=== PATIENT | female | born 1970 | race Caucasian/White ===

== ENCOUNTER 2016-12-22 06:13 | Day surgery (SDC) | payer BC ==
[~2016-12-22 06:13] MED LIST: Lactated Ringers 1,000 ML IV SCH; Lidocaine 1%/Sod Bicarbonate in NS 8.4% 1 ML Syringe PRN; Sodium Chloride 0.9% 10 ML Syringe FLUSH PRN
[2016-12-22] MEDS ORDERED: Bupivacaine 0.5%/EPINEPHrine 1:200,000 50 ML MDV ONE (07:04)
[2016-12-22] MEDS ORDERED: Propofol 200 MG/20 ML SDV ONE (07:21)
[2016-12-22] MEDS ORDERED: fentaNYL 250 MCG/5 ML SDV ONE (07:21)
[2016-12-22] MEDS ORDERED: Midazolam 1 MG/ML 2 ML SDV ONE (07:21)
[2016-12-22] MEDS ORDERED: Ondansetron 4 MG/2 ML SDV ONE (07:29)
[2016-12-22] MEDS ORDERED: Dexamethasone 4 MG/ML 5 ML MDV ONE (07:29)
[2016-12-22] MEDS ORDERED: Ketorolac 30 MG/ML SDV ONE (07:29)
[2016-12-22] MEDS ORDERED: Lidocaine 1% 4 ML ONE (07:29)
[2016-12-22] MEDS ORDERED: Cyclobenzaprine 10 MG Tab PO PRN (07:33)
[2016-12-22] MEDS ORDERED: Ondansetron 4 MG/2 ML SDV IVPUSH PRN ×2 (07:33→08:35)
[2016-12-22] MEDS ORDERED: Ketorolac 30 MG/ML SDV IVPUSH PRN (07:33)
[2016-12-22] MEDS ORDERED: Morphine 15 MG Tab.ER PO SCH (07:45)
--- NOTE | 2016-12-22 07:45 | PCM.PREANE ---
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 symptoms Respiratory: Reports: no symptoms Cardiovascular: Reports: no symptoms GI: Reports: no symptoms Other: Reports: none - PHYSICAL ASSESSMENT O2 Sat by Pulse Oximetry: 100 RR: 10 Vital Signs: Last Vital Signs Temp 36.1 C 12/22/16 07:00 Pulse 85 12/22/16 07:00 Resp 10 L 12/22/16 07:00 BP 124/72 12/22/16 07:00 Pulse Ox 100 12/22/16 07:00 Height: 1.6 m Weight: 62.142 kg NPO Status Date: 12/21/16 NPO Status Time: 20:00 ASA Class: 3 Mental Status: alert & oriented x3 Airway Class: Mallampati = 1 Dentition: Reports: edentulous Thyro-Mental Finger Breadths: 3 Mouth Opening Finger Breadths: 5 ROM/Head Extension: full Respiratory Status: lungs clear to auscultation bilaterally Cardiovascular Status: regular rate & rhythm, normal S1, S2, no murmur, blood pressure WNL - LAB Values: reviewed labs - ALLERGIES Allergies/Adverse Reactions: Allergies Allergy/AdvReac Type Severity Reaction Status Date / Time codeine Allergy Intermediate Difficulty Verified 12/21/16 14:39 Breathing diclofenac sodium Allergy Intermediate Difficulty Verified 12/21/16 14:39 [From Voltaren] Breathing hydrocodone Allergy Intermediate Difficulty Verified 12/21/16 14:39 Breathing naproxen sodium [From Aleve] Allergy Intermediate Difficulty Verified 12/21/16 14:39 Breathing Penicillins Allergy Intermediate Difficulty Verified 12/21/16 14:39 Breathing pseudoephedrine HCl Allergy Intermediate Difficulty Verified 12/21/16 14:39 [From Sudafed] Breathing Sulfa (Sulfonamide Allergy Intermediate Difficulty Verified 12/21/16 14:39 Antibiotics) Breathing animal dander Allergy Difficulty Verified 12/21/16 14:39 Breathing bee pollen Allergy Cannot Verified 12/21/16 14:39 Remember fish derived Allergy Cannot Verified 12/21/16 14:39 Remember influenza virus vaccine, Allergy Rash Verified 12/21/16 14:39 specific Influenza Virus Vaccines Allergy Rash Verified 12/21/16 14:39 iodine Allergy Difficulty Verified 12/21/16 14:39 Breathing mold Allergy Difficulty Verified 12/21/16 14:39 Breathing nabumetone [From Relafen] Allergy Cannot Verified 12/21/16 14:39 Remember olive oil Allergy Difficulty Verified 12/21/16 14:39 Breathing pollen extracts Allergy Difficulty Verified 12/21/16 14:39 Breathing prednisone Allergy Difficulty Verified 12/21/16 14:39 Breathing wheat Allergy Difficulty Verified 12/21/16 14:39 Breathing DUST Allergy Difficulty Uncoded 12/21/16 14:39 Breathing - BLOOD Blood Available: No - ANESTHESIA PLAN Preop Beta Aleah: No Anesthesia Type Planned: general anesthesia - ACKNOWLEDGEMENTS Pt an appropriate candidate for the planned anesthesia: Yes Alternatives and risks of anesthesia discussed w pt/guardian: Yes Pt/Guardian understands and agree with anesthesia plan: Yes PreAnesthesia Questionnaire HEENT 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: Allergic rhinitis, Sinusitis Cardiovascular 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: None Respiratory 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: Asthma Other Respiratory History: Moderate snoring Gastrointestinal 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: GERD, GI bleed, Helicobacter pylori, PUD Genitourinary 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: Other (see below) Other Genitourinary History: bilirubenimia, dysuria, UTI 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: , Other (see below) (hysterectomy) Other OB/BYN History: history of ovarian cyst Other Musculoskeletal History: degenerative tear of medial meniscus (L), knee pain, patellar malignant syndrome (bilateral),osteochondrosis synovitis of knee , L patellar chrondromalacia, L knee cintusion, R knee locking, R knee contusion , L hip greater trochanter bursitis Neurological 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: Migraines Psychiatric 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: None Endocrine/Metabolic 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: None Hematologic 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: None Immunologic 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: None Oncologic (Cancer) 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: None Dermatologic 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: Other (see below) Other Dermatologic History: sebaceous cyst - Past Surgical History Head Surgeries/Procedures: Reports: None HEENT Surgical 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: Tonsillectomy Other HEENT Surgeries/Procedures: has dentures and partial GI Surgical 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: Bariatric procedure, Cholecystectomy Other GI Surgeries/Procedures: 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 Second Hand Smoke Exposure: Yes Days Per Week of Alcohol Use: 0 Recreational Drug Use History: No - HOME MEDS Home Medications: Home Meds Cetirizine HCl [Allergy Relief] 10 mg PO DAILY 10/27/14 [History] Fluticasone/Salmeterol [Advair HFA 45-21 MCG] 2 puff INH BID 10/27/14 [History] Ipratropium/Albuterol Sulfate [Iprat-Albut 0.5-3(2.5) MG/3 ML] 1 puff INH Q4H PRN 10/27/14 [History] Fexofenadine [Maria Luisa] 180 mg PO DAILY 08/31/15 [History] Fluticasone Propionate [Flonase] 1 spray NASBOTH BID 08/31/15 [History] Montelukast [Singulair] 10 mg PO DAILY 08/31/15 [History] Omeprazole Magnesium [Prilosec Otc] 40 mg PO DAILY 09/22/16 [History] Ca Carbonate/Vitamin D3/Vit K [Calcium + D Soft Chewable Tab] 1 tab PO DAILY [History] Cyanocobalamin (Vitamin B-12) [Vitamin B-12] 1 tab PO DAILY 10/05/16 [History] Cyclobenzaprine [Flexeril] 1 tab PO TID PRN 10/05/16 [History] Multivitamin [One Daily] 1 tab PO DAILY 10/05/16 [History] SUMAtriptan Succinate [Sumatriptan Succinate] 1 tab PO ASDIRECTED PRN 10/05/16 [ History] Celecoxib 200 mg PO DAILY 12/21/16 [History] Estradiol [Estradiol] 1 tab PO DAILY 12/21/16 [History] Gabapentin [Neurontin] 100 mg PO TID 12/21/16 [History] - CURRENT (IN HOUSE) MEDS Current Meds: Current Medications Cyclobenzaprine HCl (Flexeril) 10 - 20 mg PO Q8H PRN PRN Reason: Muscle Spasm Stop: 12/22/16 18:00 Lactated Ringer's (Ringers, Lactated) 1,000 mls @ 125 mls/hr IV ASDIRECTED FLAQUITO Stop: 12/22/16 23:00 Ketorolac Tromethamine (Toradol) 30 mg IVPUSH Q6H PRN PRN Reason: Pain (severe 7-10) Stop: 12/22/16 18:00 Lidocaine/Sodium Bicarbonate (Buffered Lidocaine 1% In Ns 8.4%) 0.25 ml .XX ONETIME PRN PRN Reason: Prior to IV Start Stop: 12/22/16 18:00 Morphine Sulfate (Ms Contin) 15 mg PO ONETIME FLAQUITO Stop: 12/22/16 18:00 Ondansetron HCl (Zofran) 4 mg IVPUSH Q4H PRN PRN Reason: Nausea/Vomiting Stop: 12/22/16 18:00 Sodium Chloride (Saline Flush) 10 ml FLUSH ASDIRECTED PRN PRN Reason: Keep Vein Open Stop: 12/22/16 18:00 Discontinued Medications Bupivacaine HCl/Epinephrine Bitart (Marcaine 0.5%/Epinephrine 1:200,000) Confirm Administered Dose 50 ml .ROUTE .STK-MED ONE Stop: 12/22/16 07:05 Dexamethasone (Dexamethasone) Confirm Administered Dose 20 mg .ROUTE .STK-MED ONE Stop: 12/22/16 07:30 Epinephrine HCl (Adrenalin 1:1000) Confirm Administered Dose 30 mg .ROUTE .STK- MED ONE Stop: 12/22/16 07:06 Fentanyl (Sublimaze) Confirm Administered Dose 250 mcg .ROUTE .STK-MED ONE Stop: 12/22/16 07:22 Lidocaine HCl (Xylocaine-Mpf 1%) Confirm Administered Dose 4 mls @ as directed .ROUTE .STK-MED ONE Stop: 12/22/16 07:30 Ketorolac Tromethamine (Toradol) Confirm Administered Dose 30 mg .ROUTE .STK- MED ONE Stop: 12/22/16 07:30 Midazolam HCl (Versed 1 Mg/Ml) Confirm Administered Dose 2 mg .ROUTE .STK-MED ONE Stop: 12/22/16 07:22 Ondansetron HCl (Zofran) Confirm Administered Dose 4 mg .ROUTE .STK-MED ONE Stop: 12/22/16 07:30 Propofol (Diprivan 20 Ml) Confirm Administered Dose 600 mg .ROUTE .STK-MED ONE Stop: 12/22/16 07:22
[2016-12-22] MEDS ORDERED: ceFAZolin 1 GM Vial ONE (08:21)
[2016-12-22] MEDS ORDERED: Ketamine 500 mg/10 ML MDV ONE (08:22)
[2016-12-22] MEDS: EPINEPHrine 1:1000 1 MG/ML 30 ML MDV ONE ×2 (08:25→11:20)
[2016-12-22] MEDS ORDERED: Acetaminophen 1,000 MG/100 ML Infusion Bottle IV ONE (08:34)
[2016-12-22] MEDS ORDERED: fentaNYL 100 MCG/2 ML SDV IVPUSH PRN (08:35)
[2016-12-22] MEDS ORDERED: diphenhydrAMINE 50 MG/ML SDV IVPUSH PRN (08:35)
[2016-12-22] MEDS ORDERED: HYDROmorphone 1 MG/ML Syringe ONE (08:52)
[2016-12-22] MEDS ORDERED: Meperidine PF 50 MG/ML Syringe IVPUSH PRN (09:40)
[2016-12-22] MEDS ORDERED: HYDROmorphone 0.5 MG/0.5 ML Syringe IVPUSH PRN (09:40)
--- NOTE | 2016-12-22 09:42 | PCM.POSTAN ---
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
[2016-12-22 11:12] VITALS: BP 127/70
--- NOTE | 2016-12-22 13:33 | PCM48HPAN ---
Post Anesthesia Note - EVALUATION WITHIN 48HRS OF ANESTHETIC Vital Signs in Normal Range: Yes Patient Participated in Evaluation: Yes Respiratory Function Stable: Yes Airway Patent: Yes Cardiovascular Function Stable: Yes Hydration Status Stable: Yes Pain Control Satisfactory: Yes Nausea and Vomiting Control Satisfactory: Yes Mental Status Recovered: Yes - COMMENTS/OBSERVATIONS Free Text/Narrative:: Report received from [facility]. Patient stable and met discharge criteria.
--- NOTE | 2016-12-22 13:48 | OR ---
DATE OF OPERATION: 12/22/2016 SURGEON: Ildefonso Rodrigez MD PREOPERATIVE DIAGNOSIS: 1. Fibrous adhesions, right knee, post arthroscopic surgery. 2. Fibrous contracture lateral retinaculum, right patella, right knee. POSTOPERATIVE DIAGNOSIS: 1. Fibrous adhesions, right knee, post arthroscopic surgery. 2. Fibrous contracture lateral retinaculum, right patella, right knee. OPERATION PERFORMED: 1. Irrigation and debridement of the right knee. 2. Arthroscopic removal of adhesions, right knee. 3. Lateral release of the right patella arthroscopically, right knee. ANESTHESIA: General. DESCRIPTION OF PROCEDURE: The patient was taken to the operating room in supine, placed under general anesthesia. The right leg was prepped and draped in standard fashion. Operation began with 2 portal incision. The patient's initial joint evaluation found where a cortisone injections that had been deposited in the joint area, these were removed. There was significant fibrous adhesions anteriorly coming off the tibia and extending towards the medial portal area causing a significant contracture of the anterior tissues of the joint. The adhesions were present and tightness present on both sides of the portal. These were released. Once released, it was found that the tension on the medial meniscus also relieved in that area. Once those adhesions were removed, the operation proceeded with inspection of the medial joint area. The condylar surface of the tibia showed mild osteochondrosis being present. The previous osteochondroplasty of the medial femoral condyle showed a mature coverage of scarred type cartilage formation after the osteochondroplasty had been performed. There was some loose edges that were just slightly removed. The operation then proceeded with inspection of the medial side of the patella area. Again, the tightness of the adhesion extending up was just released such that the pressure was taken on the medial soft of the medial side of the patella. Once these adhesions were released, the anterior portion of the joint was more clearly visualized and the area in and around the medial meniscus also was visualized and probed. From the posterior horn anteriorly, no recurrent tears were noted. There was significant roughening of the superior surface of the meniscus in the midline area right in the region of the osteochondroplasty. This was lightly smoothed out and then the operation proceeded to the intercondylar notch area and the cruciate ligaments were intact. Then, the lateral compartment was then evaluated. The lateral meniscus was found to be intact. It had fraying of the central edges which were lightly smoothed with the ArthroCare unit. The condylar surfaces were intact. There was also adhesions off the lateral portal extending anteriorly and these were released. Then, the operation proceeded with inspection of the patella. The patellofemoral joint was very tight and unable to move the patella to slide an arthroscope on direct realizing that the lateral retinaculum had reattached itself from a previous lateral release of the patella. This was visualized on the MRI. The scarred lateral retinaculum was then isolated and on new release was carried out beginning from the lateral portal and extending up to just above the superior pole of patella on the lateral side of the patella. Once it was released, then the patellofemoral joint opened up very nicely. There was a good movement of the patella. The tightness of the joint itself was significantly reduced such that the arthroscope could be passed on the patella with minimal difficulty. The operation then proceeded with dropping of the tourniquet. After it was satisfied, both the medial compartment and lateral compartment were intact and the suprapatellar area was intact. Evaluation of the lateral release site found no bleeding coming in the area of the lateral geniculate artery or in the artery itself. The operation then proceeded with final irrigation of the joint area. The skin was closed with 3-0 Prolene. Haddad dressing was applied. The patient tolerated this whole procedure well and left the operative room in stable condition to her room for recovery. ESTIMATED BLOOD LOSS: CATARINO /[id number]
== END 2016-12-22 11:40 | disposition home or self-care (01) ==
LOC: JD.SDS 06:13
PROVIDERS: ATTEND Specialist
DX: M24.561 Contracture, right knee (principal); K21.9 Gastro-esophageal reflux disease without esophagitis; E66.01 Morbid (severe) obesity due to excess calories; Z88.8 Allergy status to other drugs, medicaments and biological substances; Z88.2 Allergy status to sulfonamides; Z88.6 Allergy status to analgesic agent; Z91.030 Bee allergy status; J30.81 Allergic rhinitis due to animal (cat) (dog) hair and dander; Z88.0 Allergy status to penicillin; Z91.013 Allergy to seafood; Z79.899 Other long term (current) drug therapy; Z90.710 Acquired absence of both cervix and uterus; Z98.51 Tubal ligation status; Z98.84 Bariatric surgery status; F17.210 Nicotine dependence, cigarettes, uncomplicated; Z72.0 Tobacco use
CPT/HCPCS: 01400; 87075; 87205; A9270-GY; J0171; J0690; J1100; J1170; J1885; J2250; J2405; J2704; J3010; J7120

== ENCOUNTER 2017-02-08 07:38 | Emergency (ER) | payer BC ==
[2017-02-08] MEDS ORDERED: Metoclopramide 10 MG/2 ML SDV IVPUSH ONE (07:57)
[2017-02-08] MEDS ORDERED: diphenhydrAMINE 50 MG/ML SDV IVPUSH ONE (07:58)
[2017-02-08] MEDS ORDERED: Sodium Chloride 0.9% 1,000 ML IV SCH (08:00)
--- NOTE | 2017-02-08 08:01 | EDM.PDOC ---
ED HPI RENAL/ - General Chief Complaint: Abdominal Pain Stated Complaint: [facility] Time Seen by Provider: 02/08/17 07:56 Source of Information: Reports: Patient History Limitations: Reports: No limitations - History of Present Illness INITIAL COMMENTS - FREE TEXT/NARRATIVE: 46-year-old female presents to the ED per [facility]. She reports is around 0600 hours this morning shortly after she got up for the day she developed sudden onset of severe right flank and right rahat-abdominal pain radiate down to her right groin. Pain gradually increased in intensity over the ensuing hour. Associated nausea without any vomiting. Associated feeling of need to void and defecate. She fell down position troubles to settle in the yassine. Any blood in her urine this morning. No history of previous kidney stones. Previous abdominal surgery includes a cholecystectomy and a total abdominal hysterectomy and BSO. She did receive a milligram of morphine en route to hospital with some relief of the pain. Currently is 8/10. Pain is constant with a strong colicky component primarily in her right flank. Symptom Onset Date: 02/08/17 Symptom Onset Time: 06:00 Timing/Duration: Reports: Hour(s):, Sudden onset Location: Reports: flank (Right flank with radicular pain into the right hemiabdomen down to the groin.) Quality: Reports: ache, cramping, stabbing Severity: severe Improves with: Reports: other Context: Reports: other (Pain started shortly after she woke up for the day.). Denies: sick contact, recent surgery (Nothing seems to make it better or worse.) , recent trauma, lifting, activity/exercise Associated Symptoms: Reports: frequency, urgency, voiding small amounts. 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 (see below) (Receive morphine 1 mg en route to the hospital.) - Related Data Allergies/ADRs: Allergies Allergy/AdvReac Type Severity Reaction Status Date / Time codeine Allergy Intermediate Difficulty Verified 02/08/17 07:45 Breathing diclofenac sodium Allergy Intermediate Difficulty Verified 02/08/17 07:45 [From Voltaren] Breathing hydrocodone Allergy Intermediate Difficulty Verified 02/08/17 07:45 Breathing naproxen sodium [From Aleve] Allergy Intermediate Difficulty Verified 02/08/17 07:45 Breathing Penicillins Allergy Intermediate Difficulty Verified 02/08/17 07:45 Breathing pseudoephedrine HCl Allergy Intermediate Difficulty Verified 02/08/17 07:45 [From Sudafed] Breathing Sulfa (Sulfonamide Allergy Intermediate Difficulty Verified 02/08/17 07:45 Antibiotics) Breathing animal dander Allergy Difficulty Verified 02/08/17 07:45 Breathing bee pollen Allergy Cannot Verified 02/08/17 07:45 Remember fish derived Allergy Cannot Verified 02/08/17 07:45 Remember influenza virus vaccine, Allergy Rash Verified 02/08/17 07:45 specific Influenza Virus Vaccines Allergy Rash Verified 02/08/17 07:45 iodine Allergy Difficulty Verified 02/08/17 07:45 Breathing mold Allergy Difficulty Verified 02/08/17 07:45 Breathing nabumetone [From Relafen] Allergy Cannot Verified 02/08/17 07:45 Remember olive oil Allergy Difficulty Verified 02/08/17 07:45 Breathing pollen extracts Allergy Difficulty Verified 02/08/17 07:45 Breathing prednisone Allergy Difficulty Verified 02/08/17 07:45 Breathing wheat Allergy Difficulty Verified 02/08/17 07:45 Breathing DUST Allergy Difficulty Uncoded 02/08/17 07:45 Breathing Home Meds: Home Meds Cetirizine HCl [Allergy Relief] 10 mg PO DAILY 10/27/14 [History] Fluticasone/Salmeterol [Advair HFA 45-21 MCG] 2 puff INH BID 10/27/14 [History] Ipratropium/Albuterol Sulfate [Iprat-Albut 0.5-3(2.5) MG/3 ML] 1 puff INH Q4H PRN 10/27/14 [History] Fexofenadine [Maria Luisa] 180 mg PO DAILY 08/31/15 [History] Fluticasone Propionate [Flonase] 1 spray NASBOTH BID 08/31/15 [History] Montelukast [Singulair] 10 mg PO DAILY 08/31/15 [History] Omeprazole Magnesium [Prilosec Otc] 40 mg PO DAILY 09/22/16 [History] Ca Carbonate/Vitamin D3/Vit K [Calcium + D Soft Chewable Tab] 1 tab PO DAILY [History] Cyanocobalamin (Vitamin B-12) [Vitamin B-12] 1 tab PO DAILY 10/05/16 [History] Cyclobenzaprine [Flexeril] 1 tab PO TID PRN 10/05/16 [History] Multivitamin [One Daily] 1 tab PO DAILY 10/05/16 [History] Estradiol [Estradiol] 1 tab PO DAILY 12/21/16 [History] Gabapentin [Neurontin] 100 mg PO TID 12/21/16 [History] HYDROmorphone [Dilaudid] 2 mg PO Q6H PRN #5 tablet 02/08/17 [Rx] Ondansetron [Zofran ODT] 4 mg PO Q6H #5 tab.dis 02/08/17 [Rx] Past Medical History HEENT 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: Allergic rhinitis, Sinusitis Cardiovascular 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: None Respiratory 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: Asthma Other Respiratory History: Moderate snoring Gastrointestinal 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: GERD, GI bleed, Helicobacter pylori, PUD Genitourinary 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: Other (see below) Other Genitourinary History: bilirubenimia, dysuria, UTI 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: , Other (see below) Other OB/BYN History: history of ovarian cyst Other Musculoskeletal History: degenerative tear of medial meniscus (L), knee pain, patellar malignant syndrome (bilateral),osteochondrosis synovitis of knee , L patellar chrondromalacia, L knee cintusion, R knee locking, R knee contusion , L hip greater trochanter bursitis Neurological 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: Migraines Psychiatric 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: None Endocrine/Metabolic 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: None Hematologic 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: None Immunologic 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: None Oncologic (Cancer) 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: None Dermatologic 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: Other (see below) Other Dermatologic History: sebaceous cyst - Past Surgical History Head Surgeries/Procedures: Reports: None HEENT Surgical 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: Tonsillectomy Other HEENT Surgeries/Procedures: has dentures and partial GI Surgical 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: Bariatric procedure, Cholecystectomy Other GI Surgeries/Procedures: 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 Female Surgical 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: Hysterectomy, Oophorectomy, Tubal ligation Musculoskeletal Surgical 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: Other (see below) Other Musculoskeletal Surgeries/Procedures:: L knee arthroscopy x 2, R knee arthroscopy, L foot surgery Social & Family History - Family History Family Medical History: Noncontributory - Tobacco Use Smoking Status *Q: Never Smoker Years of Tobacco use: 18 Month Tobacco Last Used: 1 yr Second Hand Smoke Exposure: Yes - Caffeine Use Caffeine Use: Reports: None - Alcohol Use Days Per Week of Alcohol Use: 0 - Recreational Drug Use Recreational Drug Use: No Drug Use in Last 12 Months: No ED ROS GENERAL - Review of Systems Review Of Systems: See Below Constitutional: Denies: fever, chills, malaise, fatigue, decreased appetite, weight loss HEENT: Reports: No symptoms Respiratory: Reports: No Symptoms, Cough Endocrine: Reports: no symptoms GI/Abdominal: Reports: Abdominal pain (See history of present illness) : Reports: flank pain, frequency. Denies: hematuria, irregular menses, urgency, urinary retention Musculoskeletal: Reports: back pain (Right flank.) Skin: Reports: no symptoms Neurological: Reports: No Symptoms Psychiatric: Reports: No symptoms ED EXAM, RENAL/ - Physical Exam Exam: See Below Exam Limited By: No limitations General Appearance: alert, moderate distress (In obvious discomfort. Lies in the position but no position is comfortable.) Eye Exam: bilateral eye: normal inspection Respiratory/Chest: no respiratory distress, lungs clear, normal breath sounds, no accessory muscle use, chest non-tender Cardiovascular: normal peripheral pulses, regular rate, rhythm, no edema, no gallop, no murmur GI/Abdominal: normal bowel sounds, soft, non tender, no organomegaly, no distention, no abnormal bruit, no mass Back Exam: normal inspection, full range of motion, CVA tenderness (R) (Mild to) Extremities: normal inspection, normal range of motion, non-tender, normal capillary refill Neurological: alert, oriented, CN II-XII intact, normal cognition Psychiatric: normal affect, normal mood Skin Exam: Warm, Dry, Intact, Normal color, No rash Course - Vital Signs Last Recorded V/S: Last Vital Signs Temp 36.5 C 02/08/17 07:41 Pulse 75 02/08/17 10:18 Resp 16 02/08/17 10:18 BP 121/67 02/08/17 10:18 Pulse Ox 99 02/08/17 10:18 - Orders/Labs/Meds Labs: Laboratory Tests 02/08/17 Range/Units 08:15 Urine Color Yellow (Yellow) Urine Appearance Clear (Clear) Urine pH 6.0 (5.0-8.0) Ur Specific [place] 1.025 (1.005-1.030) Urine Protein 1+ H (Negative) Urine Glucose (UA) Negative (Negative) Urine Ketones Negative (Negative) Urine Occult Blood 2+ H (Negative) Urine Nitrite Negative (Negative) Urine Bilirubin Negative (Negative) Urine Urobilinogen 1.0 (0.2-1.0) Ur Leukocyte Esterase Trace H (Negative) Urine RBC 40-50 H (0-5) /hpf Urine WBC 0-5 (0-5) /hpf Ur Epithelial Cells 0-5 (0-5) /hpf Urine Bacteria Few (FEW) /hpf Urine Mucus Few (FEW) /hpf Meds: Medications Discontinued Medications Generic Name Dose Route Start Last Admin Trade Name Freq PRN Reason Stop Dose Admin Diphenhydramine HCl 25 mg 02/08/17 07:58 02/08/17 08:09 Benadryl IVPUSH 02/08/17 07:59 25 mg ONETIME ONE Administration Hydromorphone HCl 0.5 mg 02/08/17 07:57 02/08/17 08:25 Dilaudid IM 02/08/17 07:58 Not Given ONETIME ONE Hydromorphone HCl 0.5 mg 02/08/17 08:21 02/08/17 08:13 Dilaudid IVPUSH 02/08/17 08:22 0.5 mg ONETIME STA Administration Hydromorphone HCl 0.5 mg 02/08/17 08:29 02/08/17 08:43 Dilaudid IVPUSH 02/08/17 08:30 0.5 mg ONETIME ONE Administration Sodium Chloride 1,000 mls @ 150 mls/hr 02/08/17 08:00 02/08/17 08:06 Normal Saline IV 150 mls/hr ASDIRECTED FLAQUITO Administration Metoclopramide HCl 7.5 mg 02/08/17 07:57 02/08/17 08:11 Reglan IVPUSH 02/08/17 07:58 7.5 mg ONETIME ONE Administration - Radiology Interpretation Free Text/Narrative:: 46-year-old female presents the ED with sudden onset of severe right flank pain rating at her right groin. This started at 0600 hours this morning shortly after she had awakened for the day. Associated constant need to void. No position is couple. This is the worst pain she ever experienced. No history of kidney stones. Exam reveals a benign abdominal exam with a few bowel sounds present. Mild right costovertebral angle tenderness. Assessment right knee stone. Plan CT abdomen pelvis without contrast. IV normal saline at 150 mils per hour given Dilaudid 0.5 mg IV with Reglan 7.5 mg IV and Benadryl 25 mg IV. Patient has a history of allergies to OxyContin oxycodone and hydrocodone. - Re-Assessments/Exams Free Text/Narrative Re-Assessment/Exam: 02/08/17 08:29 she currently rates her pain as a 7 or 8/10. Therefore Dilaudid 0.5 mg will be repeated IV. Awaiting CT exam. Urinalysis did show 2+ blood. No signs of infection 02/08/17 08:15: Pain is reported to be down to zero. CT scan reveals a 3 mm stone at the UV J. just about entering the bladder on the right side. There are 3 stones in the left renal parenchyma the largest of which is about 8 mm. Patient was advised that these could become problematic in the future. She will be discharged with a urinary still and once the stone is passed she will not have to collect urine any further. It is likely to pass within the next 48 hours. I will give her a few tablets of Dilaudid 2 mg strength that she can take as needed every 6 hours. For recurrence of pain 5 tablets provided. She is allergic to oxycodone and hydrocodone. Departure - Departure Time of Disposition: 09:50 Disposition: Home, Self-Care 01 Condition: fair Clinical Impression: Renal colic on right side Prescriptions: HYDROmorphone [Dilaudid] 2 mg PO Q6H PRN #5 tablet PRN Reason: Renal colic Ondansetron [Zofran ODT] 4 mg PO Q6H #5 tab.dis Instructions: Renal Colic, [id number] Referrals: Rene Stewart MD [Primary Care Provider] - Forms: ED Department Discharge Additional Instructions: Evaluation in the emergency department today in regards to development of this acute onset of severe right flank pain early this morning radiating down to the right groin. Identified culprit is a 3 mm stone at the very end of the ureter nearly in the bladder on the right side. After this stone will pass into the bladder today or tomorrow and then the pain will be completely gone. There are 3 stones embedded in the tissue of the left kidney which may become problematic in the future. No other stones were identified in the right kidney. Evidence of previous surgeries identified. Mild constipation is present. Treatment today is plenty of fluids activity as tolerated. May use hydromorphone tablets one half to one full tablet every 4-6 hours as needed for relief of recurrence of pain. Zofran 4 mg may be used under the tongue every 4-6 hours if needed for nausea relief as well. They eat and drink per normal. I would suggest no calcium added diet as continued intake of high calcium we'll continue to make more kidney stones. Suggest having your calcium and parathyroid hormone levels checked when you see her doctor next time. Suggest treating your urine until the stone was identified to pass. It may be zaidi or blackish in color and should feel like a small pebble or stone.
[2017-02-08] MEDS: HYDROmorphone 0.5 MG/0.5 ML Syringe IM ONE ×2 (08:12→08:25)
[2017-02-08] MEDS ORDERED: HYDROmorphone 0.5 MG/0.5 ML Syringe IVPUSH STA (08:21)
[2017-02-08] MEDS ORDERED: HYDROmorphone 0.5 MG/0.5 ML Syringe IVPUSH ONE (08:29)
--- NOTE | 2017-02-08 08:58 | CT ---
CT abdomen and pelvis Technique: Multiple axial sections were obtained from above the kidneys inferiorly through the pubic symphysis. Intravenous and oral contrast was not utilized. Study has been performed as a ureteral stone protocol. Comparison: Previous CT abdomen and pelvis exam of 09/22/16 is available. Findings: 2 nonobstructing calculi are seen within the left kidney. Lowermost stone is unchanged from prior study. Stone more cephalad has increased in size from prior exam which currently measures 8 mm comparing to 4 mm on prior exam. No other abnormal calcifications are seen within the kidneys. Right ureter is dilated down to the UVJ. This finding is caused by a 3 mm obstructing stone within the distal right ureter at the UVJ close to passing into the bladder. No other abnormal calcifications are seen. Other findings: Previous cholecystectomy is noted. Previous bowel surgery is seen. Visualized noncontrast appearance of the lower liver and spleen appears within normal limits. Pancreas shows no discrete abnormality. Adrenal glands show no nodule. Aorta shows no aneurysmal dilatation. No retroperitoneal adenopathy or mesenteric abnormalities are seen. No pelvic mass or adenopathy is seen. Bone window settings were reviewed which shows mild degenerative change within the spine. Impression: 1. Nonobstructing calculi within the left kidney as noted above. 2. Dilated right ureter caused by a distal right ureteral stone measuring 3 mm located at the UVJ and appearing close to passing into the bladder. 3. Other incidental findings. Diagnostic code #3
[2017-02-08 10:21] VITALS: BP 121/67
== END 2017-02-08 10:10 | disposition home or self-care (01) ==
LOC: JD.ED 07:38
DX: N20.0 Calculus of kidney (principal); J45.909 Unspecified asthma, uncomplicated; K21.9 Gastro-esophageal reflux disease without esophagitis; Z87.891 Personal history of nicotine dependence; Z79.899 Other long term (current) drug therapy; Z88.0 Allergy status to penicillin; Z88.6 Allergy status to analgesic agent; Z91.030 Bee allergy status; Z91.02 Food additives allergy status; Z88.2 Allergy status to sulfonamides; Z88.7 Allergy status to serum and vaccine; Z91.09 Other allergy status, other than to drugs and biological substances
CPT/HCPCS: 74176; 81001; 96361; 96374; 96375; 96376; 99285; J1170; J1200; J2765; J7040; 99284

== ENCOUNTER 2017-05-01 06:04 | Inpatient (IN) | payer BC ==
[2017-05-01] MEDS ORDERED: Sodium Chloride 0.9% 10 ML Syringe FLUSH PRN (06:35)
[2017-05-01] MEDS ORDERED: Ondansetron 4 MG/2 ML SDV IVPUSH ONE ×2 (06:35→10:07)
[2017-05-01] MEDS ORDERED: HYDROmorphone 1 MG/ML Syringe IVPUSH ONE ×3 (06:36→11:05)
[2017-05-01] MEDS ORDERED: Ketorolac 30 MG/ML SDV IVPUSH ONE (06:37)
--- NOTE | 2017-05-01 06:43 | EDM.PDOC ---
<Donnie Fuchs - Last Filed: 05/01/17 11:25> ED HPI GENERAL MEDICAL PROBLEM - General Chief Complaint: Back Pain or Injury Stated Complaint: BACK PAIN KIDNEY PAIN Time Seen by Provider: 05/01/17 06:30 - Related Data Allergies Allergy/AdvReac Type Severity Reaction Status Date / Time codeine Allergy Intermediate Difficulty Verified 05/01/17 06:16 Breathing diclofenac sodium Allergy Intermediate Difficulty Verified 05/01/17 06:16 [From Voltaren] Breathing hydrocodone Allergy Intermediate Difficulty Verified 05/01/17 06:16 Breathing naproxen sodium [From Aleve] Allergy Intermediate Difficulty Verified 05/01/17 06:16 Breathing Penicillins Allergy Intermediate Difficulty Verified 05/01/17 06:16 Breathing pseudoephedrine HCl Allergy Intermediate Difficulty Verified 05/01/17 06:16 [From Sudafed] Breathing Sulfa (Sulfonamide Allergy Intermediate Difficulty Verified 05/01/17 06:16 Antibiotics) Breathing animal dander Allergy Difficulty Verified 05/01/17 06:16 Breathing bee pollen Allergy Cannot Verified 05/01/17 06:16 Remember fish derived Allergy Cannot Verified 05/01/17 06:16 Remember influenza virus vaccine, Allergy Rash Verified 05/01/17 06:16 specific Influenza Virus Vaccines Allergy Rash Verified 05/01/17 06:16 iodine Allergy Difficulty Verified 05/01/17 06:16 Breathing mold Allergy Difficulty Verified 05/01/17 06:16 Breathing nabumetone [From Relafen] Allergy Cannot Verified 05/01/17 06:16 Remember olive oil Allergy Difficulty Verified 05/01/17 06:16 Breathing pollen extracts Allergy Difficulty Verified 05/01/17 06:16 Breathing prednisone Allergy Difficulty Verified 05/01/17 06:16 Breathing DUST Allergy Difficulty Uncoded 05/01/17 06:16 Breathing Home Meds: Home Meds Cetirizine HCl [Allergy Relief] 10 mg PO DAILY 10/27/14 [History] Fluticasone/Salmeterol [Advair HFA 45-21 MCG] 2 puff INH BID 10/27/14 [History] Ipratropium/Albuterol Sulfate [Iprat-Albut 0.5-3(2.5) MG/3 ML] 1 puff INH Q4H PRN 10/27/14 [History] Fexofenadine [Maria Luisa] 180 mg PO DAILY 08/31/15 [History] Fluticasone Propionate [Flonase] 1 spray NASBOTH BID 08/31/15 [History] Montelukast [Singulair] 10 mg PO DAILY 08/31/15 [History] Omeprazole Magnesium [Prilosec Otc] 40 mg PO DAILY 09/22/16 [History] Ca Carbonate/Vitamin D3/Vit K [Calcium + D Soft Chewable Tab] 1 tab PO DAILY [History] Cyanocobalamin (Vitamin B-12) [Vitamin B-12] 1 tab PO DAILY 10/05/16 [History] Cyclobenzaprine [Flexeril] 1 tab PO TID PRN 10/05/16 [History] Multivitamin [One Daily] 1 tab PO DAILY 10/05/16 [History] Estradiol [Estradiol] 1 tab PO BEDTIME 12/21/16 [History] Gabapentin [Neurontin] 100 mg PO TID 12/21/16 [History] HYDROmorphone [Dilaudid] 2 mg PO Q6H PRN #5 tablet 02/08/17 [Rx] Ondansetron [Zofran ODT] 4 mg PO Q6H #5 tab.dis 02/08/17 [Rx] Acetaminophen/oxyCODONE [Percocet 325-5 MG] 1 tab PO Q4H 05/01/17 [History] Sodium Citrate Dihydrate [Sodium Citrate] 15 ml PO TID 05/01/17 [History] Tamsulosin HCl 0.4 mg PO DAILY 05/01/17 [History] Course - Vital Signs Last Recorded V/S: Last Vital Signs Temp 99.5 F 05/01/17 15:34 Pulse 83 05/01/17 15:34 Resp 12 05/01/17 15:34 BP 125/78 05/01/17 15:34 Pulse Ox 99 05/01/17 15:34 - Orders/Labs/Meds Orders: Active Orders 24 hr Category Date Time Status Intake and Output [RC] 04,16 Care 05/01/17 13:05 Active Oxygen Therapy [RC] PRN Care 05/01/17 13:04 Active Up With Assistance [RC] ASDIRECTED Care 05/01/17 13:04 Active Up ad Demi [RC] ASDIRECTED Care 05/01/17 13:04 Active VTE/DVT Education [RC] PER UNIT ROUTINE Care 05/01/17 13:04 Active Vital Signs [RC] Q4H Care 05/01/17 13:04 Active Regular Diet [DIET] Diet 05/01/17 Lunch Active CBC WITH AUTO DIFF [HEME] AM Lab 05/02/17 05:11 Ordered CBC WITH AUTO DIFF [HEME] AM Lab 05/03/17 05:11 Ordered CBC WITH AUTO DIFF [HEME] AM Lab 05/04/17 05:11 Ordered CBC WITH AUTO DIFF [HEME] AM Lab 05/05/17 05:11 Ordered CULTURE URINE [RM] Stat Lab 05/01/17 06:30 Received Acetaminophen [Tylenol] Med 05/01/17 13:04 Active 650 mg PO Q4H PRN Albuterol/Ipratropium [DuoNeb 3.0-0.5 MG/3 ML] Med 05/01/17 13:04 Active 3 ml NEB Q4H PRN Bisacodyl [Dulcolax] Med 05/01/17 13:04 Active 5 mg PO DAILY PRN Docusate Sodium [Colace] Med 05/01/17 13:04 Active 100 mg PO BID PRN Docusate Sodium/Sennosides [Senna Plus] Med 05/01/17 13:04 Active 1 tab PO BID PRN HYDROmorphone [Dilaudid] Med 05/01/17 13:04 Active 1 mg IVPUSH Q6H PRN LORazepam [Ativan] Med 05/01/17 13:04 Active 1 mg IV Q6H PRN Ondansetron [Zofran] Med 05/01/17 13:04 Active 4 mg IV Q6H PRN Polyethylene Glycol 3350 [MiraLAX] Med 05/01/17 13:04 Active 17 gm PO DAILY PRN Promethazine [Phenergan] 12.5 mg Med 05/01/17 13:04 Active Sodium Chloride 0.9% [Normal Saline] 50 ml IV Q6H Sodium Chloride 0.9% [Normal Saline] 1,000 ml Med 05/01/17 06:45 Active IV ASDIRECTED Sodium Chloride 0.9% [Saline Flush] Med 05/01/17 06:35 Active 10 ml FLUSH ASDIRECTED PRN Temazepam [Restoril] Med 05/01/17 13:04 Active 15 mg PO BEDTIME PRN ED Antiemetic Medication Reflex [OM.PC] Stat Oth 05/01/17 06:35 Ordered Peripheral IV Insertion Adult [OM.PC] Stat Oth 05/01/17 06:35 Ordered Resuscitation Status Routine Resus Stat 05/01/17 13:04 Ordered Medication Orders Acetaminophen (Tylenol) 650 mg PO Q4H PRN PRN Reason: Pain (Mild 1-3)/fever Albuterol/Ipratropium (Duoneb 3.0-0.5 Mg/3 Ml) 3 ml NEB Q4H PRN PRN Reason: Shortness Of Breath/wheezing Bisacodyl (Dulcolax) 5 mg PO DAILY PRN PRN Reason: Constipation Calcium Carbonate (Calcium Carbonate/Vitamin D 1500 Mg-200 Unit) 1 tab PO DAILY [facility] Cyanocobalamin (Vitamin B12) 1,000 mcg PO DAILY [facility] Cyclobenzaprine HCl (Flexeril) 10 mg PO TID PRN PRN Reason: muscle spasms Docusate Sodium (Colace) 100 mg PO BID PRN PRN Reason: Constipation Estradiol (Estradiol) mg PO DAILY [facility] Flunisolide (Nasalide Nasal [place]) 0 ml NASBOTH BID [facility] Gabapentin (Neurontin) 100 mg PO TID [facility] Last Admin: 05/01/17 14:07 Dose: 100 mg Hydromorphone HCl (Dilaudid) 1 mg IVPUSH Q6H PRN PRN Reason: Pain (severe 7-10) Last Admin: 05/01/17 15:50 Dose: 1 mg Hydromorphone HCl (Dilaudid) 2 mg PO Q6H PRN PRN Reason: Renal colic Last Admin: 05/01/17 18:46 Dose: 2 mg Sodium Chloride (Normal Saline) 1,000 mls @ 125 mls/hr IV ASDIRECTED [facility] Last Admin: 05/01/17 14:08 Dose: 125 mls/hr Infusion: 05/01/17 14:08 Dose: 125 mls/hr Admin: 05/01/17 06:52 Dose: 125 mls/hr Levofloxacin/Dextrose 500 mg/ (Premix) 100 mls @ 100 mls/hr IV Q24H [facility] Promethazine HCl 12.5 mg/ (Sodium Chloride) 50.5 mls @ 100 mls/hr IV Q6H PRN PRN Reason: Nausea/Vomiting Lorazepam (Ativan) 1 mg IV Q6H PRN PRN Reason: Anxiety Mometasone Furoate/Formoterol Fumar (Dulera 100-5 Mcg) 0 puff IH BID [facility] Montelukast Sodium (Singulair) 10 mg PO DAILY [facility] Multivitamins (Thera) 1 each PO DAILY [facility] Ondansetron HCl (Zofran) 4 mg IV Q6H PRN PRN Reason: Nausea/Vomiting Ondansetron HCl (Zofran Odt) 4 mg PO Q6H PRN PRN Reason: NAUSEA Oxycodone HCl (Oxycontin) 20 mg PO Q12HR [facility] Sodium Citrate Dihydrate [Sodium Citrate] 15 Ml 0 each PO TID [facility] Last Admin: 05/01/17 15:53 Dose: 1 each Polyethylene Glycol (Miralax) 17 gm PO DAILY PRN PRN Reason: Constipation Saccharomyces Boulardii (Florastor) 500 mg PO DAILY [facility] Senna/Docusate Sodium (Senna Plus) 1 tab PO BID PRN PRN Reason: Constipation Sodium Chloride (Saline Flush) 10 ml FLUSH ASDIRECTED PRN PRN Reason: Keep Vein Open Last Admin: 05/01/17 06:50 Dose: 10 ml Tamsulosin HCl (Flomax) 0.4 mg PO DAILY [facility] Temazepam (Restoril) 15 mg PO BEDTIME PRN PRN Reason: Sleep Labs: Laboratory Tests 05/01/17 05/01/17 05/01/17 Range/Units 06:54 06:54 06:54 WBC 7.81 (3.98-10.04) K/mm3 RBC 4.92 (3.98-5.22) M/mm3 Hgb 15.1 (11.2-15.7) gm/L Hct 44.7 (34.1-44.9) % MCV 90.9 (79.4-94.8) fl MCH 30.7 (25.6-32.2) pg MCHC 33.8 (32.2-35.5) g/dl RDW Std Deviation 42.8 (36.4-46.3) fL Plt Count 275 (182-369) K/mm3 MPV 9.9 (9.4-12.3) fl Neut % (Auto) 75.8 H (34.0-71.1) % Lymph % (Auto) 15.4 L (19.3-51.7) % Howell % (Auto) 7.4 (4.7-12.5) % Eos % (Auto) 1.2 (0.7-5.8) Baso % (Auto) 0.1 (0.1-1.2) % Neut # (Auto) 5.92 (1.56-6.13) K/mm3 Lymph # (Auto) 1.20 (1.18-3.74) K/mm3 Howell # (Auto) 0.58 H (0.24-0.36) K/mm3 Eos # (Auto) 0.09 (0.04-0.36) K/mm3 Baso # (Auto) 0.01 (0.01-0.08) K/mm3 Sodium 139 (136-145) mEq/L Potassium 3.6 (3.5-5.1) mEq/L Chloride 103 (98-107) mEq/L Carbon Dioxide 30 (21-32) mEq/L Anion Gap 9.6 (5-15) BUN 9 (7-18) mg/dL Creatinine 0.9 (0.55-1.02) mg/dL Est Cr Clr Drug Dosing 65.30 mL/min Estimated GFR (MDRD) > 60 (>60) mL/min BUN/Creatinine Ratio 10.0 L (14-18) Glucose 92 (74-106) mg/dL Calcium 9.3 (8.5-10.1) mg/dL Total Bilirubin 0.9 (0.2-1.0) mg/dL AST 18 (15-37) U/L ALT 55 (14-59) U/L Alkaline Phosphatase 230 H (46-116) U/L Total Protein 7.6 (6.4-8.2) g/dl Albumin 3.8 (3.4-5.0) g/dl Globulin 3.8 gm/dL Albumin/Globulin Ratio 1.0 (1-2) Lipase 52 L (73-393) U/L HCG, Qual Negative (NEGATIVE) Urine Color (Yellow) Urine Appearance (Clear) Urine pH (5.0-8.0) Ur Specific [place] (1.005-1.030) Urine Protein (Negative) Urine Glucose (UA) (Negative) Urine Ketones (Negative) Urine Occult Blood (Negative) Urine Nitrite (Negative) Urine Bilirubin (Negative) Urine Urobilinogen (0.2-1.0) Ur Leukocyte Esterase (Negative) Urine RBC (0-5) /hpf Urine WBC (0-5) /hpf Ur Epithelial Cells (0-5) /hpf Urine Bacteria (FEW) /hpf Hyaline Casts (0-5) /lpf Urine Mucus (FEW) /hpf 05/01/17 Range/Units 06:54 WBC (3.98-10.04) K/mm3 RBC (3.98-5.22) M/mm3 Hgb (11.2-15.7) gm/L Hct (34.1-44.9) % MCV (79.4-94.8) fl MCH (25.6-32.2) pg MCHC (32.2-35.5) g/dl RDW Std Deviation (36.4-46.3) fL Plt Count (182-369) K/mm3 MPV (9.4-12.3) fl Neut % (Auto) (34.0-71.1) % Lymph % (Auto) (19.3-51.7) % Howell % (Auto) (4.7-12.5) % Eos % (Auto) (0.7-5.8) Baso % (Auto) (0.1-1.2) % Neut # (Auto) (1.56-6.13) K/mm3 Lymph # (Auto) (1.18-3.74) K/mm3 Howell # (Auto) (0.24-0.36) K/mm3 Eos # (Auto) (0.04-0.36) K/mm3 Baso # (Auto) (0.01-0.08) K/mm3 Sodium (136-145) mEq/L Potassium (3.5-5.1) mEq/L Chloride (98-107) mEq/L Carbon Dioxide (21-32) mEq/L Anion Gap (5-15) BUN (7-18) mg/dL Creatinine (0.55-1.02) mg/dL Est Cr Clr Drug Dosing mL/min Estimated GFR (MDRD) (>60) mL/min BUN/Creatinine Ratio (14-18) Glucose (74-106) mg/dL Calcium (8.5-10.1) mg/dL Total Bilirubin (0.2-1.0) mg/dL AST (15-37) U/L ALT (14-59) U/L Alkaline Phosphatase (46-116) U/L Total Protein (6.4-8.2) g/dl Albumin (3.4-5.0) g/dl Globulin gm/dL Albumin/Globulin Ratio (1-2) Lipase (73-393) U/L HCG, Qual (NEGATIVE) Urine Color Yellow (Yellow) Urine Appearance Clear (Clear) Urine pH 7.0 (5.0-8.0) Ur Specific [place] 1.020 (1.005-1.030) Urine Protein 2+ H (Negative) Urine Glucose (UA) Negative (Negative) Urine Ketones Negative (Negative) Urine Occult Blood 3+ H (Negative) Urine Nitrite Positive H (Negative) Urine Bilirubin Negative (Negative) Urine Urobilinogen 1.0 (0.2-1.0) Ur Leukocyte Esterase 3+ H (Negative) Urine RBC 50-75 H (0-5) /hpf Urine WBC Too numerous to cnt H (0-5) /hpf Ur Epithelial Cells 0-5 (0-5) /hpf Urine Bacteria Few (FEW) /hpf Hyaline Casts 0-5 (0-5) /lpf Urine Mucus Few (FEW) /hpf Meds: Medications Generic Name Dose Route Start Last Admin Trade Name Sidneyq PRN Reason Stop Dose Admin Acetaminophen 650 mg 05/01/17 13:04 Tylenol PO Q4H PRN Pain (Mild 1-3)/fever Albuterol/Ipratropium 3 ml 05/01/17 13:04 Duoneb 3.0-0.5 Mg/3 Ml NEB Q4H PRN Shortness Of Breath/wheezing Bisacodyl 5 mg 05/01/17 13:04 Dulcolax PO DAILY PRN Constipation Calcium Carbonate 1 tab 05/02/17 09:00 Calcium Carbonate/Vitamin D 1500 Mg-200 Unit PO DAILY [facility] Cyanocobalamin 1,000 mcg 05/02/17 09:00 Vitamin B12 PO DAILY [facility] Cyclobenzaprine HCl 10 mg 05/01/17 13:17 Flexeril PO TID PRN muscle spasms Docusate Sodium 100 mg 05/01/17 13:04 Colace PO BID PRN Constipation Estradiol mg 05/02/17 09:00 Estradiol PO DAILY [facility] Flunisolide 0 ml 05/01/17 21:00 Nasalide Nasal [place] NASBOTH BID [facility] Gabapentin 100 mg 05/01/17 15:00 05/01/17 14:07 Neurontin PO 100 mg TID [facility] Administration Hydromorphone HCl 1 mg 05/01/17 13:04 05/01/17 15:50 Dilaudid IVPUSH 1 mg Q6H PRN Administration Pain (severe 7-10) Hydromorphone HCl 2 mg 05/01/17 13:17 05/01/17 18:46 Dilaudid PO 2 mg Q6H PRN Administration Renal colic Sodium Chloride 1,000 mls @ 125 mls/hr 05/01/17 06:45 05/01/17 14:08 Normal Saline IV 125 mls/hr ASDIRECTED [facility] Administration Levofloxacin/Dextrose 500 mg/ 100 mls @ 100 mls/hr 05/02/17 09:00 Premix IV Q24H [facility] Promethazine HCl 12.5 mg/ 50.5 mls @ 100 mls/hr 05/01/17 13:04 Sodium Chloride IV Q6H PRN Nausea/Vomiting Lorazepam 1 mg 05/01/17 13:04 Ativan IV Q6H PRN Anxiety Mometasone Furoate/Formoterol Fumar 0 puff 05/01/17 21:00 Dulera 100-5 Mcg IH BID [facility] Montelukast Sodium 10 mg 05/02/17 09:00 Singulair PO DAILY [facility] Multivitamins 1 each 05/02/17 09:00 Thera PO DAILY [facility] Ondansetron HCl 4 mg 05/01/17 13:04 Zofran IV Q6H PRN Nausea/Vomiting Ondansetron HCl 4 mg 05/01/17 13:30 Zofran Odt PO Q6H PRN NAUSEA Oxycodone HCl 20 mg 05/01/17 21:00 Oxycontin PO Q12HR [facility] Sodium Citrate 0 each 05/01/17 15:00 05/01/17 15:53 Dihydrate [Sodium PO 1 each Citrate] 15 Ml TID [facility] Administration Polyethylene Glycol 17 gm 05/01/17 13:04 Miralax PO DAILY PRN Constipation Saccharomyces Boulardii 500 mg 05/02/17 09:00 Florastor PO DAILY [facility] Senna/Docusate Sodium 1 tab 05/01/17 13:04 Senna Plus PO BID PRN Constipation Sodium Chloride 10 ml 05/01/17 06:35 05/01/17 06:50 Saline Flush FLUSH 10 ml ASDIRECTED PRN Administration Keep Vein Open Tamsulosin HCl 0.4 mg 05/02/17 09:00 Flomax PO DAILY [facility] Temazepam 15 mg 05/01/17 13:04 Restoril PO BEDTIME PRN Sleep Discontinued Medications Generic Name Dose Route Start Last Admin Trade Name Freq PRN Reason Stop Dose Admin Albuterol/Ipratropium ml 05/01/17 13:17 Duoneb 3.0-0.5 Mg/3 Ml INH Q4H PRN Shortness of Breath Hydromorphone HCl 1 mg 05/01/17 06:36 05/01/17 06:54 Dilaudid IVPUSH 05/01/17 06:37 1 mg ONETIME ONE Administration Hydromorphone HCl 0.5 mg 05/01/17 08:13 05/01/17 08:30 Dilaudid IVPUSH 05/01/17 08:14 0.5 mg ONETIME ONE Administration Hydromorphone HCl 0.5 mg 05/01/17 11:05 05/01/17 11:11 Dilaudid IVPUSH 05/01/17 11:06 0.5 mg ONETIME ONE Administration Ceftriaxone Sodium 1 gm/ 100 mls @ 200 mls/hr 05/01/17 08:12 05/01/17 08:22 Sodium Chloride IV 05/01/17 08:41 200 mls/hr ONETIME ONE Administration Levofloxacin/Dextrose 750 mg/ 150 mls @ 100 mls/hr 05/01/17 09:16 05/01/17 09 :25 Premix IV 05/01/17 10:45 100 mls/hr ONETIME ONE Administration Levofloxacin/Dextrose 500 mg/ 100 mls @ 100 mls/hr 05/01/17 13:15 05/01/17 14 :42 Premix IV Not Given Q24H [facility] Ketorolac Tromethamine 30 mg 05/01/17 06:37 05/01/17 06:56 Toradol IVPUSH 05/01/17 06:38 30 mg ONETIME ONE Administration Non-Formulary Medication 10 mg 05/02/17 09:00 Cetirizine Hcl [Allergy Relief] PO DAILY [facility] Non-Formulary Medication 180 mg 05/02/17 09:00 Fexofenadine PO DAILY [facility] Ondansetron HCl 4 mg 05/01/17 06:35 05/01/17 06:52 Zofran IVPUSH 05/01/17 06:36 4 mg ONETIME ONE Administration Ondansetron HCl 4 mg 05/01/17 10:07 05/01/17 10:11 Zofran IVPUSH 05/01/17 10:08 4 mg ONETIME ONE Administration Oxycodone HCl 20 mg 05/01/17 13:20 05/01/17 14:07 Oxycontin PO 05/01/17 13:21 20 mg ONETIME ONE Administration Saccharomyces Boulardii 500 mg 05/01/17 13:15 05/01/17 14:07 Florastor PO 05/01/17 13:16 500 mg DAILY ONE Administration - Re-Assessments/Exams Free Text/Narrative Re-Assessment/Exam: 05/01/17 10:45. Have assumed care from Dr. Grey after change of shift. I agree with his history and exam. Patient has required repeat doses of Dilaudid for pain and Zofran for nausea. UA shows very large number of WBCs, some RBCs, nitrite positive. She still is quite tender in the left flank and back. CT of abdomen and pelvis does show the stent in good position. She does have a secondary pyelonephritis. CT shows the stent in place, no calcifications present. I did visit with Dr. Barrera, Urologist. He indicates the main thing now is to treat the infection, manage her symptoms. They would not take the stent out until after her complete course of antibiotics. We have given Rocephin 1 g IV and also in the process of giving Levaquin 750 mg IV. She will be admitted for further evaluation and treatment Departure - Departure Time of Disposition: 11:03 Disposition: Admitted As Inpatient 68 Clinical Impression: Pyelonephritis - Discharge Information ED Communication - Discussed Case With (1) Discussed Case With (1): Admitting Provider (Dr Ferrell, decision to admit at around 11:00) - My Orders Last 24 Hours: My Active Orders 05/01/17 06:35 Sodium Chloride 0.9% [Saline Flush] 10 ml FLUSH ASDIRECTED PRN ED Antiemetic Medication Reflex [OM.PC] Stat Peripheral IV Insertion Adult [OM.PC] Stat 05/01/17 06:45 Sodium Chloride 0.9% [Normal Saline] 1,000 ml IV ASDIRECTED - Assessment/Plan Last 24 Hours: My Active Orders 05/01/17 06:35 Sodium Chloride 0.9% [Saline Flush] 10 ml FLUSH ASDIRECTED PRN ED Antiemetic Medication Reflex [OM.PC] Stat Peripheral IV Insertion Adult [OM.PC] Stat 05/01/17 06:45 Sodium Chloride 0.9% [Normal Saline] 1,000 ml IV ASDIRECTED <Waqar Rivera - Last Filed: 05/01/17 19:40> ED HPI GENERAL MEDICAL PROBLEM - General Source of Information: Reports: Patient History Limitations: Reports: No Limitations - History of Present Illness INITIAL COMMENTS - FREE TEXT/NARRATIVE: The patient presents with left flank pain. This started last night. She has nausea and vomiting with it. She has a history of kidney stones and she saw Dr Alegre who put a stent in 6 days ago. She had some blood in her urine last night and now it is cloudy. She has no fever but she does have chills. She is on medication for the pain and nausea but nothing is working. She said Dr Alegre also broke up a thumb sized stone with lithotripsy. She has no chest pain or shortness of breath. She has no dysuria or diarrhea. Onset: Sudden Duration: Day(s): (Last night) Location: Reports: Back (Left flank) Quality: Reports: Sharp Severity: Severe Improves with: Reports: None Worsens with: Reports: None Associated Symptoms: Reports: Fever/Chills, Nausea/Vomiting. 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 OB/BYN History: history of ovarian cyst Other Musculoskeletal History: degenerative tear of medial meniscus (L), knee pain, patellar malignant syndrome (bilateral),osteochondrosis synovitis of knee , L patellar chrondromalacia, L knee cintusion, R knee locking, R knee contusion , L hip greater trochanter bursitis Neurological 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: Migraines Psychiatric 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: None Endocrine/Metabolic 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: None Hematologic 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: None Immunologic 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: None Oncologic (Cancer) 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: None Dermatologic 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: Other (See Below) Other Dermatologic History: sebaceous cyst - Past Surgical History GI Surgical 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: Bariatric Procedure, Cholecystectomy Female Surgical 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: Hysterectomy, Oophorectomy, Tubal Ligation Musculoskeletal Surgical 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: Arthroscopic Knee Social & Family History - Family History Family Medical History: Noncontributory Cardiac: Reports: Hypertension - Tobacco Use Smoking Status *Q: Never Smoker Years of Tobacco use: 18 Month Tobacco Last Used: 1 yr Second Hand Smoke Exposure: No - Caffeine Use Caffeine Use: Reports: None - Alcohol Use Days Per Week of Alcohol Use: 0 - Recreational Drug Use Recreational Drug Use: No Drug Use in Last 12 Months: No ED ROS GENERAL - Review of Systems Review Of Systems: See Below Constitutional: Reports: Chills. Denies: Fever HEENT: Reports: No Symptoms Respiratory: Reports: No Symptoms Cardiovascular: Reports: No Symptoms Endocrine: Reports: No Symptoms GI/Abdominal: Reports: Abdominal Pain, Nausea, Vomiting. Denies: Diarrhea : Reports: Flank Pain (Left) Musculoskeletal: Reports: No Symptoms ED EXAM,LOWER BACK PAIN/INJURY - Physical Exam Exam: See Below Exam Limited By: No Limitations General Appearance: Alert, No Apparent Distress Ears: Normal External Exam Nose: Normal Inspection Head: Atraumatic, Normocephalic Neck: Normal Inspection Respiratory/Chest: No Respiratory Distress, Lungs Clear, Normal Breath Sounds Cardiovascular: Regular Rate, Rhythm, No Edema, No Murmur GI/Abdominal: Soft, Non-Tender, No Organomegaly, No Mass Back Exam: CVA Tenderness (L) Course - Orders/Labs/Meds Labs: Laboratory Tests 05/01/17 05/01/17 05/01/17 Range/Units 06:54 06:54 06:54 WBC 7.81 (3.98-10.04) K/mm3 RBC 4.92 (3.98-5.22) M/mm3 Hgb 15.1 (11.2-15.7) gm/L Hct 44.7 (34.1-44.9) % MCV 90.9 (79.4-94.8) fl MCH 30.7 (25.6-32.2) pg MCHC 33.8 (32.2-35.5) g/dl RDW Std Deviation 42.8 (36.4-46.3) fL Plt Count 275 (182-369) K/mm3 MPV 9.9 (9.4-12.3) fl Neut % (Auto) 75.8 H (34.0-71.1) % Lymph % (Auto) 15.4 L (19.3-51.7) % [place] % (Auto) 7.4 (4.7-12.5) % Eos % (Auto) 1.2 (0.7-5.8) Baso % (Auto) 0.1 (0.1-1.2) % Neut # (Auto) 5.92 (1.56-6.13) K/mm3 Lymph # (Auto) 1.20 (1.18-3.74) K/mm3 Howell # (Auto) 0.58 H (0.24-0.36) K/mm3 Eos # (Auto) 0.09 (0.04-0.36) K/mm3 Baso # (Auto) 0.01 (0.01-0.08) K/mm3 Sodium 139 (136-145) mEq/L Potassium 3.6 (3.5-5.1) mEq/L Chloride 103 (98-107) mEq/L Carbon Dioxide 30 (21-32) mEq/L Anion Gap 9.6 (5-15) BUN 9 (7-18) mg/dL Creatinine 0.9 (0.55-1.02) mg/dL Est Cr Clr Drug Dosing 65.30 mL/min Estimated GFR (MDRD) > 60 (>60) mL/min BUN/Creatinine Ratio 10.0 L (14-18) Glucose 92 (74-106) mg/dL Calcium 9.3 (8.5-10.1) mg/dL Total Bilirubin 0.9 (0.2-1.0) mg/dL AST 18 (15-37) U/L ALT 55 (14-59) U/L Alkaline Phosphatase 230 H (46-116) U/L Total Protein 7.6 (6.4-8.2) g/dl Albumin 3.8 (3.4-5.0) g/dl Globulin 3.8 gm/dL Albumin/Globulin Ratio 1.0 (1-2) Lipase 52 L (73-393) U/L HCG, Qual Negative (NEGATIVE) Urine Color (Yellow) Urine Appearance (Clear) Urine pH (5.0-8.0) Ur Specific [place] (1.005-1.030) Urine Protein (Negative) Urine Glucose (UA) (Negative) Urine Ketones (Negative) Urine Occult Blood (Negative) Urine Nitrite (Negative) Urine Bilirubin (Negative) Urine Urobilinogen (0.2-1.0) Ur Leukocyte Esterase (Negative) Urine RBC (0-5) /hpf Urine WBC (0-5) /hpf Ur Epithelial Cells (0-5) /hpf Urine Bacteria (FEW) /hpf Hyaline Casts (0-5) /lpf Urine Mucus (FEW) /hpf 05/01/17 Range/Units 06:54 WBC (3.98-10.04) K/mm3 RBC (3.98-5.22) M/mm3 Hgb (11.2-15.7) gm/L Hct (34.1-44.9) % MCV (79.4-94.8) fl MCH (25.6-32.2) pg MCHC (32.2-35.5) g/dl RDW Std Deviation (36.4-46.3) fL Plt Count (182-369) K/mm3 MPV (9.4-12.3) fl Neut % (Auto) (34.0-71.1) % Lymph % (Auto) (19.3-51.7) % Howell % (Auto) (4.7-12.5) % Eos % (Auto) (0.7-5.8) Baso % (Auto) (0.1-1.2) % Neut # (Auto) (1.56-6.13) K/mm3 Lymph # (Auto) (1.18-3.74) K/mm3 Howell # (Auto) (0.24-0.36) K/mm3 Eos # (Auto) (0.04-0.36) K/mm3 Baso # (Auto) (0.01-0.08) K/mm3 Sodium (136-145) mEq/L Potassium (3.5-5.1) mEq/L Chloride (98-107) mEq/L Carbon Dioxide (21-32) mEq/L Anion Gap (5-15) BUN (7-18) mg/dL Creatinine (0.55-1.02) mg/dL Est Cr Clr Drug Dosing mL/min Estimated GFR (MDRD) (>60) mL/min BUN/Creatinine Ratio (14-18) Glucose (74-106) mg/dL Calcium (8.5-10.1) mg/dL Total Bilirubin (0.2-1.0) mg/dL AST (15-37) U/L ALT (14-59) U/L Alkaline Phosphatase (46-116) U/L Total Protein (6.4-8.2) g/dl Albumin (3.4-5.0) g/dl Globulin gm/dL Albumin/Globulin Ratio (1-2) Lipase (73-393) U/L HCG, Qual (NEGATIVE) Urine Color Yellow (Yellow) Urine Appearance Clear (Clear) Urine pH 7.0 (5.0-8.0) Ur Specific [place] 1.020 (1.005-1.030) Urine Protein 2+ H (Negative) Urine Glucose (UA) Negative (Negative) Urine Ketones Negative (Negative) Urine Occult Blood 3+ H (Negative) Urine Nitrite Positive H (Negative) Urine Bilirubin Negative (Negative) Urine Urobilinogen 1.0 (0.2-1.0) Ur Leukocyte Esterase 3+ H (Negative) Urine RBC 50-75 H (0-5) /hpf Urine WBC Too numerous to cnt H (0-5) /hpf Ur Epithelial Cells 0-5 (0-5) /hpf Urine Bacteria Few (FEW) /hpf Hyaline Casts 0-5 (0-5) /lpf Urine Mucus Few (FEW) /hpf Meds: Medications Generic Name Dose Route Start Last Admin Trade Name Freq PRN Reason Stop Dose Admin Acetaminophen 650 mg 05/01/17 13:04 Tylenol PO Q4H PRN Pain (Mild 1-3)/fever Albuterol/Ipratropium 3 ml 05/01/17 13:04 Duoneb 3.0-0.5 Mg/3 Ml NEB Q4H PRN Shortness Of Breath/wheezing Bisacodyl 5 mg 05/01/17 13:04 Dulcolax PO DAILY PRN Constipation Calcium Carbonate 1 tab 05/02/17 09:00 Calcium Carbonate/Vitamin D 1500 Mg-200 Unit PO DAILY [facility] Cyanocobalamin 1,000 mcg 05/02/17 09:00 Vitamin B12 PO DAILY [facility] Cyclobenzaprine HCl 10 mg 05/01/17 13:17 Flexeril PO TID PRN muscle spasms Docusate Sodium 100 mg 05/01/17 13:04 Colace PO BID PRN Constipation Estradiol mg 05/02/17 09:00 Estradiol PO DAILY [facility] Flunisolide 0 ml 05/01/17 21:00 Nasalide Nasal [place] NASBOTH BID [facility] Gabapentin 100 mg 05/01/17 15:00 05/01/17 14:07 Neurontin PO 100 mg TID FLAQUITO Administration Hydromorphone HCl 1 mg 05/01/17 13:04 05/01/17 15:50 Dilaudid IVPUSH 1 mg Q6H PRN Administration Pain (severe 7-10) Hydromorphone HCl 2 mg 05/01/17 13:17 05/01/17 18:46 Dilaudid PO 2 mg Q6H PRN Administration Renal colic Sodium Chloride 1,000 mls @ 125 mls/hr 05/01/17 06:45 05/01/17 14:08 Normal Saline IV 125 mls/hr ASDIRECTED FLAQUITO Administration Levofloxacin/Dextrose 500 mg/ 100 mls @ 100 mls/hr 05/02/17 09:00 Premix IV Q24H [facility] Promethazine HCl 12.5 mg/ 50.5 mls @ 100 mls/hr 05/01/17 13:04 Sodium Chloride IV Q6H PRN Nausea/Vomiting Lorazepam 1 mg 05/01/17 13:04 Ativan IV Q6H PRN Anxiety Mometasone Furoate/Formoterol Fumar 0 puff 05/01/17 21:00 Dulera 100-5 Mcg IH BID [facility] Montelukast Sodium 10 mg 05/02/17 09:00 Singulair PO DAILY [facility] Multivitamins 1 each 05/02/17 09:00 Thera PO DAILY [facility] Ondansetron HCl 4 mg 05/01/17 13:04 Zofran IV Q6H PRN Nausea/Vomiting Ondansetron HCl 4 mg 05/01/17 13:30 Zofran Odt PO Q6H PRN NAUSEA Oxycodone HCl 20 mg 05/01/17 21:00 Oxycontin PO Q12HR [facility] Sodium Citrate 0 each 05/01/17 15:00 05/01/17 15:53 Dihydrate [Sodium PO 1 each Citrate] 15 Ml TID [facility] Administration Polyethylene Glycol 17 gm 05/01/17 13:04 Miralax PO DAILY PRN Constipation Saccharomyces Boulardii 500 mg 05/02/17 09:00 Florastor PO DAILY [facility] Senna/Docusate Sodium 1 tab 05/01/17 13:04 Senna Plus PO BID PRN Constipation Sodium Chloride 10 ml 05/01/17 06:35 05/01/17 06:50 Saline Flush FLUSH 10 ml ASDIRECTED PRN Administration Keep Vein Open Tamsulosin HCl 0.4 mg 05/02/17 09:00 Flomax PO DAILY [facility] Temazepam 15 mg 05/01/17 13:04 Restoril PO BEDTIME PRN Sleep Discontinued Medications Generic Name Dose Route Start Last Admin Trade Name Freq PRN Reason Stop Dose Admin Albuterol/Ipratropium ml 05/01/17 13:17 Duoneb 3.0-0.5 Mg/3 Ml INH Q4H PRN Shortness of Breath Hydromorphone HCl 1 mg 05/01/17 06:36 05/01/17 06:54 Dilaudid IVPUSH 05/01/17 06:37 1 mg ONETIME ONE Administration Hydromorphone HCl 0.5 mg 05/01/17 08:13 05/01/17 08:30 Dilaudid IVPUSH 05/01/17 08:14 0.5 mg ONETIME ONE Administration Hydromorphone HCl 0.5 mg 05/01/17 11:05 05/01/17 11:11 Dilaudid IVPUSH 05/01/17 11:06 0.5 mg ONETIME ONE Administration Ceftriaxone Sodium 1 gm/ 100 mls @ 200 mls/hr 05/01/17 08:12 05/01/17 08:22 Sodium Chloride IV 05/01/17 08:41 200 mls/hr ONETIME ONE Administration Levofloxacin/Dextrose 750 mg/ 150 mls @ 100 mls/hr 05/01/17 09:16 05/01/17 09 :25 Premix IV 05/01/17 10:45 100 mls/hr ONETIME ONE Administration Levofloxacin/Dextrose 500 mg/ 100 mls @ 100 mls/hr 05/01/17 13:15 05/01/17 14 :42 Premix IV Not Given Q24H [facility] Ketorolac Tromethamine 30 mg 05/01/17 06:37 05/01/17 06:56 Toradol IVPUSH 05/01/17 06:38 30 mg ONETIME ONE Administration Non-Formulary Medication 10 mg 05/02/17 09:00 Cetirizine Hcl [Allergy Relief] PO DAILY [facility] Non-Formulary Medication 180 mg 05/02/17 09:00 Fexofenadine PO DAILY [facility] Ondansetron HCl 4 mg 05/01/17 06:35 05/01/17 06:52 Zofran IVPUSH 05/01/17 06:36 4 mg ONETIME ONE Administration Ondansetron HCl 4 mg 05/01/17 10:07 05/01/17 10:11 Zofran IVPUSH 05/01/17 10:08 4 mg ONETIME ONE Administration Oxycodone HCl 20 mg 05/01/17 13:20 05/01/17 14:07 Oxycontin PO 05/01/17 13:21 20 mg ONETIME ONE Administration Saccharomyces Boulardii 500 mg 05/01/17 13:15 05/01/17 14:07 Florastor PO 05/01/17 13:16 500 mg DAILY ONE Administration - Re-Assessments/Exams Free Text/Narrative Re-Assessment/Exam: 05/01/17 06:42 I ordered an IV saline lock, zofran 4mg IV, toradol 30mg IV, dilaudid 1mg IV, labs, UA and a CT of her abdomen and pelvis without contrast. Departure - Departure Condition: Good
[2017-05-01] MEDS: Sodium Chloride 0.9% 1,000 ML IV SCH ×3 (06:52→22:38)
[2017-05-01] MEDS ORDERED: cefTRIAXone 1 GM in Sodium Chloride 0.9% 100 ML IV ONE (08:12)
--- NOTE | 2017-05-01 09:11 | CT ---
CT abdomen and pelvis Technique: Multiple axial sections were obtained from above the dome of the diaphragm inferiorly through the pubic symphysis. Intravenous and oral contrast was not utilized as study was performed as a ureteral stone protocol. Comparison: Previous CT abdomen and pelvis exam of 02/08/17. Findings: Left ureteral stent is seen. Proximal end of the stent lies within the renal pelvis and distal end of the stent is within the bladder. Left kidney collecting system is mildly prominent. No abnormal calcifications are seen along the course of the ureters. Several nonobstructing calculi are seen within the left kidney. Previous study showed an obstructing stone within the distal right ureter which is no longer seen. No right-sided renal calculi are seen. No ureteral stones are seen. Mild atelectasis is seen posteriorly within both lung bases. Previous stomach surgery is noted. Previous cholecystectomy is noted. Noncontrast appearance of the liver and spleen appears within normal limits. Adrenal glands show no nodule. Pancreas is within normal limits. Small calcification is seen within the tail of the pancreas which is felt to be incidental. Aorta shows atherosclerotic change without aneurysmal dilatation. No retroperitoneal adenopathy or mesenteric abnormalities are seen. Appendix is seen which is normal. No pelvic mass or adenopathy is seen. Several calcifications are seen within the pelvis which are felt compatible with phleboliths. Bone window settings were reviewed which shows degenerative change primarily at L5-S1 within the apophyseal joints causing minimal spondylolisthesis. Impression: 1. Left ureteral stent. Proximal stent lies within the renal pelvis and distal end is within the bladder. Mild dilatation of the left renal collecting system is seen of uncertain as no obstructing stones are seen. Finding may relate to the ureteral stent. 2. Several nonobstructing left renal calculi are seen. 3. No right-sided renal calculi are seen. No ureteral stones are seen. 4. Other incidental findings. Diagnostic code #3
[2017-05-01] MEDS ORDERED: Levofloxacin/Dextrose 5%-Water 750 MG in Premix Bag 1 BAG IV ONE (09:16)
[2017-05-01] MEDS ORDERED: Promethazine 12.5 MG in Sodium Chloride 0.9% 50 ML IV PRN (13:04)
[2017-05-01] MEDS ORDERED: LORazepam 2 MG/ML MDV IV PRN (13:04)
[2017-05-01] MEDS ORDERED: Polyethylene Glycol 3350 Powder 17 GM Packet PO PRN (13:04)
[2017-05-01] MEDS ORDERED: Docusate Sodium 100 MG Cap PO PRN (13:04)
[2017-05-01] MEDS ORDERED: Ondansetron 4 MG/2 ML SDV IV PRN (13:04)
[2017-05-01] MEDS ORDERED: Temazepam 15 MG Cap PO PRN (13:04)
[2017-05-01] MEDS ORDERED: Acetaminophen 325 MG Tab PO PRN (13:04)
[2017-05-01] MEDS ORDERED: Bisacodyl 5 MG Tab PO PRN (13:04)
[2017-05-01] MEDS ORDERED: Albuterol/Ipratropium 3.0-0.5 MG/3 ML Neb Soln NEB PRN (13:04)
--- NOTE | 2017-05-01 13:04 | PCM.HP ---
H&P History of Present Illness - General Date of Service: 05/01/17 Admit Problem/Dx: Follow up Source of Information: Patient, Old Records, Provider, RN Notes Reviewed History Limitations: Reports: No Limitations Left Lower Back Pain Score (Numeric/FACES): 10 - Related Data Allergies/Adverse Reactions: Allergies Allergy/AdvReac Type Severity Reaction Status Date / Time codeine Allergy Intermediate Difficulty Verified 05/01/17 06:16 Breathing diclofenac sodium Allergy Intermediate Difficulty Verified 05/01/17 06:16 [From Voltaren] Breathing hydrocodone Allergy Intermediate Difficulty Verified 05/01/17 06:16 Breathing naproxen sodium [From Aleve] Allergy Intermediate Difficulty Verified 05/01/17 06:16 Breathing Penicillins Allergy Intermediate Difficulty Verified 05/01/17 06:16 Breathing pseudoephedrine HCl Allergy Intermediate Difficulty Verified 05/01/17 06:16 [From Sudafed] Breathing Sulfa (Sulfonamide Allergy Intermediate Difficulty Verified 05/01/17 06:16 Antibiotics) Breathing animal dander Allergy Difficulty Verified 05/01/17 06:16 Breathing bee pollen Allergy Cannot Verified 05/01/17 06:16 Remember fish derived Allergy Cannot Verified 05/01/17 06:16 Remember influenza virus vaccine, Allergy Rash Verified 05/01/17 06:16 specific Influenza Virus Vaccines Allergy Rash Verified 05/01/17 06:16 iodine Allergy Difficulty Verified 05/01/17 06:16 Breathing mold Allergy Difficulty Verified 05/01/17 06:16 Breathing nabumetone [From Relafen] Allergy Cannot Verified 05/01/17 06:16 Remember olive oil Allergy Difficulty Verified 05/01/17 06:16 Breathing pollen extracts Allergy Difficulty Verified 05/01/17 06:16 Breathing prednisone Allergy Difficulty Verified 05/01/17 06:16 Breathing DUST Allergy Difficulty Uncoded 05/01/17 06:16 Breathing Home Medications: Home Meds Cetirizine HCl [Allergy Relief] 10 mg PO DAILY 10/27/14 [History] Fluticasone/Salmeterol [Advair HFA 45-21 MCG] 2 puff INH BID 10/27/14 [History] Ipratropium/Albuterol Sulfate [Iprat-Albut 0.5-3(2.5) MG/3 ML] 1 puff INH Q4H PRN 10/27/14 [History] Fexofenadine [Maria Luisa] 180 mg PO DAILY 08/31/15 [History] Fluticasone Propionate [Flonase] 1 spray NASBOTH BID 08/31/15 [History] Montelukast [Singulair] 10 mg PO DAILY 08/31/15 [History] Omeprazole Magnesium [Prilosec Otc] 40 mg PO DAILY 09/22/16 [History] Ca Carbonate/Vitamin D3/Vit K [Calcium + D Soft Chewable Tab] 1 tab PO DAILY [History] Cyanocobalamin (Vitamin B-12) [Vitamin B-12] 1 tab PO DAILY 10/05/16 [History] Cyclobenzaprine [Flexeril] 1 tab PO TID PRN 10/05/16 [History] Multivitamin [One Daily] 1 tab PO DAILY 10/05/16 [History] Estradiol [Estradiol] 1 tab PO DAILY 12/21/16 [History] Gabapentin [Neurontin] 100 mg PO TID 12/21/16 [History] HYDROmorphone [Dilaudid] 2 mg PO Q6H PRN #5 tablet 02/08/17 [Rx] Ondansetron [Zofran ODT] 4 mg PO Q6H #5 tab.dis 02/08/17 [Rx] Acetaminophen/oxyCODONE [Percocet 325-5 MG] 1 tab PO Q4H 05/01/17 [History] Sodium Citrate Dihydrate [Sodium Citrate] 15 ml PO TID 05/01/17 [History] Tamsulosin HCl 0.4 mg PO DAILY 05/01/17 [History] Past Medical History HEENT 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: Allergic Rhinitis, Sinusitis Cardiovascular 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: None Respiratory 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: Asthma Other Respiratory History: Moderate snoring Gastrointestinal 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: GERD, GI Bleed, Helicobacter Pylori, PUD Genitourinary 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: Renal Calculus, Other (See Below) Other Genitourinary History: bilirubenimia, dysuria, UTI [employer] 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: Other OB/BYN History: history of ovarian cyst Other Musculoskeletal History: degenerative tear of medial meniscus (L), knee pain, patellar malignant syndrome (bilateral),osteochondrosis synovitis of knee , L patellar chrondromalacia, L knee cintusion, R knee locking, R knee contusion , L hip greater trochanter bursitis Neurological 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: Migraines Psychiatric 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: None Endocrine/Metabolic 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: None Hematologic 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: None Immunologic 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: None Oncologic (Cancer) 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: None Dermatologic 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: Other (See Below) Other Dermatologic History: sebaceous cyst - Past Surgical History GI Surgical 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: Bariatric Procedure, Cholecystectomy Female Surgical 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: Hysterectomy, Oophorectomy, Tubal Ligation Musculoskeletal Surgical 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: Arthroscopic Knee Social & Family History - Family History Family Medical History: Noncontributory Cardiac: Reports: Hypertension - Tobacco Use Smoking Status *Q: Never Smoker Years of Tobacco use: 18 Month Tobacco Last Used: 1 yr Second Hand Smoke Exposure: No - Caffeine Use Caffeine Use: Reports: None - Alcohol Use Days Per Week of Alcohol Use: 0 - Recreational Drug Use Recreational Drug Use: No Drug Use in Last 12 Months: No Exam - Vital Signs Vital Signs: Last Vital Signs Temp 37.6 C 05/01/17 06:11 Pulse 95 05/01/17 06:11 Resp 18 05/01/17 06:11 BP 115/69 05/01/17 06:11 Pulse Ox 99 05/01/17 06:11 Weight: 61.235 kg - Patient Data Lab Results Last 24 hrs: Laboratory Results - last 24 hr 05/01/17 05/01/17 05/01/17 Range/Units 06:54 06:54 06:54 WBC 7.81 (3.98-10.04) K/mm3 RBC 4.92 (3.98-5.22) M/mm3 Hgb 15.1 (11.2-15.7) gm/L Hct 44.7 (34.1-44.9) % MCV 90.9 (79.4-94.8) fl MCH 30.7 (25.6-32.2) pg MCHC 33.8 (32.2-35.5) g/dl RDW Std Deviation 42.8 (36.4-46.3) fL Plt Count 275 (182-369) K/mm3 MPV 9.9 (9.4-12.3) fl Neut % (Auto) 75.8 H (34.0-71.1) % Lymph % (Auto) 15.4 L (19.3-51.7) % [place] % (Auto) 7.4 (4.7-12.5) % Eos % (Auto) 1.2 (0.7-5.8) Baso % (Auto) 0.1 (0.1-1.2) % Neut # (Auto) 5.92 (1.56-6.13) K/mm3 Lymph # (Auto) 1.20 (1.18-3.74) K/mm3 [place] # (Auto) 0.58 H (0.24-0.36) K/mm3 Eos # (Auto) 0.09 (0.04-0.36) K/mm3 Baso # (Auto) 0.01 (0.01-0.08) K/mm3 Sodium 139 (136-145) mEq/L Potassium 3.6 (3.5-5.1) mEq/L Chloride 103 (98-107) mEq/L Carbon Dioxide 30 (21-32) mEq/L Anion Gap 9.6 (5-15) BUN 9 (7-18) mg/dL Creatinine 0.9 (0.55-1.02) mg/dL Est Cr Clr Drug Dosing 65.30 mL/min Estimated GFR (MDRD) > 60 (>60) mL/min BUN/Creatinine Ratio 10.0 L (14-18) Glucose 92 (74-106) mg/dL Calcium 9.3 (8.5-10.1) mg/dL Total Bilirubin 0.9 (0.2-1.0) mg/dL AST 18 (15-37) U/L ALT 55 (14-59) U/L Alkaline Phosphatase 230 H (46-116) U/L Total Protein 7.6 (6.4-8.2) g/dl Albumin 3.8 (3.4-5.0) g/dl Globulin 3.8 gm/dL Albumin/Globulin Ratio 1.0 (1-2) Lipase 52 L (73-393) U/L HCG, Qual Negative (NEGATIVE) Urine Color (Yellow) Urine Appearance (Clear) Urine pH (5.0-8.0) Ur Specific [place] (1.005-1.030) Urine Protein (Negative) Urine Glucose (UA) (Negative) Urine Ketones (Negative) Urine Occult Blood (Negative) Urine Nitrite (Negative) Urine Bilirubin (Negative) Urine Urobilinogen (0.2-1.0) Ur Leukocyte Esterase (Negative) Urine RBC (0-5) /hpf Urine WBC (0-5) /hpf Ur Epithelial Cells (0-5) /hpf Urine Bacteria (FEW) /hpf Hyaline Casts (0-5) /lpf Urine Mucus (FEW) /hpf 05/01/ Range/Units 06:54 WBC (3.98-10.04) K/mm3 RBC (3.98-5.22) M/mm3 Hgb (11.2-15.7) gm/L Hct (34.1-44.9) % MCV (79.4-94.8) fl MCH (25.6-32.2) pg MCHC (32.2-35.5) g/dl RDW Std Deviation (36.4-46.3) fL Plt Count (182-369) K/mm3 MPV (9.4-12.3) fl Neut % (Auto) (34.0-71.1) % Lymph % (Auto) (19.3-51.7) % [place] % (Auto) (4.7-12.5) % Eos % (Auto) (0.7-5.8) Baso % (Auto) (0.1-1.2) % Neut # (Auto) (1.56-6.13) K/mm3 Lymph # (Auto) (1.18-3.74) K/mm3 [place] # (Auto) (0.24-0.36) K/mm3 Eos # (Auto) (0.04-0.36) K/mm3 Baso # (Auto) (0.01-0.08) K/mm3 Sodium (136-145) mEq/L Potassium (3.5-5.1) mEq/L Chloride (98-107) mEq/L Carbon Dioxide (21-32) mEq/L Anion Gap (5-15) BUN (7-18) mg/dL Creatinine (0.55-1.02) mg/dL Est Cr Clr Drug Dosing mL/min Estimated GFR (MDRD) (>60) mL/min BUN/Creatinine Ratio (14-18) Glucose (74-106) mg/dL Calcium (8.5-10.1) mg/dL Total Bilirubin (0.2-1.0) mg/dL AST (15-37) U/L ALT (14-59) U/L Alkaline Phosphatase (46-116) U/L Total Protein (6.4-8.2) g/dl Albumin (3.4-5.0) g/dl Globulin gm/dL Albumin/Globulin Ratio (1-2) Lipase (73-393) U/L HCG, Qual (NEGATIVE) Urine Color Yellow (Yellow) Urine Appearance Clear (Clear) Urine pH 7.0 (5.0-8.0) Ur Specific [place] 1.020 (1.005-1.030) Urine Protein 2+ H (Negative) Urine Glucose (UA) Negative (Negative) Urine Ketones Negative (Negative) Urine Occult Blood 3+ H (Negative) Urine Nitrite Positive H (Negative) Urine Bilirubin Negative (Negative) Urine Urobilinogen 1.0 (0.2-1.0) Ur Leukocyte Esterase 3+ H (Negative) Urine RBC 50-75 H (0-5) /hpf Urine WBC Too numerous to cnt H (0-5) /hpf Ur Epithelial Cells 0-5 (0-5) /hpf Urine Bacteria Few (FEW) /hpf Hyaline Casts 0-5 (0-5) /lpf Urine Mucus Few (FEW) /hpf Result Diagrams: 05/01/17 06:54 05/01/17 06:54 *Q Meaningful Use (ADM) - VTE *Q VTE Criteria *Q: - Stroke *Q Stroke Criteria *Q: - AMI *Q AMI Criteria *Q: Orders Last 24hrs: Active Orders 24 hr Category Date Time Status Peripheral IV Care [RC] . DIRECTED Care 05/01/17 06:36 Active CULTURE URINE [RM] Stat Lab 05/01/17 06:30 Received Sodium Chloride 0.9% [Normal Saline] 1,000 ml Med 05/01/17 06:45 Active IV ASDIRECTED Sodium Chloride 0.9% [Saline Flush] Med 05/01/17 06:35 Active 10 ml FLUSH ASDIRECTED PRN ED Antiemetic Medication Reflex [OM.PC] Stat Oth 05/01/17 06:35 Ordered Peripheral IV Insertion Adult [OM.PC] Stat Oth 05/01/17 06:35 Ordered Medication Orders Sodium Chloride (Normal Saline) 1,000 mls @ 125 mls/hr IV ASDIRECTED FLAQUITO Last Admin: 05/01/17 06:52 Dose: 125 mls/hr Sodium Chloride (Saline Flush) 10 ml FLUSH ASDIRECTED PRN PRN Reason: Keep Vein Open Last Admin: 05/01/17 06:50 Dose: 10 ml
[2017-05-01] MEDS ORDERED: Levofloxacin/Dextrose 5%-Water 500 MG in Premix Bag 1 BAG IV SCH (13:15)
[2017-05-01] MEDS ORDERED: Saccharomyces Boulardii (Probiotic) 250 MG Cap PO ONE (13:15)
[2017-05-01] MEDS ORDERED: Albuterol/Ipratropium 3.0-0.5 MG/3 ML Neb Soln INH PRN (13:17)
[2017-05-01] MEDS ORDERED: Cyclobenzaprine 10 MG Tab PO PRN (13:17)
[2017-05-01] MEDS ORDERED: oxyCODONE ER 20 MG TAB.ER PO ONE (13:20)
[2017-05-01] MEDS ORDERED: Ondansetron 4 MG Tab.DIS PO PRN (13:30)
[2017-05-01] MEDS: Gabapentin 100 MG Cap PO SCH ×2 (14:07→20:29)
[2017-05-01] MEDS: HYDROmorphone 1 MG/ML Syringe IVPUSH PRN (15:50)
[2017-05-01] MEDS: [UNRECOGNIZED DRUG - OTHER] PO SCH ×2 (15:53→20:30)
[2017-05-01] MEDS: HYDROmorphone 2 MG Tab PO PRN (18:46)
[2017-05-01] MEDS: oxyCODONE ER 20 MG TAB.ER PO SCH (20:29)
[2017-05-01] MEDS: Formoterol/Mometasone 100-5 MCG 8.8 GM Inhaler IH SCH (20:56)
--- NOTE | 2017-05-02 00:53 | PCM.HP ---
H&P History of Present Illness - General Date of Service: 05/01/17 Admit Problem/Dx: Follow up Source of Information: Patient, Old Records, Provider, RN Notes Reviewed, Significant Other - History of Present Illness Initial Comments - Free Text/Narative: This is a 47-year-old white female with past medical history of asthma, DJD, and seasonal allergies who presented to the emergency department with complaints of worsening left flank pain that started last night. Her symptoms is associated with nausea and vomiting. Patient reports no fever but with chills. Patient recently had undergone urologic procedure with Dr. Alegre. She carries history of renal stone with lithotripsy status post ureteral stent placement about 6 days ago. She was discharged with medication for symptomatic control but without any relief.. Her initial workup in the emergency department shows an unremarkable CBC. Her chemistry is significant for alkaline phosphatase of 2:30, and lipase of 52. Her screening is negative. Her UA is suggestive of urinary tract infection. CRP is 11.2. Abdominal/Pelvis CT scan report reads left ureteral stent. Mild dilatation of the left renal collecting system is seen of uncertain as non-obstructing stones are seen. Several non-obstructing left renal calculi. No right-sided renal calculi seen. No ureteral stones are seen. She is being admitted for medical management of pyelonephritis/UTI status post left ureteral stent placement with history of renal stones status post lithotripsy. Left Lower Back Pain Score (Numeric/FACES): 6 - Related Data Allergies/Adverse Reactions: Allergies Allergy/AdvReac Type Severity Reaction Status Date / Time codeine Allergy Intermediate Difficulty Verified 05/01/17 06:16 Breathing diclofenac sodium Allergy Intermediate Difficulty Verified 05/01/17 06:16 [From Voltaren] Breathing hydrocodone Allergy Intermediate Difficulty Verified 05/01/17 06:16 Breathing naproxen sodium [From Aleve] Allergy Intermediate Difficulty Verified 05/01/17 06:16 Breathing Penicillins Allergy Intermediate Difficulty Verified 05/01/17 06:16 Breathing pseudoephedrine HCl Allergy Intermediate Difficulty Verified 05/01/17 06:16 [From Sudafed] Breathing Sulfa (Sulfonamide Allergy Intermediate Difficulty Verified 05/01/17 06:16 Antibiotics) Breathing animal dander Allergy Difficulty Verified 05/01/17 06:16 Breathing bee pollen Allergy Cannot Verified 05/01/17 06:16 Remember fish derived Allergy Cannot Verified 05/01/17 06:16 Remember influenza virus vaccine, Allergy Rash Verified 05/01/17 06:16 specific Influenza Virus Vaccines Allergy Rash Verified 05/01/17 06:16 iodine Allergy Difficulty Verified 05/01/17 06:16 Breathing mold Allergy Difficulty Verified 05/01/17 06:16 Breathing nabumetone [From Relafen] Allergy Cannot Verified 05/01/17 06:16 Remember olive oil Allergy Difficulty Verified 05/01/17 06:16 Breathing pollen extracts Allergy Difficulty Verified 05/01/17 06:16 Breathing prednisone Allergy Difficulty Verified 05/01/17 06:16 Breathing DUST Allergy Difficulty Uncoded 05/01/17 06:16 Breathing Home Medications: Home Meds Cetirizine HCl [Allergy Relief] 10 mg PO DAILY 10/27/14 [History] Fluticasone/Salmeterol [Advair HFA 45-21 MCG] 2 puff INH BID 10/27/14 [History] Ipratropium/Albuterol Sulfate [Iprat-Albut 0.5-3(2.5) MG/3 ML] 1 puff INH Q4H PRN 10/27/14 [History] Fexofenadine [Maria Luisa] 180 mg PO DAILY 08/31/15 [History] Fluticasone Propionate [Flonase] 1 spray NASBOTH BID 08/31/15 [History] Montelukast [Singulair] 10 mg PO DAILY 08/31/15 [History] Omeprazole Magnesium [Prilosec Otc] 40 mg PO DAILY 09/22/16 [History] Ca Carbonate/Vitamin D3/Vit K [Calcium + D Soft Chewable Tab] 1 tab PO DAILY [History] Cyanocobalamin (Vitamin B-12) [Vitamin B-12] 1 tab PO DAILY 10/05/16 [History] Cyclobenzaprine [Flexeril] 1 tab PO TID PRN 10/05/16 [History] Multivitamin [One Daily] 1 tab PO DAILY 10/05/16 [History] Estradiol [Estradiol] 1 tab PO BEDTIME 12/21/16 [History] Gabapentin [Neurontin] 100 mg PO TID 12/21/16 [History] HYDROmorphone [Dilaudid] 2 mg PO Q6H PRN #5 tablet 02/08/17 [Rx] Ondansetron [Zofran ODT] 4 mg PO Q6H #5 tab.dis 02/08/17 [Rx] Acetaminophen/oxyCODONE [Percocet 325-5 MG] 1 tab PO Q4H 05/01/17 [History] Sodium Citrate Dihydrate [Sodium Citrate] 15 ml PO TID 05/01/17 [History] Tamsulosin HCl 0.4 mg PO DAILY 05/01/17 [History] Past Medical History HEENT 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: Allergic Rhinitis, Sinusitis Cardiovascular 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: None Respiratory 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: Asthma Other Respiratory History: Moderate snoring Gastrointestinal 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: GERD, GI Bleed, Helicobacter Pylori, PUD Genitourinary 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: Renal Calculus, Other (See Below) Other Genitourinary History: bilirubenimia, dysuria, UTI [employer] 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: Other OB/BYN History: history of ovarian cyst Other Musculoskeletal History: degenerative tear of medial meniscus (L), knee pain, patellar malignant syndrome (bilateral),osteochondrosis synovitis of knee , L patellar chrondromalacia, L knee cintusion, R knee locking, R knee contusion , L hip greater trochanter bursitis Neurological 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: Migraines Psychiatric 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: None Endocrine/Metabolic 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: None Hematologic 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: None Immunologic 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: None Oncologic (Cancer) 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: None Dermatologic 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: Other (See Below) Other Dermatologic History: sebaceous cyst - Infectious Disease History Infectious Disease 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: Chicken Pox, Measles - Past Surgical History GI Surgical 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: Bariatric Procedure, Cholecystectomy Female Surgical 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: Hysterectomy, Oophorectomy, Tubal Ligation Musculoskeletal Surgical 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: Arthroscopic Knee Social & Family History - Family History Family Medical History: Noncontributory Cardiac: Reports: Hypertension Other Cardiac Family History: parents Musculoskeletal: Reports: Arthritis Other Musculoskeletal Family History: parents Neurological: Reports: Migraines Other Neurological Family History: migraines - Tobacco Use Smoking Status *Q: Never Smoker Years of Tobacco use: 18 Packs/Tins Daily: 1 Used Tobacco, but Quit: Yes Month Tobacco Last Used: 1 yr Second Hand Smoke Exposure: No - Caffeine Use Caffeine Use: Reports: None - Alcohol Use Days Per Week of Alcohol Use: 0 - Recreational Drug Use Recreational Drug Use: No Drug Use in Last 12 Months: No H&P Review of Systems - Review of Systems: Review Of Systems: See Below General: Reports: Chills. Denies: Fever HEENT: Reports: No Symptoms Pulmonary: Denies: Shortness of Breath Cardiovascular: Denies: Chest Pain, Palpitations, Dyspnea on Exertion, Lightheadedness Gastrointestinal: Reports: Abdominal Pain, Nausea, Vomiting Genitourinary: Reports: Flank Pain Musculoskeletal: Reports: No Symptoms Skin: Denies: Cyanosis, Jaundice, Pallor, Diaphoresis, Rash, Erythema Psychiatric: Denies: Depression, Anxiety, Hallucinations Neurological: Denies: Confusion, Pre-Existing Deficit, Difficulty Walking, Weakness, Gait Disturbance Hematologic/Lymphatic: Reports: No Symptoms Immunologic: Reports: No Symptoms Exam - Exam Exam: See Below - Vital Signs Vital Signs: Last Vital Signs Temp 36.9 C 05/01/17 20:29 Pulse 86 05/01/17 20:29 Resp 12 05/01/17 20:29 BP 143/83 H 05/01/17 20:29 Pulse Ox 95 05/01/17 21:19 Weight: 62.284 kg - Exam General: Alert, Oriented, Cooperative, Mild Distress HEENT: Conjunctiva Clear, EACs Clear, EOMI, Hearing Intact, Mucosa Moist & [place] , Nares Patent, Normal Nasal Septum, Posterior Pharynx Clear, Pupils Equal, Pupils Reactive Neck: Supple, Trachea Midline, +2 Carotid Pulse wo Bruit, Full Range of Motion Lungs: Clear to Auscultation, Normal Respiratory Effort Cardiovascular: Regular Rate, Regular Rhythm Abdomen: Normal Bowel Sounds, Soft. No: Organomegaly, Tenderness (Female) Exam: Deferred Rectal (Female) Exam: Deferred Back Exam: Normal Inspection, CVA Tenderness (L) Extremities: Normal Inspection, Normal Pulses Peripheral Pulses: 2+: Posterior Tibial (L), Posterior Tibial (R), Dorsalis Pedis (L), Dorsalis Pedis (R) Skin: Warm, Dry, Intact Neuro Extensive - Mental Status: Oriented x3, Normal Cognition, Memory Intact Neuro Extensive - Motor, Sensory, Reflexes: CN II-XII Intact, Normal Gait Psychiatric: Alert, Normal Affect, Normal Mood. No: Agitated, Suicidal Ideation , Withdrawal Symptoms - Patient Data Lab Results Last 24 hrs: Laboratory Results - last 24 hr 05/01/17 Range/Units 13:48 C-Reactive Protein 11.2 H* (<1.0) mg/dL Result Diagrams: 05/02/17 06:00 05/02/17 06:00 *Q Meaningful Use (ADM) - VTE *Q VTE Criteria *Q: - Stroke *Q Stroke Criteria *Q: - AMI *Q AMI Criteria *Q: Problem List Initiated/Reviewed/Updated: Yes Orders Last 24hrs: Active Orders 24 hr Category Date Time Status RT Aerosol Therapy [RC] ASDIRECTED Care 05/01/17 13:06 Active Consult to Case Management [CONS] Routine Cons 05/01/17 13:07 Active Consult to 2[address] [place] [CONS] Routine Cons 05/01/17 13:07 Active BASIC METABOLIC PANEL,BMP [CHEM] AM Lab 05/02/17 05:11 Ordered BASIC METABOLIC PANEL,BMP [CHEM] AM Lab 05/03/17 05:11 Ordered BASIC METABOLIC PANEL,BMP [CHEM] AM Lab 05/04/17 05:11 Ordered BASIC METABOLIC PANEL,BMP [CHEM] AM Lab 05/05/17 05:11 Ordered C-REACTIVE PROTEIN [CHEM] AM Lab 05/02/17 05:11 Ordered C-REACTIVE PROTEIN [CHEM] AM Lab 05/03/17 05:11 Ordered C-REACTIVE PROTEIN [CHEM] AM Lab 05/04/17 05:11 Ordered C-REACTIVE PROTEIN [CHEM] AM Lab 05/05/17 05:11 Ordered CULTURE BLOOD [BC] Stat Lab 05/01/17 13:48 Received CULTURE BLOOD [BC] Stat Lab 05/01/17 13:55 Received MAGNESIUM [CHEM] AM Lab 05/02/17 05:11 Ordered MAGNESIUM [CHEM] AM Lab 05/03/17 05:11 Ordered MAGNESIUM [CHEM] AM Lab 05/04/17 05:11 Ordered MAGNESIUM [CHEM] AM Lab 05/05/17 05:11 Ordered Calcium Carbonate/Vitamin D3 [Calcium Carbonate/Vitamin Med 05/02/17 09:00 Active D 1500 MG-200 Unit] 1 tab PO DAILY Cyanocobalamin (Vitamin B12) [Vitamin B12] Med 05/02/17 09:00 Active 1,000 mcg PO DAILY Cyclobenzaprine [Flexeril] Med 05/01/17 13:17 Active 10 mg PO TID PRN Estradiol Med 05/02/17 09:00 Pending DOSE mg PO DAILY Flunisolide [Nasalide Nasal [place]] Med 05/01/17 21:00 Active 0 ml NASBOTH BID Gabapentin [Neurontin] Med 05/01/17 15:00 Active 100 mg PO TID HYDROmorphone [Dilaudid] Med 05/01/17 13:17 Active 2 mg PO Q6H PRN Levofloxacin/Dextrose 5%-Water [Levaquin in D5W 500 MG/ Med 05/02/17 09:00 Active 100 ML] 500 mg Premix Bag 1 bag IV Q24H Mometasone/Formoterol [Dulera 100-5 MCG] Med 05/01/17 21:00 Active 0 puff IH BID Montelukast [Singulair] Med 05/02/17 09:00 Active 10 mg PO DAILY Multivitamins,Therapeutic [Thera] Med 05/02/17 09:00 Active 1 each PO DAILY Ondansetron [Zofran ODT] Med 05/01/17 13:30 Active 4 mg PO Q6H PRN Patient's Own Medication [Ptom] Med 05/01/17 15:00 Active 0 each PO TID Saccharomyces Boulardii [Florastor] Med 05/02/17 09:00 Active 500 mg PO DAILY Tamsulosin [Flomax] Med 05/02/17 09:00 Active 0.4 mg PO DAILY oxyCODONE ER [OxyCONTIN] Med 05/01/17 21:00 Active 20 mg PO Q12HR Blood Culture x2 Reflex Set [OM.PC] Stat Oth 05/01/17 13:07 Ordered Medication Orders Acetaminophen (Tylenol) 650 mg PO Q4H PRN PRN Reason: Pain (Mild 1-3)/fever Last Admin: 05/01/17 23:42 Dose: 650 mg Albuterol/Ipratropium (Duoneb 3.0-0.5 Mg/3 Ml) 3 ml NEB Q4H PRN PRN Reason: Shortness Of Breath/wheezing Bisacodyl (Dulcolax) 5 mg PO DAILY PRN PRN Reason: Constipation Calcium Carbonate (Calcium Carbonate/Vitamin D 1500 Mg-200 Unit) 1 tab PO DAILY [facility] Cyanocobalamin (Vitamin B12) 1,000 mcg PO DAILY [facility] Cyclobenzaprine HCl (Flexeril) 10 mg PO TID PRN PRN Reason: muscle spasms Docusate Sodium (Colace) 100 mg PO BID PRN PRN Reason: Constipation Estradiol (Estradiol) mg PO DAILY [facility] Flunisolide (Nasalide Nasal [place]) 0 ml NASBOTH BID [facility] Last Admin: 05/01/17 20:29 Dose: 1 spray Gabapentin (Neurontin) 100 mg PO TID [facility] Last Admin: 05/01/17 20:29 Dose: 100 mg Admin: 05/01/17 14:07 Dose: 100 mg Hydromorphone HCl (Dilaudid) 1 mg IVPUSH Q6H PRN PRN Reason: Pain (severe 7-10) Last Admin: 05/01/17 15:50 Dose: 1 mg Hydromorphone HCl (Dilaudid) 2 mg PO Q6H PRN PRN Reason: Renal colic Last Admin: 05/01/17 18:46 Dose: 2 mg Sodium Chloride (Normal Saline) 1,000 mls @ 125 mls/hr IV ASDIRECTED [facility] Last Admin: 05/01/17 22:38 Dose: 125 mls/hr Infusion: 05/01/17 22:08 Dose: 125 mls/hr Admin: 05/01/17 14:08 Dose: 125 mls/hr Infusion: 05/01/17 14:08 Dose: 125 mls/hr Admin: 05/01/17 06:52 Dose: 125 mls/hr Levofloxacin/Dextrose 500 mg/ (Premix) 100 mls @ 100 mls/hr IV Q24H [facility] Promethazine HCl 12.5 mg/ (Sodium Chloride) 50.5 mls @ 100 mls/hr IV Q6H PRN PRN Reason: Nausea/Vomiting Lorazepam (Ativan) 1 mg IV Q6H PRN PRN Reason: Anxiety Mometasone Furoate/Formoterol Fumar (Dulera 100-5 Mcg) 0 puff IH BID [facility] Last Admin: 05/01/17 20:56 Dose: 2 puff Montelukast Sodium (Singulair) 10 mg PO DAILY [facility] Multivitamins (Thera) 1 each PO DAILY [facility] Ondansetron HCl (Zofran) 4 mg IV Q6H PRN PRN Reason: Nausea/Vomiting Ondansetron HCl (Zofran Odt) 4 mg PO Q6H PRN PRN Reason: NAUSEA Oxycodone HCl (Oxycontin) 20 mg PO Q12HR [facility] Last Admin: 05/01/17 20:29 Dose: 20 mg Sodium Citrate Dihydrate [Sodium Citrate] 15 Ml 0 each PO TID [facility] Last Admin: 05/01/17 20:30 Dose: 15 each Admin: 05/01/17 15:53 Dose: 1 each Polyethylene Glycol (Miralax) 17 gm PO DAILY PRN PRN Reason: Constipation Saccharomyces Boulardii (Florastor) 500 mg PO DAILY [facility] Senna/Docusate Sodium (Senna Plus) 1 tab PO BID PRN PRN Reason: Constipation Last Admin: 05/01/17 20:29 Dose: 1 tab Sodium Chloride (Saline Flush) 10 ml FLUSH ASDIRECTED PRN PRN Reason: Keep Vein Open Last Admin: 05/01/17 06:50 Dose: 10 ml Tamsulosin HCl (Flomax) 0.4 mg PO DAILY [facility] Temazepam (Restoril) 15 mg PO BEDTIME PRN PRN Reason: Sleep Last Admin: 05/01/17 20:29 Dose: 15 mg Assessment/Plan Comment:: Assessment/Plan: Acute: Pyelonephritis is status post left ureteral stent placement - Recently had Stone - UA pos for UTI - CVA pos - Received Levaquin and Rocephin in ED - Continue IV Levaquin - UA Cx/Sx Renal Colic - Continue home pain meds - Scheduled and PRN narcotic pain pills Hx/o Renal Stones - CT scan shows several non-obstructing left renal stones - S/p Lithotripsy with Left ureteral stent placement - Continue IV hydration - Encourage to ambulate Chronic: Asthma DJD AR Marginal Ulcer S/p Gastric By Pass PUD Plan: Admit to Med-Surg Routine AM Labs Resume Home Meds SW/CM for d/c planning Code status: 1
[2017-05-02] MEDS: HYDROmorphone 2 MG Tab PO PRN ×4 (01:28→19:43)
[2017-05-02] MEDS: HYDROmorphone 1 MG/ML Syringe IVPUSH PRN ×3 (03:36→17:00)
[2017-05-02] MEDS: Sodium Chloride 0.9% 1,000 ML IV SCH ×3 (06:41→20:38)
[2017-05-02] MEDS ORDERED: Magnesium Oxide 400 MG Tab PO ONE (08:00)
--- NOTE | 2017-05-02 08:02 | PCM.PN ---
- General Info Date of Service: 05/02/17 Admission Dx/Problem (Free Text): Follow up Subjective Update: Follow Up Functional Status: Reports: tolerating diet, ambulating, urinating. Denies: pain controlled, new symptoms Pain Score: 10 - Review of Systems General: Denies: Fever, Weakness, Fatigue, Malaise, Chills HEENT: Reports: no symptoms Pulmonary: Denies: shortness of breath Cardiovascular: Denies: Chest Pain Gastrointestinal: Denies: Abdominal pain, Nausea, Vomiting Genitourinary: Reports: dysuria, pain, urgency, hematuria, flank pain Musculoskeletal: Reports: no symptoms Skin: Denies: cyanosis Neurological: Denies: Confusion, Dizziness, Difficulty Walking, Weakness, Gait Disturbance Psychiatric: Denies: depression, anxiety, agitation, hallucinations Systems Review Comment:: She did not sleep good last night due to pain. Pain is severe. She has no new complaints. - Patient Data Vitals - most recent: Last Vital Signs Temp 36.9 C 05/01/17 20:29 Pulse 72 05/02/17 05:35 Resp 16 05/02/17 05:35 BP 131/96 H 05/02/17 05:35 Pulse Ox 99 05/02/17 05:35 Weight - most recent: 63.458 kg I&O - last 24 hours: Intake & Output 05/01/17 05/02/17 05/02/17 22:59 06:59 14:59 Intake Total 785 1800 Output Total 400 Balance 785 1400 Lab Results last 24 hrs: Laboratory Results - last 24 hr 05/01/17 05/02/17 05/02/17 Range/Units 13:48 06:00 06:00 WBC 6.09 (3.98-10.04) K/mm3 RBC 3.94 L (3.98-5.22) M/mm3 Hgb 11.9 (11.2-15.7) gm/L Hct 36.9 (34.1-44.9) % MCV 93.7 (79.4-94.8) fl MCH 30.2 (25.6-32.2) pg MCHC 32.2 (32.2-35.5) g/dl RDW Std Deviation 42.7 (36.4-46.3) fL Plt Count 218 (182-369) K/mm3 MPV 10.1 (9.4-12.3) fl Neut % (Auto) 59.0 (34.0-71.1) % Lymph % (Auto) 27.9 (19.3-51.7) % [place] % (Auto) 11.5 (4.7-12.5) % Eos % (Auto) 1.6 (0.7-5.8) Baso % (Auto) 0.0 L (0.1-1.2) % Neut # (Auto) 3.59 (1.56-6.13) K/mm3 Lymph # (Auto) 1.70 (1.18-3.74) K/mm3 [place] # (Auto) 0.70 H (0.24-0.36) K/mm3 Eos # (Auto) 0.10 (0.04-0.36) K/mm3 Baso # (Auto) 0.00 L (0.01-0.08) K/mm3 Sodium 141 (136-145) mEq/L Potassium 3.9 (3.5-5.1) mEq/L Chloride 106 (98-107) mEq/L Carbon Dioxide 27 (21-32) mEq/L Anion Gap 11.9 (5-15) BUN 7 (7-18) mg/dL Creatinine 0.6 (0.55-1.02) mg/dL Est Cr Clr Drug Dosing 97.95 mL/min Estimated GFR (MDRD) > 60 (>60) mL/min BUN/Creatinine Ratio 11.7 L (14-18) Glucose 86 (74-106) mg/dL Calcium 8.6 (8.5-10.1) mg/dL Magnesium 1.7 L (1.8-2.4) mg/dl C-Reactive Protein 11.2 H* 12.0 H* (<1.0) mg/dL Med Orders - Current: Current Medications Acetaminophen (Tylenol) 650 mg PO Q4H PRN PRN Reason: Pain (Mild 1-3)/fever Last Admin: 05/01/17 23:42 Dose: 650 mg Albuterol/Ipratropium (Duoneb 3.0-0.5 Mg/3 Ml) 3 ml NEB Q4H PRN PRN Reason: Shortness Of Breath/wheezing Bisacodyl (Dulcolax) 5 mg PO DAILY PRN PRN Reason: Constipation Calcium Carbonate (Calcium Carbonate/Vitamin D 1500 Mg-200 Unit) 1 tab PO DAILY [facility] Cyanocobalamin (Vitamin B12) 1,000 mcg PO DAILY [facility] Cyclobenzaprine HCl (Flexeril) 10 mg PO TID PRN PRN Reason: muscle spasms Docusate Sodium (Colace) 100 mg PO BID PRN PRN Reason: Constipation Estradiol (Estradiol) 0.5 mg PO DAILY [facility] Flunisolide (Nasalide Nasal [place]) 0 ml NASBOTH BID [facility] Last Admin: 05/01/17 20:29 Dose: 1 spray Gabapentin (Neurontin) 100 mg PO TID [facility] Last Admin: 05/01/17 20:29 Dose: 100 mg Hydromorphone HCl (Dilaudid) 1 mg IVPUSH Q6H PRN PRN Reason: Pain (severe 7-10) Last Admin: 05/02/17 03:36 Dose: 1 mg Hydromorphone HCl (Dilaudid) 2 mg PO Q6H PRN PRN Reason: Renal colic Last Admin: 05/02/17 01:28 Dose: 2 mg Sodium Chloride (Normal Saline) 1,000 mls @ 125 mls/hr IV ASDIRECTED [facility] Last Admin: 05/02/17 06:41 Dose: 125 mls/hr Levofloxacin/Dextrose 500 mg/ (Premix) 100 mls @ 100 mls/hr IV Q24H [facility] Promethazine HCl 12.5 mg/ (Sodium Chloride) 50.5 mls @ 100 mls/hr IV Q6H PRN PRN Reason: Nausea/Vomiting Lorazepam (Ativan) 1 mg IV Q6H PRN PRN Reason: Anxiety Magnesium Sulfate (Pharmacy To Dose - Magnesium Replacement) 1 dose .XX DAILY [facility] Mometasone Furoate/Formoterol Fumar (Dulera 100-5 Mcg) 0 puff IH BID [facility] Last Admin: 05/01/17 20:56 Dose: 2 puff Montelukast Sodium (Singulair) 10 mg PO DAILY [facility] Multivitamins (Thera) 1 each PO DAILY [facility] Ondansetron HCl (Zofran) 4 mg IV Q6H PRN PRN Reason: Nausea/Vomiting Ondansetron HCl (Zofran Odt) 4 mg PO Q6H PRN PRN Reason: NAUSEA Oxycodone HCl (Oxycontin) 20 mg PO Q12HR [facility] Last Admin: 05/01/17 20:29 Dose: 20 mg Sodium Citrate Dihydrate [Sodium Citrate] 15 Ml 0 each PO TID [facility] Last Admin: 05/01/17 20:30 Dose: 15 each Polyethylene Glycol (Miralax) 17 gm PO DAILY PRN PRN Reason: Constipation Saccharomyces Boulardii (Florastor) 500 mg PO DAILY [facility] Senna/Docusate Sodium (Senna Plus) 1 tab PO BID PRN PRN Reason: Constipation Last Admin: 05/01/17 20:29 Dose: 1 tab Sodium Chloride (Saline Flush) 10 ml FLUSH ASDIRECTED PRN PRN Reason: Keep Vein Open Last Admin: 05/01/17 06:50 Dose: 10 ml Tamsulosin HCl (Flomax) 0.4 mg PO DAILY [facility] Temazepam (Restoril) 15 mg PO BEDTIME PRN PRN Reason: Sleep Last Admin: 05/01/17 20:29 Dose: 15 mg Discontinued Medications Albuterol/Ipratropium (Duoneb 3.0-0.5 Mg/3 Ml) ml INH Q4H PRN PRN Reason: Shortness of Breath Hydromorphone HCl (Dilaudid) 1 mg IVPUSH ONETIME ONE Stop: 05/01/17 06:37 Last Admin: 05/01/17 06:54 Dose: 1 mg Hydromorphone HCl (Dilaudid) 0.5 mg IVPUSH ONETIME ONE Stop: 05/01/17 08:14 Last Admin: 05/01/17 08:30 Dose: 0.5 mg Hydromorphone HCl (Dilaudid) 0.5 mg IVPUSH ONETIME ONE Stop: 05/01/17 11:06 Last Admin: 05/01/17 11:11 Dose: 0.5 mg Ceftriaxone Sodium 1 gm/ (Sodium Chloride) 100 mls @ 200 mls/hr IV ONETIME ONE Stop: 05/01/17 08:41 Last Admin: 05/01/17 08:22 Dose: 200 mls/hr Levofloxacin/Dextrose 750 mg/ (Premix) 150 mls @ 100 mls/hr IV ONETIME ONE Stop: 05/01/17 10:45 Last Admin: 05/01/17 09:25 Dose: 100 mls/hr Levofloxacin/Dextrose 500 mg/ (Premix) 100 mls @ 100 mls/hr IV Q24H [facility] Last Admin: 05/01/17 14:42 Dose: Not Given Ketorolac Tromethamine (Toradol) 30 mg IVPUSH ONETIME ONE Stop: 05/01/17 06:38 Last Admin: 05/01/17 06:56 Dose: 30 mg Magnesium Oxide (Magnesium Oxide) 400 mg PO ONETIME ONE Stop: 05/02/17 08:01 Non-Formulary Medication (Cetirizine Hcl [Allergy Relief]) 10 mg PO DAILY [facility] Non-Formulary Medication (Fexofenadine) 180 mg PO DAILY [facility] Ondansetron HCl (Zofran) 4 mg IVPUSH ONETIME ONE Stop: 05/01/17 06:36 Last Admin: 05/01/17 06:52 Dose: 4 mg Ondansetron HCl (Zofran) 4 mg IVPUSH ONETIME ONE Stop: 05/01/17 10:08 Last Admin: 05/01/17 10:11 Dose: 4 mg Oxycodone HCl (Oxycontin) 20 mg PO ONETIME ONE Stop: 05/01/17 13:21 Last Admin: 05/01/17 14:07 Dose: 20 mg Saccharomyces Boulardii (Florastor) 500 mg PO DAILY ONE Stop: 05/01/17 13:16 Last Admin: 05/01/17 14:07 Dose: 500 mg - Exam General: alert, oriented, cooperative, mild distress HEENT: Pupils equal, Pupils reactive, EOMI, Mucous membr. moist/pink Neck: supple, trachea midline, no JVD, no thyromegaly Lungs: Normal respiratory effort, Decreased breath sounds Cardiovascular: Regular Rate, Regular Rhythm GI/Abdominal Exam: Normal Bowel Sounds, Soft, Non-Tender, No Organomegaly, No Distention, No Abnormal Bruit (Female) Exam: Deferred Back Exam: Normal Inspection, CVA Tenderness (L), Decreased Range of Motion Extremities: Normal Inspection, Normal Range of Motion, Non-Tender, No Pedal Edema, Normal Capillary Refill Peripheral Pulses: 2+: Dorsalis Pedis (L), Dorsalis Pedis (R) Skin: warm, dry, intact Neurological: no new focal deficit Psy/Mental Status: alert, normal mood, anxious - Problem List Review Problem List Initiated/Reviewed/Updated: Yes - My Orders Last 24 Hours: My Active Orders 05/01/17 13:06 RT Aerosol Therapy [RC] ASDIRECTED 05/01/17 13:07 Consult to Case Management [CONS] Routine Consult to Transport Technician [CONS] Routine Blood Culture x2 Reflex Set [OM.PC] Stat 05/01/17 13:17 Cyclobenzaprine [Flexeril] 10 mg PO TID PRN HYDROmorphone [Dilaudid] 2 mg PO Q6H PRN 05/01/17 13:30 Ondansetron [Zofran ODT] 4 mg PO Q6H PRN 05/01/17 13:48 CULTURE BLOOD [BC] Stat 05/01/17 13:55 CULTURE BLOOD [BC] Stat 05/01/17 15:00 Gabapentin [Neurontin] 100 mg PO TID Patient's Own Medication [Ptom] 0 each PO TID 05/01/17 21:00 Flunisolide [Nasalide Nasal [place]] 0 ml NASBOTH BID Mometasone/Formoterol [Dulera 100-5 MCG] 0 puff IH BID oxyCODONE ER [OxyCONTIN] 20 mg PO Q12HR 05/02/17 09:00 Calcium Carbonate/Vitamin D3 [Calcium Carbonate/Vitamin D 1500 MG-200 Unit] 1 tab PO DAILY Cyanocobalamin (Vitamin B12) [Vitamin B12] 1,000 mcg PO DAILY Estradiol 0.5 mg PO DAILY Levofloxacin/Dextrose 5%-Water [Levaquin in D5W 500 MG/100 ML] 500 mg Premix Bag 1 bag IV Q24H Magnesium Rep Pharmacy to Dose [Pharmacy to Dose - Magnesium Replacement] 1 dose .XX DAILY Montelukast [Singulair] 10 mg PO DAILY Multivitamins,Therapeutic [Thera] 1 each PO DAILY Saccharomyces Boulardii [Florastor] 500 mg PO DAILY Tamsulosin [Flomax] 0.4 mg PO DAILY 05/03/17 05:11 BASIC METABOLIC PANEL,BMP [CHEM] AM C-REACTIVE PROTEIN [CHEM] AM MAGNESIUM [CHEM] AM 05/04/17 05:11 BASIC METABOLIC PANEL,BMP [CHEM] AM C-REACTIVE PROTEIN [CHEM] AM MAGNESIUM [CHEM] AM 05/05/17 05:11 BASIC METABOLIC PANEL,BMP [CHEM] AM C-REACTIVE PROTEIN [CHEM] AM MAGNESIUM [CHEM] AM - Plan Plan:: Assessment/Plan: Acute: Pyelonephritis is status post left ureteral stent placement - Recently had Stone - UA pos for UTI - CVA pos - Received Levaquin and Rocephin in ED - Continue IV Levaquin - UA Cx/Sx: GNR Renal Colic - She has poor pain tolerance, she was crying in pain - Continue home pain meds - Scheduled and PRN narcotic pain pills - Dilaudid 2 mg IVP to augment oral dose of 2 mg po Q4 - Cautioned patient of narcotic abuse - Flomax change to BID - IVF rate increased to 250cc/hr Hx/o Renal Stones - CT scan shows several non-obstructing left renal stones - S/p Lithotripsy with Left ureteral stent placement - Continue IV hydration - Encourage to ambulate Chronic: Asthma DJD AR Marginal Ulcer S/p Gastric By Pass PUD Plan: She is clinically stable Adjusted pain medications Routine AM Labs Resume Home Meds SW/CM for d/c planning Code status: 1
[2017-05-02] MEDS: Saccharomyces Boulardii (Probiotic) 250 MG Cap PO SCH (08:27)
[2017-05-02] MEDS: oxyCODONE ER 20 MG TAB.ER PO SCH ×2 (08:28→20:36)
[2017-05-02] MEDS: Montelukast 10 MG Tab PO SCH (08:28)
[2017-05-02] MEDS: Estradiol 0.5 MG Tab PO SCH (08:28)
[2017-05-02] MEDS: Gabapentin 100 MG Cap PO SCH ×3 (08:28→20:36)
[2017-05-02] MEDS: Multivitamins,Therapeutic Tab PO SCH (08:28)
[2017-05-02] MEDS: Calcium Carbonate/Vitamin D3 1500 MG-200 Units Tab PO SCH (08:29)
[2017-05-02] MEDS: Cyanocobalamin (Vitamin B12) 1,000 MCG Tab PO SCH (08:29)
[2017-05-02] MEDS: Levofloxacin/Dextrose 5%-Water 500 MG in Premix Bag 1 BAG IV SCH (08:29)
[2017-05-02] MEDS: [UNRECOGNIZED DRUG - OTHER] PO SCH ×3 (08:32→20:46)
[2017-05-02] MEDS ORDERED: [UNRECOGNIZED DRUG - REMARK] PO SCH (09:00)
[2017-05-02] MEDS ORDERED: Tamsulosin 0.4 MG Cap.ER PO SCH (09:00)
[2017-05-02] MEDS ORDERED: FEXOFENADINE 180 MG PO SCH (09:00)
[2017-05-02] MEDS: Formoterol/Mometasone 100-5 MCG 8.8 GM Inhaler IH SCH ×2 (09:17→20:12)
[2017-05-02] MEDS ORDERED: HYDROmorphone 1 MG/ML Syringe IVPUSH ONE (14:28)
[2017-05-02] MEDS ORDERED: HYDROmorphone 1 MG/ML Syringe IVPUSH PRN (17:39)
[2017-05-02] MEDS ORDERED: fentaNYL 12 MCG/HR Transdermal Patch TRDERM ONE (18:00)
[2017-05-02] MEDS ORDERED: Sodium Chloride 0.9% 1,000 ML IV SCH (18:00)
[2017-05-02] MEDS: Tamsulosin 0.4 MG Cap.ER PO SCH (20:36)
[2017-05-02] MEDS: Temazepam 30 MG Cap PO PRN (22:15)
[2017-05-03] MEDS: Sodium Chloride 0.9% 1,000 ML IV SCH ×6 (01:03→22:33)
[2017-05-03] MEDS: HYDROmorphone 2 MG Tab PO PRN ×3 (05:22→16:02)
[2017-05-03] MEDS ORDERED: Magnesium Hydroxide 400 MG/5 ML Susp 30 ML Cup PO ONE (06:00)
--- NOTE | 2017-05-03 07:13 | PCM.PN ---
- General Info Date of Service: 05/03/17 Admission Dx/Problem (Free Text): Follow up Subjective Update: Follow Up Functional Status: Reports: Pain Controlled, Tolerating Diet, Ambulating, Urinating, New Symptoms (Nausea/Vomiting) - Review of Systems General: Denies: Fever, Weakness, Fatigue, Malaise, Chills HEENT: Denies: Contact Lenses Pulmonary: Denies: Shortness of Breath Cardiovascular: Denies: Chest Pain Gastrointestinal: Denies: Abdominal Pain, Nausea, Vomiting Genitourinary: Reports: Hematuria, Flank Pain Musculoskeletal: Reports: No Symptoms Skin: Reports: No Symptoms Neurological: Denies: Confusion, Difficulty Walking, Weakness, Gait Disturbance Psychiatric: Denies: Depression, Anxiety, Agitation, Hallucinations Systems Review Comment:: No significant overnight or acute issues. She slept pretty good. However she had an epsiode of emesis this morning. Currently, she feels fine and her pain is controlled. - Patient Data Vitals - most recent: Last Vital Signs Temp 36.3 C 05/03/17 05:10 Pulse 83 05/03/17 05:10 Resp 12 05/03/17 05:10 BP 113/75 05/03/17 05:10 Pulse Ox 96 05/02/17 20:13 Weight - most recent: 66.361 kg I&O - last 24 hours: Intake & Output 05/02/17 05/03/17 05/03/17 22:59 06:59 14:59 Intake Total 3300 3717 Output Total 1100 2000 Balance 2200 1717 Lab Results last 24 hrs: Laboratory Results - last 24 hr 05/02/17 05/03/17 05/03/17 Range/Units 06:00 06:10 06:10 WBC 4.21 (3.98-10.04) K/mm3 RBC 3.25 L (3.98-5.22) M/mm3 Hgb 10.1 L (11.2-15.7) gm/L Hct 30.6 L (34.1-44.9) % MCV 94.2 (79.4-94.8) fl MCH 31.1 (25.6-32.2) pg MCHC 33.0 (32.2-35.5) g/dl RDW Std Deviation 42.3 (36.4-46.3) fL Plt Count 200 (182-369) K/mm3 MPV 9.6 (9.4-12.3) fl Neut % (Auto) 47.2 (34.0-71.1) % Lymph % (Auto) 38.5 (19.3-51.7) % [place] % (Auto) 12.4 (4.7-12.5) % Eos % (Auto) 1.9 (0.7-5.8) Baso % (Auto) 0.0 L (0.1-1.2) % Neut # (Auto) 1.99 (1.56-6.13) K/mm3 Lymph # (Auto) 1.62 (1.18-3.74) K/mm3 [place] # (Auto) 0.52 H (0.24-0.36) K/mm3 Eos # (Auto) 0.08 (0.04-0.36) K/mm3 Baso # (Auto) 0.00 L (0.01-0.08) K/mm3 Sodium 141 143 (136-145) mEq/L Potassium 3.9 3.9 (3.5-5.1) mEq/L Chloride 106 109 H (98-107) mEq/L Carbon Dioxide 27 27 (21-32) mEq/L Anion Gap 11.9 10.9 (5-15) BUN 7 5 L (7-18) mg/dL Creatinine 0.6 0.5 L (0.55-1.02) mg/dL Est Cr Clr Drug Dosing 97.95 117.54 mL/min Estimated GFR (MDRD) > 60 > 60 (>60) mL/min BUN/Creatinine Ratio 11.7 L 10.0 L (14-18) Glucose 86 98 (74-106) mg/dL Calcium 8.6 8.5 (8.5-10.1) mg/dL Magnesium 1.7 L 1.7 L (1.8-2.4) mg/dl C-Reactive Protein 12.0 H* 9.2 H* (<1.0) mg/dL Tony Results last 24 hrs: Microbiology 05/01/17 13:55 Aerobic Blood Culture - Preliminary Blood - Venous - Lab Draw NO GROWTH AFTER 1 DAY Anaerobic Blood Culture - Preliminary NO GROWTH AFTER 1 DAY 05/01/17 13:48 Aerobic Blood Culture - Preliminary Blood - Venous NO GROWTH AFTER 1 DAY Anaerobic Blood Culture - Preliminary NO GROWTH AFTER 1 DAY Med Orders - Current: Current Medications Acetaminophen (Tylenol) 650 mg PO Q4H PRN PRN Reason: Pain (Mild 1-3)/fever Last Admin: 05/01/17 23:42 Dose: 650 mg Albuterol/Ipratropium (Duoneb 3.0-0.5 Mg/3 Ml) 3 ml NEB Q4H PRN PRN Reason: Shortness Of Breath/wheezing Bisacodyl (Dulcolax) 5 mg PO DAILY PRN PRN Reason: Constipation Last Admin: 05/02/17 08:28 Dose: 5 mg Calcium Carbonate (Calcium Carbonate/Vitamin D 1500 Mg-200 Unit) 1 tab PO DAILY [facility] Last Admin: 05/02/17 08:29 Dose: 1 tab Cyanocobalamin (Vitamin B12) 1,000 mcg PO DAILY [facility] Last Admin: 05/02/17 08:29 Dose: 1,000 mcg Cyclobenzaprine HCl (Flexeril) 10 mg PO TID PRN PRN Reason: muscle spasms Last Admin: 05/02/17 11:39 Dose: 10 mg Docusate Sodium (Colace) 100 mg PO BID PRN PRN Reason: Constipation Last Admin: 05/02/17 17:00 Dose: 100 mg Estradiol (Estradiol) 0.5 mg PO DAILY [facility] Last Admin: 05/02/17 08:28 Dose: 0.5 mg Flunisolide (Nasalide Nasal [place]) 0 ml NASBOTH BID [facility] Last Admin: 05/02/17 20:36 Dose: 1 spray Gabapentin (Neurontin) 100 mg PO TID [facility] Last Admin: 05/02/17 20:36 Dose: 100 mg Hydromorphone HCl (Dilaudid) 2 mg IVPUSH Q6H PRN PRN Reason: Pain (severe 7-10) Hydromorphone HCl (Dilaudid) 2 mg PO Q4H PRN PRN Reason: Renal colic Last Admin: 05/03/17 05:22 Dose: 2 mg Levofloxacin/Dextrose 500 mg/ (Premix) 100 mls @ 100 mls/hr IV Q24H [facility] Last Admin: 05/02/17 08:29 Dose: 100 mls/hr Promethazine HCl 12.5 mg/ (Sodium Chloride) 50.5 mls @ 100 mls/hr IV Q6H PRN PRN Reason: Nausea/Vomiting Sodium Chloride (Normal Saline) 1,000 mls @ 250 mls/hr IV ASDIRECTED [facility] Last Admin: 05/03/17 01:03 Dose: 250 mls/hr Lorazepam (Ativan) 1 mg IV Q6H PRN PRN Reason: Anxiety Magnesium Sulfate (Pharmacy To Dose - Magnesium Replacement) 1 dose .XX DAILY [facility] Last Admin: 05/02/17 08:32 Dose: 1 dose Miscellaneous Information (Remove Patch) 1 ea TRDERM Q72H [facility] Last Admin: 05/02/17 18:00 Dose: Not Given Mometasone Furoate/Formoterol Fumar (Dulera 100-5 Mcg) 0 puff IH BID [facility] Last Admin: 05/02/17 20:12 Dose: 2 puff Montelukast Sodium (Singulair) 10 mg PO DAILY [facility] Last Admin: 05/02/17 08:28 Dose: 10 mg Multivitamins (Thera) 1 each PO DAILY [facility] Last Admin: 05/02/17 08:28 Dose: 1 each Ondansetron HCl (Zofran) 4 mg IV Q6H PRN PRN Reason: Nausea/Vomiting Ondansetron HCl (Zofran Odt) 4 mg PO Q6H PRN PRN Reason: NAUSEA Oxycodone HCl (Oxycontin) 20 mg PO Q12HR [facility] Last Admin: 05/02/17 20:36 Dose: 20 mg Sodium Citrate Dihydrate [Sodium Citrate] 15 Ml 0 each PO TID [facility] Last Admin: 05/02/17 20:46 Dose: 15 each Polyethylene Glycol (Miralax) 17 gm PO DAILY PRN PRN Reason: Constipation Last Admin: 05/02/17 17:00 Dose: 17 gm Saccharomyces Boulardii (Florastor) 500 mg PO DAILY [facility] Last Admin: 05/02/17 08:27 Dose: 500 mg Senna/Docusate Sodium (Senna Plus) 1 tab PO BID PRN PRN Reason: Constipation Last Admin: 05/01/17 20:29 Dose: 1 tab Sodium Chloride (Saline Flush) 10 ml FLUSH ASDIRECTED PRN PRN Reason: Keep Vein Open Last Admin: 05/01/17 06:50 Dose: 10 ml Tamsulosin HCl (Flomax) 0.4 mg PO BIDPC [facility] Last Admin: 05/02/17 20:36 Dose: 0.4 mg Temazepam (Restoril) 30 mg PO BEDTIME PRN PRN Reason: Insomnia Last Admin: 05/02/17 22:15 Dose: 30 mg Discontinued Medications Albuterol/Ipratropium (Duoneb 3.0-0.5 Mg/3 Ml) ml INH Q4H PRN PRN Reason: Shortness of Breath Fentanyl (Duragesic) 12 mcg TRDERM Q72H ONE Stop: 05/02/17 18:01 Last Admin: 05/02/17 18:06 Dose: 12 mcg Hydromorphone HCl (Dilaudid) 1 mg IVPUSH ONETIME ONE Stop: 05/01/17 06:37 Last Admin: 05/01/17 06:54 Dose: 1 mg Hydromorphone HCl (Dilaudid) 0.5 mg IVPUSH ONETIME ONE Stop: 05/01/17 08:14 Last Admin: 05/01/17 08:30 Dose: 0.5 mg Hydromorphone HCl (Dilaudid) 0.5 mg IVPUSH ONETIME ONE Stop: 05/01/17 11:06 Last Admin: 05/01/17 11:11 Dose: 0.5 mg Hydromorphone HCl (Dilaudid) 1 mg IVPUSH Q6H PRN PRN Reason: Pain (severe 7-10) Last Admin: 05/02/17 17:00 Dose: 1 mg Hydromorphone HCl (Dilaudid) 2 mg PO Q6H PRN PRN Reason: Renal colic Last Admin: 05/02/17 14:34 Dose: 2 mg Hydromorphone HCl (Dilaudid) 2 mg IVPUSH ONETIME ONE Stop: 05/02/17 14:29 Last Admin: 05/02/17 15:44 Dose: Not Given Sodium Chloride (Normal Saline) 1,000 mls @ [facility] Admin: 05/02/17 15:02 Dose: 125 mls/hr Ceftriaxone Sodium 1 gm/ (Sodium Chloride) 100 mls @ 200 mls/hr IV ONETIME ONE Stop: 05/01/17 08:41 Last Admin: 05/01/17 08:22 Dose: 200 mls/hr Levofloxacin/Dextrose 750 mg/ (Premix) 150 mls @ 100 mls/hr IV ONETIME ONE Stop: 05/01/17 10:45 Last Admin: 05/01/17 09:25 Dose: 100 mls/hr Levofloxacin/Dextrose 500 mg/ (Premix) 100 mls @ 100 mls/hr IV Q24H [facility] Last Admin: 05/01/17 14:42 Dose: Not Given Sodium Chloride (Normal Saline) 1,000 mls @ 250 mls/hr IV ASDIRECTED [facility] Ketorolac Tromethamine (Toradol) 30 mg IVPUSH ONETIME ONE Stop: 05/01/17 06:38 Last Admin: 05/01/17 06:56 Dose: 30 mg Magnesium Hydroxide (Milk Of Magnesia) 30 ml PO ONETIME ONE Stop: 05/03/17 06:01 Last Admin: 05/03/17 06:49 Dose: 30 ml Magnesium Oxide (Magnesium Oxide) 400 mg PO ONETIME ONE Stop: 05/02/17 08:01 Last Admin: 05/02/17 08:29 Dose: 400 mg Non-Formulary Medication (Cetirizine Hcl [Allergy Relief]) 10 mg PO DAILY [facility] Non-Formulary Medication (Fexofenadine) 180 mg PO DAILY [facility] Ondansetron HCl (Zofran) 4 mg IVPUSH ONETIME ONE Stop: 05/01/17 06:36 Last Admin: 05/01/17 06:52 Dose: 4 mg Ondansetron HCl (Zofran) 4 mg IVPUSH ONETIME ONE Stop: 05/01/17 10:08 Last Admin: 05/01/17 10:11 Dose: 4 mg Oxycodone HCl (Oxycontin) 20 mg PO ONETIME ONE Stop: 05/01/17 13:21 Last Admin: 05/01/17 14:07 Dose: 20 mg Saccharomyces Boulardii (Florastor) 500 mg PO DAILY ONE Stop: 05/01/17 13:16 Last Admin: 05/01/17 14:07 Dose: 500 mg Tamsulosin HCl (Flomax) 0.4 mg PO DAILY [facility] Last Admin: 05/02/17 08:29 Dose: 0.4 mg Temazepam (Restoril) 15 mg PO BEDTIME PRN PRN Reason: Sleep Last Admin: 05/01/17 20:29 Dose: 15 mg - Exam General: alert, oriented, cooperative, no acute distress HEENT: Pupils equal, Pupils reactive, EOMI, Mucous membr. moist/pink Neck: supple, trachea midline, no JVD, no thyromegaly Lungs: Clear to Auscultation, Normal Respiratory Effort Cardiovascular: Regular Rate, Regular Rhythm GI/Abdominal Exam: Normal Bowel Sounds, Soft, Non-Tender, No Distention (Female) Exam: Deferred Back Exam: Normal Inspection, CVA Tenderness (L), Decreased Range of Motion, Other (flank pain) Extremities: Normal Inspection, Normal Range of Motion, Non-Tender, No Pedal Edema, Normal Capillary Refill Skin: warm, dry, intact Neurological: no new focal deficit Psy/Mental Status: alert, normal affect, normal mood - Problem List Review Problem List Initiated/Reviewed/Updated: Yes - My Orders Last 24 Hours: My Active Orders 05/02/17 09:00 Calcium Carbonate/Vitamin D3 [Calcium Carbonate/Vitamin D 1500 MG-200 Unit] 1 tab PO DAILY Cyanocobalamin (Vitamin B12) [Vitamin B12] 1,000 mcg PO DAILY Estradiol 0.5 mg PO DAILY Levofloxacin/Dextrose 5%-Water [Levaquin in D5W 500 MG/100 ML] 500 mg Premix Bag 1 bag IV Q24H Magnesium Rep Pharmacy to Dose [Pharmacy to Dose - Magnesium Replacement] 1 dose .XX DAILY Montelukast [Singulair] 10 mg PO DAILY Multivitamins,Therapeutic [Thera] 1 each PO DAILY Saccharomyces Boulardii [Florastor] 500 mg PO DAILY 05/02/17 14:45 Heat Therapy [OM.PC] Routine 05/02/17 17:39 HYDROmorphone [Dilaudid] 2 mg IVPUSH Q6H PRN HYDROmorphone [Dilaudid] 2 mg PO Q4H PRN 05/02/17 18:00 Remove Patch 1 ea TRDERM Q72H 05/02/17 18:15 Sodium Chloride 0.9% [Normal Saline] 1,000 ml IV ASDIRECTED 05/02/17 20:51 Temazepam [Restoril] 30 mg PO BEDTIME PRN 05/02/17 20:52 Pulse Oximetry Continuous Monitoring [OM.PC] BID 05/02/17 20:55 Patient Status [ADT] Routine 05/02/17 21:00 Tamsulosin [Flomax] 0.4 mg PO BIDPC 05/04/17 05:11 BASIC METABOLIC PANEL,BMP [CHEM] AM C-REACTIVE PROTEIN [CHEM] AM MAGNESIUM [CHEM] AM 05/05/17 05:11 BASIC METABOLIC PANEL,BMP [CHEM] AM C-REACTIVE PROTEIN [CHEM] AM MAGNESIUM [CHEM] AM - Plan Plan:: Assessment/Plan: Acute: Pyelonephritis is status post left ureteral stent placement - Recently had Stone - UA pos for UTI - CVA pos - Received Levaquin and Rocephin in ED - Continue Abx: Switch to oral Levaquin - UA Cx/Sx: E. Coli Renal Colic, Improved - She has poor pain tolerance, she was crying in pain - Continue home pain meds - Scheduled and PRN narcotic pain pills - Dilaudid 2 mg IVP to augment oral dose of 2 mg po Q4 - Cautioned patient of narcotic abuse - Flomax change to BID - IVF rate increased to 350 cc/hr per patient request Hx/o Renal Stones - CT scan shows several non-obstructing left renal stones - S/p Lithotripsy with Left ureteral stent placement - Continue IV hydration - Encourage to ambulate Nausea/Vomiting - PRN anti-emesis - Monitor - Cautioned on narcotic abuse Hypomagnesemia - Mg 1.7 - Pharmacy to replete and monitor Chronic: Asthma DJD AR Marginal Ulcer S/p Gastric By Pass PUD Plan: She remains clinically stable No need to adjust pain regimen at this time Routine AM Labs Resume Home Meds SW/CM for d/c planning Code status: 1 Possible d/c in 1-2 days
[2017-05-03] MEDS: Saccharomyces Boulardii (Probiotic) 250 MG Cap PO SCH (09:04)
[2017-05-03] MEDS: Levofloxacin/Dextrose 5%-Water 500 MG in Premix Bag 1 BAG IV SCH (09:06)
[2017-05-03] MEDS: Multivitamins,Therapeutic Tab PO SCH (09:07)
[2017-05-03] MEDS: Estradiol 0.5 MG Tab PO SCH (09:07)
[2017-05-03] MEDS: Gabapentin 100 MG Cap PO SCH ×3 (09:07→21:00)
[2017-05-03] MEDS: Calcium Carbonate/Vitamin D3 1500 MG-200 Units Tab PO SCH (09:07)
[2017-05-03] MEDS: Cyanocobalamin (Vitamin B12) 1,000 MCG Tab PO SCH (09:07)
[2017-05-03] MEDS: Montelukast 10 MG Tab PO SCH (09:07)
[2017-05-03] MEDS: oxyCODONE ER 20 MG TAB.ER PO SCH ×2 (09:08→21:00)
[2017-05-03] MEDS: Tamsulosin 0.4 MG Cap.ER PO SCH ×2 (09:08→18:00)
[2017-05-03] MEDS: Magnesium Oxide 400 MG Tab PO SCH ×2 (09:08→11:54)
[2017-05-03] MEDS: [UNRECOGNIZED DRUG - OTHER] PO SCH (09:17)
[2017-05-03] MEDS: Formoterol/Mometasone 100-5 MCG 8.8 GM Inhaler IH SCH ×2 (09:25→20:23)
[2017-05-03] MEDS ORDERED: Ondansetron 4 MG/2 ML SDV IVPUSH PRN (12:29)
[2017-05-03] MEDS ORDERED: Scopolamine 1.5 MG Transdermal Patch TRDERM ONE (12:30)
[2017-05-03] MEDS: Temazepam 30 MG Cap PO PRN (21:41)
[2017-05-04] MEDS: Sodium Chloride 0.9% 1,000 ML IV SCH ×2 (01:19→04:23)
[2017-05-04] MEDS: Saccharomyces Boulardii (Probiotic) 250 MG Cap PO SCH (08:39)
[2017-05-04] MEDS: Cyanocobalamin (Vitamin B12) 1,000 MCG Tab PO SCH (08:40)
[2017-05-04] MEDS: Estradiol 0.5 MG Tab PO SCH (08:40)
[2017-05-04] MEDS: Tamsulosin 0.4 MG Cap.ER PO SCH (08:40)
[2017-05-04] MEDS: Montelukast 10 MG Tab PO SCH (08:40)
[2017-05-04] MEDS: oxyCODONE ER 20 MG TAB.ER PO SCH (08:40)
[2017-05-04] MEDS: Calcium Carbonate/Vitamin D3 1500 MG-200 Units Tab PO SCH (08:40)
[2017-05-04] MEDS: Gabapentin 100 MG Cap PO SCH (08:40)
[2017-05-04] MEDS: Multivitamins,Therapeutic Tab PO SCH (08:40)
[2017-05-04 08:43] VITALS: BP 137/79
[2017-05-04] MEDS ORDERED: Levofloxacin 750 MG Tab PO SCH (09:00)
[2017-05-04] MEDS: Formoterol/Mometasone 100-5 MCG 8.8 GM Inhaler IH SCH (09:07)
--- NOTE | 2017-05-04 11:40 | PCM.DCSUM1 ---
Discharge Summary - Hospital Course Brief History: This is a 47-year-old white female with past medical history of asthma, DJD, and seasonal allergies who presented to the emergency department with complaints of worsening left flank pain that started last night. Her symptoms is associated with nausea and vomiting. Patient reports no fever but with chills. Patient recently had undergone urologic procedure with Dr. Alegre. She carries history of renal stone with lithotripsy status post ureteral stent placement about 6 days ago. She was discharged with medication for symptomatic control but without any relief.. Her initial workup in the emergency department shows an unremarkable CBC. Her chemistry is significant for alkaline phosphatase of 2:30, and lipase of 52. Her screening is negative. Her UA is suggestive of urinary tract infection. CRP is 11.2. Abdominal/Pelvis CT scan report reads left ureteral stent. Mild dilatation of the left renal collecting system is seen of uncertain as non-obstructing stones are seen. Several non-obstructing left renal calculi. No right-sided renal calculi seen. No ureteral stones are seen. She is being admitted for medical management of pyelonephritis/UTI status post left ureteral stent placement with history of renal stones status post lithotripsy. - Discharge Data Discharge Date: 05/04/17 Discharge Disposition: Home, Self-Care 01 Condition: Good - Discharge Diagnosis/Problem(s) (1) Renal colic SNOMED Code(s): 6041698 ICD Code: N23 - UNSPECIFIED RENAL COLIC Status: Acute (2) Pyelonephritis SNOMED Code(s): 98127862 ICD Code: N12 - TUBULO-INTERSTITIAL NEPHRITIS, NOT SPCF ACUTE OR CHRONIC Status: Acute (3) Renal stones SNOMED Code(s): 42161720 ICD Code: N20.0 - CALCULUS OF KIDNEY Status: Acute - Patient Summary/Data Operative Procedure(s) Performed: None Complications: None Consults: Consultations 05/01/17 13:07 Consult to Case Management [CONS] Routine Consult to Tai Chi Instructor [CONS] Routine Recommended Follow-up Testing/Procedures: None Hospital Course: Patient was primarily admitted for medical management of pyelonephritis with renal colic likely associated to recent stent placement in [place]. She carried a history of renal stones for which she underwent lithotripsy. On this admission, she was provided supportive care and intravenous antibiotic. Her UA grew Escherichia coli organism and she completed 4 day course of Levaquin. Her hospital course was fairly uncomplicated with the exception of a mild electrolyte abnormality. However, we were quick to resolve it with appropriate supplementation. The rest of her chronic medical illness remained stable during this admission. She is now ready for discharge. Patient will continue additional course of levaquin to complete her antibiotic coverage. She will be provided with stool softeners to prevent opiate-induced constipation. She will also have low-dose fentanyl patch for her renal colic. The patient was cautioned about multiple narcotic use. She was advised to avoid alcohol or operate any motor vehicles while taking all these medications. Lastly , she was further advised to use Narcan should she accidentally overdosed on narcotic medications. Patient is to follow-up with her primary care and to keep her appointment with Dr. Alegre as initially scheduled. Patient expressed understanding and in agreement with the plans as discussed above. All questions were answered. - Patient Instructions Diet: Usual Diet as Tolerated Activity: As Tolerated Driving: Do Not Drive Showering/Bathing: May Shower Notify Provider of: Fever, Increased Pain, Nausea and/or Vomiting Other/Special Instructions: - Please take all medications as directed. - Be careful being on multiple pain medications, it increases your risk for unwanted accident, self harm or even . - Avoid alcohol while on narcotic pain medications. - Drinke plenty of water and continue your routine daily activities. - Use narcan as directed for over sedation. - Keep your appointment with Uroology as initially scheduled. - Follow up with your family doctor in 1-2 weeks - Discharge Plan Prescriptions/Med Rec: Bisacodyl [Biscolax] 10 mg RC DAILY PRN #15 supp.rect PRN Reason: Constipation Docusate Sodium/Sennosides [Senna Plus] 1 tab PO BID PRN #60 tablet PRN Reason: Stool Softener Levofloxacin [Levaquin] 500 mg PO Q24H #6 tablet Naloxone [Narcan] 0.4 mg IVPUSH ASDIRECTED PRN #2 syringe PRN Reason: Oversedation fentaNYL [Duragesic] 12 mcg TRDERM Q72H #2 patch Home Medications: Home Meds Cetirizine HCl [Allergy Relief] 10 mg PO DAILY 10/27/14 [History] Fluticasone/Salmeterol [Advair HFA 45-21 MCG] 2 puff INH BID 10/27/14 [History] Ipratropium/Albuterol Sulfate [Iprat-Albut 0.5-3(2.5) MG/3 ML] 1 puff INH Q4H PRN 10/27/14 [History] Fexofenadine [Maria Luisa] 180 mg PO DAILY 08/31/15 [History] Fluticasone Propionate [Flonase] 1 spray NASBOTH BID 08/31/15 [History] Montelukast [Singulair] 10 mg PO DAILY 08/31/15 [History] Omeprazole Magnesium [Prilosec Otc] 40 mg PO DAILY 09/22/16 [History] Ca Carbonate/Vitamin D3/Vit K [Calcium + D Soft Chewable Tab] 1 tab PO DAILY [History] Cyanocobalamin (Vitamin B-12) [Vitamin B-12] 1 tab PO DAILY 10/05/16 [History] Cyclobenzaprine [Flexeril] 1 tab PO TID PRN 10/05/16 [History] Multivitamin [One Daily] 1 tab PO DAILY 10/05/16 [History] Estradiol 1 tab PO BEDTIME 12/21/16 [History] Gabapentin [Neurontin] 100 mg PO TID 12/21/16 [History] HYDROmorphone [Dilaudid] 2 mg PO Q6H PRN #5 tablet 02/08/17 [Rx] Ondansetron [Zofran ODT] 4 mg PO Q6H #5 tab.dis 02/08/17 [Rx] Acetaminophen/oxyCODONE [Percocet 325-5 MG] 1 tab PO Q4H 05/01/17 [History] Sodium Citrate Dihydrate [Sodium Citrate] 15 ml PO TID 05/01/17 [History] Tamsulosin HCl 0.4 mg PO DAILY 05/01/17 [History] Bisacodyl [Biscolax] 10 mg RC DAILY PRN #15 supp.rect 05/04/17 [Rx] Docusate Sodium/Sennosides [Senna Plus] 1 tab PO BID PRN #60 tablet 05/04/17 [Rx ] Levofloxacin [Levaquin] 500 mg PO Q24H #6 tablet 05/04/17 [Rx] Naloxone [Narcan] 0.4 mg IVPUSH ASDIRECTED PRN #2 syringe 05/04/17 [Rx] fentaNYL [Duragesic] 12 mcg TRDERM Q72H #2 patch 05/04/17 [Rx] Patient Handouts: Pyelonephritis, Adult, [id number], Naloxone injection Referrals: Pipe Alegre MD [Physician] - 05/25/17 10:00 am (Please follow-up with Dr. Alegre on , May 25 at 10:00am Central time ([place] Time) ) Samples,DILAN Wills [Physician Pulling Machine Operator] - 05/16/17 10:00 am (Follow up with Linsey Samples on 05/16/17 at 10AM) - Discharge Summary/Plan Comment DC Time >30 min.: Yes (45 mins) Discharge Summary/Plan Comment: Discharge to Home - General Info Date of Service: 05/04/17 Admission Dx/Problem (Free Text: Follow up Subjective Update: Follow Up Functional Status: Reports: Pain Controlled, Tolerating Diet, Ambulating, Urinating. Denies: New Symptoms - Patient Data Vitals - Most Recent: Last Vital Signs Temp 36.9 C 05/04/17 08:41 Pulse 79 05/04/17 08:41 Resp 12 05/04/17 08:41 BP 137/79 05/04/17 08:41 Pulse Ox 98 05/04/17 09:07 Weight - Most Recent: 69.445 kg I&O - Last 24 hours: Intake & Output 05/03/17 05/04/17 05/04/17 22:59 06:59 14:59 Intake Total 8600 3738 1200 Output Total 1200 2100 Balance 5622 9408 1200 Lab Results - Last 24 hrs: Laboratory Results - last 24 hr 05/04/17 05/04/17 Range/Units 06:03 06:03 WBC 3.53 L (3.98-10.04) K/mm3 RBC 3.30 L (3.98-5.22) M/mm3 Hgb 10.2 L (11.2-15.7) gm/L Hct 31.2 L (34.1-44.9) % MCV 94.5 (79.4-94.8) fl MCH 30.9 (25.6-32.2) pg MCHC 32.7 (32.2-35.5) g/dl RDW Std Deviation 43.1 (36.4-46.3) fL Plt Count 294 (182-369) K/mm3 MPV 9.5 (9.4-12.3) fl Neut % (Auto) 49.3 (34.0-71.1) % Lymph % (Auto) 40.5 (19.3-51.7) % [place] % (Auto) 7.9 (4.7-12.5) % Eos % (Auto) 1.7 (0.7-5.8) Baso % (Auto) 0.3 (0.1-1.2) % Neut # (Auto) 1.74 (1.56-6.13) K/mm3 Lymph # (Auto) 1.43 (1.18-3.74) K/mm3 [place] # (Auto) 0.28 (0.24-0.36) K/mm3 Eos # (Auto) 0.06 (0.04-0.36) K/mm3 Baso # (Auto) 0.01 (0.01-0.08) K/mm3 Sodium 144 (136-145) mEq/L Potassium 3.9 (3.5-5.1) mEq/L Chloride 112 H (98-107) mEq/L Carbon Dioxide 25 (21-32) mEq/L Anion Gap 10.9 (5-15) BUN 2 L (7-18) mg/dL Creatinine 0.5 L (0.55-1.02) mg/dL Est Cr Clr Drug Dosing 117.54 mL/min Estimated GFR (MDRD) > 60 (>60) mL/min BUN/Creatinine Ratio 4.0 L (14-18) Glucose 89 (74-106) mg/dL Calcium 8.4 L (8.5-10.1) mg/dL Magnesium 1.9 (1.8-2.4) mg/dl C-Reactive Protein 5.6 H* (<1.0) mg/dL CESAR Results - Last 24 hrs: Microbiology 05/01/17 13:55 Aerobic Blood Culture - Preliminary Blood - Venous - Lab Draw NO GROWTH AFTER 2 DAYS Anaerobic Blood Culture - Preliminary NO GROWTH AFTER 2 DAYS 05/01/17 13:48 Aerobic Blood Culture - Preliminary Blood - Venous NO GROWTH AFTER 2 DAYS Anaerobic Blood Culture - Preliminary NO GROWTH AFTER 2 DAYS Med Orders - Current: Current Medications Acetaminophen (Tylenol) 650 mg PO Q4H PRN PRN Reason: Pain (Mild 1-3)/fever Last Admin: 05/01/17 23:42 Dose: 650 mg Albuterol/Ipratropium (Duoneb 3.0-0.5 Mg/3 Ml) 3 ml NEB Q4H PRN PRN Reason: Shortness Of Breath/wheezing Bisacodyl (Dulcolax) 5 mg PO DAILY PRN PRN Reason: Constipation Last Admin: 05/02/17 08:28 Dose: 5 mg Calcium Carbonate (Calcium Carbonate/Vitamin D 1500 Mg-200 Unit) 1 tab PO DAILY [facility] Last Admin: 05/04/17 08:40 Dose: 1 tab Cyanocobalamin (Vitamin B12) 1,000 mcg PO DAILY [facility] Last Admin: 05/04/17 08:40 Dose: 1,000 mcg Cyclobenzaprine HCl (Flexeril) 10 mg PO TID PRN PRN Reason: muscle spasms Last Admin: 05/02/17 11:39 Dose: 10 mg Docusate Sodium (Colace) 100 mg PO BID PRN PRN Reason: Constipation Last Admin: 05/02/17 17:00 Dose: 100 mg Estradiol (Estradiol) 0.5 mg PO DAILY [facility] Last Admin: 05/04/17 08:40 Dose: 0.5 mg Fentanyl (Duragesic) 12 mcg TRDERM Q72H [facility] Flunisolide (Nasalide Nasal [place]) 0 ml NASBOTH BID [facility] Last Admin: 05/04/17 08:40 Dose: 2 spray Gabapentin (Neurontin) 100 mg PO TID [facility] Last Admin: 05/04/17 08:40 Dose: 100 mg Hydromorphone HCl (Dilaudid) 2 mg IVPUSH Q6H PRN PRN Reason: Pain (severe 7-10) Hydromorphone HCl (Dilaudid) 2 mg PO Q4H PRN PRN Reason: Renal colic Last Admin: 05/03/17 16:02 Dose: 2 mg Promethazine HCl 12.5 mg/ (Sodium Chloride) 50.5 mls @ 100 mls/hr IV Q6H PRN PRN Reason: Nausea/Vomiting Levofloxacin (Levaquin) 750 mg PO Q24H [facility] Last Admin: 05/04/17 08:40 Dose: 750 mg Lorazepam (Ativan) 1 mg IV Q6H PRN PRN Reason: Anxiety Magnesium Sulfate (Pharmacy To Dose - Magnesium Replacement) 1 dose .XX DAILY [facility] Last Admin: 05/04/17 08:40 Dose: Not Given Miscellaneous Information (Remove Patch) 1 ea TRDERM Q72H [facility] Last Admin: 05/02/17 18:00 Dose: Not Given Miscellaneous Information (Remove Patch) 0 ea TRDERM ONETIME ONE Stop: 05/06/17 12:31 Mometasone Furoate/Formoterol Fumar (Dulera 100-5 Mcg) 0 puff IH BID [facility] Last Admin: 05/04/17 09:07 Dose: 2 puff Montelukast Sodium (Singulair) 10 mg PO DAILY [facility] Last Admin: 05/04/17 08:40 Dose: 10 mg Multivitamins (Thera) 1 each PO DAILY [facility] Last Admin: 05/04/17 08:40 Dose: 1 each Ondansetron HCl (Zofran Odt) 4 mg PO Q6H PRN PRN Reason: NAUSEA Last Admin: 05/03/17 18:00 Dose: 4 mg Ondansetron HCl (Zofran) 4 mg IVPUSH Q4H PRN PRN Reason: Nausea/Vomiting Oxycodone HCl (Oxycontin) 20 mg PO Q12HR [facility] Last Admin: 05/04/17 08:40 Dose: 20 mg Polyethylene Glycol (Miralax) 17 gm PO DAILY PRN PRN Reason: Constipation Last Admin: 05/02/17 17:00 Dose: 17 gm Saccharomyces Boulardii (Florastor) 500 mg PO DAILY [facility] Last Admin: 05/04/17 08:39 Dose: 500 mg Senna/Docusate Sodium (Senna Plus) 1 tab PO BID PRN PRN Reason: Constipation Last Admin: 05/01/17 20:29 Dose: 1 tab Sodium Chloride (Saline Flush) 10 ml FLUSH ASDIRECTED PRN PRN Reason: Keep Vein Open Last Admin: 05/01/17 06:50 Dose: 10 ml [facility] Last Admin: 05/04/17 08:40 Dose: 0.4 mg Temazepam (Restoril) 30 mg PO BEDTIME PRN PRN Reason: Insomnia Last Admin: 05/03/17 21:41 Dose: 30 mg Discontinued Medications Albuterol/Ipratropium (Duoneb 3.0-0.5 Mg/3 Ml) ml INH Q4H PRN PRN Reason: Shortness of Breath Fentanyl (Duragesic) 12 mcg TRDERM Q72H ONE Stop: 05/02/17 18:01 Last Admin: 05/02/17 18:06 Dose: 12 mcg Hydromorphone HCl (Dilaudid) 1 mg IVPUSH ONETIME ONE Stop: 05/01/17 06:37 Last Admin: 05/01/17 06:54 Dose: 1 mg Hydromorphone HCl (Dilaudid) 0.5 mg IVPUSH ONETIME ONE Stop: 05/01/17 08:14 Last Admin: 05/01/17 08:30 Dose: 0.5 mg Hydromorphone HCl (Dilaudid) 0.5 mg IVPUSH ONETIME ONE Stop: 05/01/17 11:06 Last Admin: 05/01/17 11:11 Dose: 0.5 mg Hydromorphone HCl (Dilaudid) 1 mg IVPUSH Q6H PRN PRN Reason: Pain (severe 7-10) Last Admin: 05/02/17 17:00 Dose: 1 mg Hydromorphone HCl (Dilaudid) 2 mg PO Q6H PRN PRN Reason: Renal colic Last Admin: 05/02/17 14:34 Dose: 2 mg Hydromorphone HCl (Dilaudid) 2 mg IVPUSH ONETIME ONE Stop: 05/02/17 14:29 Last Admin: 05/02/17 15:44 Dose: Not Given Sodium Chloride (Normal Saline) 1,000 mls @ 250 mls/hr IV ASDIRECTED [facility] Last Admin: 05/02/17 15:02 Dose: 125 mls/hr Ceftriaxone Sodium 1 gm/ (Sodium Chloride) 100 mls @ 200 mls/hr IV ONETIME ONE Stop: 05/01/17 08:41 Last Admin: 05/01/17 08:22 Dose: 200 mls/hr Levofloxacin/Dextrose 750 mg/ (Premix) 150 mls @ 100 mls/hr IV ONETIME ONE Stop: 05/01/17 10:45 Last Admin: 05/01/17 09:25 Dose: 100 mls/hr Levofloxacin/Dextrose 500 mg/ (Premix) 100 mls @ 100 mls/hr IV Q24H [facility] Last Admin: 05/01/17 14:42 Dose: Not Given Levofloxacin/Dextrose 500 mg/ (Premix) 100 mls @ 100 mls/hr IV Q24H [facility] Last Admin: 05/03/17 09:06 Dose: 100 mls/hr Sodium Chloride (Normal Saline) 1,000 mls @ 250 mls/hr IV ASDIRECTED FLAQU[facility]O Sodium Chloride (Normal Saline) 1,000 mls @ 250 mls/hr IV ASDIRECTED [facility] Last Admin: 05/04/17 04:23 Dose: 350 mls/hr Ketorolac Tromethamine (Toradol) 30 mg IVPUSH ONETIME ONE Stop: 05/01/17 06:38 Last Admin: 05/01/17 06:56 Dose: 30 mg Magnesium Hydroxide (Milk Of Magnesia) 30 ml PO ONETIME ONE Stop: 05/03/17 06:01 Last Admin: 05/03/17 06:49 Dose: 30 ml Magnesium Oxide (Magnesium Oxide) 400 mg PO ONETIME ONE Stop: 05/02/17 08:01 Last Admin: 05/02/17 08:29 Dose: 400 mg Magnesium Oxide (Magnesium Oxide) 400 mg PO Q4H [facility] Stop: 05/03/17 12:01 Last Admin: 05/03/17 11:54 Dose: 400 mg Non-Formulary Medication (Cetirizine Hcl [Allergy Relief]) 10 mg PO DAILY [facility] Non-Formulary Medication (Fexofenadine) 180 mg PO DAILY [facility] Ondansetron HCl (Zofran) 4 mg IVPUSH ONETIME ONE Stop: 05/01/17 06:36 Last Admin: 05/01/17 06:52 Dose: 4 mg Ondansetron HCl (Zofran) 4 mg IVPUSH ONETIME ONE Stop: 05/01/17 10:08 Last Admin: 05/01/17 10:11 Dose: 4 mg Ondansetron HCl (Zofran) 4 mg IV Q6H PRN PRN Reason: Nausea/Vomiting Last Admin: 05/03/17 09:34 Dose: 4 mg Oxycodone HCl (Oxycontin) 20 mg PO ONETIME ONE Stop: 05/01/17 13:21 Last Admin: 05/01/17 14:07 Dose: 20 mg Sodium Citrate Dihydrate [Sodium Citrate] 15 Ml 0 each PO TID [facility] Last Admin: 05/03/17 09:17 Dose: 15 each Saccharomyces Boulardii (Florastor) 500 mg PO DAILY ONE Stop: 05/01/17 13:16 Last Admin: 05/01/17 14:07 Dose: 500 mg Scopolamine (Transderm-Scop) 1.5 mg TRDERM ONETIME ONE Stop: 05/03/17 12:31 Last Admin: 05/03/17 12:43 Dose: 1.5 mg Tamsulosin HCl (Flomax) 0.4 mg PO DAILY [facility] Last Admin: 05/02/17 08:29 Dose: 0.4 mg Temazepam (Restoril) 15 mg PO BEDTIME PRN PRN Reason: Sleep Last Admin: 05/01/17 20:29 Dose: 15 mg *Q Meaningful Use (DIS) - VTE *Q VTE Criteria *Q: - Stroke *Q Stroke Criteria *Q: - AMI *Q AMI Criteria *Q:
[2017-05-04] MEDS ORDERED: fentaNYL 12 MCG/HR Transdermal Patch TRDERM ONE (12:45)
[2017-05-05] MEDS ORDERED: fentaNYL 12 MCG/HR Transdermal Patch TRDERM SCH (18:00)
== END 2017-05-04 13:04 | disposition home or self-care (01) | DRG 463 ==
LOC: JD.ED 06:04 → JD.MS 13:05
PROVIDERS: ADMIT Internal Medicine; ATTEND Internal Medicine
DX: N12 Tubulo-interstitial nephritis, not specified as acute or chronic (principal); N23 Unspecified renal colic; J45.909 Unspecified asthma, uncomplicated; K21.9 Gastro-esophageal reflux disease without esophagitis; Z87.442 Personal history of urinary calculi; G43.909 Migraine, unspecified, not intractable, without status migrainosus; M19.90 Unspecified osteoarthritis, unspecified site; Z87.891 Personal history of nicotine dependence; Z88.8 Allergy status to other drugs, medicaments and biological substances; Z91.030 Bee allergy status; Z88.7 Allergy status to serum and vaccine; Z88.2 Allergy status to sulfonamides; Z91.09 Other allergy status, other than to drugs and biological substances; Z88.6 Allergy status to analgesic agent; K27.9 Peptic ulcer, site unspecified, unspecified as acute or chronic, without hemorrhage or perforation; Z98.84 Bariatric surgery status; Z93.6 Other artificial openings of urinary tract status
CPT/HCPCS: 36415; 74176; 74176-26; 80048; 80053; 81001; 83690; 83735; 84703; 85025; 86140; 87040; 87086; 87088; 87186; 94640; 94762; 96361; 96365; 96366; 96367; 96375; 96376; 99284; 99285-25; A9270-GY; J0696; J1170; J1885; J1956; J2405; J7030; J7040; J7050

== ENCOUNTER 2017-05-24 10:42 | Emergency (ER) | payer BC ==
--- NOTE | 2017-05-24 11:20 | EDM.PDOC ---
ED HPI GENERAL MEDICAL PROBLEM - General Chief Complaint: Abdominal Pain Stated Complaint: LOWER ABDOMINAL PAIN/PAIN WITH URINATION Time Seen by Provider: 05/24/17 11:15 Source of Information: Reports: Patient, Old Records History Limitations: Reports: No Limitations - History of Present Illness INITIAL COMMENTS - FREE TEXT/NARRATIVE: 47-year-old female presents for evaluation treatment of left lower quadrant pain radiating into her left groin, left leg and left back. Patient had a stent placed in the left ureter on 04-25-17. She reports that she has had symptoms since having a stent placed. His was done by Dr. Alegre in [place]. She states that she has notify 's office of increased urinary infections and pain. She is to see him on May 31 for follow-up. This is her first follow -up since having the stent placed. Patient reports she was hospitalized on May 01 for pyelonephritis. She was sent home with a 14 day course of Levaquin which she took to completion and improved her symptoms. She reports after completing the antibiotics course she then again developed dysuria and a change in urine color. She also reports associated symptoms of chills, dry heaves and decreased appetite due to pain. No fevers or vomiting. Patient reports that she has been taking Tylenol which has not given her any pain relief. The [facility] shows that she has been getting Nucynta from Dr. Dyer for her knee. States she's been taking the Nucynta as prescribed. She states that she is currently out. Left Lower Abdominal Pain Score (Numeric/FACES): 10 - Related Data Allergies Allergy/AdvReac Type Severity Reaction Status Date / Time codeine Allergy Intermediate Difficulty Verified 05/24/17 10:50 Breathing diclofenac sodium Allergy Intermediate Difficulty Verified 05/24/17 10:50 [From Voltaren] Breathing hydrocodone Allergy Intermediate Difficulty Verified 05/24/17 10:50 Breathing naproxen sodium [From Aleve] Allergy Intermediate Difficulty Verified 05/24/17 10:50 Breathing Penicillins Allergy Intermediate Difficulty Verified 05/24/17 10:50 Breathing pseudoephedrine HCl Allergy Intermediate Difficulty Verified 05/24/17 10:50 [From Sudafed] Breathing Sulfa (Sulfonamide Allergy Intermediate Difficulty Verified 05/24/17 10:50 Antibiotics) Breathing animal dander Allergy Difficulty Verified 05/24/17 10:50 Breathing bee pollen Allergy Cannot Verified 05/24/17 10:50 Remember fish derived Allergy Cannot Verified 05/24/17 10:50 Remember influenza virus vaccine, Allergy Rash Verified 05/24/17 10:50 specific Influenza Virus Vaccines Allergy Rash Verified 05/24/17 10:50 iodine Allergy Difficulty Verified 05/24/17 10:50 Breathing mold Allergy Difficulty Verified 05/24/17 10:50 Breathing nabumetone [From Relafen] Allergy Cannot Verified 05/24/17 10:50 Remember olive oil Allergy Difficulty Verified 05/24/17 10:50 Breathing pollen extracts Allergy Difficulty Verified 05/24/17 10:50 Breathing prednisone Allergy Difficulty Verified 05/24/17 10:50 Breathing DUST Allergy Difficulty Uncoded 05/01/17 06:16 Breathing Home Meds: Home Meds Cetirizine HCl [Allergy Relief] 10 mg PO DAILY 10/27/14 [History] Fluticasone/Salmeterol [Advair HFA 45-21 MCG] 2 puff INH BID PRN 10/27/14 [ History] Fexofenadine [Maria Luisa] 180 mg PO DAILY 08/31/15 [History] Fluticasone Propionate [Flonase] 1 spray NASBOTH BID 08/31/15 [History] Montelukast [Singulair] 10 mg PO DAILY 08/31/15 [History] Omeprazole Magnesium [Prilosec Otc] 40 mg PO DAILY 09/22/16 [History] Ca Carbonate/Vitamin D3/Vit K [Calcium + D Soft Chewable Tab] 1 tab PO WEEKLY [History] Cyclobenzaprine [Flexeril] 10 mg PO TID PRN 10/05/16 [History] Multivitamin [One Daily] 1 tab PO DAILY 10/05/16 [History] Gabapentin [Neurontin] 100 mg PO TID PRN 12/21/16 [History] Cyanocobalamin (Vitamin B-12) [Vitamin B-12] 1,200 mcg PO WEEKLY 05/24/17 [ History] Estradiol 1 mg PO DAILY 05/24/17 [History] Levofloxacin [Levaquin] 500 mg PO Q24H #7 tablet 05/24/17 [Rx] Tapentadol HCl [Nucynta] 100 mg PO BID PRN 05/24/17 [History] oxyCODONE HCl/Acetaminophen [oxyCODONE-Acetaminophen 5-325] 1 tab PO Q4H PRN # 12 tablet 05/24/17 [Rx] Past Medical History HEENT 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: Allergic Rhinitis, Sinusitis Cardiovascular 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: None Respiratory 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: Asthma Other Respiratory History: Moderate snoring Gastrointestinal 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: GERD, GI Bleed, Helicobacter Pylori, PUD Genitourinary 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: Renal Calculus, Other (See Below) Other Genitourinary History: bilirubenimia, dysuria, UTI 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 OB/BYN History: history of ovarian cyst Other Musculoskeletal History: degenerative tear of medial meniscus (L), knee pain, patellar malignant syndrome (bilateral),osteochondrosis synovitis of knee , L patellar chrondromalacia, L knee cintusion, R knee locking, R knee contusion , L hip greater trochanter bursitis Neurological 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: Migraines Psychiatric 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: None Endocrine/Metabolic 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: None Hematologic 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: None Immunologic 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: None Oncologic (Cancer) 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: None Dermatologic 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: Other (See Below) Other Dermatologic History: sebaceous cyst - Infectious Disease History Infectious Disease 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: Chicken Pox, Measles - Past Surgical History Head Surgeries/Procedures: Reports: None GI Surgical 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: Bariatric Procedure, Cholecystectomy Female Surgical 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: Hysterectomy, Oophorectomy, Tubal Ligation Musculoskeletal Surgical 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: Arthroscopic Knee Social & Family History - Family History Family Medical History: Noncontributory Cardiac: Reports: Hypertension Other Cardiac Family History: parents Musculoskeletal: Reports: Arthritis Other Musculoskeletal Family History: parents Neurological: Reports: Migraines Other Neurological Family History: migraines - Tobacco Use Smoking Status *Q: Never Smoker Years of Tobacco use: 18 Packs/Tins Daily: 1 Used Tobacco, but Quit: Yes Month Tobacco Last Used: 1 yr Second Hand Smoke Exposure: No - Caffeine Use Caffeine Use: Reports: None - Alcohol Use Days Per Week of Alcohol Use: 0 - Recreational Drug Use Recreational Drug Use: No Drug Use in Last 12 Months: No ED ROS GENERAL - Review of Systems Review Of Systems: See Below Constitutional: Reports: Chills, Decreased Appetite. Denies: Fever GI/Abdominal: Reports: Abdominal Pain (LLQ), Nausea. Denies: Vomiting : Reports: Dysuria, Flank Pain (left), Other (reports change in urine color) Musculoskeletal: Reports: Back Pain (left lower back) ED EXAM, RENAL/ - Physical Exam Exam: See Below Exam Limited By: No Limitations General Appearance: Alert, WD/WN, No Apparent Distress Respiratory/Chest: No Respiratory Distress, Lungs Clear, Normal Breath Sounds Cardiovascular: Normal Peripheral Pulses, Regular Rate, Rhythm, No Murmur GI/Abdominal: Normal Bowel Sounds, Soft, Tender (LLQ). No: Distended, Guarding , Rigid, Rebound Back Exam: Normal Inspection, CVA Tenderness (L). No: Vertebral Tenderness Neurological: Alert, Oriented, Normal Cognition Psychiatric: Normal Affect, Normal Mood Skin Exam: Warm, Dry, Normal Color Course - Vital Signs Last Recorded V/S: Last Vital Signs Temp 36.6 C 05/24/17 10:47 Pulse 79 05/24/17 14:25 Resp 16 05/24/17 14:25 BP 112/73 05/24/17 14:25 Pulse Ox 98 05/24/17 14:25 - Orders/Labs/Meds Labs: Laboratory Tests 05/24/17 05/24/17 05/24/17 Range/Units 10:55 10:55 11:45 WBC 5.70 (3.98-10.04) K/mm3 RBC 4.49 (3.98-5.22) M/mm3 Hgb 13.7 (11.2-15.7) gm/L Hct 40.0 (34.1-44.9) % MCV 89.1 (79.4-94.8) fl MCH 30.5 (25.6-32.2) pg MCHC 34.3 (32.2-35.5) g/dl RDW Std Deviation 41.8 (36.4-46.3) fL Plt Count 289 (182-369) K/mm3 MPV 9.6 (9.4-12.3) fl Neutrophils % (Manual) 54 (40-60) % Band Neutrophils % 0 (0-10) % Lymphocytes % (Manual) 37 (20-40) % Atypical Lymphs % 0 % Monocytes % (Manual) 6 (2-10) % Eosinophils % (Manual) 3 (0.7-5.8) % Basophils % (Manual) 0 L (0.1-1.2) Platelet Estimate Adequate RBC Morph Comment Normal Sodium (136-145) mEq/L Potassium (3.5-5.1) mEq/L Chloride (98-107) mEq/L Carbon Dioxide (21-32) mEq/L Anion Gap (5-15) BUN (7-18) mg/dL Creatinine (0.55-1.02) mg/dL Est Cr Clr Drug Dosing mL/min Estimated GFR (MDRD) (>60) mL/min BUN/Creatinine Ratio (14-18) Glucose (74-106) mg/dL Calcium (8.5-10.1) mg/dL Total Bilirubin (0.2-1.0) mg/dL AST (15-37) U/L ALT (14-59) U/L Alkaline Phosphatase (46-116) U/L C-Reactive Protein (<1.0) mg/dL Total Protein (6.4-8.2) g/dl Albumin (3.4-5.0) g/dl Globulin gm/dL Albumin/Globulin Ratio (1-2) Lipase (73-393) U/L HCG, Qual Negative (NEGATIVE) Urine Color [place] H (Yellow) Urine Appearance Slt cloudy H (Clear) Urine pH 6.0 (5.0-8.0) Ur Specific [place] 1.025 (1.005-1.030) Urine Protein 3+ H (Negative) Urine Glucose (UA) Negative (Negative) Urine Ketones Negative (Negative) Urine Occult Blood 3+ H (Negative) Urine Nitrite Negative (Negative) Urine Bilirubin Negative (Negative) Urine Urobilinogen 1.0 (0.2-1.0) Ur Leukocyte Esterase 1+ H (Negative) Urine RBC 30-40 H (0-5) /hpf Urine WBC 10-20 H (0-5) /hpf Ur Epithelial Cells 5-10 H (0-5) /hpf Calcium Oxalate Crystal Few H (NONE) Urine Bacteria Few (FEW) /hpf Urine Mucus Not seen (FEW) /hpf Acetaminophen (10-30) ug/mL Monoscreen (NEGATIVE) 05/24/17 05/24/17 05/24/17 Range/Units 11:45 11:45 11:45 WBC (3.98-10.04) K/mm3 RBC (3.98-5.22) M/mm3 Hgb (11.2-15.7) gm/L Hct (34.1-44.9) % MCV (79.4-94.8) fl MCH (25.6-32.2) pg MCHC (32.2-35.5) g/dl RDW Std Deviation (36.4-46.3) fL Plt Count (182-369) K/mm3 MPV (9.4-12.3) fl Neutrophils % (Manual) (40-60) % Band Neutrophils % (0-10) % Lymphocytes % (Manual) (20-40) % Atypical Lymphs % % Monocytes % (Manual) (2-10) % Eosinophils % (Manual) (0.7-5.8) % Basophils % (Manual) (0.1-1.2) Platelet Estimate RBC Morph Comment Sodium 141 (136-145) mEq/L Potassium 3.5 (3.5-5.1) mEq/L Chloride 105 (98-107) mEq/L Carbon Dioxide 31 (21-32) mEq/L Anion Gap 8.5 (5-15) BUN 8 (7-18) mg/dL Creatinine 0.8 (0.55-1.02) mg/dL Est Cr Clr Drug Dosing 73.46 mL/min Estimated GFR (MDRD) > 60 (>60) mL/min BUN/Creatinine Ratio 10.0 L (14-18) Glucose 93 (74-106) mg/dL Calcium 9.2 (8.5-10.1) mg/dL Total Bilirubin 1.2 H (0.2-1.0) mg/dL AST 297 H (15-37) U/L ALT 253 H (14-59) U/L Alkaline Phosphatase 273 H (46-116) U/L C-Reactive Protein < 0.2 (<1.0) mg/dL Total Protein 6.7 (6.4-8.2) g/dl Albumin 3.7 (3.4-5.0) g/dl Globulin 3.0 gm/dL Albumin/Globulin Ratio 1.2 (1-2) Lipase 70 L (73-393) U/L HCG, Qual (NEGATIVE) Urine Color (Yellow) Urine Appearance (Clear) Urine pH (5.0-8.0) Ur Specific [place] (1.005-1.030) Urine Protein (Negative) Urine Glucose (UA) (Negative) Urine Ketones (Negative) Urine Occult Blood (Negative) Urine Nitrite (Negative) Urine Bilirubin (Negative) Urine Urobilinogen (0.2-1.0) Ur Leukocyte Esterase (Negative) Urine RBC (0-5) /hpf Urine WBC (0-5) /hpf Ur Epithelial Cells (0-5) /hpf Calcium Oxalate Crystal (NONE) Urine Bacteria (FEW) /hpf Urine Mucus (FEW) /hpf Acetaminophen (10-30) ug/mL Monoscreen Negative (NEGATIVE) 05/24/17 Range/Units 11:45 WBC (3.98-10.04) K/mm3 RBC (3.98-5.22) M/mm3 Hgb (11.2-15.7) gm/L Hct (34.1-44.9) % MCV (79.4-94.8) fl MCH (25.6-32.2) pg MCHC (32.2-35.5) g/dl RDW Std Deviation (36.4-46.3) fL Plt Count (182-369) K/mm3 MPV (9.4-12.3) fl Neutrophils % (Manual) (40-60) % Band Neutrophils % (0-10) % Lymphocytes % (Manual) (20-40) % Atypical Lymphs % % Monocytes % (Manual) (2-10) % Eosinophils % (Manual) (0.7-5.8) % Basophils % (Manual) (0.1-1.2) Platelet Estimate RBC Morph Comment Sodium (136-145) mEq/L Potassium (3.5-5.1) mEq/L Chloride (98-107) mEq/L Carbon Dioxide (21-32) mEq/L Anion Gap (5-15) BUN (7-18) mg/dL Creatinine (0.55-1.02) mg/dL Est Cr Clr Drug Dosing mL/min Estimated GFR (MDRD) (>60) mL/min BUN/Creatinine Ratio (14-18) Glucose (74-106) mg/dL Calcium (8.5-10.1) mg/dL Total Bilirubin (0.2-1.0) mg/dL AST (15-37) U/L ALT (14-59) U/L Alkaline Phosphatase (46-116) U/L C-Reactive Protein (<1.0) mg/dL Total Protein (6.4-8.2) g/dl Albumin (3.4-5.0) g/dl Globulin gm/dL Albumin/Globulin Ratio (1-2) Lipase (73-393) U/L HCG, Qual (NEGATIVE) Urine Color (Yellow) Urine Appearance (Clear) Urine pH (5.0-8.0) Ur Specific [place] (1.005-1.030) Urine Protein (Negative) Urine Glucose (UA) (Negative) Urine Ketones (Negative) Urine Occult Blood (Negative) Urine Nitrite (Negative) Urine Bilirubin (Negative) Urine Urobilinogen (0.2-1.0) Ur Leukocyte Esterase (Negative) Urine RBC (0-5) /hpf Urine WBC (0-5) /hpf Ur Epithelial Cells (0-5) /hpf Calcium Oxalate Crystal (NONE) Urine Bacteria (FEW) /hpf Urine Mucus (FEW) /hpf Acetaminophen 0 L (10-30) ug/mL Monoscreen (NEGATIVE) Meds: Medications Discontinued Medications Generic Name Dose Route Start Last Admin Trade Name Sidneyq PRN Reason Stop Dose Admin Hydromorphone HCl 1 mg 05/24/17 11:40 05/24/17 11:54 Dilaudid IVPUSH 05/24/17 11:41 1 mg ONETIME ONE Administration Sodium Chloride 1,000 mls @ 999 mls/hr 05/24/17 11:40 05/24/17 11:54 Normal Saline IV 05/24/17 12:40 999 mls/hr ONETIME ONE Administration Ondansetron HCl 4 mg 05/24/17 11:40 05/24/17 11:53 Zofran IVPUSH 05/24/17 11:41 4 mg ONETIME ONE Administration Sodium Chloride 10 ml 05/24/17 11:40 05/24/17 11:53 Saline Flush FLUSH 10 ml ASDIRECTED PRN Administration Keep Vein Open - Re-Assessments/Exams Free Text/Narrative Re-Assessment/Exam: 05/24/17 12:50 Labs returned. WBC and CRP within normal limits, unlikely she is septic from a UTI or has a pyelo. Urine was sent for culture. Of note her liver enzymes are elevated. She stats she has been taking tylenol for her pain, around 8 tabs per day. She reports she does not drink alcohol. Reports no chance of hepatitis. No known ill contacts with mono. I added on a tylenol level, lipase and mono screen to her labs. 05/24/17 14:10 Lipase returned at 70. Acetaminophen 0. Mononucleosis negative. I discussed the remainder of the lab results with the patient. I feel this time it would be appropriate to have her liver enzymes rechecked in one week. I feel we should treat her for urinary tract infection. Given her normal white blood cell count and normal CRP do not feel she is to be admitted at this time. She has follow-up with a primary care provider on Monday of next week. Until this time would be appropriate for recheck. She is to follow-up with her urologist in 1 week. We will discharge her home with antibiotics. Discharge instructions his document. Departure - Departure Time of Disposition: 14:15 Disposition: Home, Self-Care 01 Condition: Fair Clinical Impression: Urinary tract infection, Renal colic on left side, Elevated transaminase level - Discharge Information Prescriptions: Levofloxacin [Levaquin] 500 mg PO Q24H #7 tablet oxyCODONE HCl/Acetaminophen [oxyCODONE-Acetaminophen 5-325] 1 tab PO Q4H PRN # 12 tablet PRN Reason: Pain (Severe 7-10) Instructions: Renal Colic, [id number], Urinary Tract Infection, Adult, Aspartate Aminotransferase (AST) Test Referrals: PCP,None [Primary Care Provider] - Linsey Arango PA [Physician [employer]] - Pipe Alegre MD [Physician] - Forms: ED Department Discharge Additional Instructions: You were given medication that can affect your ability to drive and operate machinery. Do not drive or operate machinery within 12 hours of taking prescription narcotic pain medication. Percocet 1 tab every 4-6 hours as needed for severe pain. may take ibuprofen for less severe pain. Percocet can be habit-forming, I recommend you take as few of these as needed to control your pain. Do not drive or operate machinery within 12 hours of taking Percocet. Take the Levaquin as prescribed. 1 tab daily for 7 days. Follow-up with your primary care provider next week as planned. I recommend you have your liver enzymes re-checked. Follow-up with your urologist next week as planned for recheck of your symptoms. Please return to the ER if your symptoms change or worsen. In particular would like to see you if you become jaundiced or develop high fevers.
[2017-05-24] MEDS ORDERED: Sodium Chloride 0.9% 10 ML Syringe FLUSH PRN (11:40)
[2017-05-24] MEDS ORDERED: Sodium Chloride 0.9% 1,000 ML IV ONE (11:40)
[2017-05-24] MEDS ORDERED: Ondansetron 4 MG/2 ML SDV IVPUSH ONE (11:40)
[2017-05-24] MEDS ORDERED: HYDROmorphone 1 MG/ML Syringe IVPUSH ONE (11:40)
[2017-05-24 14:31] VITALS: BP 112/73
== END 2017-05-24 14:25 | disposition home or self-care (01) ==
LOC: JD.ED 10:42
DX: N39.0 Urinary tract infection, site not specified (principal); N23 Unspecified renal colic; R74.0 Nonspecific elevation of levels of transaminase and lactic acid dehydrogenase [LDH]; J45.909 Unspecified asthma, uncomplicated; K21.9 Gastro-esophageal reflux disease without esophagitis; G43.909 Migraine, unspecified, not intractable, without status migrainosus; Z90.49 Acquired absence of other specified parts of digestive tract; Z98.51 Tubal ligation status; Z90.721 Acquired absence of ovaries, unilateral; Z79.899 Other long term (current) drug therapy; Z88.0 Allergy status to penicillin; Z88.5 Allergy status to narcotic agent; Z88.2 Allergy status to sulfonamides; Z91.030 Bee allergy status; Z91.013 Allergy to seafood; Z88.8 Allergy status to other drugs, medicaments and biological substances
CPT/HCPCS: 36415; 80053; 81001; 83690; 84703; 85025; 86140; 86308; 87086; 96361; 96374; 96375; 99284; G0480; J1170; J2405; J7040; J7050

== ENCOUNTER 2017-09-19 06:25 | Day surgery (SDC) | payer BC ==
--- NOTE | 2017-09-13 16:29 | HP ---
DATE OF ADMISSION: 09/19/17 HISTORY: This is the multiple outpatient Orthopedic surgeries for this patient on the right knee. The patient had a history of a fall with severe contusion to the right knee on 06/26/2017. She has gone through a treatment program through the Orthopedic Clinic, all of which has failed to relieve her pain reaction. She has positive locking. MRI revealed changes of the patella, tibial plateau, and also medial femoral condyle and a questionable loose bone fragment anterior portion, central area of the right knee. With the failed treatment, the patient was last seen in the orthopedic office on 09/13/2017, went over the treatment program along with the results of the MRI and discussed a repeat arthroscopic evaluation of the right knee, which would include removal of any scar type tissue, torn cartilage, bone fragments, and also possible re-scraping or performing osteochondroplasty of the medial femoral condyle. She understands the procedure and due to the pain reaction, failed treatment, she is now being scheduled for arthroscopic surgery of the right knee. ALLERGIES: The patient has major allergy reactions to prednisone, influenza vaccine, NSAIDs, which cause significant problems. She is also allergic to codeine derivatives, oxycodone type derivatives, tramadol, penicillin causes a significant breathing type problem. The patient also is allergic to sulfa medications and also multiple generalized household type irritants to her, which include mold and dust. PAST MEDICAL HISTORY: The patient has a history of GERD along with ulcer problems. She has also had a history of multiple severe allergic reactions and the patient has had continued chronic right knee pain secondary to repeated falls. PAST SURGICAL HISTORY: Positive; she has had multiple arthroscopic surgeries, as with general anesthesia, has had no complications or problems. Her bleeding history is negative. Blood clot history is negative. SOCIAL HISTORY: She is nonsmoker and nondrinker. PHYSICAL EXAMINATION: GENERAL: Today reveals a well-developed, well-nourished, 47-year-old female in moderate distress. HEAD, EYES, EARS, NOSE, AND THROAT: Normocephalic. NECK: Supple. CHEST: Clear. COR: Regular rate. ABDOMEN: Soft. : Intact. EXTREMITIES: Right knee reveals positive medial joint, central, anterior, and medial pain with direct firm pressure. The patient has positive pain with patellar compression and displacement. The patient's range of motion, extension is -5 degrees, flexion is 120 degrees. RADIOLOGY: Evaluation MRI of September 06 reveals positive wear and edema formation medial facet, right patella, and also tibial plateau. Also, there are changes involving medial femoral condyle and also a probable loose bone fragment, anterior portion, right knee joint. ASSESSMENT: Overall impression is chronic right knee joint pain secondary to injury and also loose bone fragment and fibrous adhesions right knee. PLAN: Plan will be for the patient to undergo surgical arthroscopy which will evaluate the joint for surgery. She understands the procedure and has consented to it. MMODAL /[id number] KEON
[~2017-09-19 06:25] MED LIST changes: +Lidocaine 1%/Sod Bicarbonate in NS 8.4% 1 ML Syringe IV PRN; -Lidocaine 1%/Sod Bicarbonate in NS 8.4% 1 ML Syringe PRN
[2017-09-19] MEDS ORDERED: Clindamycin Phosphate 900 MG in Sodium Chloride 0.9% 100 ML IV ONE (07:00)
[2017-09-19] MEDS ORDERED: Bupivacaine 0.5%/EPINEPHrine 1:200,000 50 ML MDV ONE (07:14)
[2017-09-19] MEDS ORDERED: Sodium Chloride 0.9% 50 ML SDV ONE (07:15)
--- NOTE | 2017-09-19 08:15 | PCM.PREANE ---
Preanesthetic Assessment - Anesthesia/Transfusion/Family Hx Anesthesia History: Prior Anesthesia Without Reaction Family History of Anesthesia Reaction: No Transfusion History: Prior Transfusion Without Reaction - Review of Systems General: No Symptoms Pulmonary: No Symptoms Cardiovascular: No Symptoms Gastrointestinal: No Symptoms Neurological: No Symptoms Other: Reports: None - Physical Assessment NPO Status Date: 09/18/17 NPO Status Time: 18:00 Pulse: 65 O2 Sat by Pulse Oximetry: 98 Respiratory Rate: 16 Blood Pressure: 109/73 Temperature: 36.6 C Vital Signs: Last Vital Signs Temp 36.6 C 09/19/17 06:45 Pulse 65 09/19/17 06:45 Resp 16 09/19/17 06:45 BP 109/73 09/19/17 06:45 Pulse Ox 98 09/19/17 06:45 Height: 1.6 m Weight: 57.606 kg ASA Class: 2 Mental Status: Alert & Oriented x3 Dentition: Reports: Dentures (top), Partial (lower) Thyro-Mental Finger Breadths: 3 Mouth Opening Finger Breadths: 3 ROM/Head Extension: Full Lungs: Clear to Auscultation, Normal Respiratory Effort Cardiovascular: Regular Rate, Regular Rhythm, No Murmurs - Allergies Allergies/Adverse Reactions: Allergies Allergy/AdvReac Type Severity Reaction Status Date / Time codeine Allergy Intermediate Difficulty Verified 09/18/17 15:52 Breathing diclofenac sodium Allergy Intermediate Difficulty Verified 09/18/17 15:52 [From Voltaren] Breathing hydrocodone Allergy Intermediate Difficulty Verified 09/18/17 15:52 Breathing naproxen sodium [From Aleve] Allergy Intermediate Difficulty Verified 09/18/17 15:52 Breathing Penicillins Allergy Intermediate Difficulty Verified 09/18/17 15:52 Breathing pseudoephedrine HCl Allergy Intermediate Difficulty Verified 09/18/17 15:52 [From Sudafed] Breathing Sulfa (Sulfonamide Allergy Intermediate Difficulty Verified 09/18/17 15:52 Antibiotics) Breathing animal dander Allergy Difficulty Verified 09/18/17 15:52 Breathing bee pollen Allergy Cannot Verified 09/18/17 15:52 Remember fish derived Allergy Cannot Verified 09/18/17 15:52 Remember influenza virus vaccine, Allergy Rash Verified 09/18/17 15:52 specific Influenza Virus Vaccines Allergy Rash Verified 09/18/17 15:52 iodine Allergy Difficulty Verified 09/18/17 15:52 Breathing mold Allergy Difficulty Verified 09/18/17 15:52 Breathing nabumetone [From Relafen] Allergy Cannot Verified 09/18/17 15:52 Remember olive oil Allergy Difficulty Verified 09/18/17 15:52 Breathing pollen extracts Allergy Difficulty Verified 09/18/17 15:52 Breathing prednisone Allergy Difficulty Verified 09/18/17 15:52 Breathing tramadol Allergy Cannot Verified 09/18/17 15:52 Remember wheat Allergy Cannot Verified 09/18/17 15:52 Remember bandaid Allergy Blisters Uncoded 09/19/17 07:26 DUST Allergy Difficulty Uncoded 09/18/17 15:52 Breathing - Blood Blood Available: No Product(s) Available: None - Anesthesia Plan Pre-Op Medication Ordered: None - Acknowledgements Anesthesia Type Planned: General Anesthesia Pt an Appropriate Candidate for the Planned Anesthesia: Yes Alternatives and Risks of Anesthesia Discussed w Pt/Guardian: Yes Pt/Guardian Understands and Agrees with Anesthesia Plan: Yes PreAnesthesia Questionnaire HEENT 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: Allergic Rhinitis, Sinusitis, Other (See Below) Other HEENT History: has dentures/partials Cardiovascular 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: None Respiratory 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: Asthma Other Respiratory History: Moderate snoring Gastrointestinal 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: GERD, GI Bleed, Helicobacter Pylori, PUD, Other (See Below) Other Gastrointestinal History: bilrubinemia, GI bleed, elevated LFTs, nausea/ voming Genitourinary 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: Renal Calculus, Other (See Below) Other Genitourinary History: bilirubenimia, dysuria, UTI, renal colic [employer]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: Other OB/BYN History: history of ovarian cyst, hot flashes, Musculoskeletal 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: Other (See Below) Other Musculoskeletal History: degenerative tear of medial meniscus (L), knee pain, patellar malignant syndrome (bilateral),osteochondrosis synovitis of knee , L patellar chrondromalacia, L knee contusion, R knee locking, R knee contusion , L hip greater trochanter bursitis Neurological 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: Migraines Psychiatric 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: None, Anxiety, Other (See Below) Other Psychiatric History: insomnia Endocrine/Metabolic 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: Obesity/BMI 30+ Hematologic 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: None Immunologic 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: None Oncologic (Cancer) 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: None Dermatologic 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: Other (See Below) Other Dermatologic History: sebaceous cyst - Infectious Disease History Infectious Disease 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: Chicken Pox, Measles - Past Surgical History Head Surgeries/Procedures: Reports: None HEENT Surgical 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: Tonsillectomy Other HEENT Surgeries/Procedures: has dentures and partial Cardiovascular Surgical 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: None Respiratory Surgical 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: None GI Surgical 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: Bariatric Procedure, Cholecystectomy, Colonoscopy , EGD Other GI Surgeries/Procedures: 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 Female Surgical 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: Hysterectomy, Oophorectomy, Tubal Ligation Endocrine Surgical 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: None Neurological Surgical 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: None Musculoskeletal Surgical 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: Arthroscopic Knee Other Musculoskeletal Surgeries/Procedures:: L knee arthroscopy x 2, R knee arthroscopy, L foot surgery Oncologic Surgical 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: None Dermatological Surgical 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: None - SUBSTANCE USE Smoking Status *Q: Former Smoker Tobacco Use Within Last Twelve Months: Cigars Other Tobacco Use Within Last Twelve Months: states doesn't smoke, then states hasn't smoked in awhile. Second Hand Smoke Exposure: No Days Per Week of Alcohol Use: 0 Number of Drinks Per Day: 0 Total Drinks Per Week: 0 Recreational Drug Use History: No - HOME MEDS Home Medications: Home Meds Cetirizine HCl [Allergy Relief] 10 mg PO DAILY 10/27/14 [History] Fluticasone/Salmeterol [Advair HFA 45-21 MCG] 2 puff INH BID PRN 10/27/14 [ History] Fexofenadine [Maria Luisa] 180 mg PO DAILY 08/31/15 [History] Fluticasone Propionate [Flonase] 1 spray NASBOTH BID 08/31/15 [History] Montelukast [Singulair] 10 mg PO DAILY 08/31/15 [History] Omeprazole Magnesium [Prilosec Otc] 40 mg PO DAILY 09/22/16 [History] Ca Carbonate/Vitamin D3/Vit K [Calcium + D Soft Chewable Tab] 1 tab PO DEL CID [History] Cyclobenzaprine [Flexeril] 10 mg PO TID PRN 10/05/16 [History] Multivitamin [One Daily] 1 tab PO DAILY 10/05/16 [History] Cyanocobalamin (Vitamin B-12) [Vitamin B-12] 1,200 mcg PO DEL CID 05/24/17 [History] Estradiol 1 mg PO DAILY 05/24/17 [History] Albuterol/Ipratropium [DuoNeb 3.0-0.5 MG/3 ML] 1 dose NEB Q4H PRN 09/18/17 [ History] EPINEPHrine [Epipen] 1 dose IM ONETIME PRN 09/18/17 [History] Gabapentin [Neurontin] 300 mg PO TID PRN 09/18/17 [History] Ondansetron HCl [Ondansetron] 8 mg PO Q8H PRN 09/18/17 [History] Salsalate [Salsalate] 750 mg PO BID 09/18/17 [History] Sertraline HCl [Sertraline HCl] 50 mg PO DAILY 09/18/17 [History] Tamsulosin HCl [Flomax] 0.4 mg PO DAILY 09/18/17 [History] Zolpidem Tartrate [Zolpidem Tartrate] 1 - 2 tab PO BEDTIME PRN 09/18/17 [History ] - CURRENT (IN HOUSE) MEDS Current Meds: Current Medications Lactated Ringer's (Ringers, Lactated) 1,000 mls @ 125 mls/hr IV ASDIRECTED FLAQUITO Stop: 09/19/17 23:00 Lidocaine/Sodium Bicarbonate (Buffered Lidocaine 1% In Ns 8.4%) 0.25 ml IV ONETIME PRN PRN Reason: Prior to IV Start Stop: 09/19/17 18:00 Sodium Chloride (Saline Flush) 10 ml FLUSH ASDIRECTED PRN PRN Reason: Keep Vein Open Stop: 09/19/17 18:00 Discontinued Medications Bupivacaine HCl/Epinephrine Bitart (Marcaine 0.5%/Epinephrine 1:200,000) Confirm Administered Dose 50 ml .ROUTE .STK-MED ONE Stop: 09/19/17 07:15 Clindamycin Phosphate 900 mg/ (Sodium Chloride) 106 mls @ 212 mls/hr IV ONETIME ONE Stop: 09/19/17 07:29 Sodium Chloride (Normal Saline) Confirm Administered Dose 50 ml .ROUTE .STK-MED ONE Stop: 09/19/17 07:16
[2017-09-19] MEDS ORDERED: Propofol 200 MG/20 ML SDV ONE ×2 (08:59→09:20)
[2017-09-19] MEDS ORDERED: fentaNYL 250 MCG/5 ML SDV ONE ×2 (09:00→09:21)
[2017-09-19] MEDS ORDERED: Midazolam 1 MG/ML 2 ML SDV ONE ×2 (09:00→09:21)
[2017-09-19] MEDS ORDERED: Ondansetron 4 MG/2 ML SDV ONE ×2 (09:02→09:20)
[2017-09-19] MEDS ORDERED: Dexamethasone 4 MG/ML SDV ONE (09:02)
[2017-09-19] MEDS ORDERED: Lidocaine 1% 0 ML ONE (09:02)
[2017-09-19] MEDS ORDERED: Lidocaine 1% 4 ML ONE (09:21)
[2017-09-19] MEDS ORDERED: Cyclobenzaprine 10 MG Tab PO PRN (09:32)
[2017-09-19] MEDS ORDERED: Ketorolac 30 MG/ML SDV IVPUSH PRN (09:32)
[2017-09-19] MEDS ORDERED: Ondansetron 4 MG/2 ML SDV IVPUSH PRN (09:32)
[2017-09-19] MEDS ORDERED: HYDROmorphone 0.5 MG/0.5 ML Syringe IVPUSH PRN ×2 (09:32→11:16)
[2017-09-19] MEDS ORDERED: Lactated Ringers 1,000 ML ONE (09:56)
[2017-09-19] MEDS ORDERED: HYDROmorphone 1 MG/ML Syringe ONE (10:29)
[2017-09-19] MEDS ORDERED: fentaNYL 100 MCG/2 ML SDV IVPUSH PRN (11:05)
--- NOTE | 2017-09-19 11:07 | PCM.POSTAN ---
POST ANESTHESIA ASSESSMENT - MENTAL STATUS Mental Status: Alert, Oriented - VITAL SIGNS Pulse Rate: 99 SaO2: 94 Resp Rate: 11 Blood Pressure: 131/88 Temperature: 37.1 C - RESPIRATORY Respiratory Status: Respiratory Rate WNL, Airway Patent, O2 Saturation Stable, Supplemental Oxygen - CARDIOVASCULAR CV Status: Pulse Rate WNL, Blood Pressure Stable - GASTROINTESTINAL GI Status: No Symptoms - PAIN Pain Score: 0 - POST OP HYDRATION Hydration Status: Adequate & Stable - OBSERVATIONS Free Text/Narrative:: no anesthesia complications noted
[2017-09-19] MEDS ORDERED: diphenhydrAMINE 50 MG/ML SDV IVPUSH PRN (11:16)
[2017-09-19 12:47] VITALS: BP 116/73
--- NOTE | 2017-09-19 17:02 | OR ---
DATE OF OPERATION: 09/19/2017 SURGEON: Ildefonso Rodrigez MD PREOPERATIVE DIAGNOSIS: Right knee pain with fibrous adhesions and loose osteochondral fragment and osteochondrosis and degenerative medial meniscus tear. POSTOPERATIVE DIAGNOSIS: Right knee pain with fibrous adhesions and loose osteochondral fragment and osteochondrosis and degenerative medial meniscus tear. ANESTHESIA: General. OPERATION PERFORMED: 1. Right knee arthroscopic debridement with removal of fibrous adhesions and loose cartilaginous bodies. 2. Arthroscopic osteochondroplasty, microfracture of central medial femoral condyle and medial femoral condyle. 3. Arthroscopic partial central medial meniscus surgery. DESCRIPTION OF PROCEDURE: The patient was taken to the operative room in supine position. She was placed under general anesthesia. The right leg was then prepped and draped in a standard fashion. After prepping and draping, the operation began with 2 portal incisions that were used, medial and lateral. The arthroscope was introduced to the lateral compartment and evaluate the medial compartment. On initial inspection, there was significant small cartilaginous debris floating in the joint, which was then removed with the 2nd medial portal approach using the shaver. Once the debris was removed, there was fibrous adhesions anteriorly, which were excised and then the operation proceeded with inspection of the central area. In the intercondylar notch, the anterior cruciate ligament and posterior cruciate ligament were intact. On MRI, there was an identification of a possible loose type fragment in that area which I felt this represented a cartilaginous type fragment. There was no specific hard type body in that area. The operation proceeded to the medial compartment, posterior horn of the medial compartment was probed with a nerve hook and the posterior central area showed positive degenerative tearing of the meniscus and fraying. The anterior horn was intact. Partial meniscectomy was carried out on the central portion of the medial meniscus until a nice smooth surface was obtained in transition. The operation then proceeded with evaluation of tibial plateau, which found minimal to no chondromalacia changes. The medial femoral condyle found 2 areas of osteochondrosis along the medial edge, just over the area where the previous medial meniscus was degenerating, was an area of exposed bone. This area was lightly burred and then microfracture was carried out to a bleeding surface and this was the area of approximately less than a dime. The central medial femoral condyle had a previous osteochondroplasty performed which showed breakdown and fibrous changes as a result of the injury the patient suffered. This area was debrided initially, reprobed, and was felt to go ahead and remove the previous fibrous scar cartilage that had developed and a re-osteochondroplasty was carried out. A nice bleeding bone was obtained in both areas. The operation proceeded to the suprapatellar area where the patella was found to be centralized. Minimal to no changes with chondromalacia were noted. There were no loose bone fragments or any type of debris floating in the suprapatellar area. The operation proceeded to the lateral compartment evaluation. The meniscus was intact from the posterior horn anteriorly, it was probed. Condylar surface of the tibia and femur were intact. The operation proceeded with final thorough irrigation of the wound area. Final inspection of the osteochondroplasty areas again showed good bleeding formation. The operation then proceeded with the continued irrigation and then the joint was then went through final light suction debridement and the skin was then closed with 3-0 Prolene. The patient was placed in a Haddad dressing. She tolerated the procedure well, left the operating room in stable condition to room for recovery. ESTIMATED BLOOD LOSS: MMODAL /[id number]
== END 2017-09-19 13:30 | disposition home or self-care (01) ==
LOC: JD.SDS 06:25
PROVIDERS: ATTEND Specialist
DX: S83.241A Other tear of medial meniscus, current injury, right knee, initial encounter (principal); M93.961 Osteochondropathy, unspecified, right lower leg; J45.909 Unspecified asthma, uncomplicated; K21.9 Gastro-esophageal reflux disease without esophagitis; G43.909 Migraine, unspecified, not intractable, without status migrainosus; F51.05 Insomnia due to other mental disorder; F40.9 Phobic anxiety disorder, unspecified; M17.11 Unilateral primary osteoarthritis, right knee; M23.232 Derangement of other medial meniscus due to old tear or injury, left knee; E66.9 Obesity, unspecified; Z68.32 Body mass index [BMI] 32.0-32.9, adult; Z88.6 Allergy status to analgesic agent; Z91.030 Bee allergy status; Z88.0 Allergy status to penicillin; Z88.5 Allergy status to narcotic agent; Z91.013 Allergy to seafood; Z88.2 Allergy status to sulfonamides; Z88.7 Allergy status to serum and vaccine; Z88.8 Allergy status to other drugs, medicaments and biological substances; Z91.018 Allergy to other foods; Z87.440 Personal history of urinary (tract) infections; Z87.442 Personal history of urinary calculi; Z87.891 Personal history of nicotine dependence; Z98.84 Bariatric surgery status; Z98.890 Other specified postprocedural states; Z79.818 Long term (current) use of other agents affecting estrogen receptors and estrogen levels; Z79.1 Long term (current) use of non-steroidal anti-inflammatories (NSAID); Z79.899 Other long term (current) drug therapy
CPT/HCPCS: 29879; 29881; A9270; J1100; J1170; J1200; J2250; J2405; J3010; J7120; 01402; J2704

== ENCOUNTER 2018-02-18 14:01 | Emergency (ER) | payer BC ==
[2018-02-18 14:29] VITALS: BP 131/88
[2018-02-18] MEDS ORDERED: Sodium Chloride 0.9% 10 ML Syringe FLUSH PRN (15:02)
[2018-02-18] MEDS ORDERED: Sodium Chloride 0.9% 500 ML IV ONE (15:04)
[2018-02-18] MEDS ORDERED: Ondansetron 4 MG/2 ML SDV IVPUSH ONE (15:04)
[2018-02-18] MEDS ORDERED: Morphine 10 MG/ML SDV IV ONE (15:05)
--- NOTE | 2018-02-18 15:38 | CT ---
CT abdomen and pelvis Technique: Multiple axial sections were obtained from above the dome of the diaphragm inferiorly through the pubic symphysis. Intravenous and oral contrast was not utilized. Study has been performed as a ureteral stone protocol. Comparison: Previous CT abdomen and pelvis exam of 05/01/17. Findings: Nonobstructing stone is noted within the inferior left kidney measuring 4 mm in size. No other abnormal calcifications are seen along the course of the ureters. No ureteral dilatation or ureteral stone is seen. Visualized lung bases shows nothing acute. Noncontrast appearance of the liver and spleen appears within normal limits. Adrenal glands show no nodules. Surgical clips are seen from prior cholecystectomy. Pancreas shows no discrete abnormality. Previous gastric surgery is noted. Aorta shows minimal atherosclerotic change without aneurysm. No retroperitoneal adenopathy or mesenteric abnormalities are seen. No pelvic mass or adenopathy is seen. Appendix is seen and is normal in size. No free fluid or inflammatory change is seen. Bone window settings were reviewed which shows degenerative change within the apophyseal joint at L5-S1 causing mild spondylolisthesis. Other less prominent degenerative change is seen within other portions of the lumbar spine. Impression: 1. Small nonobstructing stone within the inferior left kidney. No ureteral dilatation or ureteral stone is seen. 2. Other incidental findings as noted above. Nothing acute is appreciated on CT study of the abdomen and pelvis. Diagnostic code #2
[2018-02-18] MEDS ORDERED: Morphine 4 MG/ML Syringe ONE (15:46)
[2018-02-18] MEDS ORDERED: Morphine 4 MG/ML Syringe IVPUSH ONE (15:50)
[2018-02-18] MEDS ORDERED: Nitrofurantoin Monohydrate/Macrocrystalline 100 MG Cap PO ONE (17:46)
--- NOTE | 2018-02-18 17:50 | EDM.PDOC ---
ED HPI GENERAL MEDICAL PROBLEM - General Chief Complaint: Genitourinary Problem Stated Complaint: KIDNEY PAIN Time Seen by Provider: 02/18/18 14:54 Source of Information: Reports: Patient, RN Notes Reviewed - History of Present Illness INITIAL COMMENTS - FREE TEXT/NARRATIVE: Onset of left flank and back pain this morning about 6 hours ago, continues to have left back and flank discomfort. Also does have some nausea. Pain does not radiate to the abdomen or groin. She has not vomited, she did have some hematuria at home. Treatments [employer]: Reports: Other (see below) Other Treatments [employer]: gabapentin at 0900 Left Flank Pain Score (Numeric/FACES): 9 - Related Data Allergies Allergy/AdvReac Type Severity Reaction Status Date / Time codeine Allergy Intermediate Difficulty Verified 02/18/18 14:25 Breathing diclofenac sodium Allergy Intermediate Difficulty Verified 02/18/18 14:25 [From Voltaren] Breathing hydrocodone Allergy Intermediate Difficulty Verified 02/18/18 14:25 Breathing naproxen sodium [From Aleve] Allergy Intermediate Difficulty Verified 02/18/18 14:25 Breathing Penicillins Allergy Intermediate Difficulty Verified 02/18/18 14:25 Breathing pseudoephedrine HCl Allergy Intermediate Difficulty Verified 02/18/18 14:25 [From Sudafed] Breathing Sulfa (Sulfonamide Allergy Intermediate Difficulty Verified 02/18/18 14:25 Antibiotics) Breathing animal dander Allergy Difficulty Verified 02/18/18 14:25 Breathing bee pollen Allergy Cannot Verified 02/18/18 14:25 Remember fish derived Allergy Cannot Verified 02/18/18 14:25 Remember influenza virus vaccine, Allergy Rash Verified 02/18/18 14:25 specific Influenza Virus Vaccines Allergy Rash Verified 02/18/18 14:25 iodine Allergy Difficulty Verified 02/18/18 14:25 Breathing mold Allergy Difficulty Verified 02/18/18 14:25 Breathing nabumetone [From Relafen] Allergy Cannot Verified 02/18/18 14:25 Remember olive oil Allergy Difficulty Verified 02/18/18 14:25 Breathing pollen extracts Allergy Difficulty Verified 02/18/18 14:25 Breathing prednisone Allergy Difficulty Verified 02/18/18 14:25 Breathing tramadol Allergy Cannot Verified 02/18/18 14:25 Remember wheat Allergy Cannot Verified 02/18/18 14:25 Remember bandaid Allergy Blisters Uncoded 02/18/18 14:25 DUST Allergy Difficulty Uncoded 02/18/18 14:25 Breathing Home Meds: Home Meds Cetirizine HCl [Allergy Relief] 10 mg PO DAILY 10/27/14 [History] Fluticasone/Salmeterol [Advair HFA 45-21 MCG] 2 puff INH BID PRN 10/27/14 [ History] Fexofenadine [Maria Luisa] 180 mg PO DAILY 08/31/15 [History] Fluticasone Propionate [Flonase] 1 spray NASBOTH BID 08/31/15 [History] Montelukast [Singulair] 10 mg PO DAILY 08/31/15 [History] Omeprazole Magnesium [Prilosec Otc] 40 mg PO DAILY 09/22/16 [History] Ca Carbonate/Vitamin D3/Vit K [Calcium + D Soft Chewable Tab] 1 tab PO DEL CID [History] Cyclobenzaprine [Flexeril] 10 mg PO TID PRN 10/05/16 [History] Multivitamin [One Daily] 1 tab PO DAILY 10/05/16 [History] Cyanocobalamin (Vitamin B-12) [Vitamin B-12] 1,200 mcg PO DEL CID 05/24/17 [History] Estradiol 1 mg PO DAILY 05/24/17 [History] Albuterol/Ipratropium [DuoNeb 3.0-0.5 MG/3 ML] 1 dose NEB Q4H PRN 09/18/17 [ History] EPINEPHrine [Epipen] 1 dose IM ONETIME PRN 09/18/17 [History] Gabapentin [Neurontin] 300 mg PO TID PRN 09/18/17 [History] Ondansetron HCl [Ondansetron] 8 mg PO Q8H PRN 09/18/17 [History] Salsalate 750 mg PO BID 09/18/17 [History] Sertraline HCl 50 mg PO DAILY 09/18/17 [History] Tamsulosin HCl [Flomax] 0.4 mg PO DAILY 09/18/17 [History] Zolpidem Tartrate 1 - 2 tab PO BEDTIME PRN 09/18/17 [History] Nitrofurantoin Monohyd/M-Cryst [Macrobid 100 mg Capsule] 100 mg PO BID #10 capsule 02/18/18 [Rx] Ondansetron [Zofran ODT] 4 mg PO Q6H PRN #7 tab.dis 02/18/18 [Rx] Past Medical History HEENT 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: Allergic Rhinitis, Sinusitis, Other (See Below) Other HEENT History: has dentures/partials Cardiovascular 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: None Respiratory 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: Asthma Other Respiratory History: Moderate snoring Gastrointestinal 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: GERD, GI Bleed, Helicobacter Pylori, PUD, Other (See Below) Other Gastrointestinal History: bilrubinemia, GI bleed, elevated LFTs, nausea/ voming Genitourinary 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: Renal Calculus, Other (See Below) Other Genitourinary History: bilirubenimia, dysuria, UTI, renal colic [employer] 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: Other OB/BYN History: history of ovarian cyst, hot flashes, Musculoskeletal 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: Other (See Below) Other Musculoskeletal History: degenerative tear of medial meniscus (L), knee pain, patellar malignant syndrome (bilateral),osteochondrosis synovitis of knee , L patellar chrondromalacia, L knee contusion, R knee locking, R knee contusion , L hip greater trochanter bursitis Neurological 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: Migraines Psychiatric 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: None, Anxiety, Other (See Below) Other Psychiatric History: insomnia Endocrine/Metabolic 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: Obesity/BMI 30+ Hematologic 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: None Immunologic 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: None Oncologic (Cancer) 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: None Dermatologic 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: Other (See Below) Other Dermatologic History: sebaceous cyst - Infectious Disease History Infectious Disease 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: Chicken Pox, Measles - Past Surgical History Head Surgeries/Procedures: Reports: None HEENT Surgical 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: Tonsillectomy Other HEENT Surgeries/Procedures: has dentures and partial Cardiovascular Surgical 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: None Respiratory Surgical 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: None GI Surgical 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: Bariatric Procedure, Cholecystectomy, Colonoscopy , EGD Other GI Surgeries/Procedures: 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 Female Surgical 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: Hysterectomy, Oophorectomy, Tubal Ligation Endocrine Surgical 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: None Neurological Surgical 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: None Musculoskeletal Surgical 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: Arthroscopic Knee Other Musculoskeletal Surgeries/Procedures:: L knee arthroscopy x 2, R knee arthroscopy, L foot surgery Oncologic Surgical 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: None Dermatological Surgical 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: None Social & Family History - Family History Family Medical History: Noncontributory Cardiac: Reports: Hypertension Other Cardiac Family History: parents Musculoskeletal: Reports: Arthritis Other Musculoskeletal Family History: parents Neurological: Reports: Migraines Other Neurological Family History: migraines - Tobacco Use Smoking Status *Q: Never Smoker Years of Tobacco use: 18 Packs/Tins Daily: 1 Used Tobacco, but Quit: Yes Month/Year Tobacco Last Used: 2013 Second Hand Smoke Exposure: No - Caffeine Use Caffeine Use: Reports: None - Alcohol Use Days Per Week of Alcohol Use: 0 Number of Drinks Per Day: 0 Total Drinks Per Week: 0 - Recreational Drug Use Recreational Drug Use: No Drug Use in Last 12 Months: No ED ROS GENERAL - Review of Systems Review Of Systems: See Below Constitutional: Denies: Fever, Chills, Diaphoresis HEENT: Reports: No Symptoms Respiratory: Denies: Shortness of Breath Cardiovascular: Denies: Chest Pain GI/Abdominal: Reports: Nausea. Denies: Abdominal Pain, Vomiting : Reports: Hematuria. Denies: Dysuria, Frequency Musculoskeletal: Reports: Back Pain Skin: Reports: No Symptoms (Left-sided) Neurological: Reports: No Symptoms ED EXAM, RENAL/ - Physical Exam Exam: See Below General Appearance: Alert, Moderate Distress Throat/Mouth: Normal Inspection Head: No: Facial Swelling Neck: Supple, Full Range of Motion Respiratory/Chest: No Respiratory Distress, Lungs Clear, Normal Breath Sounds Cardiovascular: Regular Rate, Rhythm GI/Abdominal: Non-Tender Back Exam: CVA Tenderness (L) Extremities: Normal Inspection, Normal Range of Motion Neurological: Alert, Oriented, No Motor/Sensory Deficits Skin Exam: Warm, Dry, Normal Color Course - Vital Signs Last Recorded V/S: Last Vital Signs Temp 98.9 F 02/18/18 14:26 Pulse 77 02/18/18 14:26 Resp 16 02/18/18 14:26 BP 131/88 02/18/18 14:26 Pulse Ox 97 02/18/18 14:26 - Orders/Labs/Meds Orders: Active Orders 24 hr Category Date Time Status Peripheral IV Care [RC] . DIRECTED Care 02/18/18 15:03 Active Peripheral IV Insertion Adult [OM.PC] Stat Oth 02/18/18 15:02 Ordered Labs: Laboratory Tests 02/18/18 Range/Units 14:45 Urine Color Yellow (Yellow) Urine Appearance Clear (Clear) Urine pH 7.0 (5.0-8.0) Ur Specific Naylor 1.015 (1.005-1.030) Urine Protein Negative (Negative) Urine Glucose (UA) Negative (Negative) Urine Ketones Negative (Negative) Urine Occult Blood Trace-lysed H (Negative) Urine Nitrite Negative (Negative) Urine Bilirubin Negative (Negative) Urine Urobilinogen 0.2 (0.2-1.0) Ur Leukocyte Esterase 2+ H (Negative) Urine RBC Not seen (0-5) /hpf Urine WBC 0-5 (0-5) /hpf Ur Epithelial Cells 0-5 (0-5) /hpf Urine Bacteria Few (FEW) /hpf Urine Mucus Not seen (FEW) /hpf Meds: Medications Discontinued Medications Generic Name Dose Route Start Last Admin Trade Name Freq PRN Reason Stop Dose Admin Sodium Chloride 500 mls @ 999 mls/hr 02/18/18 15:04 02/18/18 15:40 Normal Saline IV 02/18/18 15:34 999 mls/hr .BOLUS ONE Administration Morphine Sulfate 4 mg 02/18/18 15:05 02/18/18 15:52 Morphine IV 02/18/18 15:06 Not Given ONETIME ONE Morphine Sulfate Confirm 02/18/18 15:46 02/18/18 16:21 Morphine Administered 02/18/18 15:47 Not Given Dose 4 mg .ROUTE .STK-MED ONE Morphine Sulfate 4 mg 02/18/18 15:50 02/18/18 15:51 Morphine IVPUSH 02/18/18 15:51 4 mg ONETIME ONE Administration Nitrofurantoin Macrocrystals 100 mg 02/18/18 17:46 02/18/18 17:52 Macrobid PO 02/18/18 17:47 100 mg ONETIME ONE Administration Ondansetron HCl 4 mg 02/18/18 15:04 02/18/18 15:47 Zofran IVPUSH 02/18/18 15:05 4 mg ONETIME ONE Administration Sodium Chloride 10 ml 02/18/18 15:02 02/18/18 15:48 Saline Flush FLUSH 10 ml ASDIRECTED PRN Administration Keep Vein Open - Re-Assessments/Exams Free Text/Narrative Re-Assessment/Exam: 02/18/18 20:36 UA leukocytosis +2 positive, renal CT does show a small stone in left kidney but nothing in the ureter, no hydronephrosis, see radiology report for details. We'll treat UTI with Macrobid 500 mg twice a day Departure - Departure Time of Disposition: 17:46 Disposition: Home, Self-Care 01 Condition: Fair Clinical Impression: UTI, Urinary tract infectious disease - Discharge Information Prescriptions: Nitrofurantoin Monohyd/M-Cryst [Macrobid 100 mg Capsule] 100 mg PO BID #10 capsule Ondansetron [Zofran ODT] 4 mg PO Q6H PRN #7 tab.dis PRN Reason: Nausea/Vomiting Instructions: Urinary Tract Infection, Adult Referrals: Barbara Frias PA-C [Primary Care Provider] - Forms: ED Department Discharge Additional Instructions: Clear liquids until nausea completely resolving, drink plenty of water to maintain hydration, macrobid antibiotic 100 mg twice daily, you were given your first dose while here in the ED this evening, next dosage tomorrow morning. Zofran if needed for any further nausea or vomiting. Tylenol every 6-8 hours if needed for any further discomfort. Follow-up clinic if not much better within 2- 3 days as expected, return to ED as needed. - My Orders Last 24 Hours: My Active Orders 02/18/18 15:02 Peripheral IV Insertion Adult [OM.PC] Stat 02/18/18 15:03 Peripheral IV Care [RC] . DIRECTED - Assessment/Plan Last 24 Hours: My Active Orders 02/18/18 15:02 Peripheral IV Insertion Adult [OM.PC] Stat 02/18/18 15:03 Peripheral IV Care [RC] . DIRECTED
== END 2018-02-18 18:05 | disposition home or self-care (01) ==
LOC: JD.ED 14:01
DX: N39.0 Urinary tract infection, site not specified (principal); J45.909 Unspecified asthma, uncomplicated; Z87.442 Personal history of urinary calculi; E66.9 Obesity, unspecified; Z88.5 Allergy status to narcotic agent; Z88.8 Allergy status to other drugs, medicaments and biological substances; Z88.0 Allergy status to penicillin; Z79.899 Other long term (current) drug therapy; Z91.018 Allergy to other foods; Z98.84 Bariatric surgery status; Z90.49 Acquired absence of other specified parts of digestive tract; Z68.28 Body mass index [BMI] 28.0-28.9, adult
CPT/HCPCS: 74176; 81001; 96361; 96374; 96375; 99284; A9270; J2270; J2405; J7040; J7050

== ENCOUNTER 2018-03-01 17:15 | Emergency (ER) | payer BC ==
[2018-03-01 17:22] VITALS: BP 144/84
[2018-03-01] MEDS ORDERED: diphenhydrAMINE 50 MG/ML SDV IVPUSH ONE (17:25)
[2018-03-01] MEDS ORDERED: Famotidine 20 MG/2 ML SDV IVPUSH ONE (17:25)
[2018-03-01] MEDS ORDERED: Sodium Chloride 0.9% 10 ML Syringe FLUSH PRN (17:25)
[2018-03-01] MEDS ORDERED: methylPREDNISolone Sodium Succinate 125 MG/2 ML SDV IVPUSH ONE (17:25)
[2018-03-01] MEDS ORDERED: LORazepam 2 MG/ML SDV IVPUSH ONE ×2 (18:00→18:43)
--- NOTE | 2018-03-01 19:00 | EDM.PDOC ---
ED HPI GENERAL MEDICAL PROBLEM - General Chief Complaint: Allergic Reaction Stated Complaint: BEE STING Time Seen by Provider: 03/01/18 17:20 Source of Information: Reports: Patient History Limitations: Reports: No Limitations - History of Present Illness INITIAL COMMENTS - FREE TEXT/NARRATIVE: The patient presents with an allergic reaction. She was stung by a bee on the upper right chest. She took her epipen. She has some shortness of breath. She has some swelling in her throat. She has no rash yet but she has some erythema at the sting site. The stinger was removed. Onset: Sudden Duration: Minutes: Location: Reports: Chest Quality: Reports: Burning Severity: Moderate Improves with: Reports: None Worsens with: Reports: None Associated Symptoms: Reports: Chest Pain, Cough, Shortness of Breath. Denies: Fever/Chills, Headaches, Nausea/Vomiting Treatments [employer]: Reports: Other Medication(s) Other Treatments [employer]: epi-pen - Related Data Allergies Allergy/AdvReac Type Severity Reaction Status Date / Time codeine Allergy Intermediate Difficulty Verified 03/01/18 17:23 Breathing diclofenac sodium Allergy Intermediate Difficulty Verified 03/01/18 17:23 [From Voltaren] Breathing hydrocodone Allergy Intermediate Difficulty Verified 03/01/18 17:23 Breathing naproxen sodium [From Aleve] Allergy Intermediate Difficulty Verified 03/01/18 17:23 Breathing Penicillins Allergy Intermediate Difficulty Verified 03/01/18 17:23 Breathing pseudoephedrine HCl Allergy Intermediate Difficulty Verified 03/01/18 17:23 [From Sudafed] Breathing Sulfa (Sulfonamide Allergy Intermediate Difficulty Verified 03/01/18 17:23 Antibiotics) Breathing animal dander Allergy Difficulty Verified 03/01/18 17:23 Breathing bee pollen Allergy Cannot Verified 03/01/18 17:23 Remember fish derived Allergy Cannot Verified 03/01/18 17:23 Remember influenza virus vaccine, Allergy Rash Verified 03/01/18 17:23 specific Influenza Virus Vaccines Allergy Rash Verified 03/01/18 17:23 iodine Allergy Difficulty Verified 03/01/18 17:23 Breathing mold Allergy Difficulty Verified 03/01/18 17:23 Breathing nabumetone [From Relafen] Allergy Cannot Verified 03/01/18 17:23 Remember olive oil Allergy Difficulty Verified 03/01/18 17:23 Breathing pollen extracts Allergy Difficulty Verified 03/01/18 17:23 Breathing prednisone Allergy Difficulty Verified 03/01/18 17:23 Breathing tramadol Allergy Cannot Verified 03/01/18 17:23 Remember wheat Allergy Cannot Verified 03/01/18 17:23 Remember diphenhydramine AdvReac Intermediate Other Verified 03/01/18 18:21 [From Campbell] bandaid Allergy Blisters Uncoded 02/18/18 14:25 DUST Allergy Difficulty Uncoded 02/18/18 14:25 Breathing Home Meds: Home Meds Cetirizine HCl [Allergy Relief] 10 mg PO DAILY 10/27/14 [History] Fluticasone/Salmeterol [Advair HFA 45-21 MCG] 2 puff INH BID PRN 10/27/14 [ History] Fexofenadine [Maria Luisa] 180 mg PO DAILY 08/31/15 [History] Fluticasone Propionate [Flonase] 1 spray NASBOTH BID 08/31/15 [History] Montelukast [Singulair] 10 mg PO DAILY 08/31/15 [History] Omeprazole Magnesium [Prilosec Otc] 40 mg PO DAILY 09/22/16 [History] Ca Carbonate/Vitamin D3/Vit K [Calcium + D Soft Chewable Tab] 1 tab PO DEL CID [History] Cyclobenzaprine [Flexeril] 10 mg PO TID PRN 10/05/16 [History] Multivitamin [One Daily] 1 tab PO DAILY 10/05/16 [History] Cyanocobalamin (Vitamin B-12) [Vitamin B-12] 1,200 mcg PO DEL CID 05/24/17 [History] Estradiol 1 mg PO DAILY 05/24/17 [History] Albuterol/Ipratropium [DuoNeb 3.0-0.5 MG/3 ML] 1 dose NEB Q4H PRN 09/18/17 [ History] EPINEPHrine [Epipen] 1 dose IM ONETIME PRN 09/18/17 [History] Gabapentin [Neurontin] 300 mg PO TID PRN 09/18/17 [History] Ondansetron HCl [Ondansetron] 8 mg PO Q8H PRN 09/18/17 [History] Salsalate 750 mg PO BID 09/18/17 [History] Sertraline HCl 50 mg PO DAILY 09/18/17 [History] Tamsulosin HCl [Flomax] 0.4 mg PO DAILY 09/18/17 [History] Zolpidem Tartrate 1 - 2 tab PO BEDTIME PRN 09/18/17 [History] Nitrofurantoin Monohyd/M-Cryst [Macrobid 100 mg Capsule] 100 mg PO BID #10 capsule 02/18/18 [Rx] Ondansetron [Zofran ODT] 4 mg PO Q6H PRN #7 tab.dis 02/18/18 [Rx] EPINEPHrine [Epipen] 0.3 mg IM ONETIME PRN #1 pen 03/01/18 [Rx] methylPREDNISolone [Medrol] 4 mg PO ASDIRECTED #1 dosepk 03/01/18 [Rx] Past Medical History HEENT 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: Allergic Rhinitis, Sinusitis, Other (See Below) Other HEENT History: has dentures/partials Cardiovascular 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: None Respiratory 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: Asthma Other Respiratory History: Moderate snoring Gastrointestinal 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: GERD, GI Bleed, Helicobacter Pylori, PUD, Other (See Below) Other Gastrointestinal History: bilrubinemia, GI bleed, elevated LFTs, nausea/ voming Genitourinary 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: Renal Calculus, Other (See Below) Other Genitourinary History: bilirubenimia, dysuria, UTI, renal colic [employer] 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: Other OB/BYN History: history of ovarian cyst, hot flashes, Musculoskeletal 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: Other (See Below) Other Musculoskeletal History: degenerative tear of medial meniscus (L), knee pain, patellar malignant syndrome (bilateral),osteochondrosis synovitis of knee , L patellar chrondromalacia, L knee contusion, R knee locking, R knee contusion , L hip greater trochanter bursitis Neurological 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: Migraines Psychiatric 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: Anxiety, Other (See Below) Other Psychiatric History: insomnia Endocrine/Metabolic 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: Obesity/BMI 30+ Hematologic 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: None Immunologic 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: None Oncologic (Cancer) 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: None Dermatologic 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: Other (See Below) Other Dermatologic History: sebaceous cyst - Infectious Disease History Infectious Disease 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: Chicken Pox, Measles - Past Surgical History HEENT Surgical 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: Tonsillectomy Other HEENT Surgeries/Procedures: has dentures and partial GI Surgical 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: Bariatric Procedure, Cholecystectomy, Colonoscopy , EGD Other GI Surgeries/Procedures: 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 Female Surgical 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: Hysterectomy, Oophorectomy, Tubal Ligation Musculoskeletal Surgical 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: Arthroscopic Knee Other Musculoskeletal Surgeries/Procedures:: L knee arthroscopy x 2, R knee arthroscopy, L foot surgery Dermatological Surgical 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: None Social & Family History - Family History Family Medical History: Noncontributory Cardiac: Reports: Hypertension Other Cardiac Family History: parents Musculoskeletal: Reports: Arthritis Other Musculoskeletal Family History: parents Neurological: Reports: Migraines Other Neurological Family History: migraines - Tobacco Use Smoking Status *Q: Former Smoker Used Tobacco, but Quit: No - Caffeine Use Caffeine Use: Reports: Coffee - Recreational Drug Use Recreational Drug Use: No ED ROS ALLERGIC REACTION - Review of Systems Review Of Systems: See Below Constitutional: Reports: No Symptoms HEENT: Reports: Other (Swelling in her throat) Respiratory: Reports: No Symptoms Cardiovascular: Reports: Chest Pain (Where she got stung) Endocrine: Reports: No Symptoms GI/Abdominal: Reports: No Symptoms : Reports: No Symptoms Musculoskeletal: Reports: No Symptoms ED EXAM GENERAL NO PERIP PULSE - Physical Exam Exam: See Below Exam Limited By: No Limitations General Appearance: Alert, No Apparent Distress Ears: Normal External Exam Nose: Normal Inspection Throat/Mouth: Other (Mild edema of the uvula) Head: Atraumatic, Normocephalic Neck: Normal Inspection Respiratory/Chest: No Respiratory Distress, Lungs Clear, Normal Breath Sounds Cardiovascular: Regular Rate, Rhythm, No Edema, No Murmur, Other (Erythema and mild edema to the right upper chest) GI/Abdominal: Soft, Non-Tender, No Organomegaly Back Exam: Normal Inspection Extremities: Normal Inspection Neurological: Alert, Oriented Course - Vital Signs Last Recorded V/S: Last Vital Signs Temp 97.2 F 03/01/18 17:20 Pulse 71 03/01/18 17:20 Resp 18 03/01/18 17:20 BP 144/84 H 03/01/18 17:20 Pulse Ox 100 03/01/18 17:20 - Orders/Labs/Meds Orders: Active Orders 24 hr Category Date Time Status Peripheral IV Care [RC] . DIRECTED Care 03/01/18 17:25 Active Sodium Chloride 0.9% [Saline Flush] Med 03/01/18 17:25 Active 10 ml FLUSH ASDIRECTED PRN Peripheral IV Insertion Pediatric [OM.PC] Routine Oth 03/01/18 17:25 Ordered Medication Orders Sodium Chloride (Saline Flush) 10 ml FLUSH ASDIRECTED PRN PRN Reason: Keep Vein Open Last Admin: 03/01/18 17:31 Dose: 10 ml Meds: Medications Generic Name Dose Route Start Last Admin Trade Name Freq PRN Reason Stop Dose Admin Sodium Chloride 10 ml 03/01/18 17:25 03/01/18 17:31 Saline Flush FLUSH 10 ml ASDIRECTED PRN Administration Keep Vein Open Discontinued Medications Generic Name Dose Route Start Last Admin Trade Name Freq PRN Reason Stop Dose Admin Diphenhydramine HCl 50 mg 03/01/18 17:25 03/01/18 17:30 Benadryl IVPUSH 03/01/18 17:26 50 mg ONETIME ONE Administration Famotidine 20 mg 03/01/18 17:25 03/01/18 17:30 Pepcid IVPUSH 03/01/18 17:26 20 mg ONETIME ONE Administration Lorazepam 1 mg 03/01/18 18:00 03/01/18 18:09 Ativan IVPUSH 03/01/18 18:01 1 mg ONETIME ONE Administration Lorazepam 0.5 mg 03/01/18 18:43 03/01/18 18:52 Ativan IVPUSH 03/01/18 18:44 0.5 mg ONETIME ONE Administration Methylprednisolone Sodium Succinate 125 mg 03/01/18 17:25 03/01/18 17:30 Solu-Medrol IVPUSH 03/01/18 17:26 125 mg ONETIME ONE Administration - Re-Assessments/Exams Free Text/Narrative Re-Assessment/Exam: 03/01/18 18:58 I ordered an IV saline lock, solu-medrol 125mg IV, pepcid 20mg IV, and benadryl 50mg IV. Departure - Departure Time of Disposition: 19:00 Disposition: Home, Self-Care 01 Condition: Good Clinical Impression: Bee sting allergy Bee sting Qualifiers: Encounter type: initial encounter Injury intent: accidental or unintentional Qualified Code(s): T63.441A - Toxic effect of venom of bees, accidental ( unintentional), initial encounter - Discharge Information Prescriptions: EPINEPHrine [Epipen] 0.3 mg IM ONETIME PRN #1 pen PRN Reason: Allergies methylPREDNISolone [Medrol] 4 mg PO ASDIRECTED #1 dosepk Referrals: Barbara Frias PA-C [Primary Care Provider] - 1 Week Additional Instructions: Take the medrol dose pack. Take pepcid daily for 5 days. Take claritin 10mg daily. Please return if you are worse. - My Orders Last 24 Hours: My Active Orders 03/01/18 17:25 Peripheral IV Care [RC] . DIRECTED Sodium Chloride 0.9% [Saline Flush] 10 ml FLUSH ASDIRECTED PRN Peripheral IV Insertion Pediatric [OM.PC] Routine - Assessment/Plan Last 24 Hours: My Active Orders 03/01/18 17:25 Peripheral IV Care [RC] . DIRECTED Sodium Chloride 0.9% [Saline Flush] 10 ml FLUSH ASDIRECTED PRN Peripheral IV Insertion Pediatric [OM.PC] Routine
== END 2018-03-01 19:16 | disposition home or self-care (01) ==
LOC: JD.ED 17:15
DX: T63.441A Toxic effect of venom of bees, accidental (unintentional), initial encounter (principal); R06.02 Shortness of breath; E66.9 Obesity, unspecified; Z88.5 Allergy status to narcotic agent; Z88.8 Allergy status to other drugs, medicaments and biological substances; Z88.0 Allergy status to penicillin; Z88.1 Allergy status to other antibiotic agents; Z91.030 Bee allergy status; Z91.018 Allergy to other foods; Z88.2 Allergy status to sulfonamides; Z79.899 Other long term (current) drug therapy; Z87.891 Personal history of nicotine dependence
CPT/HCPCS: 96374; 96375; 96376; 99282; J1200; J2060; J2930; J7050

== ENCOUNTER 2018-06-02 02:42 | Emergency (ER) | payer BC ==
[2018-06-02 02:51] VITALS: BP 138/81
--- NOTE | 2018-06-02 03:22 | EDM.PDOC ---
ED HPI GENERAL MEDICAL PROBLEM - General Chief Complaint: Abdominal Pain Stated Complaint: ABDOMINAL PAIN Time Seen by Provider: 06/02/18 03:21 Source of Information: Reports: Patient History Limitations: Reports: No Limitations - History of Present Illness INITIAL COMMENTS - FREE TEXT/NARRATIVE: 48-year-old female presents to the ED with acute epigastric abdominal pain associated with nausea. Patient has not vomited. She's been having diarrhea for the better part of 2 and half days almost hourly. She denies any recent antibiotic usage in the last 3 weeks. Associated chills without any defined fever. States everything she tries to eat goes right through her. No blood noted in the stool. Losses or primarily yellow water and fairly high volume. No genitourinary complaints. His abdominal surgeries that of a laparoscopic cholecystectomy and vaginal-assisted hysterectomy and BSO. Patient has lightheaded dizzy when she stands. Currently she rates her pain as a 7 out of 10. She denies any alcohol use for several years. No history of pancreatitis. She does not eat out much and therefore the chance of foodborne illness is unlikely. 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 Upper Abdomen Pain Score (Numeric/FACES): 10 - Related Data Allergies Allergy/AdvReac Type Severity Reaction Status Date / Time codeine Allergy Intermediate Difficulty Verified 06/02/18 02:52 Breathing diclofenac sodium Allergy Intermediate Difficulty Verified 06/02/18 02:52 [From Voltaren] Breathing hydrocodone Allergy Intermediate Difficulty Verified 06/02/18 02:52 Breathing naproxen sodium [From Aleve] Allergy Intermediate Difficulty Verified 06/02/18 02:52 Breathing Penicillins Allergy Intermediate Difficulty Verified 06/02/18 02:52 Breathing pseudoephedrine HCl Allergy Intermediate Difficulty Verified 06/02/18 02:52 [From Sudafed] Breathing Sulfa (Sulfonamide Allergy Intermediate Difficulty Verified 06/02/18 02:52 Antibiotics) Breathing animal dander Allergy Difficulty Verified 06/02/18 02:52 Breathing bee pollen Allergy Cannot Verified 06/02/18 02:52 Remember fish derived Allergy Cannot Verified 06/02/18 02:52 Remember influenza virus vaccine, Allergy Rash Verified 06/02/18 02:53 specific Influenza Virus Vaccines Allergy Rash Verified 06/02/18 02:53 iodine Allergy Difficulty Verified 06/02/18 02:53 Breathing mold Allergy Difficulty Verified 06/02/18 02:53 Breathing nabumetone [From Relafen] Allergy Cannot Verified 06/02/18 02:53 Remember olive oil Allergy Difficulty Verified 06/02/18 02:53 Breathing pollen extracts Allergy Difficulty Verified 06/02/18 02:53 Breathing prednisone Allergy Difficulty Verified 06/02/18 02:53 Breathing tramadol Allergy Cannot Verified 06/02/18 02:53 Remember wheat Allergy Cannot Verified 06/02/18 02:53 Remember diphenhydramine AdvReac Intermediate Other Verified 06/02/18 02:53 [From Benadryl] bandaid Allergy Blisters Uncoded 06/02/18 02:53 DUST Allergy Difficulty Uncoded 06/02/18 02:53 Breathing Home Meds: Home Meds Cetirizine HCl [Allergy Relief] 10 mg PO DAILY 10/27/14 [History] Fluticasone/Salmeterol [Advair HFA 45-21 MCG] 2 puff INH BID PRN 10/27/14 [ History] Fexofenadine [Maria Luisa] 180 mg PO DAILY 08/31/15 [History] Fluticasone Propionate [Flonase] 1 spray NASBOTH BID 08/31/15 [History] Montelukast [Singulair] 10 mg PO DAILY 08/31/15 [History] Omeprazole Magnesium [Prilosec Otc] 40 mg PO BID 09/22/16 [History] Ca Carbonate/Vitamin D3/Vit K [Calcium + D Soft Chewable Tab] 1 tab PO DEL CID [History] Cyclobenzaprine [Flexeril] 10 mg PO TID PRN 10/05/16 [History] Multivitamin [One Daily] 1 tab PO DAILY 10/05/16 [History] Cyanocobalamin (Vitamin B-12) [Vitamin B-12] 1,200 mcg PO DEL CID 05/24/17 [History] Estradiol 1 mg PO DAILY 05/24/17 [History] Albuterol/Ipratropium [DuoNeb 3.0-0.5 MG/3 ML] 1 dose NEB Q4H PRN 09/18/17 [ History] Gabapentin [Neurontin] 300 mg PO TID PRN 09/18/17 [History] Salsalate 750 mg PO BID 09/18/17 [History] Sertraline HCl 50 mg PO DAILY 09/18/17 [History] Tamsulosin HCl [Flomax] 0.4 mg PO DAILY 09/18/17 [History] Zolpidem Tartrate 1 - 2 tab PO BEDTIME PRN 09/18/17 [History] Ondansetron [Zofran ODT] 4 mg PO Q6H PRN #7 tab.dis 02/18/18 [Rx] EPINEPHrine [Epipen] 0.3 mg IM ONETIME PRN #1 pen 03/01/18 [Rx] methylPREDNISolone [Medrol] 4 mg PO ASDIRECTED #1 dosepk 03/01/18 [Rx] Dicyclomine [Bentyl] 20 mg PO Q6H PRN #8 tablet 06/02/18 [Rx] Ondansetron [Zofran] 4 mg BUCCAL Q6H PRN #8 tab 06/02/18 [Rx] Past Medical History HEENT 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: Allergic Rhinitis, Sinusitis, Other (See Below) Other HEENT History: has dentures/partials Cardiovascular 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: None Respiratory 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: Asthma Other Respiratory History: Moderate snoring Gastrointestinal 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: GERD, GI Bleed, Helicobacter Pylori, PUD, Other (See Below) Other Gastrointestinal History: bilrubinemia, GI bleed, elevated LFTs, nausea/ voming Genitourinary 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: Renal Calculus, Other (See Below) Other Genitourinary History: bilirubenimia, dysuria, UTI, renal colic SKY CAP 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: Other SKY CAP History: history of ovarian cyst, hot flashes, Musculoskeletal 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: Osteoarthritis, Other (See Below) Other Musculoskeletal History: degenerative tear of medial meniscus (L), knee pain, patellar malignant syndrome (bilateral),osteochondrosis synovitis of knee , L patellar chrondromalacia, L knee contusion, R knee locking, R knee contusion , L hip greater trochanter bursitis Neurological 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: Migraines Psychiatric 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: Anxiety, Other (See Below) Other Psychiatric History: insomnia Hematologic 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: None Immunologic 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: None Oncologic (Cancer) 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: None Dermatologic 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: Other (See Below) Other Dermatologic History: sebaceous cyst - Infectious Disease History Infectious Disease 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: Chicken Pox, Measles - Past Surgical History Head Surgeries/Procedures: Reports: None HEENT Surgical 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: Tonsillectomy Other HEENT Surgeries/Procedures: has dentures and partial GI Surgical 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: Bariatric Procedure, Cholecystectomy, Colonoscopy , EGD Other GI Surgeries/Procedures: 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 Female Surgical 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: Hysterectomy, Oophorectomy, Tubal Ligation Musculoskeletal Surgical 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: Arthroscopic Knee Other Musculoskeletal Surgeries/Procedures:: L knee arthroscopy x 2, R knee arthroscopy, L foot surgery Dermatological Surgical 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: None Social & Family History - Family History Family Medical History: Noncontributory Cardiac: Reports: Hypertension Other Cardiac Family History: parents Musculoskeletal: Reports: Arthritis Other Musculoskeletal Family History: parents Neurological: Reports: Migraines Other Neurological Family History: migraines - Tobacco Use Smoking Status *Q: Never Smoker Second Hand Smoke Exposure: Yes - Caffeine Use Caffeine Use: Reports: Tea - Recreational Drug Use Recreational Drug Use: Yes - Living Situation & Occupation Living situation: Reports: Occupation: Unemployed ED ROS GENERAL - Review of Systems Review Of Systems: See Below Constitutional: Reports: Chills, Malaise, Weakness, Fatigue, Decreased Appetite , Weight Loss. Denies: Fever HEENT: Reports: No Symptoms Respiratory: Reports: No Symptoms Cardiovascular: Reports: No Symptoms Endocrine: Reports: Fatigue GI/Abdominal: Reports: Abdominal Pain, Diarrhea (See history of present illness watery diarrhea almost every hour.), Decreased Appetite, Nausea. Denies: Distension, Flatus, Hematemesis, Hematochezia, Vomiting : Reports: No Symptoms Musculoskeletal: Reports: Joint Pain Skin: Reports: No Symptoms (Especially knees and low back.) Neurological: Reports: Headache (Frequent migraine headaches.) Psychiatric: Reports: Anxiety, Depression Hematologic/Lymphatic: Reports: No Symptoms Immunologic: Reports: No Symptoms ED EXAM, GI/ABD - Physical Exam Exam: See Below Exam Limited By: No Limitations General Appearance: Alert, Mild Distress, Other Eyes: Right: Normal Appearance (Swallowing color.) Throat/Mouth: Other (Tongue is mildly dry and coated.) Head: Atraumatic, Normocephalic Neck: Normal Inspection, Supple, Non-Tender, Full Range of Motion. No: Lymphadenopathy (L), Lymphadenopathy (R) Respiratory/Chest: No Respiratory Distress, Lungs Clear, Normal Breath Sounds, No Accessory Muscle Use, Other Cardiovascular: Normal Peripheral Pulses (No smell of ketones on her breath.), Regular Rate, Rhythm, No Edema, No Gallop, No Murmur GI/Abdominal Exam: Normal Bowel Sounds, Soft, No Abnormal Bruit, No Mass, Pelvis Stable, Tender. No: Guarding (Tender mostly epigastrium and along the right costal margin. No peritoneal signs), Rigid Back Exam: Normal Inspection, Full Range of Motion. No: CVA Tenderness (L), CVA Tenderness (R) Extremities: Normal Inspection, Limited Range of Motion Neurological: Alert, Oriented, CN II-XII Intact, Normal Cognition. No: Normal Gait Psychiatric: Tearful Skin Exam: Warm, Dry, Intact, No Rash, Other Course - Vital Signs Last Recorded V/S: Last Vital Signs Temp 36.9 C 06/02/18 02:48 Pulse 70 06/02/18 02:48 Resp 18 06/02/18 02:48 BP 138/81 06/02/18 02:48 Pulse Ox 98 06/02/18 02:48 - Orders/Labs/Meds Orders: Active Orders 24 hr Category Date Time Status Chest 1V Frontal [CR] Stat Exams 06/02/18 04:21 Taken CULTURE STOOL + SHIGATOX [RM] Stat Lab 06/02/18 03:52 Ordered WBC, STOOL [OP] Stat Lab 06/02/18 03:52 Ordered Dextrose 5%-0.9% NaCl [Dextrose 5%-Normal Saline] 1,000 Med 06/02/18 03:45 Active ml IV ASDIRECTED Medication Orders Dextrose/Sodium Chloride (Dextrose 5%-Normal Saline) 1,000 mls @ 999 mls/hr IV ASDIRECTED FLAQUITO Last Admin: 06/02/18 04:05 Dose: 999 mls/hr Labs: Laboratory Tests 06/02/18 06/02/18 Range/Units 03:59 03:59 WBC 7.33 (3.98-10.04) K/mm3 RBC 4.64 (3.98-5.22) M/mm3 Hgb 14.3 (11.2-15.7) gm/L Hct 42.5 (34.1-44.9) % MCV 91.6 (79.4-94.8) fl MCH 30.8 (25.6-32.2) pg MCHC 33.6 (32.2-35.5) g/dl RDW Std Deviation 43.1 (36.4-46.3) fL Plt Count 298 (182-369) K/mm3 MPV 9.8 (9.4-12.3) fl Neutrophils % (Manual) 46 (40-60) % Band Neutrophils % 1 (0-10) % Lymphocytes % (Manual) 41 H (20-40) % Atypical Lymphs % 0 % Monocytes % (Manual) 9 (2-10) % Eosinophils % (Manual) 3 (0.7-5.8) % Basophils % (Manual) 0 L (0.1-1.2) Platelet Estimate Adequate RBC Morph Comment Normal Sodium 138 (136-145) mEq/L Potassium 4.2 (3.5-5.1) mEq/L Chloride 103 (98-107) mEq/L Carbon Dioxide 27 (21-32) mEq/L Anion Gap 12.2 (5-15) BUN 9 (7-18) mg/dL Creatinine 0.7 (0.55-1.02) mg/dL Est Cr Clr Drug Dosing 83.07 mL/min Estimated GFR (MDRD) > 60 (>60) mL/min BUN/Creatinine Ratio 12.9 L (14-18) Glucose 87 (74-106) mg/dL Calcium 8.9 (8.5-10.1) mg/dL Magnesium 2.1 (1.8-2.4) mg/dl Total Bilirubin 0.5 (0.2-1.0) mg/dL AST 20 (15-37) U/L ALT 51 (14-59) U/L Alkaline Phosphatase 211 H (46-116) U/L C-Reactive Protein < 0.2 (<1.0) mg/dL Total Protein 6.5 (6.4-8.2) g/dl Albumin 3.7 (3.4-5.0) g/dl Globulin 2.8 gm/dL Albumin/Globulin Ratio 1.3 (1-2) Lipase 126 (73-393) U/L Meds: Medications Generic Name Dose Route Start Last Admin Trade Name Freq PRN Reason Stop Dose Admin Dextrose/Sodium Chloride 1,000 mls @ 999 mls/hr 06/02/18 03:45 06/02/18 04:05 Dextrose 5%-Normal Saline IV 999 mls/hr ASDIRECTED FLAQUITO Administration Discontinued Medications Generic Name Dose Route Start Last Admin Trade Name Freq PRN Reason Stop Dose Admin Hydromorphone HCl 1 mg 06/02/18 03:40 06/02/18 04:07 Dilaudid IVPUSH 06/02/18 03:41 1 mg ONETIME ONE Administration Metoclopramide HCl 7.5 mg 06/02/18 03:40 06/02/18 04:05 Reglan IVPUSH 06/02/18 03:41 7.5 mg ONETIME ONE Administration - Radiology Interpretation Free Text/Narrative:: 48-year-old female presents the ED with diffuse upper abdominal pain associated with diarrhea for the last 3 days. Intermittent chills but no defined fever. No recent antibiotic usage. Does have mildly hyperactive bowel sounds on examination. No peritoneal signs on exam. Plan routine labs to be done including a serum lipase and CRP. IV will be D5 normal saline at open. Given Dilaudid 1 mg IV with Reglan 7.5 mg IV for acute nausea and pain relief. - Re-Assessments/Exams Free Text/Narrative Re-Assessment/Exam: 06/02/18 04:36 Labs are partially back. Total white count is normal at 7.33. Differential pending hemoglobin is 14.3 with hematocrit of 42.5. Platelet count is 290,000. Sodium is 138 with a potassium of 4.2. Cortisol 3 with a bicarbonate of 27. Anion gap is 12.2. BUNs 9 with a creatinine of 0.7. Glucose is 87 with a calcium of 8.9 magnesium normal at 2.1. Liver function is normal other than elevated alk phosphatase at 211. C-reactive protein is less than 0.2. Total protein is 6.5 with an albumin fraction of 3.7 lipase is normal at 126. 06/02/18 04:49 Differential is back showing 46% neutrophils 1% bands and 41% lymphocytes suggesting an underlying viral infection. Chest x-ray portable is within normal limits showing no free air. 06/02/18 04:55 patient reports that she's feeling much improved. She's had no diarrhea stools since being in the ED. Labs are highly suggestive of an underlying viral gastroenteritis. Patient will be discharged home on Zofran 4 mg sublingually every 4-6 hours necessary to control nausea vomiting. Was having mostly nausea. Bentyl 20 mg given now and may be repeated every 6 hours as needed for relief of abdominal cramping pain and diarrhea. Clear fluid diet and avoid all dairy products and no apple or grape juice until stools are formed back up. Departure - Departure Time of Disposition: 04:56 Disposition: Home, Self-Care 01 Condition: Fair Clinical Impression: Viral gastroenteritis - Discharge Information *PRESCRIPTION DRUG MONITORING PROGRAM REVIEWED*: No *COPY OF PRESCRIPTION DRUG MONITORING REPORT IN PATIENT JOHNNY: No Prescriptions: Dicyclomine [Bentyl] 20 mg PO Q6H PRN #8 tablet PRN Reason: Abdominal cramps/diarrhea Ondansetron [Zofran] 4 mg BUCCAL Q6H PRN #8 tab PRN Reason: nausea or vomiting Instructions: Viral Gastroenteritis, Adult, [id number] Referrals: Rene Stewart MD [Primary Care Provider] - Forms: ED Department Discharge Additional Instructions: Evaluation the emergency room today in regards to 2-1/2 day history of diarrhea with associated nausea and development of abdominal pain. Abdominal pain was mostly upper GI tract and may have been due to inflammation of the stomach called gastritis versus cramping abdominal pain associated with the diarrhea. Lab tests revealed minimal dehydration. It does suggest strongly that you have an underlying viral infection causing the stomach and GI tract to be sick. Treated in the ED with a liter of intravenous fluids to provide volume replacement. Dilaudid 1 mg and Reglan 7.5 mg IV for nausea relief. Treatment at home is to be Zofran 4 mg under the tongue every 4-6 hours as needed for relief of nausea. Bentyl 20 mg by mouth every 6 hours needed for relief of dull cramping pain and to slow down the severity of the diarrhea. Just clear fluids such as water and/or Gatorade/Powerade ideally 5 ounces sipped per hour. This will prevent dehydration. Hungry try soda crackers first if tolerated may advance to toast. If tolerated of course Jell-O may be taken at any time. Then advance to broth soup and then turkey rice/chicken noodle soup. Avoid all dairy products and no apple or grape juice until stools are formed back up. Follow-up with personal care physician if not markedly improved in 36-48 hours time - My Orders Last 24 Hours: My Active Orders 06/02/18 03:45 Dextrose 5%-0.9% NaCl [Dextrose 5%-Normal Saline] 1,000 ml IV ASDIRECTED 06/02/18 03:52 CULTURE STOOL + SHIGATOX [RM] Stat WBC, STOOL [OP] Stat 06/02/18 04:21 Chest 1V Frontal [CR] Stat - Assessment/Plan Last 24 Hours: My Active Orders 06/02/18 03:45 Dextrose 5%-0.9% NaCl [Dextrose 5%-Normal Saline] 1,000 ml IV ASDIRECTED 06/02/18 03:52 CULTURE STOOL + SHIGATOX [RM] Stat WBC, STOOL [OP] Stat 06/02/18 04:21 Chest 1V Frontal [CR] Stat
[2018-06-02] MEDS ORDERED: Metoclopramide 10 MG/2 ML SDV IVPUSH ONE (03:40)
[2018-06-02] MEDS ORDERED: HYDROmorphone 1 MG/ML Syringe IVPUSH ONE (03:40)
[2018-06-02] MEDS ORDERED: Dextrose 5%-0.9% NaCl 1,000 ML IV SCH (03:45)
[2018-06-02] MEDS ORDERED: Dicyclomine 10 MG Cap PO ONE (05:00)
--- NOTE | 2018-06-04 19:39 | CR ---
Chest: Portable view of the chest was obtained. Comparison: Previous chest x-ray of 06/10/14. Heart size and mediastinum are normal. Lungs are clear without acute parenchymal change. Bony structures are grossly intact. Surgical clips are seen within the upper right abdomen as well as surgical anastomotic sutures within the left upper abdomen. Impression: 1. Incidental findings. Nothing acute is appreciated on portable chest x-ray. Diagnostic code #2
== END 2018-06-02 05:23 | disposition home or self-care (01) ==
LOC: JD.ED 02:42
DX: A08.4 Viral intestinal infection, unspecified (principal); Z88.0 Allergy status to penicillin; Z88.5 Allergy status to narcotic agent; Z88.2 Allergy status to sulfonamides; Z91.030 Bee allergy status; Z88.7 Allergy status to serum and vaccine; Z91.013 Allergy to seafood; Z91.018 Allergy to other foods; Z90.49 Acquired absence of other specified parts of digestive tract; Z90.710 Acquired absence of both cervix and uterus
CPT/HCPCS: 36415; 71045; 80053; 83690; 83735; 85007; 85027; 86140; 96361; 96374; 96375; 99284; A9270; J1170; J2765; J7042

== ENCOUNTER 2018-06-30 09:47 | Emergency (ER) | payer BC ==
[2018-06-30 10:01] VITALS: BP 132/85
--- NOTE | 2018-06-30 11:14 | EDM.PDOC ---
ED HPI GENERAL MEDICAL PROBLEM - General Chief Complaint: Lower Extremity Injury/Pain Stated Complaint: R KNEE PAIN Time Seen by Provider: 06/30/18 10:00 Source of Information: Reports: Patient History Limitations: Reports: No Limitations - History of Present Illness INITIAL COMMENTS - FREE TEXT/NARRATIVE: The patient presents with right knee pain. She has a history of ligament problems to the right knee. She had 6 surgeries on her right knee with Dr Rodrigez. Yesterday her young large dog was excited and ran into her right knee. She was able to walk on it some yesterday but she has more pain now. Onset: Sudden Duration: Day(s): (Yesterday) Location: Reports: Lower Extremity, Right (Knee) Quality: Reports: Sharp Severity: Severe Improves with: Reports: Immobilization Worsens with: Reports: Movement Context: Reports: Trauma (Dog ran into her knee) Associated Symptoms: Reports: No Other Symptoms Right Knee Pain Score (Numeric/FACES): 10 - Related Data Allergies Allergy/AdvReac Type Severity Reaction Status Date / Time codeine Allergy Intermediate Difficulty Verified 06/30/18 09:57 Breathing diclofenac sodium Allergy Intermediate Difficulty Verified 06/30/18 09:57 [From Voltaren] Breathing hydrocodone Allergy Intermediate Difficulty Verified 06/30/18 09:57 Breathing naproxen sodium [From Aleve] Allergy Intermediate Difficulty Verified 06/30/18 09:57 Breathing Penicillins Allergy Intermediate Difficulty Verified 06/30/18 09:57 Breathing pseudoephedrine HCl Allergy Intermediate Difficulty Verified 06/30/18 09:57 [From Sudafed] Breathing Sulfa (Sulfonamide Allergy Intermediate Difficulty Verified 06/30/18 09:57 Antibiotics) Breathing animal dander Allergy Difficulty Verified 06/30/18 09:57 Breathing bee pollen Allergy Cannot Verified 06/30/18 09:57 Remember fish derived Allergy Cannot Verified 06/30/18 09:57 Remember influenza virus vaccine, Allergy Rash Verified 06/30/18 09:57 specific Influenza Virus Vaccines Allergy Rash Verified 06/30/18 09:57 iodine Allergy Difficulty Verified 06/30/18 09:57 Breathing mold Allergy Difficulty Verified 06/30/18 09:57 Breathing nabumetone [From Relafen] Allergy Cannot Verified 06/30/18 09:57 Remember olive oil Allergy Difficulty Verified 06/30/18 09:57 Breathing pollen extracts Allergy Difficulty Verified 06/30/18 09:57 Breathing prednisone Allergy Difficulty Verified 06/30/18 09:57 Breathing tramadol Allergy Cannot Verified 06/30/18 09:57 Remember wheat Allergy Cannot Verified 06/30/18 09:57 Remember diphenhydramine AdvReac Intermediate Other Verified 06/30/18 09:57 [From Campbell] bandaid Allergy Blisters Uncoded 06/30/18 09:57 DUST Allergy Difficulty Uncoded 06/30/18 09:57 Breathing Home Meds: Home Meds Cetirizine HCl [Allergy Relief] 10 mg PO DAILY 10/27/14 [History] Fluticasone/Salmeterol [Advair HFA 45-21 MCG] 2 puff INH BID PRN 10/27/14 [ History] Fexofenadine [Maria Luisa] 180 mg PO DAILY 08/31/15 [History] Fluticasone Propionate [Flonase] 1 spray NASBOTH BID 08/31/15 [History] Montelukast [Singulair] 10 mg PO DAILY 08/31/15 [History] Omeprazole Magnesium [Prilosec Otc] 40 mg PO BID 09/22/16 [History] Ca Carbonate/Vitamin D3/Vit K [Calcium + D Soft Chewable Tab] 1 tab PO DEL CID [History] Cyclobenzaprine [Flexeril] 10 mg PO TID PRN 10/05/16 [History] Multivitamin [One Daily] 1 tab PO DAILY 10/05/16 [History] Cyanocobalamin (Vitamin B-12) [Vitamin B-12] 1,200 mcg PO DEL CID 05/24/17 [History] Estradiol 1 mg PO DAILY 05/24/17 [History] Albuterol/Ipratropium [DuoNeb 3.0-0.5 MG/3 ML] 1 dose NEB Q4H PRN 09/18/17 [ History] Gabapentin [Neurontin] 300 mg PO TID PRN 09/18/17 [History] Salsalate 750 mg PO BID 09/18/17 [History] Sertraline HCl 50 mg PO DAILY 09/18/17 [History] Tamsulosin HCl [Flomax] 0.4 mg PO DAILY 09/18/17 [History] Zolpidem Tartrate 1 - 2 tab PO BEDTIME PRN 09/18/17 [History] Ondansetron [Zofran ODT] 4 mg PO Q6H PRN #7 tab.dis 02/18/18 [Rx] EPINEPHrine [Epipen] 0.3 mg IM ONETIME PRN #1 pen 03/01/18 [Rx] Dicyclomine [Bentyl] 20 mg PO Q6H PRN #8 tablet 06/02/18 [Rx] Ondansetron [Zofran] 4 mg BUCCAL Q6H PRN #8 tab 06/02/18 [Rx] oxyCODONE HCl/Acetaminophen [Percocet 5-325 mg Tablet] 1 - 2 each PO Q6HR PRN # 20 tablet 06/30/18 [Rx] Past Medical History HEENT 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: Allergic Rhinitis, Sinusitis, Other (See Below) Other HEENT History: has dentures/partials Cardiovascular 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: None Respiratory 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: Asthma Other Respiratory History: Moderate snoring Gastrointestinal 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: GERD, GI Bleed, Helicobacter Pylori, PUD, Other (See Below) Other Gastrointestinal History: bilrubinemia, GI bleed, elevated LFTs, nausea/ voming Genitourinary 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: Renal Calculus, Other (See Below) Other Genitourinary History: bilirubenimia, dysuria, UTI, renal colic 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: history of ovarian cyst, hot flashes, Musculoskeletal 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: Osteoarthritis, Other (See Below) Other Musculoskeletal History: degenerative tear of medial meniscus (L), knee pain, patellar malignant syndrome (bilateral),osteochondrosis synovitis of knee , L patellar chrondromalacia, L knee contusion, R knee locking, R knee contusion , L hip greater trochanter bursitis Neurological 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: Migraines Psychiatric 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: Anxiety, Other (See Below) Other Psychiatric History: insomnia Endocrine/Metabolic 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: Obesity/BMI 30+ Hematologic 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: None Immunologic History: Reports: None Oncologic (Cancer) History: Reports: None Dermatologic History: Reports: Other (See Below) Other Dermatologic History: sebaceous cyst - Infectious Disease History Infectious Disease History: Reports: Chicken Pox, Measles - Past Surgical History Head Surgeries/Procedures: Reports: None HEENT Surgical History: Reports: Tonsillectomy Other HEENT Surgeries/Procedures: has dentures and partial GI Surgical History: Reports: Bariatric Procedure, Cholecystectomy, Colonoscopy , EGD Other GI Surgeries/Procedures: 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 Female Surgical History: Reports: Hysterectomy, Oophorectomy, Tubal Ligation Musculoskeletal Surgical History: Reports: Arthroscopic Knee Other Musculoskeletal Surgeries/Procedures:: L knee arthroscopy x 2, R knee arthroscopy, L foot surgery Dermatological Surgical History: Reports: None Social & Family History - Family History Family Medical History: Noncontributory Cardiac: Reports: Hypertension Other Cardiac Family History: parents Musculoskeletal: Reports: Arthritis Other Musculoskeletal Family History: parents Neurological: Reports: Migraines Other Neurological Family History: migraines - Tobacco Use Smoking Status *Q: Former Smoker Used Tobacco, but Quit: Yes Month/Year Tobacco Last Used: 2013 - Caffeine Use Caffeine Use: Reports: Tea - Recreational Drug Use Recreational Drug Use: No - Living Situation & Occupation Living situation: Reports: Occupation: Unemployed Review of Systems - Review of Systems Review Of Systems: See Below Constitutional: Reports: No Symptoms Eyes: Reports: No Symptoms Ears: Reports: No Symptoms Nose: Reports: No Symptoms Mouth/Throat: Reports: No Symptoms Respiratory: Reports: No Symptoms Cardiovascular: Reports: No Symptoms GI/Abdominal: Reports: No Symptoms Genitourinary: Reports: No Symptoms Musculoskeletal: Reports: Other (Right knee pain) ED EXAM, GENERAL - Physical Exam Exam: See Below Exam Limited By: No Limitations General Appearance: Alert, No Apparent Distress Ears: Normal External Exam Nose: Normal Inspection Head: Atraumatic, Normocephalic Neck: Normal Inspection Respiratory/Chest: No Respiratory Distress Extremities: Other (Moderate edema with pain upon palpation to the whole knee. Multiple scars from prior surgery. I was unable to stress the ligaments due to pain. Good sensation and pulses distally. The patient can lift her leg off of the bed.) Course - Vital Signs Last Recorded V/S: Last Vital Signs Temp 97.3 F 06/30/18 09:59 Pulse 80 06/30/18 09:59 Resp 18 06/30/18 09:59 BP 132/85 06/30/18 09:59 Pulse Ox 100 06/30/18 09:59 - Orders/Labs/Meds Orders: Active Orders 24 hr Category Date Time Status Knee Min 4V Rt [CR] Stat Exams 06/30/18 10:13 Taken Durable Medical Equipment for Discharge [DME for Oth 06/30/18 11:19 Ordered Discharge] [COMM] Stat - Re-Assessments/Exams Free Text/Narrative Re-Assessment/Exam: 06/30/18 11:17 Her x-ray looks good. I will put her in crutches and a knee immobilizer and something for pain. I will have her follow up with Dr Rodrigez. Departure - Departure Time of Disposition: 11:20 Disposition: Home, Self-Care 01 Condition: Good Clinical Impression: Right knee sprain Qualifiers: Encounter type: initial encounter Involved ligament of knee: unspecified ligament Qualified Code(s): S83.91XA - Sprain of unspecified site of right knee , initial encounter - Discharge Information *PRESCRIPTION DRUG MONITORING PROGRAM REVIEWED*: No *COPY OF PRESCRIPTION DRUG MONITORING REPORT IN PATIENT JOHNNY: No Prescriptions: oxyCODONE HCl/Acetaminophen [Percocet 5-325 mg Tablet] 1 - 2 each PO Q6HR PRN # 20 tablet PRN Reason: Pain Referrals: Barbara Frias PA-C [Primary Care Provider] - Ildefonso Rodrigez MD [Physician] - 1 Week Forms: ED Department Discharge, ED Return to Work/School Form Additional Instructions: Ice your knee for 15 minutes 3 times per day for 2 days. Take motrin or tylenol for pain. If that does not work, you can try some percocet. Wear the knee immobilizer and use the crutches. Please return if you are worse. Follow up with Dr Rodrigez. - My Orders Last 24 Hours: My Active Orders 06/30/18 10:13 Knee Min 4V Rt [CR] Stat 06/30/18 11:19 Durable Medical Equipment for Discharge [DME for Discharge] [COMM] Stat - Assessment/Plan Last 24 Hours: My Active Orders 06/30/18 10:13 Knee Min 4V Rt [CR] Stat 06/30/18 11:19 Durable Medical Equipment for Discharge [DME for Discharge] [COMM] Stat
--- NOTE | 2018-07-02 07:13 | CR ---
Right knee: Four views of the right knee were obtained. Comparison: Prior right knee exam of 05/15/17. Medial joint space narrowing is seen on previous exam which is not as noticeable on current exam because this is not a weightbearing study. Small osteophyte is noted off the medial tibia. Lateral joint space is preserved. Small joint effusion is seen. No acute bony abnormality is identified. Impression: 1. Joint effusion. 2. Medial joint space narrowing as described above. Small medial osteophyte. Diagnostic code #3
== END 2018-06-30 11:27 | disposition home or self-care (01) ==
LOC: JD.ED 09:47
DX: S83.91XA Sprain of unspecified site of right knee, initial encounter (principal); Z87.891 Personal history of nicotine dependence; E66.9 Obesity, unspecified; Z79.899 Other long term (current) drug therapy; Z88.5 Allergy status to narcotic agent; Z88.8 Allergy status to other drugs, medicaments and biological substances; Z88.0 Allergy status to penicillin; Z91.013 Allergy to seafood; Z88.7 Allergy status to serum and vaccine; Z91.030 Bee allergy status; Z91.09 Other allergy status, other than to drugs and biological substances; Z88.2 Allergy status to sulfonamides; W54.1XXA Struck by dog, initial encounter
CPT/HCPCS: 73564-26-RT; 73564-RT; 99283; 99284

== ENCOUNTER 2018-07-06 09:15 | Emergency (ER) | payer BC ==
[2018-07-06 09:24] VITALS: BP 126/88
--- NOTE | 2018-07-06 10:53 | EDM.PDOC ---
ED HPI GENERAL MEDICAL PROBLEM - General Chief Complaint: Lower Extremity Injury/Pain Stated Complaint: RT KNEE PAIN Time Seen by Provider: 07/06/18 09:35 Source of Information: Reports: Patient, RN Notes Reviewed - History of Present Illness INITIAL COMMENTS - FREE TEXT/NARRATIVE: 48-year-old female comes in with right knee pain. She she fell about 6 days ago injuring the knee. She does have history of chronic problems with that knee, multiple prior surgeries. He was evaluated here in the ED 6 days ago had x-rays that did not show any acute abnormality. In spite of that she continues to have severe pain with motion of the knee and also severe pain with attempted weightbearing. She was discharged with crutches and knee immobilizer. She is not using either at this time. She was prescribed pain medication she has used all of that. Right Knee Pain Score (Numeric/FACES): 10 - Related Data Allergies Allergy/AdvReac Type Severity Reaction Status Date / Time codeine Allergy Intermediate Difficulty Verified 06/30/18 09:57 Breathing diclofenac sodium Allergy Intermediate Difficulty Verified 06/30/18 09:57 [From Voltaren] Breathing hydrocodone Allergy Intermediate Difficulty Verified 06/30/18 09:57 Breathing naproxen sodium [From Aleve] Allergy Intermediate Difficulty Verified 06/30/18 09:57 Breathing Penicillins Allergy Intermediate Difficulty Verified 06/30/18 09:57 Breathing pseudoephedrine HCl Allergy Intermediate Difficulty Verified 06/30/18 09:57 [From Sudafed] Breathing Sulfa (Sulfonamide Allergy Intermediate Difficulty Verified 06/30/18 09:57 Antibiotics) Breathing animal dander Allergy Difficulty Verified 06/30/18 09:57 Breathing bee pollen Allergy Cannot Verified 06/30/18 09:57 Remember fish derived Allergy Cannot Verified 06/30/18 09:57 Remember influenza virus vaccine, Allergy Rash Verified 06/30/18 09:57 specific Influenza Virus Vaccines Allergy Rash Verified 06/30/18 09:57 iodine Allergy Difficulty Verified 06/30/18 09:57 Breathing mold Allergy Difficulty Verified 06/30/18 09:57 Breathing nabumetone [From Relafen] Allergy Cannot Verified 06/30/18 09:57 Remember olive oil Allergy Difficulty Verified 06/30/18 09:57 Breathing pollen extracts Allergy Difficulty Verified 06/30/18 09:57 Breathing prednisone Allergy Difficulty Verified 06/30/18 09:57 Breathing tramadol Allergy Cannot Verified 06/30/18 09:57 Remember wheat Allergy Cannot Verified 06/30/18 09:57 Remember diphenhydramine AdvReac Intermediate Other Verified 06/30/18 09:57 [From Lisal] bandaid Allergy Blisters Uncoded 06/30/18 09:57 DUST Allergy Difficulty Uncoded 06/30/18 09:57 Breathing Home Meds: Home Meds Cetirizine HCl [Allergy Relief] 10 mg PO DAILY 10/27/14 [History] Fluticasone/Salmeterol [Advair HFA 45-21 MCG] 2 puff INH BID PRN 10/27/14 [ History] Fexofenadine [Maria Luisa] 180 mg PO DAILY 08/31/15 [History] Fluticasone Propionate [Flonase] 1 spray NASBOTH BID 08/31/15 [History] Montelukast [Singulair] 10 mg PO DAILY 08/31/15 [History] Omeprazole Magnesium [Prilosec Otc] 40 mg PO BID 09/22/16 [History] Ca Carbonate/Vitamin D3/Vit K [Calcium + D Soft Chewable Tab] 1 tab PO DEL CID [History] Cyclobenzaprine [Flexeril] 10 mg PO TID PRN 10/05/16 [History] Multivitamin [One Daily] 1 tab PO DAILY 10/05/16 [History] Cyanocobalamin (Vitamin B-12) [Vitamin B-12] 1,200 mcg PO DEL CID 05/24/17 [History] Estradiol 1 mg PO DAILY 05/24/17 [History] Albuterol/Ipratropium [DuoNeb 3.0-0.5 MG/3 ML] 1 dose NEB Q4H PRN 09/18/17 [ History] Gabapentin [Neurontin] 300 mg PO TID PRN 09/18/17 [History] Salsalate 750 mg PO BID 09/18/17 [History] Sertraline HCl 50 mg PO DAILY 09/18/17 [History] Tamsulosin HCl [Flomax] 0.4 mg PO DAILY 09/18/17 [History] Zolpidem Tartrate 1 - 2 tab PO BEDTIME PRN 09/18/17 [History] Ondansetron [Zofran ODT] 4 mg PO Q6H PRN #7 tab.dis 02/18/18 [Rx] EPINEPHrine [Epipen] 0.3 mg IM ONETIME PRN #1 pen 03/01/18 [Rx] Dicyclomine [Bentyl] 20 mg PO Q6H PRN #8 tablet 06/02/18 [Rx] Ondansetron [Zofran] 4 mg BUCCAL Q6H PRN #8 tab 06/02/18 [Rx] oxyCODONE HCl/Acetaminophen [Percocet 5-325 mg Tablet] 1 - 2 each PO Q6HR PRN # 20 tablet 06/30/18 [Rx] oxyCODONE HCl/Acetaminophen [Percocet 5-325 mg Tablet] 1 each PO Q6HR PRN #14 tablet 07/06/18 [Rx] Past Medical History HEENT History: Reports: Allergic Rhinitis, Sinusitis, Other (See Below) Other HEENT History: has dentures/partials Cardiovascular History: Reports: None Respiratory History: Reports: Asthma Other Respiratory History: Moderate snoring Gastrointestinal History: Reports: GERD, GI Bleed, Helicobacter Pylori, PUD, Other (See Below) Other Gastrointestinal History: bilrubinemia, GI bleed, elevated LFTs, nausea/ voming Genitourinary History: Reports: Renal Calculus, Other (See Below) Other Genitourinary History: bilirubenimia, dysuria, UTI, renal colic 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, hot flashes, Musculoskeletal History: Reports: Osteoarthritis, Other (See Below) Other Musculoskeletal History: degenerative tear of medial meniscus (L), knee pain, patellar malignant syndrome (bilateral),osteochondrosis synovitis of knee , L patellar chrondromalacia, L knee contusion, R knee locking, R knee contusion , L hip greater trochanter bursitis Neurological History: Reports: Migraines Psychiatric History: Reports: Anxiety, Other (See Below) Other Psychiatric History: insomnia Endocrine/Metabolic History: Reports: Obesity/BMI 30+ Hematologic History: Reports: None Immunologic History: Reports: None Oncologic (Cancer) History: Reports: None Dermatologic History: Reports: Other (See Below) Other Dermatologic History: sebaceous cyst - Infectious Disease History Infectious Disease History: Reports: Chicken Pox, Measles - Past Surgical History Head Surgeries/Procedures: Reports: None HEENT Surgical History: Reports: Tonsillectomy Other HEENT Surgeries/Procedures: has dentures and partial GI Surgical History: Reports: Bariatric Procedure, Cholecystectomy, Colonoscopy , EGD Other GI Surgeries/Procedures: 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 Female Surgical History: Reports: Hysterectomy, Oophorectomy, Tubal Ligation Musculoskeletal Surgical History: Reports: Arthroscopic Knee Other Musculoskeletal Surgeries/Procedures:: L knee arthroscopy x 2, R knee arthroscopy, L foot surgery Dermatological Surgical History: Reports: None Social & Family History - Family History Family Medical History: Noncontributory Cardiac: Reports: Hypertension Other Cardiac Family History: parents Musculoskeletal: Reports: Arthritis Other Musculoskeletal Family History: parents Neurological: Reports: Migraines Other Neurological Family History: migraines - Tobacco Use Smoking Status *Q: Never Smoker - Caffeine Use Caffeine Use: Reports: Tea - Recreational Drug Use Recreational Drug Use: No - Living Situation & Occupation Living situation: Reports: Occupation: Unemployed Review of Systems - Review of Systems Review Of Systems: See Below Constitutional: Denies: Chills, Fever Eyes: Reports: No Symptoms Mouth/Throat: Reports: No Symptoms Respiratory: Denies: Shortness of Breath Cardiovascular: Denies: Chest Pain GI/Abdominal: Denies: Abdominal Pain, Nausea, Vomiting Musculoskeletal: Reports: Joint Pain. Denies: Leg Pain Neurological: Reports: Difficulty Walking. Denies: Numbness, Tingling ED EXAM, GENERAL - Physical Exam Exam: See Below General Appearance: Alert, No Apparent Distress Head: Atraumatic Neck: Supple Respiratory/Chest: No Respiratory Distress Extremities: Limited Range of Motion, Other (There is no swelling or effusion of the knee, there is tenderness of the knee medially and anteriorly, she does have pain with flexion and extension, no apparent joint instability.). No: Joint Swelling Neurological: No Motor/Sensory Deficits Skin Exam: Warm, Dry, Normal Color Course - Vital Signs Last Recorded V/S: Last Vital Signs Temp 98.5 F 07/06/18 09:21 Pulse 88 07/06/18 09:21 Resp BP 126/88 07/06/18 09:21 Pulse Ox 99 07/06/18 09:21 Departure - Departure Time of Disposition: 10:50 Disposition: Home, Self-Care 01 Condition: Fair Clinical Impression: Knee pain Qualifiers: Chronicity: acute Laterality: right Qualified Code(s): M25.561 - Pain in right knee - Discharge Information Prescriptions: oxyCODONE HCl/Acetaminophen [Percocet 5-325 mg Tablet] 1 each PO Q6HR PRN #14 tablet PRN Reason: Pain Instructions: Knee Pain, Adult, How to Use a Knee Immobilizer Referrals: Barbara Frias PA-C [Primary Care Provider] - Forms: ED Department Discharge, ED Return to Work/School Form Additional Instructions: Use knee immobilizer as much as possible, go back to using crutches until pain resolving, rest and elevate leg and knee is much as possible, Tylenol every 6-8 hours for mild discomfort or Percocet if needed for more severe discomfort, try a take one half tablet Percocet every 6-8 hours along with 500 mg Tylenol less side effect of that narcotic pain medication, do not drive when taking the Percocet. See Dr. Dyer early next week as planned.
== END 2018-07-06 11:13 | disposition home or self-care (01) ==
LOC: JD.ED 09:15
DX: M25.561 Pain in right knee (principal); E66.9 Obesity, unspecified; Z88.5 Allergy status to narcotic agent; Z88.8 Allergy status to other drugs, medicaments and biological substances; Z88.0 Allergy status to penicillin; Z79.899 Other long term (current) drug therapy
CPT/HCPCS: 99283

== ENCOUNTER 2018-11-18 05:25 | Emergency (ER) | payer BC ==
[2018-11-18 05:36] VITALS: BP 124/74
--- NOTE | 2018-11-18 06:33 | EDM.PDOC ---
ED HPI GENERAL MEDICAL PROBLEM - General Chief Complaint: Allergic Reaction Stated Complaint: POSS ALLERGIC REACTION Time Seen by Provider: 11/18/18 05:50 Source of Information: Reports: Patient, Old Records (ED visits 11/15/2018 & 11/16), RN Notes Reviewed History Limitations: Reports: Combative/Threatening - History of Present Illness INITIAL COMMENTS - FREE TEXT/NARRATIVE: Obtaining the patient's history was difficult, as the patient was angry and hostile. Medical records indicate that the patient was seen in this ED on 11/15/2018 with her hematuria and left flank pain. She had been seen by the Urologist Dr. Abrams the day before, and had a stent placed for a ureterolith, but her hematuria and flank pain persisted. The patient was given 1 mg of IM Dilaudid in the ED, then discharged home with a prescription for Dilaudid 2 mg #20. Medical records indicate that the patient was then seen 2 days ago, 11/16/2018, with a complaint of an allergic reaction. She states that she had taken ciprofloxacin for the ureteral stent was removed, and that she had developed swelling in her throat. There was no rash dyspnea, chest pain, abdominal pain, nausea, or vomiting. She used her epi-pen, which helped with her symptoms. No abnormal findings were found on physical examination, including no sign of angioedema or uvular swelling, wheezing, or rash. The patient was given a dose of dexamethasone, Pepcid, and Claritin, and discharged home. When asked what brings the patient to the ED this morning, the patient pointed inside her mouth, then said that her stomach hurts with a burning sensation, that she feels lightheaded that is not positional, that she has a decreased appetite, and watery diarrhea. She stated that all of the symptoms began yesterday, 11/17/2018. She states that she has had nausea, but no emesis. No recent fever. No recent urinary symptoms. No recent dyspnea or wheezing. She states that she took some children's Benadryl around 18:00 last night, without relief of symptoms. The patient states that she has had similar symptoms whenever she gets an allergic reaction, such as to hydrocodone, although the patient also states that she has not recently taken hydrocodone. It also appears that the patient's definition of an allergic reaction is not the same as a medical definition, in that the patient does not experience urticaria, pruritus, angioedema, uvular swelling, dyspnea, or wheezing. The patient's PCP is Barbara Frias. Abdomen Pain Score (Numeric/FACES): 10 - Related Data Allergies Allergy/AdvReac Type Severity Reaction Status Date / Time codeine Allergy Intermediate Difficulty Verified 11/18/18 05:37 Breathing diclofenac sodium Allergy Intermediate Difficulty Verified 11/18/18 05:37 [From Voltaren] Breathing hydrocodone Allergy Intermediate Difficulty Verified 11/18/18 05:37 Breathing naproxen sodium [From Aleve] Allergy Intermediate Difficulty Verified 11/18/18 05:37 Breathing Penicillins Allergy Intermediate Difficulty Verified 11/18/18 05:37 Breathing pseudoephedrine HCl Allergy Intermediate Difficulty Verified 11/18/18 05:37 [From Sudafed] Breathing Sulfa (Sulfonamide Allergy Intermediate Difficulty Verified 11/18/18 05:37 Antibiotics) Breathing animal dander Allergy Difficulty Verified 11/18/18 05:37 Breathing bee pollen Allergy Cannot Verified 11/18/18 05:37 Remember fish derived Allergy Cannot Verified 11/18/18 05:37 Remember influenza virus vaccine, Allergy Rash Verified 11/18/18 05:37 specific Influenza Virus Vaccines Allergy Rash Verified 11/18/18 05:37 iodine Allergy Difficulty Verified 11/18/18 05:37 Breathing mold Allergy Difficulty Verified 11/18/18 05:37 Breathing nabumetone [From Relafen] Allergy Cannot Verified 11/18/18 05:37 Remember olive oil Allergy Difficulty Verified 11/18/18 05:37 Breathing pollen extracts Allergy Difficulty Verified 11/18/18 05:37 Breathing prednisone Allergy Difficulty Verified 11/18/18 05:37 Breathing tramadol Allergy Cannot Verified 11/18/18 05:37 Remember wheat Allergy Cannot Verified 11/18/18 05:37 Remember diphenhydramine AdvReac Intermediate Other Verified 11/18/18 05:37 [From Benadryl] bandaid Allergy Blisters Uncoded 11/18/18 05:37 DUST Allergy Difficulty Uncoded 11/18/18 05:37 Breathing Home Meds: Home Meds Calcium Carbonate/Vitamin D3 [Calcium 250+D] 1 each PO DAILY 11/15/18 [History] Cetirizine [ZyrTEC] 10 mg PO BID 11/15/18 [History] Cholecalciferol (Vitamin D3) [D-2000] 2,000 unit PO DAILY 11/15/18 [History] Cyanocobalamin (Vitamin B12) [Vitamin B12] 1,500 mcg PO DAILY 11/15/18 [History] Cyclobenzaprine [Flexeril] 1 tab PO Q8H PRN 11/15/18 [History] EPINEPHrine [Epinephrine] 0.3 mg IM ASDIRECTED PRN 11/15/18 [History] Estradiol 1 mg PO DAILY 11/15/18 [History] Fluticasone/Salmeterol [Advair Hfa 45-21 Mcg Inhaler] 2 puff IH DAILY PRN [History] Gabapentin [Neurontin] 300 mg PO TID 11/15/18 [History] Gabapentin [Neurontin] 600 mg PO TID 11/15/18 [History] HYDROmorphone [Dilaudid] 2 mg PO Q6HR PRN #20 tab 11/15/18 [Rx] Ipratropium/Albuterol Sulfate [Iprat-Albut 0.5-3(2.5) mg/3 ml] 1 applic IN Q4H PRN 11/15/18 [History] Montelukast [Singulair] 10 mg PO DAILY 11/15/18 [History] Omeprazole 40 mg PO BIDAC 11/15/18 [History] Sertraline [Zoloft] 50 mg PO DAILY 11/15/18 [History] Past Medical History HEENT History: Reports: Allergic Rhinitis, Sinusitis, Other (See Below) Other HEENT History: has dentures/partials Cardiovascular History: Reports: None Respiratory History: Reports: Asthma Other Respiratory History: Moderate snoring Gastrointestinal History: Reports: GERD, GI Bleed, Helicobacter Pylori, PUD, Other (See Below) Other Gastrointestinal History: bilrubinemia, GI bleed, elevated LFTs, nausea/ voming Genitourinary History: Reports: Renal Calculus, Other (See Below) Other Genitourinary History: bilirubenimia, dysuria, UTI, renal colic BUSINESS CONTINUITY PLANNER History: Reports: Other BUSINESS CONTINUITY PLANNER History: history of ovarian cyst, hot flashes, Musculoskeletal History: Reports: Osteoarthritis, Other (See Below) Other Musculoskeletal History: degenerative tear of medial meniscus (L), knee pain, patellar malignant syndrome (bilateral),osteochondrosis synovitis of knee , L patellar chrondromalacia, L knee contusion, R knee locking, R knee contusion , L hip greater trochanter bursitis Neurological History: Reports: Migraines Psychiatric History: Reports: Anxiety, Other (See Below) Other Psychiatric History: insomnia Endocrine/Metabolic History: Reports: Obesity/BMI 30+ Hematologic History: Reports: None Immunologic History: Reports: None Oncologic (Cancer) History: Reports: None Dermatologic History: Reports: Other (See Below) Other Dermatologic History: sebaceous cyst - Infectious Disease History Infectious Disease History: Reports: Chicken Pox, Measles - Past Surgical History Head Surgeries/Procedures: Reports: None HEENT Surgical History: Reports: Tonsillectomy Other HEENT Surgeries/Procedures: has dentures and partial GI Surgical History: Reports: Bariatric Procedure, Cholecystectomy, Colonoscopy , EGD Other GI Surgeries/Procedures: 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 Female Surgical History: Reports: Hysterectomy, Kidney stone extraction, Oophorectomy, Tubal Ligation, Ureteral Stent Musculoskeletal Surgical History: Reports: Arthroscopic Knee Other Musculoskeletal Surgeries/Procedures:: L knee arthroscopy x 2, R knee arthroscopy, L foot surgery Dermatological Surgical History: Reports: None Social & Family History - Family History Family Medical History: Noncontributory Cardiac: Reports: Hypertension Other Cardiac Family History: parents Musculoskeletal: Reports: Arthritis Other Musculoskeletal Family History: parents Neurological: Reports: Migraines Other Neurological Family History: migraines - Tobacco Use Smoking Status *Q: Never Smoker Second Hand Smoke Exposure: No - Caffeine Use Caffeine Use: Reports: None - Recreational Drug Use Recreational Drug Use: No - Living Situation & Occupation Living situation: Reports: Occupation: Unemployed ED ROS ALLERGIC REACTION - Review of Systems Review Of Systems: ROS reveals no pertinent complaints other than HPI. ED EXAM GENERAL NO PERIP PULSE - Physical Exam Exam: See Below Exam Limited By: No Limitations General Appearance: Alert, WD/WN, No Apparent Distress Eye Exam: Bilateral Eye: EOMI, Normal Inspection Ears: Normal External Exam, Normal Canal, Hearing Grossly Normal, Normal TMs Nose: Normal Inspection, Normal Mucosa, No Blood Throat/Mouth: Normal Inspection, Normal Lips, Normal Gums, Normal Oropharynx ( No angioedema, uvular swelling, or tongue swelling. No stomatitis.), Normal Voice, No Airway Compromise, Other (Edentulous) Head: Atraumatic, Normocephalic Neck: Normal Inspection, Supple, Non-Tender, Full Range of Motion. No: Lymphadenopathy (L), Lymphadenopathy (R) Respiratory/Chest: No Respiratory Distress, Lungs Clear, Normal Breath Sounds, No Accessory Muscle Use. No: Decreased Breath Sounds, Crackles, Rhonchi, Wheezing, Stridor, Prolonged Expiration Cardiovascular: Normal Peripheral Pulses, Regular Rate, Rhythm, No Edema, No Gallop, No JVD, No Murmur, No Rub GI/Abdominal: Normal Bowel Sounds, Soft, Non-Tender, No Organomegaly, No Distention, No Abnormal Bruit, No Mass (Female) Exam: Deferred Rectal (Female) Exam: Deferred Back Exam: Normal Inspection, Full Range of Motion, NT Extremities: Normal Inspection, Normal Range of Motion, No Pedal Edema, Normal Capillary Refill Neurological: Alert, Oriented, Normal Cognition, No Motor/Sensory Deficits Psychiatric: Other (Angry) Skin Exam: Warm, Dry, Intact, Normal Color, No Rash (Including no urticaria) Course - Vital Signs Last Recorded V/S: Last Vital Signs Temp 36.9 C 11/18/18 05:32 Pulse 79 11/18/18 05:32 Resp 20 11/18/18 05:32 BP 124/74 11/18/18 05:32 Pulse Ox 98 11/18/18 05:32 - Re-Assessments/Exams Free Text/Narrative Re-Assessment/Exam: 11/18/18 06:31 The patient was not cooperative with her history. She initially told me that her past medical history included only allergic rhinitis, GERD, and a recent kidney stone. She told me that she only takes 3 types of allergy medications and nothing else, however, when she said that her stomach was burning, I asked her if she has ever taken an antacid, she asked me if I has read her medical records. I explained that I was able to review her most recent medical record, but that I am not position to read through all of her medical records. The patient was incredulous. She pulled out a list of her current medications that includes many medications, not just 3 allergy medicines. Omeprazole is on the list. I asked her why she takes omeprazole, and she responded that she has GERD. I see also that she is on sertraline. When I asked her about that, she stated that she has anxiety, however, her hostility only grew, and she then refused to answer my questions. I explained that in order to understand what her medical problem is, I need to know what sort of medical problems she has. The patient believes that her tongue is swollen, however, on examination, I don' t see any oral abnormalities, including tongue, lip, or uvular swelling. She has no urticaria, her lungs are entirely clear to auscultation without wheezing , and, in short, I see no evidence that the patient is suffering from an allergic reaction. The patient states that her stomach is burning. I can only speculate as to what might be causing that, including the possibility that the omeprazole that she is on has stopped working, as often happens when patients are on proton pump inhibitors. I offered to prescribe a different proton pump inhibitor, to see if that would benefit the patient. The patient stated that she just wants me to fix her, that she has to go to work tomorrow. I explained that I can only report what I am seeing, and I am not seeing or hearing a physical abnormality. She then stated that I was wasting her time, got up, and left the ED without waiting for discharge instructions. Departure - Departure Time of Disposition: 06:34 Disposition: Eloped 07 Condition: Good Clinical Impression: Abnormal mouth sensation, Burning sensation of stomach - Discharge Information *PRESCRIPTION DRUG MONITORING PROGRAM REVIEWED*: Not Applicable *COPY OF PRESCRIPTION DRUG MONITORING REPORT IN PATIENT JOHNNY: Not Applicable Referrals: Barbara Frias PA-C [Primary Care Provider] - Forms: ED Department Discharge Additional Instructions: You were seen in the emergency room for the sensation that your tongue is swollen, that your stomach is burning, feeling lightheaded, decreased appetite, and watery diarrhea. On examination, no physical abnormalities were found. You are not suffering from an allergic reaction. The cause of your symptoms is not entirely clear. The burning sensation in your stomach could be because the omeprazole that you are on has stopped working. An offer was made to switch to a different proton pump inhibitor, which was declined. We strongly recommend that you follow-up with your PCP, Barbara Frias, or your Aallergist in [place], whose name you could not recall, at the next available appointment. If any other problems, please do not hesitate to return to the ER.
== END 2018-11-18 06:41 | disposition left against medical advice (07) ==
LOC: JD.ED 05:25
DX: R20.8 Other disturbances of skin sensation (principal); E66.9 Obesity, unspecified; Z88.5 Allergy status to narcotic agent; Z88.8 Allergy status to other drugs, medicaments and biological substances; Z91.013 Allergy to seafood; Z91.018 Allergy to other foods; Z79.899 Other long term (current) drug therapy
CPT/HCPCS: 99281; 99283

== ENCOUNTER 2019-01-02 17:22 | Emergency (ER) | payer BC ==
[2019-01-02 17:32] VITALS: BP 153/83
[2019-01-02] MEDS ORDERED: Dexamethasone 4 MG Tab PO ONE (17:40)
[2019-01-02] MEDS ORDERED: Famotidine 20 MG Tab PO ONE (17:41)
[2019-01-02] MEDS ORDERED: Loratadine 10 MG Tab PO ONE (17:41)
--- NOTE | 2019-01-02 18:02 | EDM.PDOC ---
ED HPI GENERAL MEDICAL PROBLEM - General Chief Complaint: Allergic Reaction Stated Complaint: THROAT SWELLING/ALLERGIC REACTION Time Seen by Provider: 01/02/19 17:29 Source of Information: Reports: Patient History Limitations: Reports: No Limitations - History of Present Illness INITIAL COMMENTS - FREE TEXT/NARRATIVE: The patient presents with an allergic reaction. She said her throat was swollen. She had trouble breathing. She took an epi pen. That did help. Her oxygen saturations are fine and she is in no respiratory distress. She has many allergies and she knows she did not come in contact with anything. She has had no knew medications. She has no rash with this. She has no chest pain. She said she started feeling something was going on in her throat last night and this afternoon she got much worse. Onset: Gradual Duration: Day(s): (Last night) Severity: Moderate Improves with: Reports: None Worsens with: Reports: None Associated Symptoms: Reports: Shortness of Breath. Denies: Chest Pain, Cough, Fever/Chills, Nausea/Vomiting Throat Pain Score (Numeric/FACES): 10 - Related Data Allergies Allergy/AdvReac Type Severity Reaction Status Date / Time codeine Allergy Intermediate Difficulty Verified 01/02/19 17:32 Breathing diclofenac sodium Allergy Intermediate Difficulty Verified 01/02/19 17:32 [From Voltaren] Breathing hydrocodone Allergy Intermediate Difficulty Verified 01/02/19 17:32 Breathing naproxen sodium [From Aleve] Allergy Intermediate Difficulty Verified 01/02/19 17:32 Breathing Penicillins Allergy Intermediate Difficulty Verified 01/02/19 17:32 Breathing pseudoephedrine HCl Allergy Intermediate Difficulty Verified 01/02/19 17:32 [From Sudafed] Breathing Sulfa (Sulfonamide Allergy Intermediate Difficulty Verified 01/02/19 17:32 Antibiotics) Breathing animal dander Allergy Difficulty Verified 01/02/19 17:32 Breathing bee pollen Allergy Cannot Verified 01/02/19 17:32 Remember fish derived Allergy Cannot Verified 01/02/19 17:32 Remember influenza virus vaccine, Allergy Rash Verified 01/02/19 17:32 specific Influenza Virus Vaccines Allergy Rash Verified 01/02/19 17:32 iodine Allergy Difficulty Verified 01/02/19 17:32 Breathing mold Allergy Difficulty Verified 01/02/19 17:32 Breathing nabumetone [From Relafen] Allergy Cannot Verified 01/02/19 17:32 Remember olive oil Allergy Difficulty Verified 01/02/19 17:32 Breathing pollen extracts Allergy Difficulty Verified 01/02/19 17:32 Breathing prednisone Allergy Difficulty Verified 01/02/19 17:32 Breathing tramadol Allergy Cannot Verified 01/02/19 17:32 Remember wheat Allergy Cannot Verified 01/02/19 17:32 Remember diphenhydramine AdvReac Intermediate Other Verified 01/02/19 17:32 [From Benadryl] bandaid Allergy Blisters Uncoded 01/02/19 17:32 DUST Allergy Difficulty Uncoded 01/02/19 17:32 Breathing Home Meds: Home Meds Calcium Carbonate/Vitamin D3 [Calcium 250+D] 1 each PO DAILY 11/15/18 [History] Cetirizine [ZyrTEC] 10 mg PO BID 11/15/18 [History] Cholecalciferol (Vitamin D3) [D-2000] 2,000 unit PO DAILY 11/15/18 [History] Cyanocobalamin (Vitamin B12) [Vitamin B12] 1,500 mcg PO DAILY 11/15/18 [History] Cyclobenzaprine [Flexeril] 1 tab PO Q8H PRN 11/15/18 [History] EPINEPHrine [Epinephrine] 0.3 mg IM ASDIRECTED PRN 11/15/18 [History] Estradiol 1 mg PO DAILY 11/15/18 [History] Fluticasone/Salmeterol [Advair Hfa 45-21 Mcg Inhaler] 2 puff IH DAILY PRN [History] Gabapentin [Neurontin] 300 mg PO TID 11/15/18 [History] Gabapentin [Neurontin] 600 mg PO TID 11/15/18 [History] HYDROmorphone [Dilaudid] 2 mg PO Q6HR PRN #20 tab 11/15/18 [Rx] Ipratropium/Albuterol Sulfate [Iprat-Albut 0.5-3(2.5) mg/3 ml] 1 applic IN Q4H PRN 11/15/18 [History] Montelukast [Singulair] 10 mg PO DAILY 11/15/18 [History] Omeprazole 40 mg PO BIDAC 11/15/18 [History] Sertraline [Zoloft] 50 mg PO DAILY 11/15/18 [History] Past Medical History HEENT History: Reports: Allergic Rhinitis, Sinusitis, Other (See Below) Other HEENT History: has dentures/partials Cardiovascular History: Reports: None Respiratory History: Reports: Asthma Other Respiratory History: Moderate snoring Gastrointestinal History: Reports: GERD, GI Bleed, Helicobacter Pylori, PUD, Other (See Below) Other Gastrointestinal History: bilrubinemia, GI bleed, elevated LFTs, nausea/ voming Genitourinary History: Reports: Renal Calculus, Other (See Below) Other Genitourinary History: bilirubenimia, dysuria, UTI, renal colic CLERK RATING History: Reports: Other CLERK RATING History: history of ovarian cyst, hot flashes, Musculoskeletal History: Reports: Osteoarthritis, Other (See Below) Other Musculoskeletal History: degenerative tear of medial meniscus (L), knee pain, patellar malignant syndrome (bilateral),osteochondrosis synovitis of knee , L patellar chrondromalacia, L knee contusion, R knee locking, R knee contusion , L hip greater trochanter bursitis Neurological History: Reports: Migraines Psychiatric History: Reports: Anxiety, Other (See Below) Other Psychiatric History: insomnia Endocrine/Metabolic History: Reports: Obesity/BMI 30+ Hematologic History: Reports: None Immunologic History: Reports: None Oncologic (Cancer) History: Reports: None Dermatologic History: Reports: Other (See Below) Other Dermatologic History: sebaceous cyst - Infectious Disease History Infectious Disease History: Reports: Chicken Pox, Measles - Past Surgical History Head Surgeries/Procedures: Reports: None HEENT Surgical History: Reports: Tonsillectomy Other HEENT Surgeries/Procedures: has dentures and partial GI Surgical History: Reports: Bariatric Procedure, Cholecystectomy, Colonoscopy , EGD Other GI Surgeries/Procedures: 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 Female Surgical History: Reports: Hysterectomy, Kidney stone extraction, Oophorectomy, Tubal Ligation, Ureteral Stent Musculoskeletal Surgical History: Reports: Arthroscopic Knee Other Musculoskeletal Surgeries/Procedures:: L knee arthroscopy x 2, R knee arthroscopy, L foot surgery Dermatological Surgical History: Reports: None Social & Family History - Family History Family Medical History: Noncontributory Cardiac: Reports: Hypertension Other Cardiac Family History: parents Musculoskeletal: Reports: Arthritis Other Musculoskeletal Family History: parents Neurological: Reports: Migraines Other Neurological Family History: migraines - Caffeine Use Caffeine Use: Reports: None - Living Situation & Occupation Living situation: Reports: Occupation: Unemployed ED ROS ALLERGIC REACTION - Review of Systems Review Of Systems: See Below Constitutional: Reports: No Symptoms HEENT: Reports: Other (Swelling of her throat) Respiratory: Reports: Shortness of Breath Cardiovascular: Reports: No Symptoms Endocrine: Reports: No Symptoms GI/Abdominal: Reports: No Symptoms : Reports: No Symptoms ED EXAM GENERAL NO PERIP PULSE - Physical Exam Exam: See Below Exam Limited By: No Limitations General Appearance: Alert, No Apparent Distress Ears: Normal External Exam Nose: Normal Inspection Throat/Mouth: Other (Very mild edema of the uvula) Head: Atraumatic, Normocephalic Neck: Normal Inspection Respiratory/Chest: No Respiratory Distress, Lungs Clear, Normal Breath Sounds Cardiovascular: Regular Rate, Rhythm, No Edema, No Murmur GI/Abdominal: Soft, Non-Tender, No Organomegaly, No Mass Back Exam: Normal Inspection Extremities: Normal Inspection Course - Vital Signs Last Recorded V/S: Last Vital Signs Temp 98.4 F 01/02/19 17:29 Pulse 74 01/02/19 17:29 Resp 18 01/02/19 17:29 BP 153/83 H 01/02/19 17:29 Pulse Ox 100 01/02/19 17:29 - Orders/Labs/Meds Meds: Medications Discontinued Medications Generic Name Dose Route Start Last Admin Trade Name Fernnado PRHelen Reason Stop Dose Admin Dexamethasone 8 mg 01/02/19 17:40 01/02/19 18:06 Dexamethasone PO 01/02/19 17:41 8 mg ONETIME ONE Administration Famotidine 20 mg 01/02/19 17:41 01/02/19 18:05 Pepcid PO 01/02/19 17:42 20 mg ONETIME ONE Administration Loratadine 10 mg 01/02/19 17:41 01/02/19 18:06 Claritin PO 01/02/19 17:42 10 mg ONETIME ONE Administration - Re-Assessments/Exams Free Text/Narrative Re-Assessment/Exam: 01/02/19 18:03 She is doing better now. I ordered some dexamethasone 8mg, claritin 10mg PO and pepcid 20mg by mouth. 01/02/19 18:36 There has been no change. Her throat still looks good. I am not sure what caused the reaction this time. I will give her a prescription for epi pen. Departure - Departure Time of Disposition: 18:40 Disposition: Home, Self-Care 01 Condition: Good Clinical Impression: Allergic reaction Qualifiers: Encounter type: initial encounter Qualified Code(s): T78.40XA - Allergy, unspecified, initial encounter - Discharge Information *PRESCRIPTION DRUG MONITORING PROGRAM REVIEWED*: Not Applicable *COPY OF PRESCRIPTION DRUG MONITORING REPORT IN PATIENT JOHNNY: Not Applicable Referrals: Barbara Frias PA-C [Primary Care Provider] - 1 Week Forms: ED Department Discharge Additional Instructions: Follow up with your doctor as soon as you can. Use the epinephrine as needed. Take pepcid daily for 1 week and claritin daily for 1 week. Please return if you are worse.
== END 2019-01-02 18:45 | disposition home or self-care (01) ==
LOC: JD.ED 17:22
DX: T78.40XA Allergy, unspecified, initial encounter (principal); J45.909 Unspecified asthma, uncomplicated; K21.9 Gastro-esophageal reflux disease without esophagitis; Z88.5 Allergy status to narcotic agent; Z88.8 Allergy status to other drugs, medicaments and biological substances; F41.9 Anxiety disorder, unspecified; Z79.899 Other long term (current) drug therapy; Z98.890 Other specified postprocedural states
CPT/HCPCS: 99283; A9270; J8540; 99284

== ENCOUNTER 2019-02-16 14:34 | Emergency (ER) | payer BC ==
[2019-02-16 14:49] VITALS: BP 128/85
--- NOTE | 2019-02-16 17:15 | EDM.PDOC ---
ED HPI GENERAL MEDICAL PROBLEM - General Chief Complaint: Lower Extremity Injury/Pain Stated Complaint: KNEE PAIN Time Seen by Provider: 02/16/19 15:07 Source of Information: Reports: Patient, RN Notes Reviewed - History of Present Illness INITIAL COMMENTS - FREE TEXT/NARRATIVE: 48-year-old comes in with severe right knee pain. She states she slipped on some ice about 10 days ago, having worsening right knee discomfort since that time. Has had problems off and on with the right knee chronically for many years. Has had multiple prior surgeries on the knee. The pain is medial and lateral worse with any type of motion of the knee and worse with weightbearing, no pain at rest. Been no unusual swelling warmth or erythema. No fever or chills. No leg pain or swelling. No chest pain or difficulty breathing. Right Knee Pain Score (Numeric/FACES): 10 - Related Data Allergies Allergy/AdvReac Type Severity Reaction Status Date / Time codeine Allergy Intermediate Difficulty Verified 01/02/19 17:32 Breathing diclofenac sodium Allergy Intermediate Difficulty Verified 01/02/19 17:32 [From Voltaren] Breathing hydrocodone Allergy Intermediate Difficulty Verified 01/02/19 17:32 Breathing naproxen sodium [From Aleve] Allergy Intermediate Difficulty Verified 01/02/19 17:32 Breathing Penicillins Allergy Intermediate Difficulty Verified 01/02/19 17:32 Breathing pseudoephedrine HCl Allergy Intermediate Difficulty Verified 01/02/19 17:32 [From Sudafed] Breathing Sulfa (Sulfonamide Allergy Intermediate Difficulty Verified 01/02/19 17:32 Antibiotics) Breathing animal dander Allergy Difficulty Verified 01/02/19 17:32 Breathing bee pollen Allergy Cannot Verified 01/02/19 17:32 Remember fish derived Allergy Cannot Verified 01/02/19 17:32 Remember influenza virus vaccine, Allergy Rash Verified 01/02/19 17:32 specific Influenza Virus Vaccines Allergy Rash Verified 01/02/19 17:32 iodine Allergy Difficulty Verified 01/02/19 17:32 Breathing mold Allergy Difficulty Verified 01/02/19 17:32 Breathing nabumetone [From Relafen] Allergy Cannot Verified 01/02/19 17:32 Remember olive oil Allergy Difficulty Verified 01/02/19 17:32 Breathing pollen extracts Allergy Difficulty Verified 01/02/19 17:32 Breathing prednisone Allergy Difficulty Verified 01/02/19 17:32 Breathing tramadol Allergy Cannot Verified 01/02/19 17:32 Remember wheat Allergy Cannot Verified 01/02/19 17:32 Remember diphenhydramine AdvReac Intermediate Other Verified 01/02/19 17:32 [From Kalpanaryl] bandaid Allergy Blisters Uncoded 01/02/19 17:32 DUST Allergy Difficulty Uncoded 01/02/19 17:32 Breathing Home Meds: Home Meds Calcium Carbonate/Vitamin D3 [Calcium 250+D] 1 each PO DAILY 11/15/18 [History] Cetirizine [ZyrTEC] 10 mg PO BID 11/15/18 [History] Cholecalciferol (Vitamin D3) [D-2000] 2,000 unit PO DAILY 11/15/18 [History] Cyanocobalamin (Vitamin B12) [Vitamin B12] 1,500 mcg PO DAILY 11/15/18 [History] Cyclobenzaprine [Flexeril] 1 tab PO Q8H PRN 11/15/18 [History] EPINEPHrine [Epinephrine] 0.3 mg IM ASDIRECTED PRN 11/15/18 [History] Estradiol 1 mg PO DAILY 11/15/18 [History] Fluticasone/Salmeterol [Advair Hfa 45-21 Mcg Inhaler] 2 puff IH DAILY PRN [History] Gabapentin [Neurontin] 300 mg PO TID 11/15/18 [History] Gabapentin [Neurontin] 600 mg PO TID 11/15/18 [History] HYDROmorphone [Dilaudid] 2 mg PO Q6HR PRN #20 tab 11/15/18 [Rx] Ipratropium/Albuterol Sulfate [Iprat-Albut 0.5-3(2.5) mg/3 ml] 1 applic IN Q4H PRN 11/15/18 [History] Montelukast [Singulair] 10 mg PO DAILY 11/15/18 [History] Omeprazole 40 mg PO BIDAC 11/15/18 [History] Sertraline [Zoloft] 50 mg PO DAILY 11/15/18 [History] Naproxen [Naprosyn] 375 mg PO BID #10 tab 02/16/19 [Rx] predniSONE [Prednisone] 20 mg PO DAILY #5 tablet 02/16/19 [Rx] Past Medical History HEENT History: Reports: Allergic Rhinitis, Sinusitis, Other (See Below) Other HEENT History: has dentures/partials Cardiovascular History: Reports: None Respiratory History: Reports: Asthma Other Respiratory History: Moderate snoring Gastrointestinal History: Reports: GERD, GI Bleed, Helicobacter Pylori, PUD, Other (See Below) Other Gastrointestinal History: bilrubinemia, GI bleed, elevated LFTs, nausea/ voming Genitourinary History: Reports: Renal Calculus, Other (See Below) Other Genitourinary History: bilirubenimia, dysuria, UTI, renal colic CITY 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: 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 CITY COUNCILMAN History: history of ovarian cyst, hot flashes, Musculoskeletal History: Reports: Osteoarthritis, Other (See Below) Other Musculoskeletal History: degenerative tear of medial meniscus (L), knee pain, patellar malignant syndrome (bilateral),osteochondrosis synovitis of knee , L patellar chrondromalacia, L knee contusion, R knee locking, R knee contusion , L hip greater trochanter bursitis Neurological History: Reports: Migraines Psychiatric History: Reports: Anxiety, Other (See Below) Other Psychiatric History: insomnia Endocrine/Metabolic History: Reports: Obesity/BMI 30+ Hematologic History: Reports: None Immunologic History: Reports: None Oncologic (Cancer) History: Reports: None Dermatologic History: Reports: Other (See Below) Other Dermatologic History: sebaceous cyst - Infectious Disease History Infectious Disease History: Reports: Chicken Pox, Measles - Past Surgical History Head Surgeries/Procedures: Reports: None HEENT Surgical History: Reports: Tonsillectomy Other HEENT Surgeries/Procedures: has dentures and partial GI Surgical History: Reports: Bariatric Procedure, Cholecystectomy, Colonoscopy , EGD Other GI Surgeries/Procedures: 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 Female Surgical History: Reports: Hysterectomy, Kidney stone extraction, Oophorectomy, Tubal Ligation, Ureteral Stent Musculoskeletal Surgical History: Reports: Arthroscopic Knee Other Musculoskeletal Surgeries/Procedures:: L knee arthroscopy x 2, R knee arthroscopy, L foot surgery Dermatological Surgical History: Reports: None Social & Family History - Family History Family Medical History: Noncontributory Cardiac: Reports: Hypertension Other Cardiac Family History: parents Musculoskeletal: Reports: Arthritis Other Musculoskeletal Family History: parents Neurological: Reports: Migraines Other Neurological Family History: migraines - Tobacco Use Smoking Status *Q: Unknown Ever Smoked - Caffeine Use Caffeine Use: Reports: None - Recreational Drug Use Recreational Drug Use: No - Living Situation & Occupation Living situation: Reports: Occupation: Unemployed Review of Systems - Review of Systems Review Of Systems: See Below Constitutional: Denies: Chills, Fever Mouth/Throat: Reports: No Symptoms Respiratory: Denies: Shortness of Breath Cardiovascular: Denies: Chest Pain Musculoskeletal: Reports: Joint Pain (Right knee). Denies: Leg Pain, Foot Pain Skin: Reports: No Symptoms ED EXAM, GENERAL - Physical Exam Exam: See Below General Appearance: Alert, No Apparent Distress Throat/Mouth: Normal Inspection Head: Atraumatic Neck: Supple Respiratory/Chest: No Respiratory Distress, Lungs Clear, Normal Breath Sounds Cardiovascular: Regular Rate, Rhythm Extremities: Other (Mild tenderness medial and lateral aspect of knee, no swelling or joint effusion visible at this time, good range of motion with mild discomfort. Knee joint is stable at this time.) Skin Exam: Warm, Dry, Normal Color Course - Vital Signs Last Recorded V/S: Last Vital Signs Temp 98.1 F 02/16/19 14:46 Pulse 84 02/16/19 14:46 Resp 16 02/16/19 14:46 BP 128/85 02/16/19 14:46 Pulse Ox 99 02/16/19 14:46 - Orders/Labs/Meds Orders: Active Orders 24 hr Category Date Time Status Knee Min 4V Rt [CR] Stat Exams 02/16/19 15:17 Taken - Re-Assessments/Exams Free Text/Narrative Re-Assessment/Exam: 02/16/19 19:24 X-rays of the knee do show some degenerative changes, no visible fracture Departure - Departure Time of Disposition: 17:09 Disposition: Home, Self-Care 01 Condition: Fair Clinical Impression: Knee pain, acute Qualifiers: Laterality: right Qualified Code(s): M25.561 - Pain in right knee - Discharge Information Prescriptions: Naproxen [Naprosyn] 375 mg PO BID #10 tab predniSONE [Prednisone] 20 mg PO DAILY #5 tablet Instructions: Knee Pain, Adult, [id number] Referrals: Barbara Frias PA-C [Primary Care Provider] - Forms: ED Department Discharge, ED Return to Work/School Form Additional Instructions: Right knee immobilizer, rest and elevate leg and knee is much as possible, crutches, Naprosyn 375 mg twice daily for pain and inflammation for the next 5 days, be sure to take that with food, you may take Tylenol in addition up to 3 times daily for extra pain relief as needed, prednisone 20 this evening when you get your prescription filled and then daily for the next 4 days, follow-up at her [facility] medical clinic with Smita Frias or one of the other providers early next week for recheck and Radiology report, call [phone] for appointment. - My Orders Last 24 Hours: My Active Orders 02/16/19 15:17 Knee Min 4V Rt [CR] Stat - Assessment/Plan Last 24 Hours: My Active Orders 02/16/19 15:17 Knee Min 4V Rt [CR] Stat
--- NOTE | 2019-02-17 17:56 | CR ---
Right knee: Four views of the right knee were obtained. Comparison: Prior right knee exam of 06/30/18. Moderate medial joint space narrowing is noted with mild medial osteophytes. This degenerative change has progressed from previous exam. Slight osteophyte is noted off the superior patella. No joint effusion is seen. No acute fracture or other bony abnormality is identified. Impression: 1. Medial joint degenerative change as described above. This has progressed from previous exam. 2. Nothing acute is appreciated on right knee exam. Diagnostic code #2
== END 2019-02-16 17:32 | disposition home or self-care (01) ==
LOC: JD.ED 14:34
DX: M25.561 Pain in right knee (principal); K21.9 Gastro-esophageal reflux disease without esophagitis; Z88.5 Allergy status to narcotic agent; Z88.0 Allergy status to penicillin; Z88.2 Allergy status to sulfonamides; Z79.899 Other long term (current) drug therapy
CPT/HCPCS: 73564-26-RT; 73564-RT; 99283; 99283-25

== ENCOUNTER 2019-03-06 09:15 | Day surgery (SDC) | payer BC ==
[~2019-03-06 09:15] MED LIST changes: -Lactated Ringers 1,000 ML IV SCH; -Lidocaine 1%/Sod Bicarbonate in NS 8.4% 1 ML Syringe IV PRN; +Propofol 200 MG/20 ML SDV ONE; -Sodium Chloride 0.9% 10 ML Syringe FLUSH PRN
[2019-03-06] MEDS ORDERED: Lidocaine 1%/Sod Bicarbonate in NS 8.4% 1 ML Syringe IDERM PRN (09:37)
[2019-03-06] MEDS ORDERED: Sodium Chloride 0.9% 10 ML Syringe FLUSH PRN (09:37)
[2019-03-06] MEDS ORDERED: Lactated Ringers 1,000 ML IV SCH (09:45)
--- NOTE | 2019-03-06 10:18 | PCM.PREANE ---
Preanesthetic Assessment - Procedure Proposed Procedure: EGD - Anesthesia/Transfusion/Family Hx Anesthesia History: Prior Anesthesia Without Reaction Family History of Anesthesia Reaction: No Transfusion History: No Prior Transfusion(s) - Review of Systems General: Malaise Pulmonary: Cough Cardiovascular: No Symptoms Gastrointestinal: Abdominal Pain, Nausea Neurological: Headache (rate at 5) Other: Reports: Easy Bruising - Physical Assessment NPO Status Date: 03/05/19 NPO Status Time: 18:00 Pulse: 73 O2 Sat by Pulse Oximetry: 100 Respiratory Rate: 16 Blood Pressure: 125/75 Temperature: 36.5 C Vital Signs: Last Vital Signs Temp 36.5 C 03/06/19 09:20 Pulse 73 03/06/19 09:20 Resp 16 03/06/19 09:20 BP 125/75 03/06/19 09:20 Pulse Ox 100 03/06/19 09:20 Height: 1.6 m Weight: 64.41 kg ASA Class: 2 Mental Status: Alert & Oriented x3 Airway Class: Mallampati = 1 Dentition: Reports: Dentures (top), Partial (bottom) Thyro-Mental Finger Breadths: 3 Mouth Opening Finger Breadths: 3 ROM/Head Extension: Full Lungs: Clear to Auscultation, Normal Respiratory Effort Cardiovascular: Regular Rate, Regular Rhythm - Allergies Allergies/Adverse Reactions: Allergies Allergy/AdvReac Type Severity Reaction Status Date / Time codeine Allergy Intermediate Difficulty Verified 03/06/19 09:38 Breathing diclofenac sodium Allergy Intermediate Difficulty Verified 03/06/19 09:38 [From Voltaren] Breathing hydrocodone Allergy Intermediate Difficulty Verified 03/06/19 09:38 Breathing naproxen sodium [From Aleve] Allergy Intermediate Difficulty Verified 03/06/19 09:38 Breathing Penicillins Allergy Intermediate Difficulty Verified 03/06/19 09:38 Breathing pseudoephedrine HCl Allergy Intermediate Difficulty Verified 03/06/19 09:38 [From Sudafed] Breathing Sulfa (Sulfonamide Allergy Intermediate Difficulty Verified 03/06/19 09:38 Antibiotics) Breathing animal dander Allergy Difficulty Verified 03/06/19 09:38 Breathing bee pollen Allergy Cannot Verified 03/06/19 09:38 Remember fish derived Allergy Cannot Verified 03/06/19 09:38 Remember influenza virus vaccine, Allergy Rash Verified 03/06/19 09:38 specific Influenza Virus Vaccines Allergy Rash Verified 03/06/19 09:38 iodine Allergy Difficulty Verified 03/06/19 09:38 Breathing mold Allergy Difficulty Verified 03/06/19 09:38 Breathing nabumetone [From Relafen] Allergy Cannot Verified 03/06/19 09:38 Remember olive oil Allergy Difficulty Verified 03/06/19 09:38 Breathing pollen extracts Allergy Difficulty Verified 03/06/19 09:38 Breathing prednisone Allergy Difficulty Verified 03/06/19 09:38 Breathing tramadol Allergy Cannot Verified 03/06/19 09:38 Remember wheat Allergy Cannot Verified 03/06/19 09:38 Remember diphenhydramine AdvReac Intermediate Other Verified 03/06/19 09:38 [From Benadryl] bandaid Allergy Blisters Uncoded 01/02/19 17:32 DUST Allergy Difficulty Uncoded 01/02/19 17:32 Breathing - Blood Blood Available: No Product(s) Available: None - Anesthesia Plan Pre-Op Medication Ordered: None - Acknowledgements Anesthesia Type Planned: MAC Pt an Appropriate Candidate for the Planned Anesthesia: Yes Alternatives and Risks of Anesthesia Discussed w Pt/Guardian: Yes Pt/Guardian Understands and Agrees with Anesthesia Plan: Yes PreAnesthesia Questionnaire HEENT History: Reports: Allergic Rhinitis, Sinusitis, Other (See Below) Other HEENT History: has dentures/partials Cardiovascular History: Reports: None Respiratory History: Reports: Asthma Other Respiratory History: Moderate snoring Gastrointestinal History: Reports: GERD, GI Bleed, Helicobacter Pylori, PUD, Other (See Below) Other Gastrointestinal History: bilrubinemia, GI bleed, elevated LFTs, nausea/ voming Genitourinary History: Reports: Renal Calculus, Other (See Below) Other Genitourinary History: bilirubenimia, dysuria, UTI, renal colic 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 OB/BYN History: history of ovarian cyst, hot flashes, Musculoskeletal History: Reports: Osteoarthritis, Other (See Below) Other Musculoskeletal History: degenerative tear of medial meniscus (L), knee pain, patellar malignant syndrome (bilateral),osteochondrosis synovitis of knee , L patellar chrondromalacia, L knee contusion, R knee locking, R knee contusion , L hip greater trochanter bursitis Neurological History: Reports: Migraines Psychiatric History: Reports: Anxiety, Other (See Below) Other Psychiatric History: insomnia Endocrine/Metabolic History: Reports: Obesity/BMI 30+ Hematologic History: Reports: None Immunologic History: Reports: None Oncologic (Cancer) History: Reports: None Dermatologic History: Reports: Other (See Below) Other Dermatologic History: sebaceous cyst - Infectious Disease History Infectious Disease History: Reports: Chicken Pox, Measles - Past Surgical History Head Surgeries/Procedures: Reports: None HEENT Surgical History: Reports: Tonsillectomy Other HEENT Surgeries/Procedures: has dentures and partial GI Surgical History: Reports: Bariatric Procedure, Cholecystectomy, Colonoscopy , EGD Other GI Surgeries/Procedures: 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 Female Surgical History: Reports: Hysterectomy, Kidney stone extraction, Oophorectomy, Tubal Ligation, Ureteral Stent Musculoskeletal Surgical History: Reports: Arthroscopic Knee Other Musculoskeletal Surgeries/Procedures:: L knee arthroscopy x 2, R knee arthroscopy, L foot surgery Dermatological Surgical History: Reports: None - SUBSTANCE USE Smoking Status *Q: Former Smoker Tobacco Use Within Last Twelve Months: No Second Hand Smoke Exposure: Yes Days Per Week of Alcohol Use: 0 Number of Drinks Per Day: 0 Total Drinks Per Week: 0 Recreational Drug Use History: No - HOME MEDS Home Medications: Home Meds Calcium Carbonate/Vitamin D3 [Calcium 250+D] 1 each PO DAILY 11/15/18 [History] Cetirizine [ZyrTEC] 10 mg PO BID 11/15/18 [History] Cholecalciferol (Vitamin D3) [D-2000] 2,000 unit PO DAILY 11/15/18 [History] Cyanocobalamin (Vitamin B12) [Vitamin B12] 1,500 mcg PO DAILY 11/15/18 [History] Cyclobenzaprine [Flexeril] 1 tab PO Q8H PRN 11/15/18 [History] EPINEPHrine [Epinephrine] 0.3 mg IM ASDIRECTED PRN 11/15/18 [History] Estradiol 1 mg PO DAILY 11/15/18 [History] Fluticasone/Salmeterol [Advair Hfa 45-21 Mcg Inhaler] 2 puff IH DAILY PRN [History] Gabapentin [Neurontin] 300 mg PO TID 11/15/18 [History] Gabapentin [Neurontin] 600 mg PO TID 11/15/18 [History] Ipratropium/Albuterol Sulfate [Iprat-Albut 0.5-3(2.5) mg/3 ml] 1 applic IN Q4H PRN 11/15/18 [History] Montelukast [Singulair] 10 mg PO DAILY 11/15/18 [History] Omeprazole 40 mg PO BIDAC 11/15/18 [History] Sertraline [Zoloft] 50 mg PO DAILY 11/15/18 [History] Fexofenadine [Maria Luisa] 180 mg PO DAILY 03/06/19 [History] Ibandronate Sodium 150 mg PO ASDIRECTED 03/06/19 [History] Multivitamin [Multivitamins] 1 cap PO DAILY 03/06/19 [History] Ondansetron [Zofran] 4 mg PO ASDIRECTED 03/06/19 [History] Venlafaxine [Effexor] 75 mg PO DAILY 03/06/19 [History] Zolpidem Tartrate [Ambien] 5 mg PO BEDTIME 03/06/19 [History] traZODone HCl [Trazodone HCl] 50 mg PO BEDTIME 03/06/19 [History] - CURRENT (IN HOUSE) MEDS Current Meds: Current Medications Lactated Ringer's (Ringers, Lactated) 1,000 mls @ 125 mls/hr IV ASDIRECTED FLAQUITO Stop: 03/06/19 23:00 Last Admin: 03/06/19 09:40 Dose: 125 mls/hr Lidocaine/Sodium Bicarbonate (Buffered Lidocaine 1% In Ns 8.4%) 0.25 ml IDERM ONETIME PRN PRN Reason: Prior to IV Start Stop: 03/06/19 18:00 Last Admin: 03/06/19 09:39 Dose: 0.25 ml Sodium Chloride (Saline Flush) 10 ml FLUSH ASDIRECTED PRN PRN Reason: Keep Vein Open Stop: 03/07/19 18:00 Discontinued Medications Propofol (Diprivan 20 Ml) Confirm Administered Dose 200 mg .ROUTE .STK-MED ONE Stop: 03/06/19 09:16
[2019-03-06] MEDS ORDERED: Midazolam 1 MG/ML 2 ML SDV ONE (10:42)
[2019-03-06 12:56] VITALS: BP 117/74
--- NOTE | 2019-03-06 17:38 | OR ---
DATE OF OPERATION: 03/06/2019 SURGEON: Castillo Szymanski MD PREOPERATIVE DIAGNOSIS: History of peptic ulcer disease, history of H. pylori, question of celiac disease. POSTOPERATIVE DIAGNOSIS: History of peptic ulcer disease, history of H. pylori, question of celiac disease. OPERATION PERFORMED: EGD with biopsies. ANESTHESIA: MAC. FINDINGS: She has a normal size pouch. 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 There was no ulceration. I found no abnormalities of the esophagus, jejunum, or stomach aside from that listed above. PATHOLOGY: 1. Jejunum. 2. Stomach. 3. GE junction. 4. Distal esophagus. ESTIMATED BLOOD LOSS: Minimal. COMPLICATIONS: None. INDICATION: The patient is a 49-year-old female, 3 years out from a Vic-en-Y gastric bypass. She has had an excellent result with 120-pound weight loss. She has had episodes of H. pylori infection in the past, peptic ulcer disease, which sounds like likely marginal ulcer. The patient does not follow up with her bariatric surgeon for quite some time. She was referred to my office complaining of epigastric abdominal pain. Concern was raised for recurrence of her marginal ulcer. She is currently on a PPI. She was offered an EGD for diagnosis. She was fully informed of the major risks, benefits, and alternatives. The risks include, but are not limited to, perforation of the GI tract, bleeding, aspiration, laryngeal spasm, recurrent surgery, and many other. She gave informed consent to what was done. DESCRIPTION OF PROCEDURE: The patient was brought to the gastro suite and placed in the left lateral decubitus position. Bite block was placed. She was given monitored anesthesia. I introduced the endoscope into the proximal esophagus. I passed the scope with gentle forward pressure into the gastric pouch. I identified what appeared to be a fistula as noted previously. I advanced the scope to the jejunum and took 4 samples of the mucosa. Jejunum is to be tested for celiac disease. I attempted to intubate what appeared to be a fistula, but unfortunately I was not able to pass the scope into this area of mucosa, perhaps because it is simply a blind tube as opposed to real communication between the gastric pouch and the remnant stomach. I inspected the gastric mucosa for any other lesions. There were no ulcers identified. There were no ulcers in the jejunum. I biopsied the GE junction to ensure no evidence of Pimentel's. I also biopsied the distal esophagus. I evacuated air, and inspected the remainder of esophagus. No lesions were identified. At the end of the procedure, the scope was withdrawn. She was awaken from anesthesia, moved to recovery in stable condition. PLAN: I will see her in the office in 2 weeks to give Pathology an opportunity to review the specimens. She might even benefit from a barium swallow to check for communication between the pouch and the remnant stomach. MMODAL /[id number]
== END 2019-03-06 12:45 | disposition home or self-care (01) ==
LOC: JD.SDS 09:15
PROVIDERS: ATTEND Surgery
DX: K21.0 Gastro-esophageal reflux disease with esophagitis (principal); J45.909 Unspecified asthma, uncomplicated; F41.9 Anxiety disorder, unspecified; F32.9 Major depressive disorder, single episode, unspecified; G43.909 Migraine, unspecified, not intractable, without status migrainosus; Z88.5 Allergy status to narcotic agent; Z88.0 Allergy status to penicillin; Z91.013 Allergy to seafood; Z88.7 Allergy status to serum and vaccine; Z88.8 Allergy status to other drugs, medicaments and biological substances; Z91.09 Other allergy status, other than to drugs and biological substances; Z91.02 Food additives allergy status; Z98.84 Bariatric surgery status; Z87.891 Personal history of nicotine dependence; Z87.11 Personal history of peptic ulcer disease; Z87.19 Personal history of other diseases of the digestive system; Z79.899 Other long term (current) drug therapy
CPT/HCPCS: 43239; J2250; J2704; J7120; 00731

== ENCOUNTER 2019-04-14 13:10 | Emergency (ER) | payer MEDICARE, BC ==
[2019-04-14 13:29] VITALS: BP 133/82
[2019-04-14] MEDS ORDERED: Ketorolac 60 MG/2 ML SDV IM ONE (14:50)
--- NOTE | 2019-04-14 14:56 | EDM.PDOC ---
ED HPI GENERAL MEDICAL PROBLEM - General Chief Complaint: Lower Extremity Injury/Pain Stated Complaint: RIGHT KNEE PAIN Time Seen by Provider: 04/14/19 13:26 Source of Information: Reports: Patient, Old Records, RN Notes Reviewed History Limitations: Reports: No Limitations - History of Present Illness INITIAL COMMENTS - FREE TEXT/NARRATIVE: Patient is a 49-year-old female who presents to the ED for the evaluation of right knee pain. The patient notes she has had previous injuries to this knee, and has had 6 surgeries done to this knee. She states that she was simply mowing her yard today, and she became hot and went inside sat down to have a glass of iced tea, when she went to get back up again the knee started hurting, and it hurt worse when she tried to put weight on it. The patient denies any numbness or tingling into the right lower extremities or foot. The patient notes that the pain is an 8 out of 10. She did not ice the joint, nor does she take any Tylenol or ibuprofen for that she came directly to the ER for evaluation as she thought she may have reinjured the knee. She presented to the ED today with crutches as she states it felt better to not bear weight on the knee. - Related Data Allergies Allergy/AdvReac Type Severity Reaction Status Date / Time codeine Allergy Intermediate Difficulty Verified 04/14/19 13:54 Breathing diclofenac sodium Allergy Intermediate Difficulty Verified 04/14/19 13:54 [From Voltaren] Breathing hydrocodone Allergy Intermediate Difficulty Verified 04/14/19 13:54 Breathing naproxen sodium [From Aleve] Allergy Intermediate Difficulty Verified 04/14/19 13:54 Breathing Penicillins Allergy Intermediate Difficulty Verified 04/14/19 13:54 Breathing pseudoephedrine HCl Allergy Intermediate Difficulty Verified 04/14/19 13:54 [From Sudafed] Breathing Sulfa (Sulfonamide Allergy Intermediate Difficulty Verified 04/14/19 13:54 Antibiotics) Breathing animal dander Allergy Difficulty Verified 04/14/19 13:54 Breathing bee pollen Allergy Cannot Verified 04/14/19 13:54 Remember fish derived Allergy Cannot Verified 04/14/19 13:54 Remember influenza virus vaccine, Allergy Rash Verified 04/14/19 13:54 specific Influenza Virus Vaccines Allergy Rash Verified 04/14/19 13:54 iodine Allergy Difficulty Verified 04/14/19 13:54 Breathing mold Allergy Difficulty Verified 04/14/19 13:54 Breathing nabumetone [From Relafen] Allergy Cannot Verified 04/14/19 13:54 Remember olive oil Allergy Difficulty Verified 04/14/19 13:54 Breathing pollen extracts Allergy Difficulty Verified 04/14/19 13:54 Breathing prednisone Allergy Difficulty Verified 04/14/19 13:54 Breathing tramadol Allergy Cannot Verified 04/14/19 13:54 Remember wheat Allergy Cannot Verified 04/14/19 13:54 Remember diphenhydramine AdvReac Intermediate Other Verified 04/14/19 13:54 [From Benadryl] bandaid Allergy Blisters Uncoded 01/02/19 17:32 DUST Allergy Difficulty Uncoded 01/02/19 17:32 Breathing Home Meds: Home Meds Calcium Carbonate/Vitamin D3 [Calcium 250+D] 1 each PO DAILY 11/15/18 [History] Cetirizine [ZyrTEC] 10 mg PO BID 11/15/18 [History] Cholecalciferol (Vitamin D3) [D-2000] 2,000 unit PO DAILY 11/15/18 [History] Cyanocobalamin (Vitamin B12) [Vitamin B12] 1,500 mcg PO DAILY 11/15/18 [History] Cyclobenzaprine [Flexeril] 1 tab PO Q8H PRN 11/15/18 [History] EPINEPHrine [Epinephrine] 0.3 mg IM ASDIRECTED PRN 11/15/18 [History] Estradiol 1 mg PO DAILY 11/15/18 [History] Fluticasone/Salmeterol [Advair Hfa 45-21 Mcg Inhaler] 2 puff IH DAILY PRN [History] Gabapentin [Neurontin] 300 mg PO TID 11/15/18 [History] Gabapentin [Neurontin] 600 mg PO TID 11/15/18 [History] Ipratropium/Albuterol Sulfate [Iprat-Albut 0.5-3(2.5) mg/3 ml] 1 applic IN Q4H PRN 11/15/18 [History] Montelukast [Singulair] 10 mg PO DAILY 11/15/18 [History] Omeprazole 40 mg PO BIDAC 11/15/18 [History] Sertraline [Zoloft] 50 mg PO DAILY 11/15/18 [History] Fexofenadine [Maria Luisa] 180 mg PO DAILY 03/06/19 [History] Ibandronate Sodium 150 mg PO ASDIRECTED 03/06/19 [History] Multivitamin [Multivitamins] 1 cap PO DAILY 03/06/19 [History] Ondansetron [Zofran] 4 mg PO ASDIRECTED 03/06/19 [History] Venlafaxine [Effexor] 75 mg PO DAILY 03/06/19 [History] Zolpidem Tartrate [Ambien] 5 mg PO BEDTIME 03/06/19 [History] traZODone HCl [Trazodone HCl] 50 mg PO BEDTIME 03/06/19 [History] Past Medical History HEENT History: Reports: Allergic Rhinitis, Sinusitis, Other (See Below) Other HEENT History: has dentures/partials Cardiovascular History: Reports: None Respiratory History: Reports: Asthma Other Respiratory History: Moderate snoring Gastrointestinal History: Reports: GERD, GI Bleed, Helicobacter Pylori, PUD, Other (See Below) Other Gastrointestinal History: bilrubinemia, GI bleed, elevated LFTs, nausea/ voming Genitourinary History: Reports: Renal Calculus, Other (See Below) Other Genitourinary History: bilirubenimia, dysuria, UTI, renal colic DIRECTOR MEDIA History: Reports: Other DIRECTOR MEDIA History: history of ovarian cyst, hot flashes, Musculoskeletal History: Reports: Osteoarthritis, Other (See Below) Other Musculoskeletal History: degenerative tear of medial meniscus (L), knee pain, patellar malignant syndrome (bilateral),osteochondrosis synovitis of knee , L patellar chrondromalacia, L knee contusion, R knee locking, R knee contusion , L hip greater trochanter bursitis Neurological History: Reports: Migraines Psychiatric History: Reports: Anxiety, Other (See Below) Other Psychiatric History: insomnia Endocrine/Metabolic History: Reports: Obesity/BMI 30+ Hematologic History: Reports: None Immunologic History: Reports: None Oncologic (Cancer) History: Reports: None Dermatologic History: Reports: Other (See Below) Other Dermatologic History: sebaceous cyst - Infectious Disease History Infectious Disease History: Reports: Chicken Pox, Measles - Past Surgical History Head Surgeries/Procedures: Reports: None HEENT Surgical History: Reports: Tonsillectomy Other HEENT Surgeries/Procedures: has dentures and partial GI Surgical History: Reports: Bariatric Procedure, Cholecystectomy, Colonoscopy , EGD Other GI Surgeries/Procedures: 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 Female Surgical History: Reports: Hysterectomy, Kidney stone extraction, Oophorectomy, Tubal Ligation, Ureteral Stent Musculoskeletal Surgical History: Reports: Arthroscopic Knee Other Musculoskeletal Surgeries/Procedures:: L knee arthroscopy x 2, R knee arthroscopy, L foot surgery Dermatological Surgical History: Reports: None Social & Family History - Family History Family Medical History: Noncontributory Cardiac: Reports: Hypertension Other Cardiac Family History: parents Musculoskeletal: Reports: Arthritis Other Musculoskeletal Family History: parents Neurological: Reports: Migraines Other Neurological Family History: migraines - Tobacco Use Smoking Status *Q: Never Smoker Second Hand Smoke Exposure: No - Caffeine Use Caffeine Use: Reports: Coffee, Soda, Tea - Recreational Drug Use Recreational Drug Use: No - Living Situation & Occupation Living situation: Reports: Occupation: Unemployed Review of Systems - Review of Systems Review Of Systems: See Below Constitutional: Reports: No Symptoms Eyes: Reports: No Symptoms Ears: Reports: No Symptoms Nose: Reports: No Symptoms Mouth/Throat: Reports: No Symptoms Respiratory: Reports: No Symptoms Cardiovascular: Reports: No Symptoms GI/Abdominal: Reports: No Symptoms Genitourinary: Reports: No Symptoms Musculoskeletal: Reports: Joint Pain (Right knee, inferiormedial), Joint Swelling (Right knee, mild) Skin: Denies: Bruising, Erythema, Wound Neurological: Denies: Numbness, Tingling Psychiatric: Reports: No Symptoms ED EXAM, GENERAL - Physical Exam Exam: See Below Exam Limited By: No Limitations General Appearance: Alert, WD/WN, No Apparent Distress Respiratory/Chest: No Respiratory Distress, Lungs Clear, Normal Breath Sounds, No Accessory Muscle Use, Chest Non-Tender Cardiovascular: Normal Peripheral Pulses, Regular Rate, Rhythm, No Murmur Peripheral Pulses: 3+: Dorsalis Pedis (L), Dorsalis Pedis (R) Extremities: Normal Inspection, Non-Tender, No Pedal Edema, Normal Capillary Refill, Joint Swelling (mild joint swelling noted to Right knee, pain with palpation to Right inferiormedial aspect.), Limited Range of Motion (of right knee d/t pain). No: Increased Warmth Neurological: Alert, Oriented, Normal Cognition, No Motor/Sensory Deficits Psychiatric: Normal Affect, Normal Mood Skin Exam: Warm, Dry, Intact, Normal Color, No Rash Course - Vital Signs Last Recorded V/S: Last Vital Signs Temp 98.5 F 04/14/19 13:27 Pulse 73 04/14/19 13:27 Resp 16 04/14/19 13:27 BP 133/82 04/14/19 13:27 Pulse Ox 97 04/14/19 13:27 - Orders/Labs/Meds Orders: Active Orders 24 hr Category Date Time Status DME for Discharge [COMM] Routine Oth 04/14/19 14:50 Ordered Meds: Medications Discontinued Medications Generic Name Dose Route Start Last Admin Trade Name Fernando PRN Reason Stop Dose Admin Ketorolac Tromethamine 60 mg 04/14/19 14:50 Toradol IM 04/14/19 14:51 ONETIME ONE - Re-Assessments/Exams Free Text/Narrative Re-Assessment/Exam: 04/14/19 14:52 Patient presents to the ED for evaluation of right knee pain. Have ordered 60 mg IM Toradol for initial pain relief, I suspect this may be more of a bursitis in nature. Have given general recommendations and will discharge home with knee immobilizer and correction of this of crutches. Departure - Departure Time of Disposition: 14:53 Disposition: Home, Self-Care 01 Condition: Fair Clinical Impression: Right knee pain Qualifiers: Chronicity: acute Qualified Code(s): M25.561 - Pain in right knee - Discharge Information *PRESCRIPTION DRUG MONITORING PROGRAM REVIEWED*: No *COPY OF PRESCRIPTION DRUG MONITORING REPORT IN PATIENT JOHNNY: No Instructions: How to Use a Knee Immobilizer, [id number] Referrals: Barbara Frias PA-C [Primary Care Provider] - Forms: ED Department Discharge Additional Instructions: You have been evaluated in the ED for your right knee pain. Your pain is likely due to an inflammation of the fluid sacs around the knee. Please use ice as tolerated to the affected area. You may take tylenol 500 mg or ibuprofen 600mg q6 hrs for pain relief. Please do so until you have a tolerable level of pain with activity. Do not exceed 4000mg tylenol, Do not exceed 3200mg ibuprofen in a 24 hour time period. Please use the knee immobilizer to the as tolerated for further pain relief, you may use crutches to provide further pain relief as well. Please elevate the leg as much as possible. If your pain is much better and roughly a weeks time, recommend follow-up with orthopedics, Dr. Moreno at [phone]. Please return to ED if your symptoms should change or worsen. - My Orders Last 24 Hours: My Active Orders 04/14/19 14:50 DME for Discharge [COMM] Routine - Assessment/Plan Last 24 Hours: My Active Orders 04/14/19 14:50 DME for Discharge [COMM] Routine
== END 2019-04-14 15:35 | disposition home or self-care (01) ==
LOC: JD.ED 13:10
DX: M25.561 Pain in right knee (principal); J45.909 Unspecified asthma, uncomplicated; K21.9 Gastro-esophageal reflux disease without esophagitis; F41.9 Anxiety disorder, unspecified; E66.9 Obesity, unspecified; Z68.24 Body mass index [BMI] 24.0-24.9, adult; Z88.5 Allergy status to narcotic agent; Z88.8 Allergy status to other drugs, medicaments and biological substances; Z88.6 Allergy status to analgesic agent; Z88.0 Allergy status to penicillin; Z88.2 Allergy status to sulfonamides; Z91.030 Bee allergy status; Z91.013 Allergy to seafood; Z88.7 Allergy status to serum and vaccine; Z91.018 Allergy to other foods; Z91.048 Other nonmedicinal substance allergy status; Z79.899 Other long term (current) drug therapy; Z87.442 Personal history of urinary calculi
CPT/HCPCS: 96372; 99283; J1885

== ENCOUNTER → 2019-07-04 | Day surgery (SDC) | payer MEDICARE, MEDICAID ==
[~2019-07-04] MED LIST changes: +Albuterol 0.083% 2.5 MG/3 ML Neb Soln NEB PRN; +Ketamine 500 mg/10 ML MDV ONE; +LORazepam 2 MG/ML SDV IVPUSH ONE; +Lactated Ringers 1,000 ML IV SCH; +Lidocaine 1% 4 ML ONE; +Lidocaine 1%/Sod Bicarbonate in NS 8.4% 1 ML Syringe IDERM PRN; +Midazolam 1 MG/ML 2 ML SDV ONE; +Ondansetron 4 MG/2 ML SDV ONE; +Sodium Chloride 0.9% 10 ML Syringe FLUSH PRN; +fentaNYL 100 MCG/2 ML SDV IVPUSH PRN; +fentaNYL 100 MCG/2 ML SDV ONE; +fentaNYL 250 MCG/5 ML SDV ONE
--- NOTE | 2019-07-04 06:55 | PCM.PREANE ---
Preanesthetic Assessment - Anesthesia/Transfusion/Family Hx Anesthesia History: Prior Anesthesia Without Reaction Family History of Anesthesia Reaction: No Transfusion History: No Prior Transfusion(s) Intubation History: Unknown - Review of Systems General: Other (headache) Pulmonary: No Symptoms Cardiovascular: Dyspnea on Exertion Gastrointestinal: No Symptoms Neurological: No Symptoms, Difficulty Walking (walking with walker due to right leg) - Physical Assessment NPO Status Date: 07/03/19 NPO Status Time: 18:00 Height: 1.6 m Weight: 64.864 kg ASA Class: 2 Mental Status: Alert & Oriented x3 Airway Class: Mallampati = 1 Dentition: Reports: Dentures (top), Partial (bottom) Thyro-Mental Finger Breadths: 3 Mouth Opening Finger Breadths: 3 ROM/Head Extension: Full Lungs: Clear to Auscultation, Normal Respiratory Effort Cardiovascular: Regular Rate, Regular Rhythm - Allergies Allergies/Adverse Reactions: Allergies Allergy/AdvReac Type Severity Reaction Status Date / Time codeine Allergy Intermediate Difficulty Verified 07/03/19 14:10 Breathing diclofenac sodium Allergy Intermediate Difficulty Verified 07/03/19 14:10 [From Voltaren] Breathing hydrocodone Allergy Intermediate Difficulty Verified 07/03/19 14:10 Breathing naproxen sodium [From Aleve] Allergy Intermediate Difficulty Verified 07/03/19 14:10 Breathing Penicillins Allergy Intermediate Difficulty Verified 07/03/19 14:10 Breathing pseudoephedrine HCl Allergy Intermediate Difficulty Verified 07/03/19 14:10 [From Sudafed] Breathing Sulfa (Sulfonamide Allergy Intermediate Difficulty Verified 07/03/19 14:10 Antibiotics) Breathing animal dander Allergy Difficulty Verified 07/03/19 14:10 Breathing bee pollen Allergy Cannot Verified 07/03/19 14:10 Remember fish derived Allergy Cannot Verified 07/03/19 14:10 Remember influenza virus vaccine, Allergy Rash Verified 07/03/19 14:10 specific Influenza Virus Vaccines Allergy Rash Verified 07/03/19 14:10 iodine Allergy Difficulty Verified 07/03/19 14:10 Breathing mold Allergy Difficulty Verified 07/03/19 14:10 Breathing nabumetone [From Relafen] Allergy Cannot Verified 07/03/19 14:10 Remember olive oil Allergy Difficulty Verified 07/03/19 14:10 Breathing pollen extracts Allergy Difficulty Verified 07/03/19 14:10 Breathing prednisone Allergy Difficulty Verified 07/03/19 14:10 Breathing tramadol Allergy Cannot Verified 07/03/19 14:10 Remember wheat Allergy Cannot Verified 07/03/19 14:10 Remember diphenhydramine AdvReac Intermediate Other Verified 07/03/19 14:10 [From Benadryl] bandaid Allergy Blisters Uncoded 07/03/19 14:10 DUST Allergy Difficulty Uncoded 07/03/19 14:10 Breathing - Blood Blood Available: No Product(s) Available: None - Anesthesia Plan Pre-Op Medication Ordered: None - Acknowledgements Anesthesia Type Planned: MAC Pt an Appropriate Candidate for the Planned Anesthesia: Yes Alternatives and Risks of Anesthesia Discussed w Pt/Guardian: Yes Pt/Guardian Understands and Agrees with Anesthesia Plan: Yes PreAnesthesia Questionnaire HEENT History: Reports: Allergic Rhinitis, Sinusitis, Other (See Below) Other HEENT History: has dentures/partials Cardiovascular History: Reports: None Respiratory History: Reports: Asthma Other Respiratory History: Moderate snoring Gastrointestinal History: Reports: GERD, GI Bleed, Helicobacter Pylori, PUD, Other (See Below) Other Gastrointestinal History: bilrubinemia, GI bleed, elevated LFTs, nausea/ voming Genitourinary History: Reports: Renal Calculus, Other (See Below) Other Genitourinary History: bilirubenimia, dysuria, UTI, renal colic STUDENT SERVICES 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: Reports: Other OB/BYN History: history of ovarian cyst, hot flashes, Musculoskeletal History: Reports: Osteoarthritis, Other (See Below) Other Musculoskeletal History: degenerative tear of medial meniscus (L), knee pain, patellar malignant syndrome (bilateral),osteochondrosis synovitis of knee , L patellar chrondromalacia, L knee contusion, R knee locking, R knee contusion , L hip greater trochanter bursitis Neurological History: Reports: Migraines Psychiatric History: Reports: Anxiety, Other (See Below) Other Psychiatric History: insomnia Endocrine/Metabolic History: Reports: Obesity/BMI 30+ Hematologic History: Reports: None Immunologic History: Reports: None Oncologic (Cancer) History: Reports: None Dermatologic History: Reports: Other (See Below) Other Dermatologic History: sebaceous cyst - Infectious Disease History Infectious Disease History: Reports: Chicken Pox, Measles - Past Surgical History Head Surgeries/Procedures: Reports: None HEENT Surgical History: Reports: Tonsillectomy Other HEENT Surgeries/Procedures: has dentures and partial Cardiovascular Surgical History: Reports: None Respiratory Surgical History: Reports: None GI Surgical History: Reports: Bariatric Procedure, Cholecystectomy, Colonoscopy , EGD Other GI Surgeries/Procedures: 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 Female Surgical History: Reports: Hysterectomy, Kidney stone extraction, Oophorectomy, Tubal Ligation, Ureteral Stent Endocrine Surgical History: Reports: None Neurological Surgical History: Reports: None Musculoskeletal Surgical History: Reports: Arthroscopic Knee Other Musculoskeletal Surgeries/Procedures:: L knee arthroscopy x 2, R knee arthroscopy, L foot surgery Oncologic Surgical History: Reports: None Dermatological Surgical History: Reports: None - SUBSTANCE USE Smoking Status *Q: Former Smoker Tobacco Use Within Last Twelve Months: No Second Hand Smoke Exposure: Yes Days Per Week of Alcohol Use: 0 Number of Drinks Per Day: 0 Total Drinks Per Week: 0 Recreational Drug Use History: No - HOME MEDS Home Medications: Home Meds Calcium Carbonate/Vitamin D3 [Calcium 250+D] 1 each PO DAILY 11/15/18 [History] Cetirizine [ZyrTEC] 10 mg PO BID 11/15/18 [History] Cholecalciferol (Vitamin D3) [D3-2000] 2,000 unit PO DAILY 11/15/18 [History] Cyanocobalamin (Vitamin B12) [Vitamin B12] 1,000 mcg PO DAILY 11/15/18 [History] EPINEPHrine [Epinephrine] 0.3 mg IM ONETIME 11/15/18 [History] Fluticasone/Salmeterol [Advair Hfa 45-21 Mcg Inhaler] 2 puff IH DAILY PRN [History] Gabapentin [Neurontin] 300 mg PO TID 11/15/18 [History] Gabapentin [Neurontin] 600 mg PO TID 11/15/18 [History] Ipratropium/Albuterol Sulfate [Iprat-Albut 0.5-3(2.5) mg/3 ml] 1 applic IN Q4H PRN 11/15/18 [History] Montelukast [Singulair] 10 mg PO DAILY 11/15/18 [History] Omeprazole 40 mg PO BIDAC 11/15/18 [History] Sertraline [Zoloft] 50 mg PO DAILY 11/15/18 [History] Fexofenadine [Maria Luisa] 180 mg PO DAILY 03/06/19 [History] Ibandronate Sodium 150 mg PO Q30D 03/06/19 [History] Multivitamin [Multivitamins] 1 cap PO DAILY 03/06/19 [History] Ondansetron [Zofran] 4 mg PO Q8H PRN 03/06/19 [History] Venlafaxine [Effexor] 75 mg PO DAILY 03/06/19 [History] Zolpidem Tartrate [Ambien] 5 - 10 mg PO BEDTIME PRN 03/06/19 [History] traZODone HCl [Trazodone HCl] 50 mg PO BEDTIME 03/06/19 [History] Clotrimazole [Mycelex] 10 mg PO 6XDAY 07/03/19 [History] Tapentadol [Nucynta] 50 - 100 mg PO Q8H PRN #40 tablet 07/04/19 [Rx] - CURRENT (IN HOUSE) MEDS Current Meds: Current Medications Albuterol (Proventil Neb Soln) 2.5 mg NEB ONETIME PRN PRN Reason: bronchodilation Stop: 07/04/19 18:00 Lactated Ringer's (Ringers, Lactated) 1,000 mls @ 125 mls/hr IV ASDIRECTED FLAQUITO Stop: 07/04/19 23:00 Acetaminophen (Ofirmev) 100 mls @ 400 mls/hr IV NOW FLAQUITO Stop: 07/04/19 18:00 Lidocaine/Sodium Bicarbonate (Buffered Lidocaine 1% In Ns 8.4%) 0.25 ml IDERM ONETIME PRN PRN Reason: Prior to IV Start Stop: 07/04/19 18:00 Sodium Chloride (Saline Flush) 10 ml FLUSH ASDIRECTED PRN PRN Reason: Keep Vein Open Stop: 07/04/19 18:00
[2019-07-04] MEDS: fentaNYL 100 MCG/2 ML SDV IVPUSH PRN ×4 (07:42→07:50)
--- NOTE | 2019-07-04 10:32 | PCM48HPAN ---
Post Anesthesia Note - EVALUATION WITHIN 48HRS OF ANESTHETIC Vital Signs in Normal Range: Yes Patient Participated in Evaluation: Yes Respiratory Function Stable: Yes Airway Patent: Yes Cardiovascular Function Stable: Yes Hydration Status Stable: Yes Pain Control Satisfactory: Yes Nausea and Vomiting Control Satisfactory: Yes Mental Status Recovered: Yes Vital Signs: Last Vital Signs Temp 36.9 C 07/04/19 06:40 Pulse 79 07/04/19 06:40 Resp 16 07/04/19 06:40 BP 123/73 07/04/19 06:40 Pulse Ox 98 07/04/19 08:33 - COMMENTS/OBSERVATIONS Free Text/Narrative:: no anesthesia complications noted
[2019-07-04 11:02] VITALS: BP 137/85; PULSE 92
--- NOTE | 2019-07-08 07:27 | PCM.OPNOTE ---
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
--- NOTE | 2019-07-08 08:08 | OR ---
DATE OF OPERATION: 07/04/2019 SURGEON: Blayne Moreno MD OPERATION PERFORMED: Manipulation under anesthesia of right total knee. PREOPERATIVE DIAGNOSIS: Right total knee arthrofibrosis. POSTOPERATIVE DIAGNOSIS: Right total knee arthrofibrosis. ANESTHESIA: MAC sedation. ANESTHESIA PROVIDER: Elias Cesar. ESTIMATED BLOOD LOSS: Not applicable. COMPLICATIONS: None. CONDITION: Stable. DESCRIPTION OF PROCEDURE: The patient was identified in the preop holding area. Proper site was marked and identified by surgeon. The patient was taken back to the operating theater, where after adequate anesthesia, the pre-manipulation motion was measured, she had of motion 0 to 95 degrees. At this time, manipulation was performed and I was able to get the patient to 132 degrees of flexion. The patient's knee was otherwise stable throughout and it was fairly easy to obtain that amount of flexion. The patient always had full extension. At this time, the patient was sent to the PACU in stable condition and will attend physical therapy tomorrow. CATARINO /[id number]
== END | disposition home or self-care (01) ==
LOC: JD.SDS 06:39
PROVIDERS: ATTEND Orthopaedic Surgery
DX: M24.661 Ankylosis, right knee (principal); J45.909 Unspecified asthma, uncomplicated; K21.9 Gastro-esophageal reflux disease without esophagitis; F32.9 Major depressive disorder, single episode, unspecified; F41.9 Anxiety disorder, unspecified; F43.10 Post-traumatic stress disorder, unspecified; F17.210 Nicotine dependence, cigarettes, uncomplicated; Z88.5 Allergy status to narcotic agent; Z88.0 Allergy status to penicillin; Z88.6 Allergy status to analgesic agent; Z91.018 Allergy to other foods; Z88.8 Allergy status to other drugs, medicaments and biological substances; Z96.651 Presence of right artificial knee joint; Z79.899 Other long term (current) drug therapy
CPT/HCPCS: 27570; 94640; J0131; J2001; J2060; J2250; J2405; J2704; J3010; J7120; 01380

== ENCOUNTER 2019-11-16 14:54 | Emergency (ER) | payer MEDICARE, MEDICAID ==
[2019-11-16 15:08] VITALS: BP 116/77; PULSE 89
[2019-11-16] MEDS ORDERED: Ketorolac 30 MG/ML SDV IVPUSH ONE (15:25)
[2019-11-16] MEDS ORDERED: Sodium Chloride 0.9% 10 ML Syringe FLUSH PRN (15:25)
[2019-11-16] MEDS ORDERED: Ondansetron 4 MG/2 ML SDV IVPUSH ONE (15:25)
[2019-11-16] MEDS ORDERED: Sodium Chloride 0.9% 1,000 ML IV SCH (15:30)
--- NOTE | 2019-11-16 15:58 | EDM.PDOC ---
ED HPI GENERAL MEDICAL PROBLEM - General Chief Complaint: Abdominal Pain Stated Complaint: R SIDE FLANK PAIN Time Seen by Provider: 11/16/19 15:02 Source of Information: Reports: Patient History Limitations: Reports: No Limitations - History of Present Illness INITIAL COMMENTS - FREE TEXT/NARRATIVE: Patient is a 49-year-old female who presents with complaints of right-sided abdominal and back pain over the last 3 days. She states that anytime she eats or drinks something, the pain does become worse. She has had nausea and some dry heaves. Patient has had bariatric surgery in the past and is unable to actually vomit. She states today she has had some loose stools. Denies fever, or chills. Is not taking anything for the pain. Patient has a history of a cholecystectomy, bariatric surgery, and kidney stones. Dates that this does not feel like her kidney stones have in the past. Abdominal Pain Score (Numeric/FACES): 6 - Related Data Allergies Allergy/AdvReac Type Severity Reaction Status Date / Time codeine Allergy Intermediate Difficulty Verified 07/03/19 14:10 Breathing diclofenac sodium Allergy Intermediate Difficulty Verified 07/03/19 14:10 [From Voltaren] Breathing hydrocodone Allergy Intermediate Difficulty Verified 07/03/19 14:10 Breathing naproxen sodium [From Aleve] Allergy Intermediate Difficulty Verified 07/03/19 14:10 Breathing Penicillins Allergy Intermediate Difficulty Verified 07/03/19 14:10 Breathing pseudoephedrine HCl Allergy Intermediate Difficulty Verified 07/03/19 14:10 [From Sudafed] Breathing Sulfa (Sulfonamide Allergy Intermediate Difficulty Verified 07/03/19 14:10 Antibiotics) Breathing animal dander Allergy Difficulty Verified 07/03/19 14:10 Breathing bee pollen Allergy Cannot Verified 07/03/19 14:10 Remember fish derived Allergy Cannot Verified 07/03/19 14:10 Remember influenza virus vaccine, Allergy Rash Verified 07/03/19 14:10 specific Influenza Virus Vaccines Allergy Rash Verified 07/03/19 14:10 iodine Allergy Difficulty Verified 07/03/19 14:10 Breathing mold Allergy Difficulty Verified 07/03/19 14:10 Breathing nabumetone [From Relafen] Allergy Cannot Verified 07/03/19 14:10 Remember olive oil Allergy Difficulty Verified 07/03/19 14:10 Breathing pollen extracts Allergy Difficulty Verified 07/03/19 14:10 Breathing prednisone Allergy Difficulty Verified 07/03/19 14:10 Breathing tramadol Allergy Cannot Verified 07/03/19 14:10 Remember wheat Allergy Cannot Verified 07/03/19 14:10 Remember diphenhydramine AdvReac Intermediate Other Verified 07/03/19 14:10 [From Campbell] bandaid Allergy Blisters Uncoded 07/03/19 14:10 DUST Allergy Difficulty Uncoded 07/03/19 14:10 Breathing Home Meds: Home Meds Cetirizine [ZyrTEC] 10 mg PO BID 11/15/18 [History] Cholecalciferol (Vitamin D3) [D3-2000] 2,000 unit PO DAILY 11/15/18 [History] Cyanocobalamin (Vitamin B12) [Vitamin B12] 1,000 mcg PO DAILY 11/15/18 [History] EPINEPHrine [Epinephrine] 0.3 mg IM ONETIME 11/15/18 [History] Fluticasone/Salmeterol [Advair Hfa 45-21 Mcg Inhaler] 2 puff IH DAILY PRN [History] Gabapentin [Neurontin] 300 mg PO TID 11/15/18 [History] Gabapentin [Neurontin] 600 mg PO TID 11/15/18 [History] Ipratropium/Albuterol Sulfate [Iprat-Albut 0.5-3(2.5) mg/3 ml] 1 applic IN Q4H PRN 11/15/18 [History] Montelukast [Singulair] 10 mg PO DAILY 11/15/18 [History] Omeprazole 40 mg PO BIDAC 11/15/18 [History] Sertraline [Zoloft] 50 mg PO DAILY 11/15/18 [History] Fexofenadine [Maria Luisa] 180 mg PO DAILY 03/06/19 [History] Ibandronate Sodium 150 mg PO Q30D 03/06/19 [History] Multivitamin [Multivitamins] 1 cap PO DAILY 03/06/19 [History] Ondansetron [Zofran] 4 mg PO Q8H PRN 03/06/19 [History] Venlafaxine [Effexor] 75 mg PO DAILY 03/06/19 [History] Zolpidem Tartrate [Ambien] 5 - 10 mg PO BEDTIME PRN 03/06/19 [History] traZODone HCl [Trazodone HCl] 50 mg PO BEDTIME 03/06/19 [History] Magnesium Citrate 295 ml PO ONETIME #1 solution 11/16/19 [Rx] Ondansetron [Zofran ODT] 4 mg PO Q6H PRN #10 tab.dis 11/16/19 [Rx] Past Medical History HEENT History: Reports: Allergic Rhinitis, Sinusitis, Other (See Below) Other HEENT History: has dentures/partials Cardiovascular History: Reports: None Respiratory History: Reports: Asthma Other Respiratory History: Moderate snoring Gastrointestinal History: Reports: GERD, GI Bleed, Helicobacter Pylori, PUD, Other (See Below) Other Gastrointestinal History: bilrubinemia, GI bleed, elevated LFTs, nausea/ voming Genitourinary History: Reports: Renal Calculus, Other (See Below) Other Genitourinary History: bilirubenimia, dysuria, UTI, renal colic 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: Other 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 History: history of ovarian cyst, hot flashes, Musculoskeletal History: Reports: Osteoarthritis, Other (See Below) Other Musculoskeletal History: degenerative tear of medial meniscus (L), knee pain, patellar malignant syndrome (bilateral),osteochondrosis synovitis of knee , L patellar chrondromalacia, L knee contusion, R knee locking, R knee contusion , L hip greater trochanter bursitis Neurological History: Reports: Migraines Psychiatric History: Reports: Anxiety, Other (See Below) Other Psychiatric History: insomnia Endocrine/Metabolic History: Reports: Obesity/BMI 30+ Hematologic History: Reports: None Immunologic History: Reports: None Oncologic (Cancer) History: Reports: None Dermatologic History: Reports: Other (See Below) Other Dermatologic History: sebaceous cyst - Infectious Disease History Infectious Disease History: Reports: Chicken Pox, Measles - Past Surgical History Head Surgeries/Procedures: Reports: None HEENT Surgical History: Reports: Tonsillectomy Other HEENT Surgeries/Procedures: has dentures and partial Cardiovascular Surgical History: Reports: None Respiratory Surgical History: Reports: None GI Surgical History: Reports: Bariatric Procedure, Cholecystectomy, Colonoscopy , EGD Other GI Surgeries/Procedures: 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 Female Surgical History: Reports: Hysterectomy, Kidney stone extraction, Oophorectomy, Tubal Ligation, Ureteral Stent Endocrine Surgical History: Reports: None Neurological Surgical History: Reports: None Musculoskeletal Surgical History: Reports: Arthroscopic Knee Other Musculoskeletal Surgeries/Procedures:: L knee arthroscopy x 2, R knee arthroscopy, L foot surgery Oncologic Surgical History: Reports: None Dermatological Surgical History: Reports: None Social & Family History - Family History Family Medical History: Noncontributory Cardiac: Reports: Hypertension Other Cardiac Family History: parents Musculoskeletal: Reports: Arthritis Other Musculoskeletal Family History: parents Neurological: Reports: Migraines Other Neurological Family History: migraines - Tobacco Use Smoking Status *Q: Former Smoker Years of Tobacco use: 15 Used Tobacco, but Quit: Yes Month/Year Tobacco Last Used: 20 - Caffeine Use Caffeine Use: Reports: None - Recreational Drug Use Recreational Drug Use: No - Living Situation & Occupation Living situation: Reports: Occupation: Unemployed ED ROS GENERAL - Review of Systems Review Of Systems: Comprehensive ROS is negative, except as noted in HPI. ED EXAM, GI/ABD - Physical Exam Exam: See Below Exam Limited By: No Limitations General Appearance: Alert, WD/WN, Mild Distress Head: Atraumatic, Normocephalic Respiratory/Chest: No Respiratory Distress, Lungs Clear, Normal Breath Sounds, No Accessory Muscle Use, Chest Non-Tender Cardiovascular: Normal Peripheral Pulses, Regular Rate, Rhythm, No Edema, No Gallop, No JVD, No Murmur, No Rub GI/Abdominal Exam: Normal Bowel Sounds, Soft, No Distention, Tender ( Generalized tenderness throughout the abdomen. Bilateral CVA tenderness.) Back Exam: CVA Tenderness (L), CVA Tenderness (R) Neurological: Alert, Oriented, CN II-XII Intact, Normal Cognition, Normal Gait, Normal Reflexes, No Motor/Sensory Deficits Psychiatric: Normal Affect, Normal Mood Skin Exam: Warm, Dry, Intact, Normal Color, No Rash Course - Vital Signs Last Recorded V/S: Last Vital Signs Temp 98.0 F 11/16/19 15:05 Pulse 89 11/16/19 15:05 Resp 16 11/16/19 15:05 BP 116/77 11/16/19 15:05 Pulse Ox 99 11/16/19 15:05 - Orders/Labs/Meds Orders: Active Orders 24 hr Category Date Time Status Peripheral IV Care [RC] . DIRECTED Care 11/16/19 15:26 Active UA W/MICROSCOPIC [URIN] Stat Lab 11/16/19 15:26 Ordered Sodium Chloride 0.9% [Normal Saline] 1,000 ml Med 11/16/19 15:30 Active IV ASDIRECTED Sodium Chloride 0.9% [Saline Flush] Med 11/16/19 15:25 Active 10 ml FLUSH ASDIRECTED PRN Peripheral IV Insertion Adult [OM.PC] Stat Oth 11/16/19 15:25 Ordered Medication Orders Sodium Chloride (Normal Saline) 1,000 mls @ 150 mls/hr IV ASDIRECTED FLAQUITO Last Admin: 11/16/19 15:41 Dose: 150 mls/hr Sodium Chloride (Saline Flush) 10 ml FLUSH ASDIRECTED PRN PRN Reason: Keep Vein Open Last Admin: 11/16/19 15:41 Dose: 10 ml Labs: Laboratory Tests 11/16/19 11/16/19 11/16/19 Range/Units 15:36 15:36 15:36 WBC 6.74 (3.98-10.04) K/mm3 RBC 4.58 (3.98-5.22) M/mm3 Hgb 13.6 (11.2-15.7) gm/dl Hct 41.1 (34.1-44.9) % MCV 89.7 (79.4-94.8) fl MCH 29.7 (25.6-32.2) pg MCHC 33.1 (32.2-35.5) g/dl RDW Std Deviation 44.5 (36.4-46.3) fL Plt Count 320 (182-369) K/mm3 MPV 9.3 L (9.4-12.3) fl Neut % (Auto) 69.4 (34.0-71.1) % Lymph % (Auto) 23.3 (19.3-51.7) % Osborne % (Auto) 6.2 (4.7-12.5) % Eos % (Auto) 1.0 (0.7-5.8) Baso % (Auto) 0.1 (0.1-1.2) % Neut # (Auto) 4.67 (1.56-6.13) K/mm3 Lymph # (Auto) 1.57 (1.18-3.74) K/mm3 Osborne # (Auto) 0.42 H (0.24-0.36) K/mm3 Eos # (Auto) 0.07 (0.04-0.36) K/mm3 Baso # (Auto) 0.01 (0.01-0.08) K/mm3 Sodium 140 (136-145) mEq/L Potassium 4.0 (3.5-5.1) mEq/L Chloride 105 (98-107) mEq/L Carbon Dioxide 27 (21-32) mEq/L Anion Gap 12.0 (5-15) BUN 11 (7-18) mg/dL Creatinine 0.7 (0.55-1.02) mg/dL Est Cr Clr Drug Dosing 82.19 mL/min Estimated GFR (MDRD) > 60 (>60) mL/min BUN/Creatinine Ratio 15.7 (14-18) Glucose 93 (74-106) mg/dL Calcium 8.9 (8.5-10.1) mg/dL Total Bilirubin 0.5 (0.2-1.0) mg/dL AST 17 (15-37) U/L ALT 23 (14-59) U/L Alkaline Phosphatase 111 (46-116) U/L C-Reactive Protein 0.5 (<1.0) mg/dL Total Protein 7.1 (6.4-8.2) g/dl Albumin 3.9 (3.4-5.0) g/dl Globulin 3.2 gm/dL Albumin/Globulin Ratio 1.2 (1-2) Lipase 74 (73-393) U/L Meds: Medications Generic Name Dose Route Start Last Admin Trade Name Sidneyq PRN Reason Stop Dose Admin Sodium Chloride 1,000 mls @ 150 mls/hr 11/16/19 15:30 11/16/19 15:41 Normal Saline IV 150 mls/hr ASDIRECTED FLAQUITO Administration Sodium Chloride 10 ml 11/16/19 15:25 11/16/19 15:41 Saline Flush FLUSH 10 ml ASDIRECTED PRN Administration Keep Vein Open Discontinued Medications Generic Name Dose Route Start Last Admin Trade Name Freq PRN Reason Stop Dose Admin Ketorolac Tromethamine 30 mg 11/16/19 15:25 11/16/19 15:41 Toradol IVPUSH 11/16/19 15:26 30 mg ONETIME ONE Administration Ondansetron HCl 4 mg 11/16/19 15:25 11/16/19 15:40 Zofran IVPUSH 11/16/19 15:26 4 mg ONETIME ONE Administration - Re-Assessments/Exams Free Text/Narrative Re-Assessment/Exam: 11/16/19 17:48 Hematology was grossly unremarkable. Abdomen x-ray was negative for any air- fluid levels, however there is a collection of stool in the ascending colon which may be the source of the patient's pain after eating. Patient is afebrile and vital signs been stable throughout her stay in the ER. I will send patient a prescription for Zofran as well as magnesium citrate. I did discuss with her that if her symptoms should worsen or fail to improve as expected, she should come to return to the emergency department. Departure - Departure Time of Disposition: 17:49 Disposition: Home, Self-Care 01 Condition: Fair Clinical Impression: Abdominal pain Qualifiers: Abdominal location: generalized Qualified Code(s): R10.84 - Generalized abdominal pain - Discharge Information *PRESCRIPTION DRUG MONITORING PROGRAM REVIEWED*: No *COPY OF PRESCRIPTION DRUG MONITORING REPORT IN PATIENT JOHNNY: No Prescriptions: Magnesium Citrate 295 ml PO ONETIME #1 solution Ondansetron [Zofran ODT] 4 mg PO Q6H PRN #10 tab.dis PRN Reason: Nausea Instructions: Abdominal Pain, Adult, [id number] Referrals: PCP,Unknown [Primary Care Provider] - Forms: ED Department Discharge Additional Instructions: You were seen in the emergency department today for abdominal pain for the last 3 days that worsens with eating. Your lab work was all normal. Abdomen x-ray was negative for any signs of obstruction, however there is a moderate collection of stool in the right side of your colon which may correspond with the pain you are having. A prescription has been sent to [place] [facility] Zofran for nausea and magnesium citrate. Take the bottle of magnesium citrate when you get home. As we discussed, we want your symptoms to be improving, therefore if you should experience any new or worsening symptoms, or fail to improve over the next day or 2, we would like you to return to the emergency department or follow-up with a primary care provider. Sepsis Event Note - Evaluation Sepsis Screening Result: No Definite Risk - Focused Exam Vital Signs: Vital Signs Temp Pulse Resp BP Pulse Ox 11/16/19 15:05 98.0 F 89 16 116/77 99 Date Exam was Performed: 11/16/19 Time Exam was Performed: 17:48 - My Orders Last 24 Hours: My Active Orders 11/16/19 15:25 Sodium Chloride 0.9% [Saline Flush] 10 ml FLUSH ASDIRECTED PRN Peripheral IV Insertion Adult [OM.PC] Stat 11/16/19 15:26 Peripheral IV Care [RC] . DIRECTED UA W/MICROSCOPIC [URIN] Stat 11/16/19 15:30 Sodium Chloride 0.9% [Normal Saline] 1,000 ml IV ASDIRECTED - Assessment/Plan Last 24 Hours: My Active Orders 11/16/19 15:25 Sodium Chloride 0.9% [Saline Flush] 10 ml FLUSH ASDIRECTED PRN Peripheral IV Insertion Adult [OM.PC] Stat 11/16/19 15:26 Peripheral IV Care [RC] . DIRECTED UA W/MICROSCOPIC [URIN] Stat 11/16/19 15:30 Sodium Chloride 0.9% [Normal Saline] 1,000 ml IV ASDIRECTED
--- NOTE | 2019-11-16 17:29 | CR ---
Abdomen: Supine and upright views the abdomen were obtained. Comparison: Prior abdominal x-ray of 07/24/16. Surgical clips are seen from prior cholecystectomy. Surgical anastomotic sutures are also seen within the left upper abdomen as well as more inferiorly within the left mid abdomen. Slightly prominent small bowel gas is seen. Mild amount of colonic gas is noted which appears normal. Calcification within the left pelvis is likely due to phlebolith. No free air is seen. Impression: 1. Slightly increased small bowel. Findings may represent a mild small bowel ileus or increased small bowel gas swallowed gas, although difficult to completely exclude a minimal developing mid small bowel obstruction. If patient continues to be symptomatic, follow-up study could be obtained in the a.m. 2. Other findings as noted above. Diagnostic code #3 Study was dictated in [place] Standard Time
== END 2019-11-16 18:00 | disposition home or self-care (01) ==
LOC: JD.ED 14:54
DX: R10.84 Generalized abdominal pain (principal); R11.0 Nausea; J45.909 Unspecified asthma, uncomplicated; K21.9 Gastro-esophageal reflux disease without esophagitis; E66.9 Obesity, unspecified; Z88.5 Allergy status to narcotic agent; Z88.0 Allergy status to penicillin; Z88.8 Allergy status to other drugs, medicaments and biological substances; Z88.6 Allergy status to analgesic agent; Z88.2 Allergy status to sulfonamides; Z91.048 Other nonmedicinal substance allergy status; Z88.7 Allergy status to serum and vaccine; Z79.899 Other long term (current) drug therapy; Z90.710 Acquired absence of both cervix and uterus; Z87.891 Personal history of nicotine dependence; Z87.442 Personal history of urinary calculi; Z90.49 Acquired absence of other specified parts of digestive tract; Z98.84 Bariatric surgery status
CPT/HCPCS: 36415; 74019; 80053; 83690; 85025; 86140; 96361; 96374; 96375; 99284; J1885; J2405; J7030; 99283

== ENCOUNTER 2019-11-20 12:20 | Emergency (ER) | payer MEDICARE, MEDICAID ==
[2019-11-20] MEDS ORDERED: Alum Hydrox/Mag Hydrox/Simeth 30 ML, Lidocaine 2% 15 ML PO ONE ×2 (13:00)
--- NOTE | 2019-11-20 13:06 | EDM.PDOC ---
ED HPI GENERAL MEDICAL PROBLEM - General Chief Complaint: Abdominal Pain Stated Complaint: ABDOMINAL PAIN Time Seen by Provider: 11/20/19 12:53 Source of Information: Reports: Patient History Limitations: Reports: No Limitations - History of Present Illness INITIAL COMMENTS - FREE TEXT/NARRATIVE: Patient is a 49-year-old female who presents with complaints of severe epigastric pain. Pain is worsened by eating and she does have dry heaves, however, she has had bariatric surgery and is unable to vomit. Patient was seen in this ER by me 4 days ago for abdominal pain. At that time she states her pain was in the right side of her abdomen and back. She was sent home with magnesium citrate which she did take and was able to have a bowel movement. At this time she no longer complains of pain to the right abdomen and back, however she does have significant pain directly over the epigastrium. Patient does have a history of gastric ulcers. She takes omeprazole 40 mg twice daily which she states she has been taking faithfully. She also verbalizes that she had some black flecks in her stool that she states look like little grounds of coffee. 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 Upper Anterior Abdominal Pain Score (Numeric/FACES): 10 - Related Data Allergies Allergy/AdvReac Type Severity Reaction Status Date / Time codeine Allergy Intermediate Difficulty Verified 07/03/19 14:10 Breathing diclofenac sodium Allergy Intermediate Difficulty Verified 07/03/19 14:10 [From Voltaren] Breathing hydrocodone Allergy Intermediate Difficulty Verified 07/03/19 14:10 Breathing naproxen sodium [From Aleve] Allergy Intermediate Difficulty Verified 07/03/19 14:10 Breathing Penicillins Allergy Intermediate Difficulty Verified 07/03/19 14:10 Breathing pseudoephedrine HCl Allergy Intermediate Difficulty Verified 07/03/19 14:10 [From Sudafed] Breathing Sulfa (Sulfonamide Allergy Intermediate Difficulty Verified 07/03/19 14:10 Antibiotics) Breathing animal dander Allergy Difficulty Verified 07/03/19 14:10 Breathing bee pollen Allergy Cannot Verified 07/03/19 14:10 Remember fish derived Allergy Cannot Verified 07/03/19 14:10 Remember influenza virus vaccine, Allergy Rash Verified 07/03/19 14:10 specific Influenza Virus Vaccines Allergy Rash Verified 07/03/19 14:10 iodine Allergy Difficulty Verified 07/03/19 14:10 Breathing mold Allergy Difficulty Verified 07/03/19 14:10 Breathing nabumetone [From Relafen] Allergy Cannot Verified 07/03/19 14:10 Remember olive oil Allergy Difficulty Verified 07/03/19 14:10 Breathing pollen extracts Allergy Difficulty Verified 07/03/19 14:10 Breathing prednisone Allergy Difficulty Verified 07/03/19 14:10 Breathing tramadol Allergy Cannot Verified 07/03/19 14:10 Remember wheat Allergy Cannot Verified 07/03/19 14:10 Remember diphenhydramine AdvReac Intermediate Other Verified 07/03/19 14:10 [From Benadryl] bandaid Allergy Blisters Uncoded 07/03/19 14:10 DUST Allergy Difficulty Uncoded 07/03/19 14:10 Breathing Home Meds: Home Meds Cetirizine [ZyrTEC] 10 mg PO BID 11/15/18 [History] Cholecalciferol (Vitamin D3) [D3-2000] 2,000 unit PO DAILY 11/15/18 [History] Cyanocobalamin (Vitamin B12) [Vitamin B12] 1,000 mcg PO DAILY 11/15/18 [History] EPINEPHrine [Epinephrine] 0.3 mg IM ONETIME 11/15/18 [History] Fluticasone/Salmeterol [Advair Hfa 45-21 Mcg Inhaler] 2 puff IH DAILY PRN [History] Gabapentin [Neurontin] 600 mg PO TID 11/15/18 [History] Ipratropium/Albuterol Sulfate [Iprat-Albut 0.5-3(2.5) mg/3 ml] 1 applic IN Q4H PRN 11/15/18 [History] Montelukast [Singulair] 10 mg PO DAILY 11/15/18 [History] Omeprazole 40 mg PO BIDAC 11/15/18 [History] Sertraline [Zoloft] 50 mg PO DAILY 11/15/18 [History] Fexofenadine [Maria Luisa] 180 mg PO DAILY 03/06/19 [History] Multivitamin [Multivitamins] 1 cap PO DAILY 03/06/19 [History] Ondansetron [Zofran] 4 mg PO Q8H PRN 03/06/19 [History] Venlafaxine [Effexor] 75 mg PO DAILY 03/06/19 [History] Zolpidem Tartrate [Ambien] 5 - 10 mg PO BEDTIME PRN 03/06/19 [History] traZODone HCl [Trazodone HCl] 50 mg PO BEDTIME 03/06/19 [History] Ondansetron [Zofran ODT] 4 mg PO Q6H PRN #10 tab.dis 11/16/19 [Rx] Pantoprazole Sodium [Protonix] 40 mg PO BID #60 tablet.dr 11/20/19 [Rx] Sucralfate [Carafate] 1 gm PO QID #112 tablet 11/20/19 [Rx] Past Medical History HEENT History: Reports: Allergic Rhinitis, Sinusitis, Other (See Below) Other HEENT History: has dentures/partials Cardiovascular History: Reports: None Respiratory History: Reports: Asthma Other Respiratory History: Moderate snoring Gastrointestinal History: Reports: GERD, GI Bleed, Helicobacter Pylori, PUD, Other (See Below) Other Gastrointestinal History: bilrubinemia, GI bleed, elevated LFTs, nausea/ voming Genitourinary History: Reports: Renal Calculus, Other (See Below) Other Genitourinary History: bilirubenimia, dysuria, UTI, renal colic PROFESSOR OF COMMUNICATION History: Reports: Other PROFESSOR OF COMMUNICATION History: history of ovarian cyst, hot flashes, Musculoskeletal History: Reports: Osteoarthritis, Other (See Below) Other Musculoskeletal History: degenerative tear of medial meniscus (L), knee pain, patellar malignant syndrome (bilateral),osteochondrosis synovitis of knee , L patellar chrondromalacia, L knee contusion, R knee locking, R knee contusion , L hip greater trochanter bursitis Neurological History: Reports: Migraines Psychiatric History: Reports: Anxiety, Other (See Below) Other Psychiatric History: insomnia Endocrine/Metabolic History: Reports: Obesity/BMI 30+ Hematologic History: Reports: None Immunologic History: Reports: None Oncologic (Cancer) History: Reports: None Dermatologic History: Reports: Other (See Below) Other Dermatologic History: sebaceous cyst - Infectious Disease History Infectious Disease History: Reports: Chicken Pox, Measles - Past Surgical History Head Surgeries/Procedures: Reports: None HEENT Surgical History: Reports: Tonsillectomy Other HEENT Surgeries/Procedures: has dentures and partial Cardiovascular Surgical History: Reports: None Respiratory Surgical History: Reports: None GI Surgical History: Reports: Bariatric Procedure, Cholecystectomy, Colonoscopy , EGD Other GI Surgeries/Procedures: 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 Female Surgical History: Reports: Hysterectomy, Kidney stone extraction, Oophorectomy, Tubal Ligation, Ureteral Stent Endocrine Surgical History: Reports: None Neurological Surgical History: Reports: None Musculoskeletal Surgical History: Reports: Arthroscopic Knee Other Musculoskeletal Surgeries/Procedures:: L knee arthroscopy x 2, R knee arthroscopy, L foot surgery Oncologic Surgical History: Reports: None Dermatological Surgical History: Reports: None Social & Family History - Family History Family Medical History: Noncontributory Cardiac: Reports: Hypertension Other Cardiac Family History: parents Musculoskeletal: Reports: Arthritis Other Musculoskeletal Family History: parents Neurological: Reports: Migraines Other Neurological Family History: migraines - Tobacco Use Smoking Status *Q: Former Smoker Used Tobacco, but Quit: Yes Month/Year Tobacco Last Used: 10 Second Hand Smoke Exposure: Yes - Caffeine Use Caffeine Use: Reports: Tea - Recreational Drug Use Recreational Drug Use: No - Living Situation & Occupation Living situation: Reports: Occupation: Unemployed ED ROS GENERAL - Review of Systems Review Of Systems: Comprehensive ROS is negative, except as noted in HPI. ED EXAM, GI/ABD - Physical Exam Exam: See Below Exam Limited By: No Limitations General Appearance: Alert, WD/WN, Mild Distress Throat/Mouth: Normal Inspection, Normal Lips, Normal Teeth, Normal Gums, Normal Oropharynx, Normal Voice, No Airway Compromise Respiratory/Chest: No Respiratory Distress, Lungs Clear, Normal Breath Sounds, No Accessory Muscle Use, Chest Non-Tender Cardiovascular: Normal Peripheral Pulses, Regular Rate, Rhythm, No Edema, No Gallop, No JVD, No Murmur, No Rub GI/Abdominal Exam: Normal Bowel Sounds, Soft, No Organomegaly, No Distention, No Abnormal Bruit, No Mass, Pelvis Stable, Tender (localized to the epigastrum) Back Exam: Normal Inspection, Full Range of Motion, NT Extremities: Normal Inspection, Normal Range of Motion, Non-Tender, Normal Capillary Refill, No Pedal Edema Neurological: Alert, Oriented, CN II-XII Intact, Normal Cognition, Normal Gait, Normal Reflexes, No Motor/Sensory Deficits Psychiatric: Normal Affect, Normal Mood Skin Exam: Warm, Dry, Intact, Normal Color, No Rash Course - Vital Signs Last Recorded V/S: Last Vital Signs Temp 98.6 F 11/20/19 12:27 Pulse 68 11/20/19 12:27 Resp 18 11/20/19 12:27 BP 144/93 H 11/20/19 12:27 Pulse Ox 100 11/20/19 12:27 - Orders/Labs/Meds Orders: Active Orders 24 hr Category Date Time Status Peripheral IV Care [RC] . DIRECTED Care 11/20/19 13:19 Active Abdomen 2V AP Flat Upright [CR] Stat Exams 11/20/19 13:12 Taken H PYLORI STOOL ANTIGEN [MREF] Stat Lab 11/20/19 13:15 Ordered Sodium Chloride 0.9% [Saline Flush] Med 11/20/19 13:19 Active 10 ml FLUSH ASDIRECTED PRN Peripheral IV Insertion Adult [OM.PC] Stat Oth 11/20/19 13:19 Ordered Medication Orders Sodium Chloride (Saline Flush) 10 ml FLUSH ASDIRECTED PRN PRN Reason: Keep Vein Open Last Admin: 11/20/19 13:43 Dose: 10 ml Labs: Laboratory Tests 11/20/19 11/20/19 11/20/19 Range/Units 12:35 12:35 12:35 WBC 7.33 (3.98-10.04) K/mm3 RBC 4.70 (3.98-5.22) M/mm3 Hgb 14.1 (11.2-15.7) gm/dl Hct 42.8 (34.1-44.9) % MCV 91.1 (79.4-94.8) fl MCH 30.0 (25.6-32.2) pg MCHC 32.9 (32.2-35.5) g/dl RDW Std Deviation 46.3 (36.4-46.3) fL Plt Count 334 (182-369) K/mm3 MPV 10.0 (9.4-12.3) fl Neut % (Auto) 69.7 (34.0-71.1) % Lymph % (Auto) 22.4 (19.3-51.7) % [place] % (Auto) 6.7 (4.7-12.5) % Eos % (Auto) 1.0 (0.7-5.8) Baso % (Auto) 0.1 (0.1-1.2) % Neut # (Auto) 5.11 (1.56-6.13) K/mm3 Lymph # (Auto) 1.64 (1.18-3.74) K/mm3 [place] # (Auto) 0.49 H (0.24-0.36) K/mm3 Eos # (Auto) 0.07 (0.04-0.36) K/mm3 Baso # (Auto) 0.01 (0.01-0.08) K/mm3 Sodium 142 (136-145) mEq/L Potassium 4.1 (3.5-5.1) mEq/L Chloride 104 (98-107) mEq/L Carbon Dioxide 28 (21-32) mEq/L Anion Gap 14.1 (5-15) BUN 7 (7-18) mg/dL Creatinine 0.7 (0.55-1.02) mg/dL Est Cr Clr Drug Dosing 82.19 mL/min Estimated GFR (MDRD) > 60 (>60) mL/min BUN/Creatinine Ratio 10.0 L (14-18) Glucose 88 (74-106) mg/dL Calcium 9.2 (8.5-10.1) mg/dL Total Bilirubin 0.4 (0.2-1.0) mg/dL AST 14 L (15-37) U/L ALT 22 (14-59) U/L Alkaline Phosphatase 118 H (46-116) U/L C-Reactive Protein 0.2 (<1.0) mg/dL Total Protein 7.0 (6.4-8.2) g/dl Albumin 4.0 (3.4-5.0) g/dl Globulin 3.0 gm/dL Albumin/Globulin Ratio 1.3 (1-2) Lipase 60 L (73-393) U/L Meds: Medications Generic Name Dose Route Start Last Admin Trade Name Freq PRN Reason Stop Dose Admin Sodium Chloride 10 ml 11/20/19 13:19 11/20/19 13:43 Saline Flush FLUSH 10 ml ASDIRECTED PRN Administration Keep Vein Open Discontinued Medications Generic Name Dose Route Start Last Admin Trade Name Freq PRN Reason Stop Dose Admin Al Hydroxide/Mg Hydroxide 30 0 ml 11/20/19 13:00 11/20/19 13:09 ml/ Lidocaine HCl 15 ml PO 11/20/19 13:01 45 ml ONETIME ONE Administration Pantoprazole Sodium 40 mg 11/21/19 13:57 Protonix PO 11/21/19 13:58 ONETIME ONE Pantoprazole Sodium 40 mg 11/20/19 13:58 11/20/19 14:07 Protonix PO 11/20/19 13:59 40 mg ONETIME ONE Administration Sucralfate 1 gm 11/20/19 13:55 11/20/19 14:06 Carafate PO 11/20/19 13:56 1 gm ONETIME ONE Administration - Re-Assessments/Exams Free Text/Narrative Re-Assessment/Exam: 11/20/19 14:00 Patient had significant relief of symptoms with a GI cocktail. That is likely that she has a gastric ulcer. Did do a occult stool which was negative. Lab work repeated today was grossly unremarkable. There were no signs of free air on the abdomen x-ray it is unlikely that she has a perforation. Abdomen x-ray was normal with no air-fluid levels. Patient states that she has been having regular bowel movements and passing gas. She is already taking a high dose of omeprazole 40 mg twice daily. She states that 1 time she was taking more than that. Plan will be to switch her to Protonix 40 mg twice daily and then add Carafate 1 g 4 times daily. Patient has been unable to provide a stool sample thus far to check for H. pylori. She states she has had it in the past, so do not feel that a serum test would be accurate. We will send her home with a cup to return with a stool sample when she is able to go. I will recommend that she call to schedule an appointment with Dr. Carvajal to consult for an upper endoscopy. I called and spoke with her primary care provider, Smita Trent, and discussed the plan of care. I will have the patient call to schedule an appointment with her for follow-up next week. Discharge instructions as documented. Departure - Departure Time of Disposition: 14:12 Disposition: Home, Self-Care 01 Condition: Fair Clinical Impression: Gastritis Qualifiers: Gastritis type: unspecified gastritis Chronicity: acute Gastritis bleeding: without bleeding Qualified Code(s): K29.00 - Acute gastritis without bleeding - Discharge Information *PRESCRIPTION DRUG MONITORING PROGRAM REVIEWED*: No *COPY OF PRESCRIPTION DRUG MONITORING REPORT IN PATIENT JOHNNY: No Prescriptions: Pantoprazole Sodium [Protonix] 40 mg PO BID #60 tablet. Sucralfate [Carafate] 1 gm PO QID #112 tablet Instructions: Gastritis, Adult, [id number] Referrals: Barbara Frias PA-C [Primary Care Provider] - Adelfo Carvajal MD [Physician] - Forms: ED Department Discharge Additional Instructions: You were seen in the emergency department today for severe epigastric pain. You were initially administered a GI cocktail which did relieve your symptoms. Blood work was repeated and this was all normal. Abdomen x-ray was also done which was normal. We did check your stool for blood and this was negative. It is likely that you are suffering from a gastritis or possibly a gastric ulcer. You have been prescribed Protonix twice daily as well as Carafate 4 times daily. Take these medications as prescribed. I also recommend that you avoid acidic or spicy foods as this will aggravate the pain. Recommend that you call to try to schedule appointment with the general surgeon, Dr. Carvajal, to discuss an upper endoscopy. Also recommend that you call to schedule appointment with your primary care provider for next week. You have been sent home with a specimen cup for stool. Please return this when you are able to go and we will do an H. pylori test. You will be notified of the results when they are available. If you experience any worsening symptoms, please do not hesitate to return to the emergency department Sepsis Event Note - Evaluation Sepsis Screening Result: No Definite Risk - Focused Exam Vital Signs: Vital Signs Temp Pulse Resp BP Pulse Ox 11/20/19 12:27 98.6 F 68 18 144/93 H 100 Date Exam was Performed: 11/20/19 Time Exam was Performed: 14:11 - My Orders Last 24 Hours: My Active Orders 11/20/19 13:12 Abdomen 2V AP Flat Upright [CR] Stat 11/20/19 13:15 H PYLORI STOOL ANTIGEN [MREF] Stat 11/20/19 13:19 Peripheral IV Care [RC] . DIRECTED Sodium Chloride 0.9% [Saline Flush] 10 ml FLUSH ASDIRECTED PRN Peripheral IV Insertion Adult [OM.PC] Stat - Assessment/Plan Last 24 Hours: My Active Orders 11/20/19 13:12 Abdomen 2V AP Flat Upright [CR] Stat 11/20/19 13:15 H PYLORI STOOL ANTIGEN [MREF] Stat 11/20/19 13:19 Peripheral IV Care [RC] . DIRECTED Sodium Chloride 0.9% [Saline Flush] 10 ml FLUSH ASDIRECTED PRN Peripheral IV Insertion Adult [OM.PC] Stat
[2019-11-20] MEDS ORDERED: Sodium Chloride 0.9% 10 ML Syringe FLUSH PRN (13:19)
[2019-11-20] MEDS ORDERED: Sucralfate 1 GM Tab PO ONE (13:55)
[2019-11-20] MEDS ORDERED: Pantoprazole 40 MG Tab.CR PO ONE (13:58)
[2019-11-20 14:31] VITALS: BP 135/93; PULSE 70
--- NOTE | 2019-11-21 07:28 | CR ---
Abdomen: Supine and upright views of the abdomen were obtained. Comparison: Prior abdominal x-ray of 11/16/19. Small bowel gas is noted showing air-fluid levels. This gas appears to be increasing in amount from previous exam. Surgical clips from prior cholecystectomy is noted. Surgical anastomotic sutures also noted within the left upper abdomen. Bony structures are unremarkable. No free air is seen. Impression: 1. Increasing gas within small bowel. Findings suspicious for slight worsening of either gastroenteritis or incomplete distal small bowel obstruction. Diagnostic code #3 This report was dictated in [place] Standard Time
[2019-11-21] MEDS ORDERED: Pantoprazole 40 MG Tab.CR PO ONE (13:57)
== END 2019-11-20 14:29 | disposition home or self-care (01) ==
LOC: JD.ED 12:20
DX: K29.00 Acute gastritis without bleeding (principal); K21.9 Gastro-esophageal reflux disease without esophagitis; K27.9 Peptic ulcer, site unspecified, unspecified as acute or chronic, without hemorrhage or perforation; F41.9 Anxiety disorder, unspecified; J45.909 Unspecified asthma, uncomplicated; E66.9 Obesity, unspecified; Z68.26 Body mass index [BMI] 26.0-26.9, adult; Z98.84 Bariatric surgery status; Z88.5 Allergy status to narcotic agent; Z88.6 Allergy status to analgesic agent; Z88.0 Allergy status to penicillin; Z88.8 Allergy status to other drugs, medicaments and biological substances; Z88.2 Allergy status to sulfonamides; Z91.030 Bee allergy status; Z91.013 Allergy to seafood; Z88.7 Allergy status to serum and vaccine; Z91.018 Allergy to other foods; Z91.048 Other nonmedicinal substance allergy status; Z91.09 Other allergy status, other than to drugs and biological substances; Z79.899 Other long term (current) drug therapy; Z87.891 Personal history of nicotine dependence; R10.9 Unspecified abdominal pain; S60.212A Contusion of left wrist, initial encounter; X58.XXXA Exposure to other specified factors, initial encounter
CPT/HCPCS: 36415; 74019; 80053; 83690; 85025; 86140; 99284; A9270; 99213; 99283

== ENCOUNTER 2020-05-07 07:51 | Day surgery (SDC) | payer MEDICARE, MEDICAID ==
[~2020-05-07 07:51] MED LIST changes: -Albuterol 0.083% 2.5 MG/3 ML Neb Soln NEB PRN; +EPINEPHrine 1 MG/ML 30 ML MDV IRR SCH; -Ketamine 500 mg/10 ML MDV ONE; -LORazepam 2 MG/ML SDV IVPUSH ONE; -Lidocaine 1% 4 ML ONE; -Midazolam 1 MG/ML 2 ML SDV ONE; -Ondansetron 4 MG/2 ML SDV ONE; -Propofol 200 MG/20 ML SDV ONE; -fentaNYL 100 MCG/2 ML SDV IVPUSH PRN; -fentaNYL 100 MCG/2 ML SDV ONE; -fentaNYL 250 MCG/5 ML SDV ONE
[2020-05-07] MEDS ORDERED: fentaNYL 100 MCG/2 ML SDV ONE (09:44)
[2020-05-07] MEDS ORDERED: Propofol 200 MG/20 ML SDV ONE (09:44)
[2020-05-07] MEDS ORDERED: Midazolam 1 MG/ML 2 ML SDV ONE (09:45)
[2020-05-07] MEDS ORDERED: Lidocaine 1% 4 ML ONE (09:46)
--- NOTE | 2020-05-07 10:29 | PCM.PREANE ---
Preanesthetic Assessment - Procedure Proposed Procedure: Rt knee arthroscopy - Anesthesia/Transfusion/Family Hx Anesthesia History: Prior Anesthesia Without Reaction Transfusion History: No Prior Transfusion(s) Intubation History: Unknown - Review of Systems General: No Symptoms Pulmonary: No Symptoms Cardiovascular: No Symptoms Gastrointestinal: No Symptoms Neurological: No Symptoms, Difficulty Walking (due to knee pain) Other: Reports: None - Physical Assessment NPO Status Date: 05/07/20 NPO Status Time: 21:00 Vital Signs: Last Vital Signs Temp 97.9 F 05/07/20 09:05 Pulse 73 05/07/20 09:05 Resp 14 05/07/20 09:05 BP 105/64 05/07/20 09:05 Pulse Ox 94 L 05/07/20 09:05 Height: 1.6 m Weight: 28.576 kg ASA Class: 2 Mental Status: Alert & Oriented x3 Airway Class: Mallampati = 1 Dentition: Reports: Dentures (top), Partial (bottom) Thyro-Mental Finger Breadths: 3 Mouth Opening Finger Breadths: 3 ROM/Head Extension: Full Lungs: Clear to Auscultation, Normal Respiratory Effort Cardiovascular: Regular Rate, Regular Rhythm - Lab Values: Laboratory Last Values COVID-19 PCR Not detected (NOT DETECT) 05/04/20 11:30 MRSA (PCR) Negative 04/29/20 13:01 - Allergies Allergies/Adverse Reactions: Allergies Allergy/AdvReac Type Severity Reaction Status Date / Time codeine Allergy Intermediate Difficulty Verified 05/06/20 14:48 Breathing diclofenac sodium Allergy Intermediate Difficulty Verified 05/06/20 14:48 [From Voltaren] Breathing hydrocodone Allergy Intermediate Difficulty Verified 05/06/20 14:48 Breathing naproxen sodium [From Aleve] Allergy Intermediate Difficulty Verified 05/06/20 14:48 Breathing Penicillins Allergy Intermediate Difficulty Verified 05/06/20 14:48 Breathing pseudoephedrine HCl Allergy Intermediate Difficulty Verified 05/06/20 14:48 [From Sudafed] Breathing Sulfa (Sulfonamide Allergy Intermediate Difficulty Verified 05/06/20 14:48 Antibiotics) Breathing animal dander Allergy Difficulty Verified 05/06/20 14:48 Breathing bee pollen Allergy Cannot Verified 05/06/20 14:48 Remember fish derived Allergy Cannot Verified 05/06/20 14:48 Remember influenza virus vaccine, Allergy Rash Verified 05/06/20 14:48 specific Influenza Virus Vaccines Allergy Rash Verified 05/06/20 14:48 iodine Allergy Difficulty Verified 05/06/20 14:48 Breathing mold Allergy Difficulty Verified 05/06/20 14:48 Breathing nabumetone [From Relafen] Allergy Cannot Verified 05/06/20 14:48 Remember olive oil Allergy Difficulty Verified 05/06/20 14:48 Breathing pollen extracts Allergy Difficulty Verified 05/06/20 14:48 Breathing prednisone Allergy Difficulty Verified 05/06/20 14:48 Breathing tramadol Allergy Cannot Verified 05/06/20 14:48 Remember wheat Allergy Cannot Verified 05/06/20 14:48 Remember diphenhydramine AdvReac Intermediate Other Verified 05/06/20 14:48 [From Benadryl] bandaid Allergy Blisters Uncoded 05/06/20 14:48 DUST Allergy Difficulty Uncoded 05/06/20 14:48 Breathing - Acknowledgements Anesthesia Type Planned: General Anesthesia Pt an Appropriate Candidate for the Planned Anesthesia: Yes Alternatives and Risks of Anesthesia Discussed w Pt/Guardian: Yes Pt/Guardian Understands and Agrees with Anesthesia Plan: Yes PreAnesthesia Questionnaire HEENT History: Reports: Allergic Rhinitis, Sinusitis, Other (See Below) Other HEENT History: has dentures/partials, vasomotor flushing Cardiovascular History: Reports: None Respiratory History: Reports: Asthma Other Respiratory History: Moderate snoring, acute bronchitis Gastrointestinal History: Reports: GERD, GI Bleed, Helicobacter Pylori, PUD, Other (See Below) Other Gastrointestinal History: bilrubinemia, GI bleed, elevated LFTs, abdominal pain, epigastric pain, gastric ulcer Genitourinary History: Reports: Renal Calculus, Other (See Below) Other Genitourinary History: bilirubenimia, dysuria, UTI, renal colic, abnormal urine, flank pain, frequency in urination PROPOSAL WRITER History: Reports: Other OB/BYN History: history of ovarian cyst, hot flashes, , vaginal atrophy Musculoskeletal History: Reports: Arthritis, Osteoarthritis, Other (See Below) Other Musculoskeletal History: bilaterl elbow tendinitis, left patella chondromalacia syndrome, right knee contusion, left wrist contusion, left meniscus tear, right knee locking, pisiform fracutre, right hand injury, left knee pain, lateral epicondylitis, left hip bursitis, osteochondrosis, thumb pain, bilateral patellar malalignment syndrome, radial collateral ligament rupture of thumb, wrist pain Neurological History: Reports: Migraines Psychiatric History: Reports: Anxiety, Depression, PTSD, Other (See Below) Other Psychiatric History: insomnia Endocrine/Metabolic History: Reports: Obesity/BMI 30+ Hematologic History: Reports: None Immunologic History: Reports: None Oncologic (Cancer) History: Reports: None Dermatologic History: Reports: Other (See Below) Other Dermatologic History: sebaceous cyst, cellulitis - Infectious Disease History Infectious Disease History: Reports: Chicken Pox, Measles - Past Surgical History Head Surgeries/Procedures: Reports: None HEENT Surgical History: Reports: Tonsillectomy Other HEENT Surgeries/Procedures: has dentures and partial Cardiovascular Surgical History: Reports: None Respiratory Surgical History: Reports: None GI Surgical History: Reports: Bariatric Procedure, Cholecystectomy, Colonoscopy, EGD Other GI Surgeries/Procedures: 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 Female Surgical History: Reports: Hysterectomy, Kidney stone extraction, Oophorectomy, Tubal Ligation, Ureteral Stent Endocrine Surgical History: Reports: None Neurological Surgical History: Reports: None Musculoskeletal Surgical History: Reports: Arthroscopic Knee Other Musculoskeletal Surgeries/Procedures:: bilateral knee arthroscopies x 2, left foot surgery Oncologic Surgical History: Reports: None Dermatological Surgical History: Reports: None - SUBSTANCE USE Smoking Status *Q: Former Smoker Recreational Drug Use History: No - HOME MEDS Home Medications: Home Meds Cetirizine [ZyrTEC] 10 mg PO BID 11/15/18 [History] Cholecalciferol (Vitamin D3) [D3-2000] 2,000 unit PO DAILY 11/15/18 [History] Cyanocobalamin (Vitamin B12) [Vitamin B12] 1,000 mcg PO DAILY 11/15/18 [History] EPINEPHrine [Epinephrine] 0.3 mg IM ONETIME 11/15/18 [History] Fluticasone Propion/Salmeterol [Advair Hfa 45-21 Mcg Inhaler] 2 puff IH DAILY PRN 11/15/18 [History] Gabapentin [Neurontin] 600 mg PO TID 11/15/18 [History] Ipratropium/Albuterol Sulfate [Iprat-Albut 0.5-3(2.5) mg/3 ml] 1 dose IN Q4H PRN 11/15/18 [History] Montelukast [Singulair] 10 mg PO DAILY 11/15/18 [History] Fexofenadine [Maria Luisa] 180 mg PO DAILY 03/06/19 [History] Multivitamin [Multivitamins] 1 cap PO DAILY 03/06/19 [History] Zolpidem Tartrate [Ambien] 5 - 10 mg PO BEDTIME PRN 03/06/19 [History] Azelastine [Astelin Nasal Soln] 2 spray NASBOTH DAILY 05/06/20 [History] Calcium Carb/Vitamin D3/Vit K1 [Calcium + D Soft Chewable Tab] 1 tab PO DAILY 05/06/20 [History] Cyclobenzaprine [Flexeril] 10 mg PO TID 05/06/20 [History] Famotidine 20 mg PO DAILY 05/06/20 [History] Ibandronate Sodium 150 mg PO Q30D 05/06/20 [History] Lidocaine 5% [Lidoderm 5%] 1 dose TOP Q12H 05/06/20 [History] Omeprazole 40 mg PO BID 05/06/20 [History] Ondansetron [Zofran Odt] 8 mg PO TID PRN 05/06/20 [History] estradioL [Estradiol] 1 mg PO DAILY 05/06/20 [History] traZODone HCl [Trazodone HCl] 200 mg PO BEDTIME 05/06/20 [History] Rivaroxaban [Xarelto] 10 mg PO DAILY #30 tab 05/07/20 [Rx] Tapentadol [Nucynta] 50 - 100 mg PO Q6H PRN #30 tab 05/07/20 [Rx] - CURRENT (IN HOUSE) MEDS Current Meds: Current Medications Epinephrine HCl (Adrenalin) 3 mg IRR ONETIME FLAQUITO Stop: 05/07/20 12:00 Lactated Ringer's (Ringers, Lactated) 1,000 mls @ 125 mls/hr IV ASDIRECTED FLAQUITO Stop: 05/07/20 23:00 Last Admin: 05/07/20 09:04 Dose: 125 mls/hr Documented by: Lidocaine/Sodium Bicarbonate (Buffered Lidocaine 1% In Ns 8.4%) 0.25 ml IDERM ONETIME PRN PRN Reason: Prior to IV Start Stop: 05/07/20 18:00 Last Admin: 05/07/20 09:04 Dose: 0.25 ml Documented by: Sodium Chloride (Saline Flush) 10 ml FLUSH ASDIRECTED PRN PRN Reason: Keep Vein Open Stop: 05/08/20 18:00 Discontinued Medications Fentanyl (Sublimaze) Confirm Administered Dose 100 mcg .ROUTE .STK-MED ONE Stop: 05/07/20 09:45 Lactated Ringer's (Ringers, Lactated) 1,000 mls @ 125 mls/hr IV ASDIRECTED FLAQUITO Stop: 05/05/20 23:00 Lidocaine HCl (Xylocaine-Mpf 1%) Confirm Administered Dose 4 mls @ as directed .ROUTE .STK-MED ONE Stop: 05/07/20 09:47 Lidocaine/Sodium Bicarbonate (Buffered Lidocaine 1% In Ns 8.4%) 0.25 ml IDERM ONETIME PRN PRN Reason: Prior to IV Start Stop: 05/05/20 23:00 Midazolam HCl (Versed 1 Mg/Ml) Confirm Administered Dose 4 mg .ROUTE .STK-MED ONE Stop: 05/07/20 09:46 Propofol (Diprivan 20 Ml) Confirm Administered Dose 200 mg .ROUTE .STK-MED ONE Stop: 05/07/20 09:45 Sodium Chloride (Saline Flush) 10 ml FLUSH ASDIRECTED PRN PRN Reason: Keep Vein Open Stop: 05/05/20 23:00
[2020-05-07] MEDS ORDERED: fentaNYL 100 MCG/2 ML SDV IVPUSH PRN (11:15)
[2020-05-07] MEDS ORDERED: HYDROmorphone 0.5 MG/0.5 ML Syringe IVPUSH PRN (11:15)
[2020-05-07] MEDS ORDERED: Ondansetron 4 MG/2 ML SDV ONE (11:41)
--- NOTE | 2020-05-07 12:12 | PCM.POSTAN ---
POST ANESTHESIA ASSESSMENT - MENTAL STATUS Mental Status: Somnolent - VITAL SIGNS Vital Signs: Last Vital Signs Temp 98.8 F 05/07/20 11:48 Pulse 73 05/07/20 09:05 Resp 11 L 05/07/20 12:00 BP 128/49 L 05/07/20 12:00 Pulse Ox 98 05/07/20 12:00 - RESPIRATORY Respiratory Status: Respiratory Rate WNL, Airway Patent, O2 Saturation Stable, Supplemental Oxygen - CARDIOVASCULAR CV Status: Pulse Rate WNL, Blood Pressure Stable - GASTROINTESTINAL GI Status: No Symptoms - PAIN Pain Score: 0 - POST OP HYDRATION Hydration Status: Adequate & Stable
[2020-05-07] MEDS ORDERED: Bupivacaine 0.25% 10 ML SDV ONE (12:26)
[2020-05-07 13:03] VITALS: BP 135/61; PULSE 68
--- NOTE | 2020-05-07 13:06 | PCM48HPAN ---
Post Anesthesia Note - EVALUATION WITHIN 48HRS OF ANESTHETIC Vital Signs in Normal Range: Yes Patient Participated in Evaluation: Yes Respiratory Function Stable: Yes Airway Patent: Yes Cardiovascular Function Stable: Yes Hydration Status Stable: Yes Pain Control Satisfactory: Yes Nausea and Vomiting Control Satisfactory: Yes Mental Status Recovered: Yes Vital Signs: Last Vital Signs Temp 97.4 F 05/07/20 12:30 Pulse 68 05/07/20 13:00 Resp 16 05/07/20 13:00 BP 135/61 05/07/20 13:00 Pulse Ox 100 05/07/20 13:03 - COMMENTS/OBSERVATIONS Free Text/Narrative:: No apparent anesthesia complications note. Patient in phase 2 , preparing for discharge.
--- NOTE | 2020-05-13 15:43 | PCM.OPNOTE ---
- General Post-Op/Procedure Note Date of Surgery/Procedure: 05/07/20 Operative Procedure(s): right knee video arthroscopy with partial synovectomy Pre Op Diagnosis: right knee pain Post-Op Diagnosis: Same Anesthesia Technique: General LMA, Local Primary Surgeon: Blayne Moreno Anesthesia Provider: James Melendez Minute Clerk For [employer]: Kallie Montanez in mLs: 5 Complications: None Condition: Good
--- NOTE | 2020-05-13 16:27 | OR ---
DATE OF OPERATION: 05/07/2020 SURGEON: Blayne Moreno MD OPERATION PERFORMED: Right knee video arthroscopy with partial synovectomy. PREOPERATIVE DIAGNOSIS: Right knee pain. POSTOPERATIVE DIAGNOSIS: Right knee pain. ANESTHESIA: General LMA with local. ANESTHESIA: James Melendez. PORTFOLIO ASSISTANT: Kallie Montanez PA-C ESTIMATED BLOOD LOSS: Less than 5 mL. COMPLICATIONS: None. CONDITION: Stable. DESCRIPTION OF PROCEDURE: The patient was identified in the preoperative holding area. Proper site was marked and identified by the surgeon. The patient was taken back to the operating theater, where after adequate anesthesia, the patient's left lower extremity was placed in a well-leg lane and right lower extremity had a nonsterile tourniquet applied. It was then placed in a C-clamp lane. Foot of the bed was then lowered. Right lower extremity was then sterilely prepped and draped in the usual sterile fashion. OR-wide time-out was performed. The patient received 1 g of vancomycin. At this time, right lower extremity was exsanguinated. Tourniquet was insufflated to 250 mmHg. Standard anterolateral portal incision was made. Scope trocar was introduced. The patellar component showed no significant overgrowth, and there was no erythema noted in the suprapatellar compartment and no effusion was noted. Attention was turned to the medial compartment. At this time, with the use of a spinal needle, anteromedial portal was created. There was noted to be a minor amount of scar tissue that was in between the poly and the femoral component in the medial gutter. This was then resected using a 4.0 full-radius resector. Attention was turned to the notch. The PCL post was intact. There were no other signs of damage or other issues. The lateral compartment showed again a minor amount of synovitis and overgrowth into the lateral gutter. This was then resected back to a stable rim. There was no other component of malalignment or other issues noted. Excess saline was drained from the knee. 3-0 nylon suture was used for closure of the skin. The patient tolerated the procedure well and was sent to PACU in stable condition. MMODAL /[id number]
== END 2020-05-07 13:24 | disposition home or self-care (01) ==
LOC: JD.SDS 07:51
PROVIDERS: ATTEND Orthopaedic Surgery
DX: M65.861 Other synovitis and tenosynovitis, right lower leg (principal); J45.909 Unspecified asthma, uncomplicated; F41.9 Anxiety disorder, unspecified; F32.9 Major depressive disorder, single episode, unspecified; K21.9 Gastro-esophageal reflux disease without esophagitis; G47.09 Other insomnia; F40.9 Phobic anxiety disorder, unspecified; F43.10 Post-traumatic stress disorder, unspecified; F17.210 Nicotine dependence, cigarettes, uncomplicated; M81.0 Age-related osteoporosis without current pathological fracture; E66.9 Obesity, unspecified; M17.11 Unilateral primary osteoarthritis, right knee; Z11.59 Encounter for screening for other viral diseases; Z88.5 Allergy status to narcotic agent; Z88.7 Allergy status to serum and vaccine; Z88.6 Allergy status to analgesic agent; Z88.1 Allergy status to other antibiotic agents; Z88.0 Allergy status to penicillin; Z91.048 Other nonmedicinal substance allergy status; Z79.899 Other long term (current) drug therapy; Z68.25 Body mass index [BMI] 25.0-25.9, adult
CPT/HCPCS: 29875; 87641; A9270; J0171; J1170; J2001; J2250; J2405; J2704; J3010; J3370; J3490; J7050; J7120; U0002; 01400

== ENCOUNTER 2024-10-27 12:08 | Emergency (ER) | payer MEDICAID, MEDICARE ==
[2024-10-27] MEDS: Acetaminophen 325 MG Tab PO ONE (14:46)
[2024-10-27] MEDS: Benzonatate 100 MG Cap PO ONE (15:22)
[2024-10-27 15:26] VITALS: BP 136/81; PULSE 67
== END 2024-10-27 15:28 | disposition home or self-care (01) ==
LOC: JD.ED 12:08
DX: J10.1 Influenza due to other identified influenza virus with other respiratory manifestations (principal); K21.9 Gastro-esophageal reflux disease without esophagitis; E66.9 Obesity, unspecified; Z90.49 Acquired absence of other specified parts of digestive tract; Z90.710 Acquired absence of both cervix and uterus; Z79.899 Other long term (current) drug therapy; Z88.2 Allergy status to sulfonamides; Z88.7 Allergy status to serum and vaccine; Z91.048 Other nonmedicinal substance allergy status; Z88.6 Allergy status to analgesic agent; Z88.5 Allergy status to narcotic agent; Z91.018 Allergy to other foods; Z88.8 Allergy status to other drugs, medicaments and biological substances; Z88.0 Allergy status to penicillin; Z68.32 Body mass index [BMI] 32.0-32.9, adult
CPT/HCPCS: 87428; 99284; A9270